=== PATIENT | female | born 1965 | race Caucasian/White ===

== ENCOUNTER 2019-07-06 09:00 | Outpatient (RCR) | payer OTHER, SELFPAY ==
--- NOTE | 2019-06-14 13:51 | PTOPEVAL ---
PHYSICAL THERAPY EVALUATION AND PLAN OF CARE Thank you for referring this patient to [facility]. Gladys will be seen in physical therapy 1x/week for 4 weeks for left hip pain. Please review, sign, date and return this plan of care TRA. I agree with and certify that the following plan of care is medically necessary. Referring Physician Date Attending Provider: Cruz Loya MD Evaluation Outpatient Past Medical History Musculoskeletal History Hx Joint Replacement Yes: left NOEMY; Hx Other Musculoskeletal Disorders Yes: left knee pain Other History Hx Cancer Yes: renal cell carcinoma, R kidney removed Evaluation Information Problem Diagnosis left hip pain; 4 years s/p left NOEMY Cause insidious Subjective Information Gladys is here today with Query Text:As Reported By Patient/ complaint of left hip pain Family diagnosed as bursitis. experiences pain with dressing , putting on socks/shoes. Would experience an intense pain when trying to raise the left leg up to put on pants. She had a cortisone injection and this eased some of the intensity of pain. when zapping occured, it would generally subside almost immediately with mild residual pain. Pain Assessment Left Hip(s) Reported Pain Level 0 Pain Description Shooting Pain Frequency Acute,Intermittent Current Pain Intensity 0 Greatest Pain Intensity 9 Pain Score Pain Score 0: Self Report Hip Strength Right Hip Flexion Strength 5 Normal Hip Extension Strength 4 Good Hip Abduction Strength 4 Good Hip Strength Comments single leg stand: 10seconds Left Hip Flexion Strength 4+ Good + Hip Extension Strength 3 Fair Hip Abduction Strength 3- Fair - Hip Strength Comments single leg stand: significnat corrective reactions at hip, hold [id number] Knee Strength Bilateral Knee Flexion Strength 5 Normal Knee Extension Strength 5 Normal Muscle Length Testing Piriformis w/Hip Flexion >90 Degrees (R) Moderate Tightness Palpation tender over ischial tuberosity and piriformis; mild glute med and max atrophy Gait Assessment Trendelenburg Gait Other Ga
--- NOTE | 2019-07-11 18:10 | PCPTNOTE ---
Patient called & cancelled scheduled appointment on 07/12/2019 as patient was released from PT by .
--- NOTE | 2019-07-11 18:10 | PCPTNOTE ---
PHYSICAL THERAPY DISCHARGE NOTE Attending Provider: Cruz Loya MD Patient:Gladys Todd Date of :1965 Gladys called to cancel her re-evaluation appointment as she was released from PT by . She will be discharged at this time. The goals have not been assessed.. Thank you for referring this patient to [facility]. Please review, sign, date and return this discharge summary TRA. I have been updated about the patient's current status and I agree with discharge from the above service at this time. Referring Physician Date
== END 2019-07-12 08:13 | disposition home or self-care (01) ==
LOC: ANHPT 09:00
PROVIDERS: PCP Internal Medicine; Visit Provider Orthopaedic Surgery
DX: M70.62 Trochanteric bursitis, left hip (principal); M25.552 Pain in left hip; Z96.642 Presence of left artificial hip joint
CPT/HCPCS: 97110; 97161

== ENCOUNTER 2020-07-16 08:56 | Outpatient (CLI) | payer OTHER, SELFPAY | END 2020-07-16 08:57 | disposition home or self-care (01) | LOC: ANHCOVIDVC 08:56 | PROVIDERS: PCP Internal Medicine | DX: Z23 Encounter for immunization (principal) | CPT/HCPCS: 0001A; 91300 ==

== ENCOUNTER 2020-08-06 08:57 | Outpatient (CLI) | payer OTHER, SELFPAY | END 2020-08-06 08:58 | LOC: ANHCOVIDVC 08:57 | PROVIDERS: PCP Internal Medicine | DX: Z23 Encounter for immunization (principal) | CPT/HCPCS: 0002A; 91300 ==

== ENCOUNTER 2022-02-05 01:17 | Day surgery (SDC) | payer OTHER, SELFPAY ==
[2022-01-18 14:16] VITALS: BMI 18.6
[2022-02-05 12:11] VITALS: BP 126/68; PULSE 79; RESP 20; TEMP 36.8; O2SAT 97
[2022-02-05] MEDS: LACTATED RINGERS 1,000 ML 150 ML IV CONT (12:45)
--- NOTE | 2022-02-05 12:53 | WPDANESEPPF ---
Anes - Initial Pre Proc Eval Procedure: Operation Date: 02/05/22 13:30 Proposed Procedures p Esophagogastroduodenoscopy & Screening Colonoscopy - Sean Granados MD Date/Time: 02/05/22 12:53 Surgeon: Sean Granados MD Pre Op Diagnosis: dysphagia, neoplasm screening, hx colon polyps Patient Data Age: 56 Gender: F Height: 1.7 m Weight: 52.9 kg Last Vital Signs Temp 98.3 F 02/05/22 12:11 Pulse 79 02/05/22 12:11 Resp 20 02/05/22 12:11 BP 126/68 02/05/22 12:11 Pulse Ox 97 02/05/22 12:11 O2 Del Method Room Air 02/05/22 12:11 Allergies Allergy/AdvReac Type Severity Reaction Status Date / Time No Known Allergies Allergy Verified 02/05/22 12:18 Home Medications Medication Instructions Recorded Confirmed Type albuterol sulfate 90 mcg/actuation 2 puff inhalation Q4H PRN 11/27/21 02/05/22 History aerosol inhaler (ProAir HFA) Shortness Of Breath alprazolam 1 mg tablet 1 mg PO TID PRN Anxiety 11/27/21 02/05/22 History atorvastatin 20 mg tablet 20 mg PO DAILY 11/27/21 02/05/22 History calcium carbonate 1,000 mg-vitamin 1 tablet PO DAILY 12/01/21 02/05/22 History D3 20 mcg (800 unit) tablet hydrocodone 7.5 mg-acetaminophen 1 tablet PO QHS PRN Pain 12/01/21 02/05/22 History 325 mg tablet Patient hx anesthesia problems: none Family hx anesthesia problems: none Results Review: All pre-operative results and documents have been reviewed as part of the pre-operative evaluation. [facility] Past Medical History Medical History Anxiety Asthma Atrial fibrillation Colon polyps Depressive disorder Dysphagia Greater trochanteric pain syndrome Malignant neoplasm of kidney Osteoarthritis Sarcoidosis Spinal stenosis of lumbar region Stricture of esophagus Tobacco dependence syndrome Vitamin D deficiency Surgical History Surgical History History of left hip replacement Family History Family History Mother Family history of malignant neoplasm of breast in first degree relative Other Cerebrovascular accident Family history of cardiovascular disease Social History Social History Smoking packs per day: 1 Smoking cigarettes per day: 20.0 Years smoked: 43 Smoking pack-years: 43.00 Smoking status: Current every day smoker Tobacco type: cigarettes Alcohol intake: current Drinks per week: 2 Alcohol use details: social Substance use: never Substance use type: does not use Living arrangements: with family Spiritual care concerns: No Anes - Eval Final PreProcedure Day of Procedure 02/05/22 12:53 Patient weight: normal Heart: regular rate and rhythm Lungs: clear to auscultation Airway: Mallampati scale class II Neurological: alert and oriented Last oral intake: >/= 8 hours ASA classification: II Emergent: no Anesthetic plan: proceed Anesthesia type and monitoring: general GIVS and standard monitoring Results Review: All pre-operative results and documents have been reviewed as part of the pre-operative evaluation. Informed Consent: The patient's anesthetic plan and its attendant risks and benefits were discussed with the patient/family/POA. Questions were solicited and answers provided to the satisfaction of the patient/family/POA.
--- NOTE | 2022-02-05 13:08 | PM.HPGS ---
History of Present Illness History of Present Illness Consent: Risks, benefits, and alternatives have been discussed and questions answered. Patient agrees to proceed with procedure. Chief complaint: dysphagia, neoplasm screening, hx colon polyps Narrative: Gladys Todd is a 56 year old female who is having a couple of issues.? She has chronic acid reflux disease.? Now she is also losing weight, having lost about 6 lb recently.? The weight loss she attributes to being very active and busy with work around the yd? she has had dysphagia from time to time for solid food.? About 15 years ago she required esophageal dilatation for a stricture and that procedure was done a couple of times but not since 2006.? She also subsequently developed renal cell carcinoma for which she had a nephrectomy of her right kidney.? Ever since then she has felt what she calls a gas pain in the lower chest upper abdomen.? Review of Systems Review of Systems: All systems reviewed & are unremarkable except as noted in HPI and below PMFSH Past Medical History Medical History Anxiety Asthma Atrial fibrillation Colon polyps Depressive disorder Dysphagia Greater trochanteric pain syndrome Malignant neoplasm of kidney Osteoarthritis Sarcoidosis Spinal stenosis of lumbar region Stricture of esophagus Tobacco dependence syndrome Vitamin D deficiency Surgical History Surgical History History of left hip replacement Family History Family History Mother Family history of malignant neoplasm of breast in first degree relative Other Cerebrovascular accident Family history of cardiovascular disease Social History Social History Smoking packs per day: 1 Smoking cigarettes per day: 20.0 Years smoked: 43 Smoking pack-years: 43.00 Smoking status: Current every day smoker Tobacco type: cigarettes Alcohol intake: current Drinks per week: 2 Alcohol use details: social Substance use: never Substance use type: does not use Living arrangements: with family Spiritual care concerns: No Meds Home Medications and Allergies Home Medications Medication Instructions Recorded Confirmed Type albuterol sulfate 90 mcg/actuation 2 puff inhalation Q4H PRN 11/27/21 02/05/22 History aerosol inhaler (ProAir HFA) Shortness Of Breath alprazolam 1 mg tablet 1 mg PO TID PRN Anxiety 07/22/22 09/30/22 History atorvastatin 20 mg tablet 20 mg PO DAILY 11/27/21 02/05/22 History calcium carbonate 1,000 mg-vitamin 1 tablet PO DAILY 12/01/21 02/05/22 History D3 20 mcg (800 unit) tablet hydrocodone 7.5 mg-acetaminophen 1 tablet PO QHS PRN Pain 12/01/21 02/05/22 History 325 mg tablet Allergies Allergy/AdvReac Type Severity Reaction Status Date / Time No Known Allergies Allergy Verified 02/05/22 12:18 Vital Signs Vital Signs - 24 hr 02/05/22 12:11 Temperature 36.8 C Pulse Rate 79 Respiratory Rate 20 Blood Pressure 126/68 Pulse Oximetry 97 Oxygen Delivery Room Air Exam Const: General: alert Orientation/consciousness: patient oriented x3 Resp: Auscultation: clear to auscultation bilaterally Cardio: Rhythm: regular rhythm GI: GI Palp: Yes Soft to palpation and No Tenderness to palpation present (GI) Neuro: General: patient oriented x3 Assessment and Plan Assessment and plan (1) Dysphagia: Code(s): R13.10 - Dysphagia, unspecified Status: Acute Assessment and Plan: EGD with possible biopsy or dilatation or cautery. (2) Colon cancer screening: Code(s): Z12.11 - Encounter for screening for malignant neoplasm of colon Status: Acute Assessment and Plan: Colonoscopy with possible biopsy or polypectomy or cautery or injection of substances.
--- NOTE | 2022-02-05 13:39 | SUR.OPER ---
EGD: [id number] COLON: [id number]
[2022-02-05 13:51] VITALS: BP 128/60; PULSE 85; RESP 20; O2SAT 100
[2022-02-05 14:01] VITALS: BP 127/90; PULSE 80; RESP 21; O2SAT 100
[2022-02-05 14:11] VITALS: BP 129/76; PULSE 75; RESP 23; O2SAT 100
== END 2022-02-05 14:31 | disposition home or self-care (01) ==
PROVIDERS: PCP Internal Medicine; Visit Provider Internal Medicine Gastroenterology
PROC: 0DJ08ZZ Inspection of Upper Intestinal Tract, Via Natural or Artificial Opening Endoscopic (ICD-10-PCS; CPT 43235; principal; 2022-02-05 13:30)
DX: Z12.11 Encounter for screening for malignant neoplasm of colon (principal); K21.00 Gastro-esophageal reflux disease with esophagitis, without bleeding; R10.13 Epigastric pain; K22.2 Esophageal obstruction; K29.70 Gastritis, unspecified, without bleeding; K29.80 Duodenitis without bleeding; F41.9 Anxiety disorder, unspecified; I48.91 Unspecified atrial fibrillation; F32.A Depression, unspecified; J45.909 Unspecified asthma, uncomplicated; M19.90 Unspecified osteoarthritis, unspecified site; D86.9 Sarcoidosis, unspecified; M48.061 Spinal stenosis, lumbar region without neurogenic claudication; E55.9 Vitamin D deficiency, unspecified; F17.210 Nicotine dependence, cigarettes, uncomplicated; Z90.5 Acquired absence of kidney; Z85.528 Personal history of other malignant neoplasm of kidney
CPT/HCPCS: 45378; 43239; 43249; 87081; 88305; C1726; J2704; J7120

== ENCOUNTER 2022-06-18 07:55 | Outpatient (CLI) | payer OTHER, SELFPAY ==
--- NOTE | 2022-06-18 12:06 | WPDSIXMINUTE ---
Six Minute Walk Procedure Procedure Performed Pulmonary Stress Test (6 min walk) Six Minute Walk Six Minute Walk: This is a 6 minute walk test. The test was performed and interpreted in accordance with the 2014 ERS/ATS task force guidelines. Findings: The patient's resting room air oxygen saturation measured by pulse oximetry was 94% and heart rate was 89 bpm. Patient ambulated for 427 meters and oxygen saturation remained 93 to 95%. Heart rate at the end of the study was 100 bpm. The patient did not qualify for supplemental oxygen at rest or with ambulation. There are no prior studies for comparison.
== END 2022-06-18 07:56 | disposition home or self-care (01) ==
LOC: ANHPFT 07:56
PROVIDERS: PCP Internal Medicine; Visit Provider Nurse Practitioner
DX: D86.9 Sarcoidosis, unspecified (principal)
CPT/HCPCS: 94618

== ENCOUNTER 2022-10-05 13:50 | Emergency (ER) | payer OTHER, SELFPAY ==
[2022-10-05] VITALS (11 sets, daily range): BP systolic 125–148; BP diastolic 72–90; PULSE 73–88; RESP 12–25; TEMP 36.4; O2SAT 97–99
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
--- NOTE | 2022-10-05 14:39 | ECG_ITS ---
Measurements Intervals [place] Rate: 69 P: 79 NC: 152 QRS: 15 QRSD: 82 T: 56 QT: 375 QTc: 404 Interpretive Statements SINUS RHYTHM POSSIBLE LEFT ATRIAL ENLARGEMENT DELAYED PRECORDIAL R/S TRANSITION BASELINE ARTIFACT- I, II, III, AVR, AVL, AVF BORDERLINE ECG NO PREVIOUS ECG AVAILABLE FOR COMPARISON Electronically Signed On 10-05-2022 15:39:52 CDT by Reg Lisa D.O.
[2022-10-05 14:57] LABS: Basophils Absolute Auto 0.1 K/mm3 (0.0-0.1); Basophils Percent Auto 0.4 % (0.2-1.2); Eosinophils Percent Auto 0.3 % (0-4.4); Hematocrit 38.8 % (37.0-47.0); Hemoglobin 13.2 g/dL (12.0-15.0); Immature Granulocyte Absolute 0.07 K/mm3 (0.00-0.031); Immature Granulocyte Percent A 0.5 % (0-0.5); Lymphocytes Absolute Auto 2.13 K/mm3 (0.9-3.2); Lymphocytes Percent Auto 15.1 % (18.3-44.2); Mean Corpuscular Hemoglobin 31.7 pg (26-34); Mean Corpuscular Volume 93.3 fl (80-100); Mean Platelet Volume 9.4 fl (7.4-10.4); Monocytes Absolute Auto 1.1 K/mm3 (0.1-0.6); Monocytes Percent Auto 7.5 % (2.6-8.5); Neutrophils Absolute Auto 10.7 K/mm3 (1.3-6.7); Neutrophils Percent Auto 76.2 % (45.5-73.1); Platelet Count Result 348 k/mm3 (150-375); Red Blood Count 4.16 M/mm3 (4.2-5.4); Red Cell Distribution Width 12.5 % (11.5-14.5); White Blood Count 14.1 K/mm3 (4.5-10.0)
[2022-10-05 15:07] LABS: Alanine Aminotransferase 26 U/L (6-35); Albumin Level 4.4 g/dL (3.5-5.1); Alkaline Phosphatase 78 U/L (38-126); Anion Gap 4 mmol/L (8-16); Aspartate Amino Transferase 33 U/L (14-36); Bilirubin,Total 0.5 mg/dL (0.2-1.3); Blood Urea Nitrogen 12 mg/dL (7-17); Calcium 9.1 mg/dL (8.4-10.2); Carbon Dioxide 29 mmol/L (22-30); Chloride 102 mmol/L (98-107); Estimated CRCL calculation 58 ml/min; Estimated Glomerular Filt Rate > 60; Glucose 125 mg/dL (65-110); Potassium 4.1 mmol/L (3.4-5.0); Sodium 135 mmol/L (137-145)
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
== END 2022-10-05 20:11 | disposition home or self-care (01) ==
PROVIDERS: Emergency Provider Emergency Medicine; PCP Internal Medicine
DX: S09.93XA Unspecified injury of face, initial encounter (principal); S40.211A Abrasion of right shoulder, initial encounter; M79.641 Pain in right hand; J45.909 Unspecified asthma, uncomplicated; I48.91 Unspecified atrial fibrillation; D86.9 Sarcoidosis, unspecified; M18.9 Osteoarthritis of first carpometacarpal joint, unspecified; M19.041 Primary osteoarthritis, right hand; E55.9 Vitamin D deficiency, unspecified; F41.9 Anxiety disorder, unspecified; F32.A Depression, unspecified; F17.210 Nicotine dependence, cigarettes, uncomplicated; Z96.642 Presence of left artificial hip joint; Z86.010 Personal history of colon polyps; Z85.528 Personal history of other malignant neoplasm of kidney; R94.31 Abnormal electrocardiogram [ECG] [EKG]; R91.1 Solitary pulmonary nodule; V86.55XA Driver of 3- or 4- wheeled all-terrain vehicle (ATV) injured in nontraffic accident, initial encounter
CPT/HCPCS: 36415; 70450; 70486; 72125; 73130; 80053; 85025; 93005; 99284

== ENCOUNTER 2022-12-15 08:02 | Outpatient (CLI) | payer OTHER, SELFPAY ==
--- NOTE | 2022-12-17 12:29 | P.PCNPFT_ITS ---
PFT Procedure Performed PFT Procedure Performed Spirometry with Pre/Post Bronchodilator Plethysmography (Lung Vol) Diffusing Cap (DLCO) Flow Vol Loop PFT Interpretation DOS: 12/15/2022 REQUESTING: Lissette Diaz [facility] REASON FOR TESTING: COPD PULMONARY FUNCTION TESTS Results are reliable and reproducible. Spirometry: FEV1 is 1.01L, 36%, severely decreased. FVC is 2.50 L, mildly decreased. FEV1/FVC ratio is 41%, below normal, consistent with airflow obstruction. After bronchodilator, there os a 25% increase in FEV1 which is 1.27 L, 45% predicted, and there is a 22% increase in FVC, 3.05 L, now normal. THe FVC is now 85% and the FEV1 is 45%. The ration after bronchodilator is 42%. Lung volumes: TLC 6.84 L, 125%, mild hyperinflation. RV is 4.34 L, 207%, severely increased, severe air trapping. RV/TLC is 63%, severe air trapping. Diffusion: DLCO is 10.7, 47%, moderate diffusion defect. DLCO/VA is 2.68, 68%, mild diffusion impairment. Flow volume loop: Severe scooping of hte expiratory limb. IMPRESSION: Extremely severe obstructive ventilatory impairment with robust response to bronchodilator, mild hyperinflation, sevree air trapping, moderate diffusion impaimrent with partial correction for alveolar volume. No prior study to compare. Tammy Rojas MD
== END 2022-12-15 08:03 | disposition home or self-care (01) ==
LOC: ANHPFT 08:02
PROVIDERS: PCP Internal Medicine; Visit Provider Nurse Practitioner
DX: J44.9 Chronic obstructive pulmonary disease, unspecified (principal); R94.2 Abnormal results of pulmonary function studies
CPT/HCPCS: 94060; 94726; 94729

== ENCOUNTER 2023-04-09 09:44 | Outpatient (CLI) | payer OTHER, SELFPAY ==
--- NOTE | ~2023-04-09 | MR_ITS ---
MRI of the lumbar spine Clinical History: Sciatica Technique: Axial T2-weighted images, and sagittal T1-weighted, T2-weighted, and and T2 fat-sat images were acquired. Findings: No fracture identified. There is 3 mm retrolisthesis of L5 over S1. No suspicious bone brigid ow signal abnormality seen. At L1-L2, there is no disc bulge or herniation. There is minimal facet joint degenerative change. No spinal canal stenosis or neural foraminal narrowing. At L2-L3, there is no disc bulge or herniation. There is minimal facet joint hypertrophy. No spinal c anal stenosis or neural foraminal narrowing. At L3-L4, there is minimal disc bulge with mild to moderate facet arthropathy. No central canal steno sis or neural foraminal narrowing. At L4-L5, there is minimal disc bulge with mild facet arthropathy. No central canal stenosis or neura l foraminal narrowing. At L5-S1, there is a small central disc extrusion, with mild facet arthropathy. No central canal sten osis. There is severe bilateral neural foraminal narrowing, left worse than right. Paravertebral soft tissues are unremarkable. Impression: Moderate degenerative spondylosis at L5-S1, with associated very small central disc extrusion. Please see details above. Minimal degenerative change in the remainder of the lumbar spine, as above. Reviewed, dictated and finalized at [facility]. ERY HOST Impression: Moderate degenerative spondylosis at L5-S1, with associated very small central disc extrusion. Please see details above. Minimal degenerative change in the remainder of the lumbar spine, as above.
== END 2023-04-09 09:45 | disposition home or self-care (01) ==
LOC: ANHIMG 09:46
PROVIDERS: PCP Internal Medicine; Visit Provider Orthopaedic Surgery
DX: M47.897 Other spondylosis, lumbosacral region (principal); M51.36 Other intervertebral disc degeneration, lumbar region
CPT/HCPCS: 72148

== ENCOUNTER 2023-09-01 13:28 | Outpatient (CLI) | payer OTHER, SELFPAY ==
--- NOTE | ~2023-09-01 | XR_ITS ---
EXAMINATION: XR lg joint inject/asp w image DATE: 09/01/2023 14:30 INDICATION: Right frozen shoulder TECHNIQUE: A time-out was performed to verify the patient's name, date of , and procedure to b e performed. The procedure including the risks, benefits, and alternatives was discussed with the pat ient. Risks discussed included bleeding and infection. The patient understood the risks and agreed to proceed. The skin overlying the rotator cuff interval of the right glenohumeral joint was prepped a nd draped in usual sterile fashion. Anesthetic was administered with 1% lidocaine subcutaneously. A 22 G needle was advanced under fluoroscopic guidance into the joint. Injection of 1 mL of Omnipaque 240 confirmed intra-articular position of the needle. Subsequently, injectate consisting of 6 mm a 5 1 mixture of 1% lidocaine: 80 mg/mL Depo-Medrol for a total dosage of 80 mg Depo-Medrol was instill ed. Washout of contrast was seen confirming intra-articular administration. The needle was removed an d the entry site was cleaned and dressed. There were no immediate complications. Fluoroscopy exposur e time was 0.1 minutes. The total number of images was 2. FINDINGS: Real-time fluoroscopy demonstrates the needle in the right glenohumeral joint. Patient's pa in prior to procedure:7/10. Patient's pain following the procedure: 0/10. IMPRESSION: 1. Successful right glenohumeral joint injection of local anesthetic and steroid with decrease in the patient's presenting pain. Reviewed, dictated and finalized at location A. IMPRESSION: 1. Successful right glenohumeral joint injection of local anesthetic and steroi d with decrease in the patient's presenting pain.
== END 2023-09-01 13:29 | disposition home or self-care (01) ==
PROVIDERS: PCP Internal Medicine; Visit Provider Orthopaedic Surgery
DX: M75.01 Adhesive capsulitis of right shoulder (principal)
CPT/HCPCS: 20610; 77002; Q9966

== ENCOUNTER 2023-09-13 08:42 | Outpatient (CLI) | payer OTHER, SELFPAY ==
--- NOTE | ~2023-09-13 | MR_ITS ---
EXAMINATION: MR cervical spine wo con DATE: 09/13/2023 10:07 INDICATION: Unspecified injury at unspecified level. Neck and right shoulder pain. Cervical spondylos is. TECHNIQUE: Magnetic resonance imaging (MRI) of the cervical spine was performed without intravenous c ontrast. COMPARISON: Cervical spine MRI 03/27/2014 FINDINGS: There is a degrees dextrocurvature of cervical spine. There is 2 mm retrolisthesis of C4 on C5, C5 on C6, and C6 on C7. There is mild chronic anterior wedging of T2-T5 vertebral bodies. There is moderately decreased disc height at C4-C5 and severely decreased disc height at C5-C6 and C6-C7. T he spinal cord signal intensity is normal. There are nodules in the thyroid measuring up to 1.8 cm. T he following disc levels are specifically discussed: C2-C3: The disc does not extend beyond the endplate margin. There is no uncovertebral joint osteoarth ritis. There is severe bilateral facet joint osteoarthritis. There is mild left neural foraminal sten osis. There is no central canal stenosis. C3-C4: The disc does not extend beyond the endplate margin. There is no uncovertebral joint osteoarth ritis. There is severe bilateral facet joint osteoarthritis. There is mild bilateral neural foraminal stenosis. There is no central canal stenosis. C4-C5: The disc is bulging. There is severe bilateral uncovertebral joint osteoarthritis. There is mo derate right and severe left facet joint osteoarthritis. There is moderate bilateral neural foraminal stenosis. There is mild central canal stenosis with ventral indentation of the spinal cord. C5-C6: The disc is bulging. There is severe bilateral uncovertebral joint osteoarthritis. There is se angella bilateral facet joint osteoarthritis. There is moderate bilateral neural foraminal stenosis. The re is mild central canal stenosis with potential indentation of the spinal cord. C6-C7: The disc is bulging. There is severe bilateral uncovertebral joint osteoarthritis. There is se angella bilateral facet joint osteoarthritis. There is mild lateral neural foraminal stenosis. There is mild central canal stenosis. C7-T1: The disc does not extend beyond the endplate margin. There is no uncovertebral joint osteoarth ritis. There is severe bilateral facet joint osteoarthritis. There is mild bilateral neural foraminal stenosis. There is no central canal stenosis. IMPRESSION: 1. Severe cervical spondylosis, worsened from 03/27/2014. Reviewed, dictated and finalized at location A.
== END 2023-09-13 08:43 | disposition home or self-care (01) ==
PROVIDERS: PCP Internal Medicine; Visit Provider Neurological Surgery
DX: S14.109A Unspecified injury at unspecified level of cervical spinal cord, initial encounter (principal); M47.812 Spondylosis without myelopathy or radiculopathy, cervical region; X58.XXXA Exposure to other specified factors, initial encounter
CPT/HCPCS: 72141

== ENCOUNTER 2023-09-22 07:33 | Outpatient (CLI) | payer OTHER, SELFPAY ==
--- NOTE | ~2023-09-22 | US_ITS ---
EXAMINATION: US thyroid DATE: 09/22/2023 08:27 INDICATION: Thyroid nodule. TECHNIQUE: Multiple ultrasound images of the thyroid were obtained. COMPARISON: None. FINDINGS: The right thyroid lobe measures 4.8 x 2.2 x 2.3 cm. The left thyroid lobe measures 4.6 x 1.7 x 1.6 c m. In the right thyroid lobe, there is a 2.6 cm mixed cystic and solid, hypoechoic, wider than tall nodule with lobular margins without echogenic foci (TI-RADS TR4). In the right thyroid lobe, there is a 16 mm mixed cystic and solid, hypoechoic, taller than wide nodule with smooth margins without echo genic foci (TR4). In the right thyroid isthmus, there is a 2.1 cm solid, hypoechoic, wider than tall nodule with ill-defined margin without echogenic foci (TR4). There are multiple subcentimeter nodules in the thyroid. IMPRESSION: 1. Multinodular goiter. By report, the patient has a history of negative outside biopsies. Correlate with outside imaging and biopsy history to determine management. Reviewed, dictated and finalized at location E. IMPRESSION: 1. Multinodular goiter. By report, the patient has a history of negative outsid e biopsies. Correlate with outside imaging and biopsy history to determine parker gement.
== END 2023-09-22 07:34 | disposition home or self-care (01) ==
PROVIDERS: PCP Internal Medicine; Visit Provider Internal Medicine Endocrinology, Diabetes & Metabolism
DX: E04.2 Nontoxic multinodular goiter (principal)
CPT/HCPCS: 76536

== ENCOUNTER 2023-10-06 08:30 | Outpatient (RCR) | payer OTHER, SELFPAY ==
--- NOTE | 2023-09-08 10:08 | PTOPEVAL1 ---
Assessment and note entered by Rene Damico Evaluation Information Assessment Status Evaluation Diagnosis right shoulder adhesive capsulitis Onset 04/08/23 Subjective Information Pt. reports that she woke with shoulder pain back in April. No incident. She reports that the pain had gradually worsened, however received a cortisone injection last week, which has help to ease her pain. She reports that she is right hand dominant. She reports that pain has decreased tremendously, however she is still stiff with reaching behind the back and overhead. She reports that she has not had trouble with sleeping since the injection, but was having trouble prior to the injection. She states that her current limitations are in ROM at this time. 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 She reports that her goal for therapy is to improve her shoulder mobility. Reported Pain Level Pain Score 1: Self Report Assessment PT Clinical Summary Pt. is a 57 year old female who enters the clinic with right shoulder adhesive capsulitis. Currently pt. presents with right shoulder pain, impaired right shoulder ROM, impaired right shoulder strength and functional decline. Continued skilled PT is indicated in order to improve these areas to allow the pt. to be able to complete job related duties and IADL's with improved comfort. Plan of Care Interventions Electrical Stimulation,Hot Pack/Cold Pack,Manual Therapy,Neuro Re-education,Patient/Caregiver Educati,Therapeutic Activities,Therapeutic Exercise PT Services Indicated Yes Treatment Frequency and 2x/week x 8 visits Duration These treatments will address the objective and functional deficits as defined above. The patient will be advanced safely and appropriately in order for the patient to progress towards his/her prior level of function. Additional exercises will be introduced and as well as a comprehensive home exercise program upon discharge, if needed, ?to ensure carryover of functional gains achieved in the clinic. This treatment plan has been reviewed and agreement upon by the patient.
--- NOTE | 2023-09-08 10:09 | OPREHPOC ---
Outpatient Therapy Plan of Care This is a Multidisciplinary Plan of Care that may contain components documented by all disciplines (PT, OT, and ST.) PT Problem 1 PT Problem #1 Knowledge Deficit PT Goal 1 Goal Independent with a HEP addressing ROM jehovah's witness and strength Target Visit 2 PT Problem 2 PT Problem #2 Pain PT Goal 1 Goal Pt. will report pain levels at 2/10 at worst with all overhead activities. Target Visit 8 PT Problem 3 PT Problem #3 Impaired Range of Motion PT Goal 1 Goal Pt. will demonstrate 160 degrees active right shoulder flexion Pt. will be able to reach to the upper thoracic region with the right u.e. with combined flexion and ER Target Visit 8 PT Problem 4 PT Problem #4 Impaired Strength PT Goal 1 Goal Pt. will present with 5/5 gross right shoulder strength. Target Visit 8 PT Problem 5 PT Problem #5 Impaired Functional Mobil PT Goal 1 Goal Pt. will present with less than 10% limitation with the Quick DASH. Target Visit 8
--- NOTE | 2023-09-08 10:15 | OPREHPOC ---
Outpatient Therapy Plan of Care This is a Multidisciplinary Plan of Care that may contain components documented by all disciplines (PT, OT, and ST.) PT Problem 1 PT Problem #1 Knowledge Deficit PT Goal 1 Goal Independent with a HEP addressing ROM taoism and strength Target Visit 2 PT Problem 2 PT Problem #2 Pain PT Goal 1 Goal Pt. will report pain levels at 2/10 at worst with all overhead activities. Target Visit 8 PT Problem 3 PT Problem #3 Impaired Range of Motion PT Goal 1 Goal Pt. will demonstrate 160 degrees active right shoulder flexion Pt. will be able to reach to the upper thoracic region with the right u.e. with combined flexion and ER Target Visit 8 PT Problem 4 PT Problem #4 Impaired Strength PT Goal 1 Goal Pt. will present with 5/5 gross right shoulder strength. Target Visit 8 PT Problem 5 PT Problem #5 Impaired Functional Mobil PT Goal 1 Goal Pt. will present with less than 10% limitation with the Quick DASH. Target Visit 8
--- NOTE | 2023-10-04 07:46 | PCPTNOTE ---
Cancelled this date, reason unknown. AKS
--- NOTE | 2023-10-06 09:24 | PTOPDC ---
Assessment and note entered by Rene Damico Evaluation Information Assessment Status Discharge Diagnosis right shoulder adhesive capsulitis Onset 04/08/23 Subjective Information Pt. reports that her mobility is definitely improved. She reports that she still get twinges of pain, but for the most part is pain free. She is completing all work related duties without limitation. She states that she is ready for discharge at this time Reported Pain Level Pain Score 0: Self Report Assessment PT Clinical Summary Pt. has met the majority of goals established at the initial evaluation. Pain reports are minimal and she is completing all work related duties without limitation. At this time recommend pt. continue with her HEP and will be discharged from our care at this time. Plan of Care PT Services Indicated No
== END 2023-10-06 10:07 | disposition home or self-care (01) ==
LOC: ANHPT 08:30
PROVIDERS: PCP Internal Medicine; Visit Provider Orthopaedic Surgery
DX: M75.01 Adhesive capsulitis of right shoulder (principal)
CPT/HCPCS: 97014; 97110; 97140; 97161; 97530; G0283

== ENCOUNTER 2024-01-30 13:47 | Outpatient (CLI) | payer OTHER, SELFPAY ==
--- NOTE | ~2024-01-30 | XR_ITS ---
EXAMINATION: XR lg joint inject/asp w image DATE: 01/30/2024 14:18 INDICATION: Unilateral primary osteoarthritis, right hip. TECHNIQUE: A time-out was performed to verify the patient's name, date of , and procedure to b e performed. The procedure including the risks, benefits, and alternatives was discussed with the pat ient. Risks discussed included bleeding and infection. The patient understood the risks and agreed to proceed. The skin overlying the right hip joint was prepped and draped in usual sterile fashion. A nesthetic was administered with 1% lidocaine subcutaneously. A 22 G needle was advanced under fluoro scopic guidance into the joint. Subsequently, injectate consisting of 4 mL 0.5% bupivacaine and 1 mL 80 mg/mL Depo-Medrol was instilled. The needle was removed and the entry site was cleaned and dress ed. There were no immediate complications. Fluoroscopy exposure time was 0.1 minutes. The total numb er of images was 1. FINDINGS: Real-time fluoroscopy demonstrates the needle in the right hip joint. Patient's pain prior to procedure:09/15. Patient's pain following the procedure: 05/18. IMPRESSION: 1. Fluoroscopy guided right hip joint injection of local anesthetic and steroid with decrease in the patient's presenting pain. Reviewed, dictated and finalized at location A.
== END 2024-01-30 13:48 | disposition home or self-care (01) ==
PROVIDERS: PCP Internal Medicine; Visit Provider Orthopaedic Surgery
DX: M16.11 Unilateral primary osteoarthritis, right hip (principal)
CPT/HCPCS: 20610; 77002; Q9966

== ENCOUNTER 2024-03-01 08:00 | Outpatient (RCR) | payer OTHER, SELFPAY ==
--- NOTE | 2024-02-02 13:31 | OPREHPOC ---
Outpatient Therapy Plan of Care This is a Multidisciplinary Plan of Care that may contain components documented by all disciplines (PT, OT, and ST.) PT Problem 1 PT Problem #1 Knowledge Deficit PT Goal 1 Goal / Goal Update *indep with HEP Target Visit 4 PT Problem 2 PT Problem #2 Pain PT Goal 1 Goal / Goal Update 1* pain rating at worst of 8/10 in neck 2* Neck Disability Index rating of 68% limitation in activity Target Visit 4 PT Problem 3 PT Problem #3 Impaired Range of Motion PT Goal 1 Goal / Goal Update increase cervical and shoulder ROM to improve home and work task ability 1* cervical rotation to R 40' 2* cervical rotation to L 30' 3* R shoulder flexion 120' without an increase in pain 4* L shoulder flexion 120' withou garcia increase in pain Target Visit 4
--- NOTE | 2024-02-02 13:31 | PTOPEVAL1 ---
Assessment and note entered by Ana Cristina Callahan, PT Evaluation Information ICD-10 Condition Codes (PT) Cervicalgia M54.2,Pain in low back M54.50 Onset about 3 years ago Subjective Information have chronic pain in neck and back; about 3 years ago started getting worse; have had PT in the past for her neck, over 2 years ago-- have a home stim unit, home neck traction unit, stretching exercises; under care of pain management; sent to PT and may need nerve ablation; is going through Social Security to get medical disability; MRI of neck--showed changes at all levels per pt; feels like her back is mainly due to her hip OA-- to have THR on R; have had L THR in past. 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 She reports neck is more pain and wants to start on neck treatment. Self assessment with Neck Disability Index rating of 76% limitation in activity level. At this time, she has shoulder pain, but not any radicular pain into arms. And headaches every night. X ray and MRI report changes. 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 With the evaluation, she has decreased cervical and bilateral shoulder ROM with pain increase with cervical rotation to R an
--- NOTE | 2024-03-01 09:03 | PTOPDC ---
Assessment and note entered by Cassius Reynaga, PT Evaluation Information Assessment Status Discharge ICD-10 Condition Codes (PT) Cervicalgia M54.2,Pain in low back M54.50 Onset about 3 years ago Subjective Information Patient reports that majority of her pain has been in the neck over this time. States that she has a hip replacement scheduled for May of 2024. 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 She is still having a lot of trouble sleeping due to pain and discomfort. Plans to follow up with MD to proceed with nerve block. Reported Pain Level Pain Score 4: Self Report Assessment PT Clinical Summary Patient continues to show substantial limitation in cervical ROM at this time. Shoulder activation triggers cervical pain and ROM limited in multiple directions. At this point patient appears to be a candidate for continued medical intervention per MD plan. Will be discharged at this time to HEP to progress periscapular strength and postural training. Plan of Care PT Services Indicated No
== END 2024-03-01 10:30 | disposition home or self-care (01) ==
LOC: ANHPT 08:00
PROVIDERS: PCP Internal Medicine; Visit Provider Anesthesiology Pain Medicine
DX: M47.812 Spondylosis without myelopathy or radiculopathy, cervical region (principal); M54.2 Cervicalgia; M48.02 Spinal stenosis, cervical region; M54.50 Low back pain, unspecified; G89.29 Other chronic pain; M48.07 Spinal stenosis, lumbosacral region
CPT/HCPCS: 97110; 97113; 97140; 97161; 97530

== ENCOUNTER 2024-06-26 06:31 | Day surgery (SDC) | payer OTHER, SELFPAY ==
[2024-06-05 13:56] VITALS: BMI 21.3
--- NOTE | ~2024-06-26 | XR_ITS ---
XR fluoroscopy no charge Indication: Bilateral C2-3, C3-4 medial branch block TECHNIQUE: Fluoroscopy used during Bilateral C2-3, C3-4 medial branch block performed by [Everardo Pop MD] on 06/26/2024. 28 seconds with 27 fluoroscopic images captured . FINDINGS: Correlate with procedure note. IMPRESSION: Fluoroscopy used during Bilateral C2-3, C3-4 medial branch block. Reviewed, dictated and finalized at location B. [facility]
--- NOTE | 2024-06-26 05:19 | P.HP_ITS ---
History of Present Illness History of Present Illness Consent: Risks, benefits, and alternatives have been discussed and questions answered. Patient agrees to proceed with procedure. Chief complaint: cervical spondylosis, chronic neck pain Narrative: Gladys Todd is a 58 year old female with chronic, recalcitrant and disabling bilateral upper segment cervicalgia secondary to degenerative spondylosis with failure to respond to aggressive conservative measures including PT, oral and topical analgesics, opioid and nonopioid analgesics, rest, time and activity/behavioral modification over the past 1-2 years who presents for diagnostic/prognostic medial branch blocks of the bilateral C2-3, C3, C4 medial branches(#1) addressing the bilateral C2-3, C3-4 facet joints under fluoroscopic guidance and with contrast control. Review of Systems Review of Systems: Patient denies any new infectious, allergic, cardiopulmonary, neurologic or constitutional symptoms or changes in activity tolerance or exercise capacity including new or progressive SOB/RETANA, peripheral edema, productive cough, dysuria, nausea/vomiting, diarrhea, weight change, fevers/chills/night sweats, new or progressive neurologic deficit, cognitive or mood changes since last seen, except as documented in the HPI. All systems reviewed & are unremarkable except as noted in HPI and below PMFSH Past Medical History Medical History Spinal stenosis of lumbar region Colon polyps Osteoarthritis Sarcoidosis Tobacco dependence syndrome Greater trochanteric pain syndrome Stricture of esophagus Atrial fibrillation Malignant neoplasm of kidney Dysphagia Depressive disorder Anxiety Asthma Vitamin D deficiency Surgical History Surgical History History of nephrectomy, right History of left hip replacement Family History Family History Mother Breast cancer Grandparent Throat cancer Breast cancer Other Cerebrovascular accident Family history of cardiovascular disease Social History Social History (Updated 05/21/24 @ 14:14 by Samina Horne CMA) Years smoked: 43 Smoking status: Former smoker Tobacco type: cigarettes Second hand tobacco smoke exposure: Yes Smoking end date: 05/08/24 Alcohol intake: current Drinks per week: 2 Alcohol use details: social Substance use: never Substance use type: does not use Do You Feel Safe in your Home?: Yes Lack of Transportation: No Lack of Food: Never True Current Housing: I Have Housing Concerned About Future Housing: Decline to Answer Difficulty Paying Gas/Electric Bills: Decline to Answer Difficulty Paying for Meds: Decline to Answer Currently Unemployed: Decline to Answer Education: Decline to Answer Difficulty w/ Childcare or Family Care: Decline to Answer Living arrangements: with family Occupation/Education: occupation Additional occupation/education comments: [employer] Gender identity (if verbalized by the patient): Female Spiritual care concerns: No Meds Home Medications and Allergies Home Medications ?Medication ?Instructions ?Recorded ?Confirmed ?Type albuterol sulfate 90 mcg/actuation 2 puff inhalation Q4H PRN 11/27/21 06/05/24 History aerosol inhaler (ProAir HFA) Shortness Of Breath alprazolam 1 mg tablet 1 mg PO TID PRN Anxiety 11/27/21 06/05/24 History atorvastatin 20 mg tablet 20 mg PO DAILY 11/27/21 06/05/24 History hydrocodone 7.5 mg-acetaminophen 1 tablet PO QHS PRN Pain 12/01/21 06/05/24 History 325 mg tablet budesonide 160 mcg-glycopyr 9 2 inh inhalation BID 02/28/23 06/05/24 History mcg-formot 4.8 mcg/actuation HFA inhaler (Breztri Aerosphere) pantoprazole 40 mg tablet,delayed 40 mg PO QAM #90 tabs 05/13/23 06/05/24 Rx release (Protonix) ascorbic acid (vitamin C) 100 mg 100 mg PO DAILY 08/16/23 06/05/24 History tablet aspirin 81 mg chewable tablet 81 mg PO DAILY 08/16/23 06/05/24 History cholecalciferol (vitamin D3) 125 125 mcg PO .qod 08/16/23 06/05/24 History mcg (5,000 unit) disintegrating tablet losartan 25 mg tablet 25 mg PO DAILY 08/16/23 06/05/24 History alendronate 70 mg tablet (Fosamax) 70 mg PO WEEKLY 90 days #13 tabs 02/15/24 06/05/24 Rx roflumilast 500 mcg tablet 500 mcg PO DAILY 05/21/24 06/05/24 History Allergies Allergy/AdvReac Type Severity Reaction Status Date / Time No Known Allergies Allergy Verified 06/05/24 14:11 Exam Narrative: The patient's physical exam is essentially unchanged from prior examination on 04/09/2024. Specifically, patient demonstrates normal lung capacity, tidal volume and respiratory rate without wheezes, crackles, rales or rubs. Heart rate and rhythm are regular without murmurs, gallops or rubs. No JVD. Pulses 2+ globally without increasing peripheral edema. AAOx3 with no evidence of confusion, intoxication or altered mental state, NC/AT without acute distress or altered consciousness. Speech, cognition, mood, insight and judgment at baseline and within normal limits. Assessment and Plan Assessment and plan (1) Cervical spondylosis: Code(s): M47.812 - Spondylosis without myelopathy or radiculopathy, cervical region Status: Acute Assessment and Plan: proceed as planned with diagnostic/prognostic medial branch blocks of the padmini ateral C2-3, C3, C4 medial branches(#1) addressing the bilateral C2-3, C3-4 facet joints under fluoroscopic guidance and with contrast control. (2) Neck pain: Code(s): M54.2 - Cervicalgia Status: Acute (3) Chronic pain: Code(s): G89.29 - Other chronic pain Status: Acute
--- NOTE | 2024-06-26 05:22 | WPDHPUPDATE1 ---
History and Physical Update Update Date/Time: 06/26/24 05:22 History and Physical has been reviewed, including an updated exam of the patient. There are NO changes in the patient's condition. Risks, benefits, and alternatives have been discussed and questions answered. Patient agrees to proceed with procedure.
--- NOTE | 2024-06-26 05:23 | W.PM.PROC2 ---
Procedure Note - Detailed Date of Procedure 06/26/24 Pre-op Diagnosis cervical spondylosis, chronic neck pain Post-op Diagnosis Same Procedure Performed Diagnostic bilateral Cervical Medial Branch Blocks at C2-3, C3, C4 Blocking the bilateral C2-3, C3-4 Facet Joints Under Fluoroscopic Guidance and with Contrast Control ( 4 levels blocked). Surgeon Everardo Pop MD Director Of Institutional Research None. Anesthesia Local Description of Procedure INFORMED CONSENT: Risks, benefits and alternatives to the procedure were discussed in detail with the patient who expressed explicit understanding and consent to proceed. Patient was informed verbally and in written form regarding the risks associated with the procedure including the low risk of serious infection, bleeding/bruising, allergic reaction, nerve or organ injury, paralysis, procedural site pain or discomfort, worsening pain and/or mobility, failure to treat and/or disfigurement. The patient expressed explicit understanding and consent to proceed. All materials required for the procedure were available prior to procedure start. Site and side was marked prior to procedure and confirmed in the presence of the patient. PROCEDURE IN DETAIL: The patient was brought to the procedural suite and placed in the left lateral decubitus position with head stabilized. Patient was made comfortable with use of pillows under the head and between the knees and ankles. Skin overlying the injection site on the affected side was prepared broadly with tinted 3ml ChloraPrep applicator and draped in a sterile manner. Aseptic technique was used throughout. The endplates of the vertebral bodies at the site(s) of interest were aligned in the lateral fluoroscopic view relative to the patient. Image was optimized for visualization of the pars interarticularis at each target site. Local anesthesia was established by infiltration with approximately 5 mL of 1% lidocaine via a 1-1/2 inch 27- gauge needle. A 25-gauge 3.5 inch Quincke spinal needle was advanced until the needle tip contacted the periosteum of the pars interarticularis at the target site, the right C2-3 medial branch. AP view was utilized to confirm the appropriate placement of the needle tip just lateral to the periosteum at the center point of the pars interarticularis. In the lateral view, 0.25 mL of Omnipaque 300 contrast medium was injected after negative aspiration for CSF, blood or other bodily fluid, showing appropriate extra-articular spread of contrast without evidence of intravascular, foraminal or intrathecal placement. A 0.25 mL solution of 0.5% PF bupivacaine was injected after negative repeat aspiration. Appropriate spread of the injectate was confirmed with washout of previously injected contrast. No parasthesias were elicited. Needle was removed completely intact without difficulty. The same procedure was repeated for all additional intended levels/structures treated on the ipsilateral side, the right C3, C4 medial branches with identical methodology modified to compensate for different location, with similar results and no evidence of complication. The same procedure was then repeated for all additional intended levels/structures treated on the contralateral side, the left C2-3, C3, C4 medial branches, with identical methodology and positioning modified to compensate for the contralateral location, with similar results and no evidence of complication. Images were saved and documented in the patient chart. Patient's skin was cleaned and sterile bandage applied. The patient tolerated the procedure well. The patient was transported to the recovery area in stable condition where they were observed for an appropriate amount of time prior to discharge, without evidence of complication. Patient was instructed on the appropriate completion of a pain diary over the next 12-24 hours. The patient was instructed to avoid excessive activity for the next 48 hours, including climbing and frequent use of stairs. Showers only for 48 hours. They were instructed not to drive or operate heavy machinery for 24 hours. They are to monitor for severe headaches, fevers, chills, night sweats, erythema/swelling at the site or any other signs of infection, bleeding/bruising, bowel or bladder changes as well as new pain, weakness or numbness in the upper or lower extremity. Should they notice these changes, they are instructed to call our office immediately or report directly to the nearest Emergency Department if no answer or if after posted office hours. COMPLICATIONS: None. COMMENTS: None. CONTRAST WASTED: 28.5mL Omnipaque 300. Complications No immediate complications Condition Stable Disposition Same day [facility] Billing Surgery - Charge Forward: Surgery Billing
--- OUTSIDE RECORDS SUMMARY | 2024-06-26 06:54 | XMS_ITS | Clinical Summary ---
Author Organization [facility] Address [address] [place] [address] Care Team Providers Care Museum Registrar Name Role Phone Christopher Carrillo MD Primary Care Provider Allergies No known active allergies Medications multivit,dalton,mn- gugfy-L8-euncz (One A Day Men Complete) 240-25-300 mcg tablet Active albuterol 0.63 mg/3 mL nebulizer solution Take 3 mL (0.63 mg total) by nebulization every 4 (four) hours as needed Active alendronate (FOSAMAX) 70 mg tablet Take 1 tablet (70 mg total) by mouth every 7 days Active ALPRAZolam (XANAX) 1 mg tablet Take 1 tablet (1 mg total) by mouth 3 (three) times a day 01/26/20 17 Active ascorbic acid (VITAMIN C) 1,000 mg tablet Take 1 tablet (1,000 mg total) by mouth daily Active aspirin 81 mg enteric coated tablet Take 1 tablet (81 mg total) by mouth daily Active atorvastatin (LIPITOR) 20 mg tablet Take 1 tablet (20 mg total) by mouth daily 01/25/20 17 Active azithromycin (ZITHROMAX) 250 mg tablet Take 1 tablet (250 mg total) by mouth 3 (three) times a week Active cyanocobalamin (Vitamin B-12) 1,000 mcg tablet Take 1 tablet (1,000 mcg total) by mouth daily Active HYDROcodone-acet aminophen (NORCO) 7.5-325 mg per tablet Take 1 tablet by mouth every 4 (four) hours as needed for pain 11/12/19 15 Active losartan (COZAAR) 25 mg tablet Take 1 tablet (25 mg total) by mouth daily Active budesonide-glyco pyr-formoterol (BREZTRI) 160-9-4.8 mcg/actuation inhaler Inhale 2 puffs 2 (two) times a day 1 each 10/31/19 24 Active albuterol HFA (ProAir HFA) 90 mcg/actuation inhaler Inhale 2 puffs every 4 (four) hours as needed for wheezing 8.5 g 11 04/24/20 24 025 Active roflumilast (DALIRESP) 500 mcg tabletIndication s:Prevention of Bronchospasm with Chronic Bronchitis Take 1 tablet (500 mcg total) by mouth daily 30 tablet 11 06/06/19 25 025 Active roflumilast (DALIRESP) 500 mcg tablet TAKE 1 TABLET(500 MCG) BY MOUTH DAILY 30 tablet 3 05/14/19 25 025 Discontin ued(Patie nt Reported) Active Problems No known active problems Encounters Date Type Department Care Team Description 06/06/[address] [facility] Pulmonary at [address] [place] [phone] Angella Bonilla LPN rf Daliresp 04/23/2024 11:30 AM COPY CHIEF Office Visit [facility] Pulmonary at [address] [place] [phone] Ge Hall MD Asthma-COPD overlap syndrome (HCC) (Primary Dx); Nicotine dependence, cigarettes, uncomplicated; Sarcoidosis; Mitral annular calcification 04/19/[address] [facility] Pulmonary at [address] [place] [phone] Lashon Marie MA Med Management (ProAir Respiclick Inhaler) from Last 3 Months Surgical History Surgery Date Site/Laterality Comments MS NEPHRECTOMY W/PRTL URETERECTOMY W/OPEN RIB RESCJ Nephrectomy Right - done 04/04/2007 laparoscopic right radical nephrectomy including renal hilar lymph node dissection. (Added by TW Conv) Medical History Medical History Date Comments Personal history of other di seases of the respiratory system Personal history of asthma - (Added by TW Conv) Personal history of other di seases of the digestive system History of esophageal reflux - (Gastroesophageal Reflux) (Added by TW Conv) Asthma COPD (chronic obstructive pu lmonary disease) (HCC) Family History Medical History Relation Name Comments Heart disease Father Lung disease Father's Sister Cancer Maternal Grandfather Stroke Maternal Grandmother Cancer Mother Heart disease Paternal Grandfather Cancer Paternal Grandmother Relation Name Status Comments Father Father's Sister Maternal Grandfather Maternal Grandmother Mother Paternal Grandfather Paternal Grandmother Social History Tobacco Use Types Packs/Day Years Used Date Smoking Tobacco: Every Day Cigarettes 1 43 Tobacco Cessation:Ready to Q uit: Not Asked; Counseling Given: Not Answered Comments Unknown Sex and Gender Information Value Date Recorded Sex Assigned at Not on file Legal Sex Female 1:56 AM COPY CHIEF Gender Identity Female 09/09/2023 12:40 PM CDT Sexual Orientation Straight 09/09/2023 12 :40 PM CDT Obstetrics History Last Filed Vital Signs Vital Sign Reading Time Taken Comments Blood Pressure 126/60 04/23/2024 11:30 AM COPY CHIEF Pulse 78 04/23/2024 11:30 AM COPY CHIEF Temperature 36.5 C (97.7 F) 04/23/2024 11:30 AM COPY CHIEF Respiratory Rate 18 04/23/2024 11:3 0 AM COPY CHIEF Oxygen Saturation 96% 04/23/2024 11: 30 AM COPY CHIEF Inhaled Oxygen Concentration - - Weight 61.2 kg (134 lb 14.4 oz) 024 11:30 AM COPY CHIEF Height 167.6 cm (5' 6 ) 04/23/2024 11:3 0 AM COPY CHIEF Body Mass Index 21.77 04/23/2024 11:30 AM COPY CHIEF Plan of Treatment Health Maintenance Due Date Last Done Comments Breast Cancer Screening-Mammogram 1965 Cervical Cancer Screening 1964 Colon Cancer Screening-Colonoscopy 1965 Depression Screening 1964 Hepatitis C Screening 1964 DTaP/Tdap/Td Vaccine (1 - Tdap) 10/16/1975 Hepatitis B Screening 1982 Regular Well Visit/Exam 18-64 1982 Zoster Vaccine (1 of 2) 2014 Covid-19 Vaccine (2023-2 5 season) 2024 02/10/2023, 02/12/2022, 10/02/2021, Additional history exists Influenza Vaccine (#1) 2024 , 02/10/2023, 02/12/2022, Additional history exists Lung Cancer Screening 03/03/2025 03/02/2024, 024 Pneumococcal vaccine <65 Completed 12/21/2022 Procedures Procedure Name Priority Date/Time Associated Diagnosis Comments CT CHEST WO CONTRAST F/U LUNG SCREEN PROTOCOL Schedule Routine, Read Routine (OP Routine) 03/02/2024 9:20 AM CDT Lung nodule from Last 3 Months or Most Recently Relevant to Health Maintenance Results * CT Chest WO Contrast F/U Lung Screen Protocol (03/02/2024 9:20 AM CDT) Anatomical Region Laterality Modality Chest N/A Computed Tomogra phy 03/06/2024 7:44 AM CDT Narrative 03/06/2024 8:00 AM CDT EXAM DESCRIPTION: CT CHEST WO CONTRAST F/U LUNG SCREEN PROTOCOL REASON FOR STUDY: Screening CT of the chest in a current smoker with a 40 pack year smoking history. Additional history: None. TECHNIQUE: Low dose CT scan of the chest was performed without intravenous contrast using helical scanning technique. The exam extends from the lung apices through the lung bases. Automatic exposure control was used as a dose optimization technique. RADIATION DOSE: CT dose index volume (CTDIvol) = 1.07 mGy COMPARISON: CT chest 11/28/2023 FINDINGS: SMOKING RELATED LUNG DISEASE: Okqugvgh-iu-emteij apical predominant emphysema and biapical pleural-parenchymal scarring. There is mild bronchial wall thickening which is seen in bronchitis. LUNG NODULES: RIGHT UPPER LOBE: none RIGHT MIDDLE LOBE: Unchanged 2 mm solid nodule anteromedially on image 205. RIGHT LOWER LOBE: Calcified granulomas LEFT UPPER LOBE: none LEFT LOWER LOBE: Previously noted bronchial filling defect has resolved and was likely related to mucous plugging. CORONARY ARTERY CALCIFICATION: Trace OTHER: There is no pleural effusion or pneumothorax. Heart size is normal. No pericardial effusion or thickening. There are severe mitral annular calcifications. Thoracic aorta is normal in course and caliber and contains a small amount of calcified atherosclerotic plaque. There are large calcified mediastinal granulomas. No enlarged mediastinal lymph nodes. There are multiple clips in the region of the right kidney, which is not seen in the included qyild-uw-sysc. Visualized abdomen is otherwise unremarkable. There is no suspicious osseous lesion. IMPRESSION: 1. Previously noted bronchial filling defect in the left lower lobe has resolved and was likely related to mucous plugging. 2. Ttqrqkdk-se-gshrht apical predominant emphysema and biapical pleural-parenchymal scarring. 3. Mild bronchial wall thickening which is seen in bronchitis. 4. Severe mitral annular calcifications. Consider follow-up with cardiology. Lung-RADS category 2S: Benign appearance or behavior. Finding other than a pulmonary nodule which is potentially clinically significant. Recommendation: Low dose Screening CT of chest in 12 months. THIS IS AN ELECTRONICALLY VERIFIED FINAL REPORT 03/06/2024 8:00 AM - Electronically signed by Pino Ann M.D. AM: AM Report ID: [id number] Reading Location: [id number] Procedure Note Pino Ann MD - 03/06/2024 EXAM DESCRIPTION: CT CHEST WO CONTRAST F/U LUNG SCREEN PROTOCOL REASON FOR STUDY: Screening CT of the chest in a current smoker with a40 pack year smoking history. Additional history: None. TECHNIQUE: Low dose CT scan of the chest was performed without intravenous contrast using helical scanning technique. The exam extends from the lung apices through the lung bases. Automatic exposure control was used as adose optimization technique. RADIATION DOSE: CT dose index volume (CTDIvol) = 1.07 mGy COMPARISON: CT chest 11/28/2023 FINDINGS: SMOKING RELATED LUNG DISEASE: Snyuvgqu-ye-icsfjv apical predominant emphysema and biapical pleural-parenchymal scarring. There is mildbronchial wall thickening which is seen in bronchitis. LUNG NODULES: RIGHT UPPER LOBE: none RIGHT MIDDLE LOBE: Unchanged 2 mm solid nodule anteromedially on image 205. RIGHT LOWER LOBE: Calcified granulomas LEFT UPPER LOBE: none LEFT LOWER LOBE: Previously noted bronchial filling defect has resolved and was likelyrelated to mucous plugging. CORONARY ARTERY CALCIFICATION: Trace OTHER: There is no pleural effusion or pneumothorax. Heart size isnormal. No pericardial effusion or thickening. There are severe mitral annular calcifications. Thoracic aorta is normal in course and caliber andcontains a small amount of calcified atherosclerotic plaque. There are largecalcified mediastinal granulomas. No enlarged mediastinal lymph nodes. There are multiple clips in the region of the right kidney, which is not seen in the included egtie-sk-xqna. Visualized abdomen is otherwise unremarkable.There is no suspicious osseous lesion. IMPRESSION: 1. Previously noted bronchial filling defect in the left lower lobe has resolved and was likely related to mucous plugging. 2. Migooqml-up-ydahqb apical predominant emphysema and biapical pleural-parenchymal scarring. 3. Mild bronchial wall thickening which is seen in bronchitis. 4. Severe mitral annular calcifications. Consider follow-up withcardiology. Lung-RADS category 2S: Benign appearance or behavior. Finding other thana pulmonary nodule which is potentially clinically significant. Recommendation: Low dose Screening CT of chest in 12 months. THIS IS AN ELECTRONICALLY VERIFIED FINAL REPORT 03/06/2024 8:00 AM - Electronically signed by Pino Ann M.D. 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
--- OUTSIDE RECORDS SUMMARY | 2024-06-26 06:54 | XMS_ITS | Encounter Summary ---
Author Organization [facility] Care Team Providers Care Director Service Name Role Phone Christopher Carrillo MD Primary Care Provider Encounter Details Date Type Department Care Team (Latest Contact Info) Description 05/29/2015 Orders Only [facility] CLINCONV ProviderVenkat MD [address] [place], [place] [id number] Social History Tobacco Use Types Packs/Day Years Used Date Smoking Tobacco: Never Assessed Comments Unknown Sex and Gender Information Value Date Recorded Sex Assigned at Not on file Legal Sex Female 1:56 AM COMPANY LAUNDRY WORKER Gender Identity Female 09/09/2023 12:40 PM CDT Sexual Orientation Straight 09/09/2023 12 :40 PM CDT documented as of this encounter Plan of Treatment Not on file documented as of this encounter Procedures Procedure Name Priority Date/Time Associated Diagnosis Comments SCAN - LABS 05/29/2015 12:00 AM COMPANY LAUNDRY WORKER SCAN - LABS 05/29/2015 12:00 AM COMPANY LAUNDRY WORKER PROCEDURE - RESULT 05/26/2015 12 :00 AM COMPANY LAUNDRY WORKER documented in this encounter Results * SCAN - LABS (05/29/2015 12:00 AM COMPANY LAUNDRY WORKER) Narrative 05/29/2015 12:00 AM COMPANY LAUNDRY WORKER Ordered by an unspecified provider. Historical Provider Final Res ult * SCAN - LABS (05/29/2015 12:00 AM COMPANY LAUNDRY WORKER) Narrative 05/29/2015 12:00 AM COMPANY LAUNDRY WORKER Ordered by an unspecified provider. us Historical Provider Final Res ult * PROCEDURE - RESULT (05/26/2015 12:00 AM COMPANY LAUNDRY WORKER) Narrative 05/26/2015 12:00 AM COMPANY LAUNDRY WORKER Ordered by an unspecified provider. us Historical Provider Final Res ult documented in this encounter Visit Diagnoses Not on filedocumented in this encounter Care Teams Director Service Relationship Specialty Start Date End Date Christopher Carrillo MD [address] [place] [address] PCP - General Internal Medicine 07/13/23 documented as of this encounter
--- OUTSIDE RECORDS SUMMARY | 2024-06-26 06:54 | XMS_ITS | Encounter Summary ---
Author Organization [facility] Facility Care Team Providers Care Pulmonary Function Technologist Name Role Phone Christopher Carrillo MD Primary Care Provider Encounter Details Date Type Department Care Team (Latest Contact Info) Description 05/14/2015 Orders Only [facility] CLINCONV Provider, MD Venkat [address] [place], [place] [id number] Social History Tobacco Use Types Packs/Day Years Used Date Smoking Tobacco: Never Assessed Comments Unknown Sex and Gender Information Value Date Recorded Sex Assigned at Not on file Legal Sex Female 1:56 AM CYLINDER DYER Gender Identity Female 09/09/2023 12:40 PM CDT Sexual Orientation Straight 09/09/2023 12 :40 PM CDT documented as of this encounter Plan of Treatment Not on file documented as of this encounter Procedures Procedure Name Priority Date/Time Associated Diagnosis Comments SCAN - LABS 05/14/2015 12:00 AM CYLINDER DYER SCAN - LABS 05/14/2015 12:00 AM CYLINDER DYER SCAN - LABS 05/14/2015 12:00 AM CYLINDER DYER SCAN - LABS 05/14/2015 12:00 AM CYLINDER DYER SCAN - LABS 05/14/2015 12:00 AM CYLINDER DYER documented in this encounter Results * SCAN - LABS (05/14/2015 12:00 AM CYLINDER DYER) Narrative 05/14/2015 12:00 AM CYLINDER DYER Ordered by an unspecified provider. Historical Provider MD Final Res ult * SCAN - LABS (05/14/2015 12:00 AM CYLINDER DYER) Narrative 05/14/2015 12:00 AM CYLINDER DYER Ordered by an unspecified provider. Historical Provider Final Res ult * SCAN - LABS (05/14/2015 12:00 AM CYLINDER DYER) Narrative 05/14/2015 12:00 AM CYLINDER DYER Ordered by an unspecified provider. Historical Provider Final Res ult * SCAN - LABS (05/14/2015 12:00 AM CYLINDER DYER) Narrative 05/14/2015 12:00 AM CYLINDER DYER Ordered by an unspecified provider. Historical Provider Final Res ult * SCAN - LABS (05/14/2015 12:00 AM CYLINDER DYER) Narrative 05/14/2015 12:00 AM CYLINDER DYER Ordered by an unspecified provider. Historical Provider Final Res ult documented in this encounter Visit Diagnoses Not on filedocumented in this encounter Care Teams Pulmonary Function Technologist Relationship Specialty Start Date End Date Christopher Carrillo MD [address] [address] PCP - General Internal Medicine 07/13/23 documented as of this encounter
--- OUTSIDE RECORDS SUMMARY | 2024-06-26 06:54 | XMS_ITS | Data Portability ---
Author Organization [place] [facility] [employer], Main Office Address [address] [place] [address] Care Team Providers Care Shaper Operator Name Role Phone MASSIEL CARRILLO Primary Care Provider [phone] MASSIEL CARRILLO Referring Provider MASSIEL CARRILLO Primary Care Provider Assessment No assessment recorded. Plan of Treatment Reminders Order Date Submit Date Provider Last Modified By Organization Details Last Modified Time Details Appointments None recorded. Lab vitamin D, 25-hydrox y, total, serum 025 025 [facility], [address], [place], [address], 5 16:57:59 magnesium , serum or plasma 025 025 [email or web address] [facility], [address], [place], [address], 5 16:57:59 vitamin B12, serum 025 025 [email or web address] [facility], [address], [place], [address], 5 16:57:59 CBC w/ auto diff 025 025 [facility], [address], [place], [address], 5 16:57:58 CMP, serum or plasma 025 025 [facility], [address], [place], [address], 5 16:57:58 lipid panel, serum 025 025 [email or web address] [facility], [address], [place], [address], 5 16:57:59 T4, free, serum 025 025 [id number] [facility], [address], [place], [address], 5 16:57:59 TSH, serum or plasma 025 025 [email or web address] [facility], [address], [place], [address], 5 16:57:59 lipid panel, serum 024 024 [id number] [facility], [address], [place], [address], 4 16:14:31 CMP, serum or plasma 024 024 [facility], [address], [place], [address], 4 16:14:31 TSH, serum or plasma 024 024 [id number] [facility], [address], [place], [address], 4 16:14:32 T4, free, serum 024 024 [email or web address] [facility], [address], [place], [address], 4 16:14:32 CBC w/ auto diff 024 024 [email or web address] [facility], [address], [place], [address], 4 16:14:32 drug screen, urine 024 [id number] [facility], [address], [place], [address], 4 16:14:32 Referral None recorded. Procedures None recorded. Surgeries None recorded. Imaging None recorded. Medication Orders None recorded. Patient TargetsNo targets recorded. Patient Instructions Encounter Date Encounter Id Patient Instructions Last Modified By Organization Details Last Modified Time 04/26/2023 [id number] advance care planning: care instructions [email or web address] Not available 04/26/2023 11:19:19 advance directiv es: care instructions [email or web address] Not available 04/26/2023 11:19:19 [place] Advance Directives [email or web address] Not available 04/26/2023 11:19:18 risk assessment* [email or web address] Not available 04/26/2023 11:19:19 INFLUENZA VACCIN E TD/TDAP Recommended today, patient declined Ordered Pa rosariont will get at local pharmacy/health department PNEUMONIA VACCINE Ordered Recommended today, patient declined Patient will get at local pharmacy/health department Recommen ded at age 64 SHINGLES Ordered Recommended today, patient declined Patient will get at local pharmacy/health department MAMMOGRAM: Last Mammogram No screening necessary patient is up to date DEXA SCAN No screening necessary patient is up to date CERVICAL SCREENING/PELVIC EXAMINATION Recommended today, but patient declined COLORECTAL SCREENING: Last Colonoscopy No screening necessary patient is up to date DEPRESSION SCREENING Negative BMI Overweight Appropri ate NUTRITION PHYSICAL ACTIVITY Need more exercise/physical activity VISION ALCOHOL USE No alcohol use Occasional/Soci al Use TOBACCO USE former smoker LUNG CANCER SCREENING SEXUALLY ACTIVE HEPATITIS C SCREENING Not indicated GLUCOSE SCREENING LIPID SCREENING [email or web address] Not available 04/26/2023 11:06:00 Adult health examination risk assessment stable. Has undergone extensive evaluation recently for hip and knee problems. He is being considered for a 2nd hip replacement at this juncture. May also need some type of attention to the knee as well. Follow-up for chronic obstructive lung disease-hypertensio n- transient atrial fibrillation and history of malignant neoplasm of the right kidney. All clinically stable. Is being treated for chronic pain as well as results of multiple joint problems as well as cervical as well as lumbar radiculopathies. Will continue on current Rx. Not any additional blood work done at this time. Will continue on current Rx and follow-up in six months. Standard immunizations of RSV, COVID, influenza and shingles as recommended. Portions of the record may have been created with voice recognition software. Occasional wrong-word or sknyn-c-ntar substitutions may have occurred due to the inherent limitations of voice recognition software. Read the chart carefully and recognize, using context, where substitutions have occurred. Portions of the record may have been created with voice recognition software. Occasional wrong-word or jyikt-n-suzm substitutions may have occurred due to the inherent limitations of voice recognition software. Read the chart carefully and recognize, using context, where substitutions have occurred. Low-dose CT scan of the chest [email or web address] Not available 04/26/2023 11:15:57 06/13/2023 [id number] Cervalgia persistent probably secondary to degenerative joint disease and possible discogenic disease in the neck. Will try to set up with Neurology for further evaluation. Portions of the record may have been created with voice recognition software. Occasional wrong-word or zhrxt-l-tmuu substitutions may have occurred due to the inherent limitations of voice recognition software. Read the chart carefully and recognize, using context, where substitutions have occurred. Neurological consult for persistent neck and cervical radicular pain. Keep Appt: Georgina 08 23 2023 10:30 AM [place] [email or web address] Not available 06/13/2023 16:39:22 08/23/2023 [id number] Follow-up hypertension, hyperlipidemia, chronic obstructive lung disease and chronic pain syndrome. All clinically stable. Will check blood work consisting of CBC, CMP, lipid, thyroid. Continue on current Rx follow-up in four months. Next Appointment: 4 Months Approximate Date: 12/21/2023 Portions of the record may have been created with voice recognition software. Occasional wrong-word or hallq-n-prjf substitutions may have occurred due to the inherent limitations of voice recognition software. Read the chart carefully and recognize, using context, where substitutions have occurred. [email or web address] Not available 08/23/2023 12:03:15 12/27/2023 [id number] Follow-up chroni c obstructive lung disease, essential hypertension, atrial fibrillation paroxysmal, GERD, hyperlipidemia as well as anxiety all clinically stable. Most recent blood work showed a cholesterol of 202 HDL of 114 LDL 73. Liver enzymes within normal limits. Is due for mammography, low-dose CT and bone density scan which the patient already has set up. Will continue on current Rx. Follow-up in six months Additional Orders - Directives - Recommendations 1. 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 LDCT already done up in [place] please get a copy of the report. 2. DEXA Scan get the most recent copy the bone density scan. Next Appointment: 6 Months Approximate Date: 06/24/2024 Portions of the record may have been created with voice recognition software. Occasional wrong-word or svmuo-f-ftaf substitutions may have occurred due to the inherent limitations of voice recognition software. Read the chart carefully and recognize, using context, where substitutions have occurred. [email or web address] Not available 12/27/2023 12:34:37 05/15/2024 [id number] risk assessment* [email or web address] Not availabl e 05/15/2024 10:55:39 INFLUENZA VACCIN E TD/TDAP Recommended today, patient declined Ordered Kyle flores will get at local pharmacy/health department PNEUMONIA VACCINE Ordered Recommended today, patient declined Patient will get at local pharmacy/health department Recommen ded at age 64 SHINGLES Ordered Recommended today, patient declined Patient will get at local pharmacy/health department MAMMOGRAM: Last Mammogram DEXA SCAN No screening necessary patient is up to date CERVICAL SCREENING/PELVIC EXAMINATION Recommended today, but patient declined COLORECTAL SCREENING: Last Colonoscopy No screening necessary patient is up to date DEPRESSION SCREENING Negative BMI Overweight Appropri ate NUTRITION Heart Healthy Diet PHYSICAL ACTIVITY Need more exercise/physical activity VISION ALCOHOL USE No alcohol use Occasional/Soci al Use TOBACCO USE former smoker LUNG CANCER SCREENING SEXUALLY ACTIVE HEPATITIS C SCREENING Not indicated GLUCOSE SCREENING LIPID SCREENING [email or web address] Not available 05/15/2024 10:43:41 Wellness evaluat ion risk assessment stable. Follow-up for hypertension, isolated atrial fibrillation, hyperlipidemia, chronic obstructive lung disease, history of malignant neoplasm of the right kidney, degenerative joint disease of the hips, anxiety disorder as well as some osteoporosis all clinically stable at this time. Check blood work consisting of CBC, CMP, lipid, thyroid,Vit D, B12 and magnesium level due to chronic administration of PPI inhibitors. Will continue on current Rx follow-up in six months Additional Orders - Directives - Recommendations 1. Screening mammogram 2. Get copies of the most recent low-dose CT scan of the chest done in [place] by pulmonology. Follow Up: 6 Months Approximate Date: 11/11/2024 Portions of the record may have been created with voice recognition software. Occasional wrong-word or ybclc-w-gjrz substitutions may have occurred due to the inherent limitations of voice recognition software. Read the chart carefully and recognize, using context, where substitutions have occurred. Created: Massiel Carrillo M.D. 05.15.2024 09:55 AM Not available 05/15/2024 10:55:21 Reason for Referral None Reported. Results Created Date Observation Date Name Description Value Unit Range Abnormal Flag Note LastModifiedBy Organization Detail LastModifiedTime 09/22/19 24 09/24/2023 LIPID PANEL , STAND NICANOR cholesterol, total 202 mg/dL <200 high Not Available [facility] [place] [address] [place], [address], 09/24/2023 01:35:57 09/22/1909/24/2023 LIPID PANEL , STAND NICANOR HDL cholesterol 114 mg/dL > or = 50 normal Not Available [facility] [place] [address] [place], [address], 09/24/2023 01:35:57 09/22/1909/24/2023 LIPID PANEL , STAND NICANOR triglyceride s 69 mg/dL <150 normal Not Available [facility] [address] [place], [address], 09/24/2023 01:35:57 09/22/1909/24/2023 LIPID PANEL , STAND NICANOR LDL-choleste rol 73 mg/dL _(dalton c) normal Refer ence range : <100 Skyler able range <100 mg/dL for prima ry preve ntion ; <70 mg/dL for patie nts with CHD or diabe tic patie nts with > or = 2 CHD risk facto rs. LDL-C is now calcu lated using the Quita n-Hop kins calcu pj n, which is a valid ated novel metho d provi dalia rizwan r accur acy than the Fried shayla equat ion in the estim ation of LDL-C . Quita braun SS et al. LUCY. 2013; 310(1 9): 2061- 206 (http ://ed ucati on.Qu estTelerad Express. com/f aq/FA Q164) Not Available [facility] [place] [address] [place], [address], 09/24/2023 01:35:57 09/22/1909/24/2023 LIPID PANEL , STAND NICANOR chol/HDLC ratio 1.8 (calc ) <5.0 normal Not Available [place] [address] [place], [address], 09/24/2023 01:35:57 09/22/1909/24/2023 LIPID PANEL , STAND NICANOR non HDL cholesterol 88 mg/dL _(dalton c) <130 normal For patie nts with diabe josh plus 1 major ASCVD risk facto r, treat ing to a non-H DL-C goal of <100 mg/dL (LDL- C of <70 mg/dL ) is consi dered a thera pegomezi c optio n. Not Available [facility] [place] [address] [place], [address], 09/24/2023 01:35:57 09/22/1909/24/2023 COMPR EHENS LORENA METAB OLIC PANEL , PLASM A glucose 96 mg/dL 65-99 normal Fasti ng refer ence inter miguel Not Available [facility] [place] [address] [place], [address], 09/24/2023 01:35:58 09/22/19 24 09/24/2023 COMPR EHENS LORENA METAB OLIC PANEL , PLASM A urea nitrogen (BUN) 13 mg/dL 7-25 normal Not Available [address], [address], 09/24/2023 01:35:58 09/22/19 24 09/24/2023 COMPR EHENS LORENA METAB OLIC PANEL , PLASM A creatinine 0.72 mg/dL 0.50-1 .03 normal Not Available [facility] [address], [address], 09/24/2023 01:35:58 09/22/19 24 09/24/2023 COMPR EHENS LORENA METAB OLIC PANEL , PLASM A eGFR 97 mL/mi n/1.7 3m2 > or = 60 normal Not Available [address], [address], 09/24/2023 01:35:58 09/22/19 24 09/24/2023 COMPR EHENS LORENA METAB OLIC PANEL , PLASM A BUN/creatini ne ratio SEE NOTE: (calc ) 6-22 Not Repor freya: BUN and Creat inine are withi n refer ence range . Not Available [address], [address], 09/24/2023 01:35:58 09/22/19 24 09/24/2023 COMPR EHENS LORENA METAB OLIC PANEL , PLASM A sodium 141 mmol/ L 135-14 6 normal Not Available [facility] [address], [address], 09/24/2023 01:35:58 09/22/19 24 09/24/2023 COMPR EHENS LORENA METAB OLIC PANEL , PLASM A potassium 3.9 mmol/ L 3.4-4. 8 normal Not Available [address], [address], 09/24/2023 01:35:58 09/22/19 24 09/24/2023 COMPR EHENS LORENA METAB OLIC PANEL , PLASM A chloride 105 mmol/ L 98-110 normal Not Available [address], [address], 09/24/2023 01:35:58 09/22/19 24 09/24/2023 COMPR EHENS LORENA METAB OLIC PANEL , PLASM A carbon dioxide 28 mmol/ L 20-32 normal Not Available [address], [address], 09/24/2023 01:35:58 09/22/19 24 09/24/2023 COMPR EHENS LORENA METAB OLIC PANEL , PLASM A calcium 9.3 mg/dL 8.6-10 .4 normal Not Available [address], [address], 09/24/2023 01:35:58 09/22/19 24 09/24/2023 COMPR EHENS LORENA METAB OLIC PANEL , PLASM A protein, total 7.1 g/dL 6.4-8. 4 normal Not Available [address], [address], 09/24/2023 01:35:58 09/22/19 24 09/24/2023 COMPR EHENS LORENA METAB OLIC PANEL , PLASM A albumin 4.2 g/dL 3.6-5. 1 normal Not Available [address], [address], 09/24/2023 01:35:58 09/22/19 24 09/24/2023 COMPR EHENS LORENA METAB OLIC PANEL , PLASM A globulin 2.9 g/dL_ (calc ) 2.2-4. 0 normal Not Available [address], [address], 09/24/2023 01:35:58 09/22/19 24 09/24/2023 COMPR EHENS LORENA METAB OLIC PANEL , PLASM A albumin/glob ulin ratio 1.4 (calc ) 0.9-2. 3 normal Not Available [address], [address], 09/24/2023 01:35:58 09/22/19 24 09/24/2023 COMPR EHENS LORENA METAB OLIC PANEL , PLASM A bilirubin, total 0.3 mg/dL 0.2-1. 2 normal Not Available [address], [address], 09/24/2023 01:35:58 09/22/19 24 09/24/2023 COMPR EHENS LORENA METAB OLIC PANEL , PLASM A alkaline phosphatase 73 U/L 37-153 normal Not Available [address], [address], 09/24/2023 01:35:58 09/22/19 24 09/24/2023 COMPR EHENS LORENA METAB OLIC PANEL , PLASM A AST 19 U/L 10-35 normal Not Available [address], [address], 09/24/2023 01:35:58 09/22/19 24 09/24/2023 COMPR EHENS LORENA METAB OLIC PANEL , PLASM A ALT 16 U/L 6-29 normal Not Available [address], [address], 09/24/2023 01:35:58 09/22/19 24 09/24/2023 CBC (INCL UDES DIFF/ PLT) white blood cell count 9.1 thous and/u L 3.8-10 .8 normal Not Available [address], [address], 09/24/2023 01:36:00 09/22/19 24 09/24/2023 CBC (INCL UDES DIFF/ PLT) red blood cell count 4.07 paige on/uL 3.80-5 .10 normal Not Available [address], [address], 09/24/2023 01:36:00 09/22/19 24 09/24/2023 CBC (INCL UDES DIFF/ PLT) hemoglobin 12.9 g/dL 11.7-1 5.5 normal Not Available [address], [address], 09/24/2023 01:36:00 09/22/19 24 09/24/2023 CBC (INCL UDES DIFF/ PLT) hematocrit 38.0 % 35.0-4 5.0 normal Not Available [address], [address], 09/24/2023 01:36:00 09/22/1909/24/2023 CBC (INCL UDES DIFF/ PLT) MCV 93.4 fL 80.0-1 00.0 normal Not Available [address], [address], 09/24/2023 01:36:00 09/22/19 24 09/24/2023 CBC (INCL UDES DIFF/ PLT) MCH 31.7 pg 27.0-3 3.0 normal Not Available [address], [address], 09/24/2023 01:36:00 09/22/1909/24/2023 CBC (INCL UDES DIFF/ PLT) MCHC 33.9 g/dL 32.0-3 6.0 normal Not Available [address], [address], 09/24/2023 01:36:00 09/22/1909/24/2023 CBC (INCL UDES DIFF/ PLT) RDW 12.0 % 11.0-1 5.0 normal Not Available [facility] [address], [address], 09/24/2023 01:36:00 09/22/19 24 09/24/2023 CBC (INCL UDES DIFF/ PLT) platelet count 373 thous and/u L 140-40 0 normal Not Available [address], [address], 09/24/2023 01:36:00 09/22/19 24 09/24/2023 CBC (INCL UDES DIFF/ PLT) MPV 10.8 fL 7.5-12 .5 normal Not Available [address], [address], 09/24/2023 01:36:00 09/22/19 24 09/24/2023 CBC (INCL UDES DIFF/ PLT) absolute neutrophils 5269 cells /uL 1500-7 800 normal Not Available [address], [address], 09/24/2023 01:36:00 09/22/19 24 09/24/2023 CBC (INCL UDES DIFF/ PLT) absolute lymphocytes 2994 cells /uL 850-39 00 normal Not Available [address], [address], 09/24/2023 01:36:00 09/22/19 24 09/24/2023 CBC (INCL UDES DIFF/ PLT) absolute monocytes 655 cells /uL 200-95 0 normal Not Available [address], [address], 09/24/2023 01:36:00 09/22/19 24 09/24/2023 CBC (INCL UDES DIFF/ PLT) absolute eosinophils 109 cells /uL 15-500 normal Not Available [facility] [address], [address], 09/24/2023 01:36:00 09/22/19 24 09/24/2023 CBC (INCL UDES DIFF/ PLT) absolute basophils 73 cells /uL 0-200 normal Not Available [address], [address], 09/24/2023 01:36:00 09/22/19 24 09/24/2023 CBC (INCL UDES DIFF/ PLT) neutrophils 57.9 % normal Not Available [facility] [address], [address], 09/24/2023 01:36:00 09/22/19 24 09/24/2023 CBC (INCL UDES DIFF/ PLT) lymphocytes 32.9 % normal Not Available [facility] [address], [address], 09/24/2023 01:36:00 09/22/19 24 09/24/2023 CBC (INCL UDES DIFF/ PLT) monocytes 7.2 % normal Not Available [facility] [address], [address], 09/24/2023 01:36:00 09/22/19 24 09/24/2023 CBC (INCL UDES DIFF/ PLT) eosinophils 1.2 % normal Not Available [facility] [address], [address], 09/24/2023 01:36:00 09/22/19 24 09/24/2023 CBC (INCL UDES DIFF/ PLT) basophils 0.8 % normal Not Available [facility] [address], [address], 09/24/2023 01:36:00 09/22/19 24 09/24/2023 T4, FREE T4, free 1.2 NG/dL 0.8-1. 8 normal Not Available [facility] [address], [address], 09/24/2023 01:36:01 09/22/19 24 09/24/2023 TSH TSH 0.49 mIU/L 0.40-4 .50 normal Not Available [facility] [address], [address], 09/24/2023 01:36:02 09/22/19 24 09/24/2023 DRUG MONIT OR, BASE PANEL , SCREE N, URINE benzodiazepi suzanna POSITI VE NG/mL <100 abnormal See Note A See Note A Not Available [address] [address] [address], [place], [address], 09/24/2023 01:36:03 09/22/19 24 09/24/2023 DRUG MONIT OR, BASE PANEL , SCREE N, URINE cocaine metabolite NEGATI VE NG/mL <150 See Note A See Note A Not Available [address] [address], [place], [address], 09/24/2023 01:36:03 09/22/19 24 09/24/2023 DRUG MONIT OR, BASE PANEL , SCREE N, URINE opiates POSITI VE NG/mL <100 abnormal See Note A See Note A Not Available [address] [address] [address], [place], [address], 09/24/2023 01:36:03 09/22/19 24 09/24/2023 DRUG MONIT OR, BASE PANEL , SCREE N, URINE oxycodone NEGATI VE NG/mL <100 See Note A See Note A Not Available [address] [address] [address], [place], [address], 09/24/2023 01:36:03 09/22/19 24 09/24/2023 DRUG MONIT OR, BASE PANEL , SCREE N, URINE creatinine 135.5 mg/dL > or = 20.0 Not Available [address] [address] [address], [place], [address], 09/24/2023 01:36:03 09/22/1909/24/2023 DRUG MONIT OR, BASE PANEL , SCREE N, URINE pH 5.6 4.5-9. 0 Not Available [address] [address] [address], [place], [address], 09/24/2023 01:36:03 09/22/19 24 09/24/2023 DRUG MONIT OR, BASE PANEL , SCREE N, URINE oxidant NEGATI VE mcg/m L <200 Not Available [facility] [address] [place], [address], 09/24/2023 01:36:03 09/22/19 24 09/24/2023 DRUG MONIT ORING TEMPL ATE notes and comments This drug testi ng is for medic al treat ment only. Callie sis was perfo rmed as non-f orens ic testi ng and these resul ts shoul d be used only by healt hcare provi ders to rende r diagn osis or treat ment, or to monit or progr ess of medic al condi tions . Note A: The resul ts are presu mptiv e; based only on scree alton metho ds, and they have not been confi rmed by a defin itive metho d. Healt hcare Provi ders needi ng Inter preta tion lazaro tance , pleas e conta ct us at 1.877 .40.R XTOX (1.87 7.407 .9869 ) M-F, 8am to 10pm EST Not Available [facility] [address] [address], [place], [address], 09/24/2023 01:36:04 04/11/20 23 04/09/2023 MRI, lumba r spine , w/o contr ast No observ ation record ed. [email or web address] [address], [place], [address], 04/11/2023 12:36:55 04/11/20 23 04/09/2023 MRI, lumba r plexu s, w/o contr ast No observ ation record ed. [email or web address] [place] [id number] [facility] [address], [place], [address], 04/11/2023 08:42:01 04/15/20 23 XR, cervi dalton spine , 2 or 3 view No observ ation record ed. [email or web address] [facility] [place] [address], [place], [address], 04/15/2023 10:03:42 07/07/19 24 03/27/2014 MRI, cervi dalton spine , w/o contr ast No observ ation record ed. [email or web address] Not Available 2023 10:07:01 07/07/19 24 03/22/2014 MRI, lumba r spine , w/o contr ast No observ ation record ed. [email or web address] Not Available 2023 10:07:47 09/01/19 24 09/01/2023 XR, hip, unila teral No observ ation record ed. [address], [place], [address], 09/01/2023 17:33:46 09/13/19 24 09/13/2023 MRI, cervi dalton plexu s, w/o contr ast No observ ation record ed. [address], [place], [address], 09/13/2023 16:26:34 09/22/19 24 09/22/2023 US, thyro id No observ ation record ed. [address], [place], [address], 09/22/2023 17:01:50 01/30/20 24 01/30/2024 XR, hip + pelvi s, unila teral No observ ation record ed. [address], [place], [address], 01/30/2024 17:44:48 Result Notes None recorded. Problems Name Problem SNOMED Code Status Onset Date Resolution Date Notes Provider Name and Address Organization Details Recorded Time Asthma-chr onic obstructiv e pulmonary disease overlap syndrome 9789317705217 9107 Active 2022 Not Available [facility] 15:01:27 History of left hip replacemen t 2661692130103 107 Active 2019 Not Available [facility] 3 15:01:28 Chronic obstructiv e pulmonary disease 44211358 Active 2021 Not Available [facility] 3 15:01:28 Spinal stenosis of lumbar region 29995022 Active 2019 Not Available [facility] 3 15:01:28 Anxiety disorder 703871182 Active Not Available [facility] 15:01:28 Osteoarthr itis of knee 375492504 Active Not Available [facility] 3 15:01:28 Pure hyperchole sterolemia 046250366 Active Not Available [facility] 3 15:01:28 Sarcoidosi s 39644081 Active Not Available [facility] 3 15:01:28 Vitamin D deficiency 18799328 Active 2021 Not Available [facility] 3 15:01:28 Depressive disorder 75314714 Active Not Available [facility] 15:01:28 Chronic pain syndrome 261468299 Active 2016 Not Available [facility] 3 15:01:28 Dysphagia 60761325 Active Not Available [facility] 3 15:01:28 History of malignant neoplasm of kidney 006923393 Active Not Available [facility] 3 15:01:28 History of polyp of colon 079390925 Active 2021 Not Available [facility] 3 15:01:28 Atrial fibrillati on 35744769 Active Not Available [facility] 15:01:28 Pain of breast 14275825 Active Not Available [facility] 3 15:01:28 Dyspnea on exertion 06405680 Active 2022 Not Available [facility] 3 15:01:28 Stricture of esophagus 88442998 Active Not Available [facility] 3 15:01:28 Chronic cough 39070364 Active 2022 Not Available [facility] 3 15:01:28 Greater trochanter ic pain syndrome 1185489 Active 2019 Not Available [facility] 3 15:01:28 Tobacco dependence syndrome 91791462 Active Not Available [facility] 3 15:01:28 Osteoarthr itis of hip 211305679 Active 2022 Not Available [facility] 3 15:01:28 Pain in right hip joint 4197264920691 02 Active 2022 Not Available [facility] 3 15:01:28 Pain of left hip joint 4089604045543 00 Active 2022 Not Available [facility] 3 15:01:28 Osteoporos is 53049604 Active 2022 Not Available [facility] 3 15:01:28 Osteoarthr itis of right hip joint 1562971169983 07 Active 2022 Not Available [facility] 3 15:01:28 Candidiasi s of mouth 06595874 Active 2022 Not Available [facility] 3 15:01:28 Chronic bronchitis 17588960 Active 2022 SHANTI Haddad-ANUSHKA [address], [place], [address] , [facility] 3 11:27:08 Osteoarthr itis 245275645 Active 2022 STELLA Gasca, [facility] 3 10:01:13 Chronic back pain 756774517 Active 2022 Teresa Connolly CMA null, [facility] 3 15:46:59 Acute bronchitis 36052498 Active 2022 Massiel Carrillo MD [address], [place], [address] , [facility] 3 10:35:38 Low back pain 347492333 Active 2022 STELLA Gasca, [place] [facility] 3 09:04:16 Cervical radiculopa thy 22097652 Active 2022 STELLA Gasca, [facility] 3 09:04:48 Essential hypertensi on 38561688 Active 2022 Massiel Carrillo MD [address], [address], [place], [address] , [facility] 3 11:07:58 Neck pain 79969983 Active 2023 Massiel Carrillo MD [address], [place], [address] , [facility] 4 16:35:59 Anxiety 94712890 Active 2023 Corrie Funk, ASSISTANT DIRECTOR OF PUBLIC WORKS null, [facility] 4 11:38:44 Spinal stenosis in cervical region 68143325 Active 2023 Teresa Connolly ASSISTANT DIRECTOR OF PUBLIC WORKS null, [facility] 4 15:49:17 Gastroesop hageal reflux disease 046002668 Active 2023 Massiel Carrillo MD [address], [place], [address] , [facility] 4 12:29:02 Problem Notes None recorded. Procedures Surgical History Date Name Laterality Status Provider Name and Address Organization Details Recorded Time 3 Advanced Care Planning completed Paulette Salazar RN [facility] 04/26/2023 11:06:48 Imaging Results Imaging Date Name Status LastModified by [facility] Details LastModified Time 04/09/2023 MRI, lumbar spine, w/o contrast completed [email or web address] [address], [place], [address], 04/11/2023 12:36:55 04/09/2023 MRI, lumbar plexus, w/o contrast completed [email or web address] [place] [address] [address], [place], [address], 04/11/2023 08:42:01 04/15/2023 XR, cervical spine, 2 or 3 view completed [email or web address] [facility] Brittaney Chaudhari [address] [facility] [address], [place], [address], 04/15/2023 10:03:42 03/27/2014 MRI, cervical spine, w/o contrast completed Information not available 07/07/2023 10:07:01 03/22/2014 MRI, lumbar spine, w/o contrast completed Information not available 07/07/2023 10:07:47 09/01/2023 XR, hip, unilateral completed [address] [place] [address], [address], 09/01/2023 17:33:46 09/13/2023 MRI, cervical plexus, w/o contrast completed [address] [place] [address], [address], 09/13/2023 16:26:34 09/22/2023 US, thyroid completed [address] [place] [address], [address], 09/22/2023 17:01:50 01/30/2024 XR, hip + pelvis, unilateral completed [address] [place] [address], [address], 01/30/2024 17:44:48 Procedure Notes None recorded. Medical Equipment None Reported. Allergies No known drug allergies Medications Name Sig Start Date Stop Date Status Note LastModified by Organization Details LastModified Time status covid-19/fl u a-b antigen tst TEST DIRECTED TODAY 05/15 completed Not Available Not Available Not Available Pravachol 40 mg tablet Take 1 tablet every day by oral route. 2013 active Not Available Not Available Not Avai lable losartan 50 mg tablet TAKE 1 TABLET BY MOUTH EVERY DAY 05/24 completed Not Available Not Available Not Available cyclobenzap rine 10 mg tablet Take 1 tablet 3 times a day by oral route. 04/14 completed Not Available Not Available Not Available amoxicillin 500 mg capsule Take 1 capsule 3 times a day by oral route for 10 days. 11/14 completed Not Available Not Available Not Available clotrimazol e 10 mg guillermo 05/15 completed Not Available Not Available Not Available Augmentin 875 mg-125 mg tablet Take 1 tablet every 12 hours by oral route. 10/01 completed Not Available Not Available Not Available albuterol sulfate 0.63 mg/3 mL solution for nebulizatio n USE 1 VIAL VIA NEBULIZER FOUR TIMES DAILY NEEDED FOR WHEEZING active Not Available Not Available No t Available nystatin 100,000 unit/mL oral suspension SHAKE LIQUID AND TAKE 5 ML BY MOUTH FOUR TIMES DAILY active Not Available Not Available No t Available prednisone 10 mg tablet TAKE 1 TABLET BY MOUTH TWICE DAILY 05/15 completed Not Available Not Available Not Available atorvastati n 20 mg tablet TAKE 1 TABLET BY MOUTH EVERY DAY active Not Available Not Available No t Available azithromyci n 250 mg tablet TAKE 2 TABLETS BY MOUTH EVERY DAY FOR 1 DAY THEN TAKE 1 TABLET BY MOUTH DAILY 05/15 completed Not Available Not Available Not Available alprazolam 1 mg tablet TAKE 1 TABLET BY MOUTH THREE TIMES DAILY 06/17 completed Not Available Not Available Not Available benzonatate 200 mg capsule TAKE 1 CAPSULE BY MOUTH THREE TIMES DAILY 05/15 completed Not Available Not Available Not Available alendronate 70 mg tablet TAKE 1 TABLET BY MOUTH EVERY 7 DAYS active Not Available Not Available No t Available aspirin 81 mg tablet,eli yed release Take 1 tablet every day by oral route. active Not Available Not Available No t Available alprazolam 0.5 mg tablet TAKE 1 TABLET BY MOUTH THREE TIMES DAILY active Not Available Not Available No t Available nicotine (polacrilex ) 4 mg gum Chew 1 piece of gum every 2 hours by oral route as needed for 30 days. active Not Available Not Available No t Available Kenalog 10 mg/mL suspension for injection In office injection administe red by the provider 10/04 completed [facility]: 0003- 0494- 20 Not Available Not Available Not Available hydrocodone 7.5 mg-acetamin ophen 325 mg tablet TAKE 1 TABLET BY MOUTH EVERY 6 HOURS active Not Available Not Available No t Available pantoprazol e 40 mg tablet,eli yed release TAKE 1 TABLET BY MOUTH EVERY MORNING active Not Available Not Available No t Available Prozac 20 mg capsule one daily for anxiety and depressio n active Not Available Not Available No t Available prednisone 50 mg tablet TAKE 1 TABLET BY MOUTH DAILY FOR 5 DAYS 06/01 completed Not Available Not Available Not Available losartan 25 mg tablet TAKE 1 TABLET BY MOUTH DAILY active Not Available Not Available No t Available Levaquin 500 mg tablet Take 1 tablet every 24 hours by oral route. active Not Available Not Available No t Available methylpredn isolone 4 mg tablets in a dose pack FOLLOW PACKAGE DIRECTION S 04/15 completed Not Available Not Available Not Available albuterol sulfate HFA 90 mcg/actuati on aerosol inhaler INHALE 2 PUFFS EVERY 4 HOURS NEEDED FOR WHEEZING active Not Available Not Available No t Available cefdinir 300 mg capsule Take 1 capsule every 12 hours by oral route. 05/22 completed Not Available Not Available Not Available Mucinex 600 mg tablet, extended release Take 1 tablet every 12 hours by oral route. active Not Available Not Available No t Available azithromyci n 500 mg tablet TAKE 1 TABLET BY MOUTH 3 TIMES A WEEK ON TUESDAY,,A ND TUESDAY DIRECTED FOR 84 DAYS 08/22 completed Not Available Not Available Not Available Multivitami n 50 Plus tablet Take 1 tablet every day by oral route. active Not Available Not Available No t Available Spiriva with HandiHaler 18 mcg and inhalation capsules INHALE CONTENTS OF 1 CAPSULE EVERY DAY DIRECTED FOR 30 DAYS 11/05 completed Not Available Not Available Not Available aspirin 04/26 completed Not Available Not Available Not Available One A Day 05/15 completed Not Available Not Available Not Available lidocaine (PF) 10 mg/mL (1 %) injection solution In office injection administe red by the provider 10/04 completed [facility]: 0409- 4276- [phone] Not Available Not Available Not Available Activella 0.5 mg-0.1 mg tablet Take 1 tablet every day by oral route for 90 days. 04/08 completed Not Available Not Available Not Available Symbicort 160 mcg-4.5 mcg/actuati on HFA aerosol inhaler INHALE 2 PUFFS INTO THE LUNGS TWICE A DAY DIRECTED FOR 30 DAYS 11/05 completed Not Available Not Available Not Available roflumilast 500 mcg tablet Take 1 tablet every day by oral route. active Not Available Not Available No t Available roflumilast 250 mcg tablet 05/15 completed Not Available Not Available Not Available Breztri Aerosphere 160 mcg-9mcg-4. 8mcg/actuat ion HFA aerosol inhaler INHALE 2 PUFFS BY MOUTH TWICE DAILY active Not Available Not Available No t Available Vitals Date Recorded Body height Body mass index (BMI) Body weight Heart rate Body temperature Oxygen saturation Oxygen saturation in Arterial blood by Pulse oximetry Systolic blood pressure Diastolic blood pressure Provider Name and Address Organization Details Last Updated DateTime 3 170.18 cm 18.8 kg/m2 82787.0 8 g 98 /min 97 [degF] 93 % 93 % 180 mm[Hg] 100 mm[Hg] Yelena Kong M[employer] Sales [facility] [employer] [facility] 3 10:58:41 Date Recorded Body height Body mass index (BMI) Body weight Heart rate Body temperature Oxygen saturation Oxygen saturation in Arterial blood by Pulse oximetry Systolic blood pressure Diastolic blood pressure Provider Name and Address Organization Details Last Updated DateTime 4 170.18 cm 19.3 kg/m2 40961.8 6 g 76 /min 97.7 [degF] 95 % 95 % 120 mm[Hg] 60 mm[Hg] STELLA Duarte [facility] [employer] [facility] 4 16:29:24 Date Recorded Body height Body mass index (BMI) Body weight Heart rate Body temperature Oxygen saturation Oxygen saturation in Arterial blood by Pulse oximetry Systolic blood pressure Diastolic blood pressure Provider Name and Address Organization Details Last Updated DateTime 4 170.18 cm 19.4 kg/m2 25640.4 5 g 82 /min 97 [degF] 94 % 94 % 120 mm[Hg] 60 mm[Hg] Yelena Adilenecathy [employer] [facility] [employer] [facility] 4 11:46:42 Date Recorded Body height Body mass index (BMI) Body weight Heart rate Body temperature Oxygen saturation Oxygen saturation in Arterial blood by Pulse oximetry Systolic blood pressure Diastolic blood pressure Provider Name and Address Organization Details Last Updated DateTime 4 170.18 cm 20 kg/m2 11775.8 2 g 78 /min 97.8 [degF] 98 % 98 % 112 mm[Hg] 62 mm[Hg] STELLA Duarte [facility] [employer] [facility] 4 12:07:14 Date Recorded Body height Body mass index (BMI) Body weight Heart rate Body temperature Oxygen saturation Oxygen saturation in Arterial blood by Pulse oximetry Systolic blood pressure Diastolic blood pressure Provider Name and Address Organization Details Last Updated DateTime 5 167.64 cm 21.8 kg/m2 15615.9 7 g 77 /min 97 [degF] 94 % 94 % 120 mm[Hg] 60 mm[Hg] Yelena Gray [place] shoutr [facility] [employer] 5 10:33:48 Social History Question Answer Notes LastModified by Organizat ion Details LastModified Time Tobacco Smoking Status Current Every Day Smoker Linda Valderrama brock [place] shout[employer] [facility] [employer] 11/05/2022 11:47:35 What Is Your Level Of Alcohol Consumption? Occasional [email or web address] Information not available 07/20/2022 What Is Your Level Of Caffeine Consumption? Moderate [email or web address] Information not available 07/20/2022 Are You Currently Employed? Yes [email or web address] Information not available 11/05/2022 What Is Your Occupation? [employer] [email or web address] Information not available 11/05/2022 What Was The Date Of Your Most Recent Tobacco Screening? 06/01/2022 [email or web address] Information not available 11/05/2022 What Is Your Current Pack Years? [email or web address] ars [email or web address] Information not available 11/05/2022 Do You Have Any Pets? Yes [email or web address] Information not available 11/05/2022 At What Age Did You Start Smoking Tobacco? 13 [email or web address] Information not available 11/05/2022 How Much Tobacco Do You Smoke? 1 PPD [id number] Information not available 07/07/2022 Do You Use Any Illicit Or Recreational Drugs? No [email or web address] Information not available 11/05/2022 How Many Years Have You Smoked Tobacco? 43 Information not available 11/05/2022 Sex: Unknown Functional Status None recorded. Mental Status None recorded. Family History Nothing Reported Notes:Mother Living 76 years old has hx of [place] of breast Father 51 years old 1 Sisters 1 Living Father Hx ASHD Medical History Condition Response NERVE DISEASE N BLINDNESS N RHEUMATIC FEVER N KIDNEY STONES N BLADDER PROBLEMS N MRSA N OTHER # 1 N POLIO N LUNG DISEASE/DISORDER Y HISTORY OF DRUG ABUSE N RADIATION / CHEMOTHERAPY N COPD Y Other # 2 N BLOOD DISEASES N EAR OR HEARING PROBLEMS N MUMPS N SHINGLES N DEPRESSION (INCLUDING POST ) Y BOWEL PROBLEMS N STROKE/TIA N ULCERS N BENIGN PROSTATIC HYPERPLASIA N MEASLES N HYPOTENSION N MYOCARDIAL INFARCTION N OBESITY N GERD/NAUSEA N ANEURYSM N URINARY/BLADDER/KIDNEY PROBLEMS N CORONARY ARTERY DISEASE (CAD) N ADDICTION CONCERNS N Impotence N ENDOMETRIOSIS N USE OF BLOOD THINNERS N SKIN PROBLEMS N GASTROINTESTINAL DISORDER N PERIPHERAL VASCULAR DISEASE N MUSCLE,JOINT OR BONE PROBLEMS N GASTROINTESTINAL BLEEDING N BLOOD CLOTS N ASTHMA Y CATARACTS N ERECTILE DYSFUNCTION N VARICOSITIES N GI PROBLEMS N Low Testosterone N INFERTILITY N AIDS/HIV N CHEMOTHERAPY / RADIATION N LIVER DISEASE N MALE HYPOGONADISM N HYPERTENSION N Deficiency N TOURETTE'S N ANXIETY DISORDER N BLOOD TRANSFUSION N ANEMIA/BLOOD DISORDER N CHRONIC EAR INFECTIONS N BRONCHITIS N TUBERCULOSIS N GLAUCOMA N FOOT PROBLEM N DIVERTICULITIS N SLEEP APNEA N CHICKENPOX N INFECTIOUS DISEASE N PROSTATE N HEART ARRHYTHMIA N INSOMNIA N HIGH CHOLESTEROL / HYPERLIPIDEMIA Y EYE PROBLEMS N HYPERTHYROIDISM N EDEMA N CHRONIC PAIN SYNDROME N HYPOTHYROIDISM N CAROTID BLOCKAGE N CONSTIPATION N BACK / NECK PROBLEMS N HAVE YOU BEEN HOSPITALIZED OR SEEN IN [facility] IN THE PAST YEAR ? N ATHEROSCLEROSIS N BREAST PROBLEMS N DIALYSIS N ECZEMA N OSTEOPOROSIS Y ARTHRITIS Y NO SIGNIFICANT PAST MEDICAL HISTORY N APPENDICITIS N DIABETES, TYPE N BAD TEETH N ENT N HEARTBURN / REFLUX N AUTISM SPECTRUM DISORDER (ASD) N HEPATITIS / LIVER DISEASE N GOUT N SLEEP DISORDER N ALZHEIMER'S DISEASE N Brain Problems N DEMENTIA N HERPES N SEIZURES/EPILEPSY N HEADACHES/MIGRAINES N VASCULAR DISEASE N PACEMAKER N Blood Disorder N DIZZINESS N HEART DISEASE/HEART PROBLEMS N KIDNEY DISEASE N MULTIPLE SCLEROSIS N CANCER: SPECIFY Y CARDIAC ARRHYTHMIA N ATRIAL FIBRILLATION Y Gall Stones N PULMONARY EMBOLISM N AUTOIMMUNE DISEASE N Gynecological HistoryNo gynecological history recorded. Obstetrics History GPAL:G 0 P 0 0 0 0 Immunizations Vaccine Type Date Status Note Provider Nam e and Address Organization Details Recorded Time influenza, unspecified formulation 3 completed TARAS Villar DE [employer] [facility] 04/26/2023 10:59:55 Influenza, split virus, trivalent, preservative 4 completed Not Available [facility] 01/07/2023 08:12:48 Influenza, split virus, quadrivalent, preservative 0 completed Not Available [facility] 01/07/2023 08:12:48 COVID-19, mRNA, LNP-S, bivalent, PF, 30 mcg/0.3 mL dose 2 completed Not Available [facility] 01/07/2023 08:12:48 Influenza, split virus, quadrivalent, preservative 2 completed Not Available [facility] 01/07/2023 08:12:48 COVID-19, mRNA, LNP-S, PF, 30 mcg/0.3 mL dose 2 completed Not Available [facility] 01/07/2023 08:12:48 Influenza, adjuvanted, trivalent, PF 1 completed Not Available [facility] 01/07/2023 08:12:48 SARS-COV-2 (COVID-19) vaccine, UNSPECIFIED 1 completed Not Available [facility] 01/07/2023 08:12:48 SARS-COV-2 (COVID-19) vaccine, UNSPECIFIED 1 completed Not Available [facility] 01/07/2023 08:12:48 SARS-COV-2 (COVID-19) vaccine, UNSPECIFIED 1 completed Not Available [facility] 01/07/2023 08:12:48 Influenza, split virus, quadrivalent, preservative 9 completed Not Available [facility] 01/07/2023 08:12:48 Influenza, split virus, quadrivalent, PF 7 completed Not Available [facility] 01/07/2023 08:12:48 Influenza, split virus, quadrivalent, PF 8 completed Not Available [facility] 01/07/2023 08:12:48 Influenza, split virus, quadrivalent, PF 6 completed Not Available [facility] 01/07/2023 08:12:48 Influenza, split virus, quadrivalent, preservative 5 completed Not Available [facility] 01/07/2023 08:12:48 Past Encounters Encounter ID Performer Location Encounter Start Date Encounter Closed Date Diagnosis/Indication Diagnosis SNOMED-CT Code Diagnosis ICD10 Code Diagnosis Note [id number] [facility] Internal Med Jaydon [place] [address] [place] [address] 10/10/2020 00:00:00 10/10/2020 11:04:56 [id number] [facility] Internal Med [place] [address] [place] [address] [place] [address] 04/14/2021 00:00:00 04/14/2021 10:58:16 [id number] [facility] Internal Med [place] [address] [place] [address] [place] [address] 10/20/2021 00:00:00 10/20/2021 11:02:04 [id number] [facility] Internal Med [address] [place] [address] 04/20/2022 00:00:00 04/20/2022 10:47:47 [id number] [facility] Pul[facility] gy [place] [address] [place] [address] 06/01/2022 00:00:00 06/01/2022 14:10:06 [id number] Lissette Diaz, [facility] Pulmon[facility] [place] [address] [place] [address] 07/20/2022 09:58:02 07/20/2022 17:19:48 Asthma-chronic obstructive pulmonary disease overlap syndrome [id number] 3560691 J44.9 PFT completed 11/2021 with moderate obstructio nRatio 41, FEV1 4427% improvemen t after BDContinue Breztri with aerochambe rInstructe d on useInstruc freya on frequency - BIDShe is aware to rinse and spit after useContinu e Albuterol PRN Dyspnea on exertion 6084 5006 R06.09 Improved with inhaled therapyo [facility] CE, IGGs, IGE, Quantifero n GOLD normalSix minute walk testing normal Sarcoidosis [id number] D86 .9 CT chest 11/16/21:F INDINGS:He art: Normal size, no pericardia l effusion.V ascular structures : Coronary artery calcificat ions.Pleur al space: Unremarkab le.Lungs: Paraseptal and centrilobu lar emphysemat ous residuals bilaterall y,severe. Bilateral apical scarring, stable posteromed ial left lower lobesatele ctatic scarring, stable, image [id number]. Scattered calcified granulomat a.Mediasti num: Calcified granulomat a, stable Osseous structures : Multilevel degenerati ve changes, no acute processExt rathoracic soft tissues: No acute process.IM PRESSION:L aleksander-RADS, benign.She has had CT calcium score with cardiology , will review resultsACE level normal Nicotine dependence 5629 4008 Z87.891 Smoking cessation counseling and techniques reviewed at length. Literature reviewed.A void triggers, support groups.Dis traction techniques Greater than 3 but less than 10 minutes spent discussing cessation. Declines NRT.Discus sed Rx options if needed in the future. [id number] Lissette Diaz, SENIOR HR GENERALIST-[facility] [place] [address] [place] [address] 08/17/2022 10:05:00 08/17/2022 16:23:22 Asthma-chronic obstructive pulmonary disease overlap syndrome [id number] 2764167 J44.9 ACT 7CAT 28PFT completed 11/2021 with moderate obstructio nRatio 41, FEV1 4427% improvemen t after BDContinue Breztri with aerochambe rShe has tried and failed Symbicort and Spiriva, statement of medical necessity as aboveConti nue Albuterol PRN - discussed indication s for useDiscuss ed reportable signs and symptomsRT C in 3 months, PRN for concerns Dyspnea on exertion 6084 5006 R06.09 Improved with inhaled therapy - BreztriIt is my recommenda tion that she continue this as maintenanc e therapySmo harjinder cessationA CE, IGGs, IGE, Quantifero n GOLD normalSix minute walk testing normal Sarcoidosis 03305886 D86 .9 CT chest 11/16/21:F INDINGS:He art: Normal size, no pericardia l effusion.V ascular structures : Coronary artery calcificat ions.Pleur al space: Unremarkab le.Lungs: Paraseptal and centrilobu lar emphysemat ous residuals bilaterall y,severe. Bilateral apical scarring, stable posteromed ial left lower lobesatele ctatic scarring, stable, image 204-56. Scattered calcified granulomat a.Mediasti num: Calcified granulomat a, stableOsse ous structures : Multilevel degenerati ve changes, no acute processExt rathoracic soft tissues: No acute process.IM PRESSION:L aleksander-RADS, benign.YANA level normalNeed s yearly CT completed - due 11/2022 Nicotine dependence 5629 4008 Z87.891 Smoking cessation counseling and techniques reviewed at length. Literature reviewed.A void triggers, support groups.Dis traction techniques Greater than 3 but less than 10 minutes spent discussing cessation. Declines NRT.Discus sed Rx options if needed in the future. [id number] Massiel Carrillo MD [facility] Internal Med [facility] [address] [place] [address] 10/26/2022 10:19:32 10/26/2022 10:46:13 Chronic obstructive pulmonary disease 27364117 J44.9 Pure hypercholesterolemia 948298486 E78.00 History of malignant neoplasm of kidney 070472489 Z85.528 Osteoarthritis of hip 23 1256200 M16.9 [id number] Ge Mattson MD [facility] Ortho [place] [address] [place] [address] 11/05/2022 11:44:46 11/08/2022 09:49:21 Pain in right hip joint 0664531103 54585 M25.551 Osteoporosis 37026236 M8 1.0 [id number] Lissette Diaz, SENIOR HR GENERALIST[facility] Pulmonolo [facility] [place] [address] [place] [address] 11/17/2022 10:25:26 11/18/2022 08:46:25 Asthma-chronic obstructive pulmonary disease overlap syndrome [id number] 0110006 J44.9 CAT 29PFT completed 11/2021 with moderate obstructio nRatio 41, FEV1 4427% improvemen t after BDOrder for repeat todayConti nue Breztri with aerochambe rContinue Albuterol PRN - discussed indication s for useDiscuss ed reportable signs and symptomsRT C in 3-4 months, PRN for concerns Dyspnea on exertion 6084 5006 R06.09 Improved with inhaled therapy - BreztriIt is my recommenda tion that she continue this as maintenanc e therapySmo [facility] CE, IGGs, IGE, Quantifero n GOLD normalSix minute walk testing normal Sarcoidosis [id number] D86 .9 CT chest 11/16/21:F INDINGS:He art: Normal size, no pericardia l effusion.V ascular structures : Coronary artery calcificat ions.Pleur al space: Unremarkab le.Lungs: Paraseptal and centrilobu lar emphysemat ous residuals bilaterall y,severe. Bilateral apical scarring, stable posteromed ial left lower lobesatele ctatic scarring, stable, image [id number]. Scattered calcified granulomat a.Mediasti num: Calcified granulomat a, stableOsse ous structures : Multilevel degenerati ve changes, no acute processExt rathoracic soft tissues: No acute process.IM PRESSION:L aleksander-RADS, benign.YANA level normalCalc ium normal 06/2022Nee ds yearly CT completed - due 11/2022, ordered todayHas seen opthamolog y and cardiology Nicotine dependence 5629 4008 Z87.891 Smoking cessation counseling and techniques reviewed at length. Literature reviewed.A void triggers, support groups.Dis traction techniques Greater than 3 but less than 10 minutes spent discussing cessation. Start nicotine gumDiscuss ed Rx options if needed in the future. Candidiasis of mouth 797 49565 B37.0 Start Nystatin [id number] Lissette Diaz, [facility] Pulmonolo gy [place] [address] [place] [address] 02/15/2023 10:37:59 02/15/2023 11:33:32 Asthma-chronic obstructive pulmonary disease overlap syndrome [id number] 9713279 J44.9 CAT 33ACT 16PFT completed 11/2021 with moderate obstructio nRatio 41, FEV1 4427% improvemen t after BDRepeat PFT 12/2022 with severe obstructio n and good BD responseCo ntinue Breztri with aerochambe rContinue Albuterol PRN - discussed indication s for useDiscuss ed reportable signs and symptoms Chronic bronchitis 26315 004 J42 Start Azithromyc in three times per week Candidiasis of mouth 797 70797 B37.0 Start Nystatin Sarcoidosis 90604607 D86 .9 CT chest 11/16/21:F INDINGS:He art: Normal size, no pericardia l effusion.V ascular structures : Coronary artery calcificat ions.Pleur al space: Unremarkab le.Lungs: Paraseptal and centrilobu lar emphysemat ous residuals bilaterall y,severe. Bilateral apical scarring, stable posteromed ial left lower lobesatele ctatic scarring, stable, image [id number]. Scattered calcified granulomat a.Mediasti num: Calcified granulomat a, stableOsse ous structures : Multilevel degenerati ve changes, no acute processExt rathoracic soft tissues: No acute process.IM PRESSION:L aleksander-RADS, benign.YANA level normalCalc ium normal 06/2022Nee ds yearly CT completed - due 11/2022, ordered todayHas seen opthamolog y and cardiology Nicotine dependence 5629 4008 Z87.891 Smoking cessation counseling and techniques reviewed at length. Literature reviewed.A void triggers, support groups.Dis traction techniques Greater than 3 but less than 10 minutes spent discussing cessation. Start nicotine gumDiscuss ed Rx options if needed in the future. [id number] Ge Mattson MD [facility] [place] [address] [place] [address] 03/23/2023 09:48:48 03/23/2023 13:52:30 Osteoarthritis 159417670 M16.11 [id number] Ge Mattson MD [facility] [place] [address] [place] [address] 04/15/2023 08:53:46 04/15/2023 10:13:06 Low back pain 291327781 M54.50 Cervical radiculopathy 77622536 M54.12 [id number] Massiel Carrillo MD [facility] Internal Med [place] stroud [address] [facility] [place] [address] 04/26/2023 10:34:29 04/26/2023 11:21:18 Adult health examination 580635841 Z00.00 Depression screening 171 520329 Z13.31 Essential hypertension 92281467 I10 Atrial fibrillation 4943 6004 I48.91 History of malignant neoplasm of kidney 578638037 Z85.528 Chronic ob structive pulmonary disease 71130819 J44.9 [id number] Massiel Carrillo MD [facility] Internal Med [facility] [address] [facility] [address] [place] [address] 06/13/2023 16:21:39 06/13/2023 16:46:55 Neck pain 31671481 M54.2 [id number] Massiel Carrillo MD [facility] Internal Med [address] [place] [address] 08/23/2023 11:27:58 08/23/2023 12:06:18 Chronic obstructive pulmonary disease 88004333 J44.9 Chronic pain syndrome 37 6620743 G89.4 Essential hypertension 40175809 I10 Pure hypercholesterolemia 685769574 E78.00 Long-term current use of opiate analgesic drug 9540690570 87163 Z79.660 [id number] Massiel Carrillo MD [facility] Internal [address] [place] [address] 12/27/2023 11:44:25 12/27/2023 12:39:10 Atrial fibrillation 71256237 I48.91 Anxiety 58737267 F41.9 Chronic ob structive pulmonary disease 85213622 J44.9 Essential hypertension 46535654 I10 Gastroesop hageal reflux disease 608999238 K21.9 Pure hypercholesterolemia 224324688 E78.00 [id number] Massiel Carrillo MD [facility] Primary Care [facility] [address] [facility] [address] [place] [address] 05/15/2024 10:16:43 05/15/2024 14:05:50 Adult health examination 355359837 Z00.00 Depression screening 171 279300 Z13.31 Essential hypertension 00850490 I10 Pure hypercholesterolemia 844504104 E78.00 History of malignant neoplasm of kidney 473747228 Z85.528 Osteoarthritis of hip 23 9746825 M16.9 Anxiety disorder 4523094 06 F41.9 Chronic ob structive pulmonary disease 54621043 J44.9 Gastroesop hageal reflux disease 770069197 K21.9 Vitamin D deficiency 347 43142 E55.9 Health Concerns Section Related Observation LastModified by Organization Detai ls LastModified Time None Recorded Concern Status LastModified by Organization Details LastModified Time None Recorded Advance Directives Directive None Recorded Payers Encounter Date Sequence Insurance Name Policy Number Policy Ruth Covered Member ID Ruth Member ID Guarantor Name 04/26/2023 1 [facility] (MEDICAID HMO) [id number] Gladys Havron [id number] Gladys Havron 06/13/2023 1 [facility] (MEDICAID HMO) [id number] 0003 Gladys Havron [id number] Gladys Havron 08/23/2023 1 [facility] (MEDICAID HMO) [id number] 0003 Gladys Havron [id number] Gladys Havron 12/27/2023 1 [facility] (MEDICAID HMO) [id number] 0003 Gladys Havron [id number] Gladys Havron 05/15/2024 1 [facility] (MEDICAID HMO) [id number] 0003 Gladys Havron [id number] Gladys Havron Notes Date Note Type Note Provider Name and Address Organization Details Recorded Time 3 text/html Patient Name: Gladys ToddDate Of Service: Tuesday ( 04.26.2023 ): 1965 Age: 57 Vital Signs:Blood Pressure: Sitting Rt. Arm 180/80Pulse: Sitting 98 /min and RegularRespiratory Rate: 12Height 67 in or 1.7 mWeight 120 lb or 54.4 kgBMI 18.8Temperature: 97 F or 36.1 CPulse Oximetry: 93 % at rest on no oxygen Chief Complaint: Addressed in HPI Problems or conditions discussed in the HPI were the only ones reviewed during the encounter.Only social and family history addressed in the HPI were reviewed during this encounter. Attendant(s): NoneConstitutional and Systemic Symptoms:none Medication Reconciliation: from medication list. Fewacernfod23/02/2023: Echocardiogram demonstrates a left ventricular ejection fraction measured at 65%. There is mild mitral annular calcification with mitral valve regurgitation. There was aortic valve sclerosis moderate aortic valve regurgitation. S some slight tricuspid regurgitation with pulmonary artery pressure 35 mmHg.12/15/2022: PFT's demonstrates extremely severe obstructive ventilatory impairment with good response to bronchodilator therapy. Severe trapping and moderate diffusion impairment partial correction of the alveolar volume.04-09-2023: MRI of the lumbar spine showed L1-L2 no disc bulge or herniation, L2-L3 no bulge or herniation, L3-L4 minimal disc bulge with moderate facet arthropathy. No central canal stenosis. L4-L5 minimal bulge no central canal or neural foraminal stenosis. L5-S1 there is moderate central disc extrusion with mild facet arthropathy no central canal stenosis. There is severe bilateral neural foraminal narrowing worse on the right. Impression overall moderate degenerative spondylolysis with L5-S1 bilateral neural foraminal narrowing left greater than right. History of Present Illness In for a well patient check up. Last well patient evaluation was approximately one year. No interval complaints of any major medical problems. No hx of any chest pain, shortness of breath, nausea, vomiting, diarrhea or constitutional symptoms. Also being followed for other chronically monitored problems.Has Had A Mammogram dueHas Had A Pap Smear dueImmunizations Up To Date or refuses to takeNo Significant Change In Family HxColonoscopy or Cologuard: not dueFall Risk normalDepression Score: 3Hearing normalVision normalReviewed Smoking and Drug HistoryReviewed Immunization HistoryInstructed on importance of weight on diabetes, heart and other diseases aggravated by obesity. #1. Renal Cell Cancer: History of renal cell cancer on right. There has been no pain, fever, chills or other signs or symptoms of any metastatic disease. #2. Essential Hypertension: Stage: Stage I Interval Neurological Complaints no headaches, dizziness, weakness, visual changes, ataxia, aphasia and apraxia. No shortness of breath, orthopnea or cardiovascular symptoms. No other symptoms related to end organ damage. Pressure has been under excellent control. Currently normal. No other end organ symptoms or findings. Therapy reviewed regarding management of hypertension and includes salt restriction and started Losartan Potassium. #3. COPD: Hx of Emphysema currently stable. There has been no interval change in exercise tolerance an shortness of breath. No change in sputum production, color or consistency. No fever, chills, weight loss or other constitutional symptoms. Gold Scale: Moderate. MRC Scale: vigorous walking. Smoking: currently smoking and instructed once again on cessation techniques Current medications: Breztri and Ventolin Hfa Using nebulizer Treatments: No. Uses does not use supplemental oxygen #4. Atrial Fibrillation: Type: Paroxysmal with recurrent episodes lasting less than 7 days. Further classification: Non-valvular. Associated history of HTN. No attending hx of any shortness of breath, palpitations, syncopal or neurological symptoms. Current medications: no specific medication. Rate control: controlled ventricular response [id number] Criteria: hypertension, Age < 65 and and considered low risk for embolic phenomenon. Anticoagulation: noneMedication List Reviewed and Reconciled 04/26/2023Lipitor 20 MG (TABLET - ORAL) One Daily Hs For CholesterolNorco 325 MG-7.5 MG One Q 6 Hours Prn For PainVentolin Hfa 0.09 MG /INH 2 Puffs QidLosartan Potassium 50 MG TABLET One DailyXanax 1 MG (TABLET - ORAL) One Three Times A DayBreztri 160; 4.8; UG; UG AEROSOL, METERED Two Puffs BidVaccination and Ucnanyznvtoc7418-00 Qmgpjldgg7885-15 Covid Dhkicw8722-47 PneumovaxSurgical HistoryEsophageal Dilatation, Left NOEMY, Right NephrectomyPreventative Testing Confirmed by Our Deulsuv1803/22/2023 ALBUMIN 4.2 G/DL N011/15/2022 MAMMOGRAM 0/05/2021 UPPER NQKQXBJXZ79/30/2022 COLONOSCOPY ( 5 YEARS ) 7/03/2022 LDCT / DEXA SCANSocial HistorySOCIAL HISTORY:Smoking Hx: 1 packs of cigarettes per day for over 30 years.Drinking Hx: < 6 beers per week, > 24 oz of coffee per day.Exercise: InfrequentlySexual Hx: Sexually ActiveFamily HistoryFAMILY HISTORY:Mother Living 76 years old has hx of Ca of breastFather 51 years old1 Sisters 1 LivingFather Hx: JUSTO Carrillo MD [address] [facility] [facility] [address], [place], [address], [facility] [employer] 04/26/2023 11:19:23 4 text/html Patient Name: Gladys Robertson Of Service: Tuesday ( 06.13.2023 ): 1965 Age: 57 Chief Complaint: Addressed in HPI Problems or conditions discussed in the HPI were the only ones reviewed during the encounter.Only social and family history addressed in the HPI were reviewed during this encounter. Attendant(s): NoneConstitutional and Systemic Symptoms:none Medication Reconciliation: from medication list. Yetacwcpznr86/02/2023: Echocardiogram demonstrates a left ventricular ejection fraction measured at 65%. There is mild mitral annular calcification with mitral valve regurgitation. There was aortic valve sclerosis moderate aortic valve regurgitation. S some slight tricuspid regurgitation with pulmonary artery pressure 35 mmHg. 12/15/2022: PFT's demonstrates extremely severe obstructive ventilatory impairment with good response to bronchodilator therapy. Severe trapping and moderate diffusion impairment partial correction of the alveolar volume. 04-09-2023: MRI of the lumbar spine showed L1-L2 no disc bulge or herniation, L2-L3 no bulge or herniation, L3-L4 minimal disc bulge with moderate facet arthropathy. No central canal stenosis. L4-L5 minimal bulge no central canal or neural foraminal stenosis. L5-S1 there is moderate central disc extrusion with mild facet arthropathy no central canal stenosis. There is severe bilateral neural foraminal narrowing worse on the right. Impression overall moderate degenerative spondylolysis with L5-S1 bilateral neural foraminal narrowing left greater than right. History of Present Illness #1. Persistent neck pain now having some very mild radicular symptoms bone both arms. The right sign down to the level the elbow on the left down to four arm. . Denies any numbness, tingling or weakness. There has been no myelopathic symptoms suggestive of ambulatory difficulty. Will likely need to be set up with Neurology again since she is having headaches associated with this but has a number of musculoskeletal problems which may be contributing to the current symptomatology. Would benefit at least diagnostically from an MRI of the neck but this has been turned down in the past by insurance company.: Active Medication ListLipitor 20 MG (TABLET - ORAL) One Daily Hs For CholesterolNorco 325 MG-7.5 MG One Q 6 Hours Prn For PainVentolin Hfa 0.09 MG /INH 2 Puffs QidLosartan Potassium 25 MG TABLET One DailyXanax 1 MG (TABLET - ORAL) One Three Times A DayPantoprazole 40 MG TABLET One DailyBreztri 160; 4.8; UG; UG AEROSOL, METERED Two Puffs Bid Massiel Carrillo MD [address] [facility], [facility] [address], [place], [address], [place] [facility] 06/13/2023 16:39:41 4 text/html Patient Name: Gladys Robertson Of Service: Tuesday ( 08.23.2023 ): 1965 Age: 57 There has been approximately a 4 lb weight gain since 04/26/2023. This represents approximately a 3.3% change in weight. Weight change attributable to lifestyle changes. Vital Signs:Blood Pressure: Sitting Rt. Arm 120/60Pulse: Sitting 82 /min and RegularRespiratory Rate: 12Height 67 in or 1.7 mWeight 124 lb or 56.2 kgBMI 19.4Temperature: 97 F or 36.1 CPulse Oximetry: 94 % at rest on no oxygen Chief Complaint: Addressed in HPI Problems or conditions discussed in the HPI were the only ones reviewed during the encounter.Only social and family history addressed in the HPI were reviewed during this encounter. Attendant(s): NoneConstitutional and Systemic Symptoms:none Medication Reconciliation: from medication list. Dpjhejcedun51/02/2023: Echocardiogram demonstrates a left ventricular ejection fraction measured at 65%. There is mild mitral annular calcification with mitral valve regurgitation. There was aortic valve sclerosis moderate aortic valve regurgitation. S some slight tricuspid regurgitation with pulmonary artery pressure 35 mmHg. 12/15/2022: PFT's demonstrates extremely severe obstructive ventilatory impairment with good response to bronchodilator therapy. Severe trapping and moderate diffusion impairment partial correction of the alveolar volume. 04-09-2023: MRI of the lumbar spine showed L1-L2 no disc bulge or herniation, L2-L3 no bulge or herniation, L3-L4 minimal disc bulge with moderate facet arthropathy. No central canal stenosis. L4-L5 minimal bulge no central canal or neural foraminal stenosis. L5-S1 there is moderate central disc extrusion with mild facet arthropathy no central canal stenosis. There is severe bilateral neural foraminal narrowing worse on the right. Impression overall moderate degenerative spondylolysis with L5-S1 bilateral neural foraminal narrowing left greater than right. History of Present Illness #1. Essential Hypertension: Stage: Stage I Interval Neurological Complaints no headaches, dizziness, weakness, visual changes, ataxia, aphasia and apraxia. No shortness of breath, orthopnea or cardiovascular symptoms. No other symptoms related to end organ damage. Pressure has been under excellent control. Currently normal. No other end organ symptoms or findings. Therapy reviewed regarding management of hypertension and includes salt restriction and Losartan Potassium. #2. Type II Hypercholesterolaemia: Currently taking medication and tolerating well. No interval complaints of any muscle pain or arthralgia. No significant liver changes with medications. Last lipid panel: excellent control. Therapy reviewed regarding treatment of cholesterol management and include diet and Lipitor. #3. COPD: Hx of Emphysema currently stable. There has been no interval change in exercise tolerance an shortness of breath. No change in sputum production, color or consistency. No fever, chills, weight loss or other constitutional symptoms. Gold Scale: Moderate. MRC Scale: vigorous walking. Smoking: not currently smoking Current medications: Breztri Using nebulizer Treatments: No. Uses does not use supplemental oxygen #4. Chronic pain management for chronic knees and hips Since last examination no significant change since last examination Interval Testing: noneHas tried NSAIDS partial relief requiring additional medication. Pain Description: constant, exacerbated by activity and interferes with enjoyment and ability to perform activities of daily living. Currently seeing or has seen in the past a Commercial Loan Analyst: No .Pain - Enjoyment of Life - General Activity ScalePain on Average: 5Enjoyment of Live: 6General Activity: 5Enjoyment of Life - General Activity Scale: 5Currently regimen consists of [place] as prescribed with no evidence of abuse or self prescribing. Current Average Morphine Milligram Approximate Equivalent: 30 mg approximated if taking full dosage daily. Recommend: NA.Benzodiazepines or other hypnotics: yes and have discussed reducing dose.Alternative pain management modalities (acupuncture - behavior therapy- additional PT - SNRIs) have been discussed and have either been tried in the past or not acceptable alternatives to patient or not available in our location.Will kept medications the same.Urine Testing: will be performed and patient instructed that failure of testing within a 24 hour period from time of order may result in termination of medication.Controlled substance database yes and no discrepancies or multiple prescribers noted. Pill counts when available have been acceptable. No other signs of any abuse.Patient reports condition is stable and is able to function with the medication. Denies any misuse or adverse effects.TREATMENT OBJECTIVE: Enhance ability to manage pain independently, improved function and sustain quality of life. Recommendations or alternative therapies and lifestyle changes are discussed on each visit. Has shown improvement inf functionality. Has been educated on the side effects,risks and any black box warnings. Has verbalized the dangers of some of the medications regarding driving and cooperating heavy machinery and have advised against this. Active Medication ListLipitor 20 MG (TABLET - ORAL) One Daily Hs For CholesterolNorco 325 MG-7.5 MG One Q 6 Hours Prn For PainVentolin Hfa 0.09 MG /INH 2 Puffs QidLosartan Potassium 25 MG TABLET One DailyXanax 1 MG (TABLET - ORAL) One Three Times A DayPantoprazole 40 MG TABLET One DailyBreztri 160; 4.8; UG; UG AEROSOL, METERED Two Puffs Bid Vaccination and Hqmanmvswpkb2947-69 Tjfbtsjvq1202-53 Covid Glmhqj9579-60 Pneumovax Surgical Xvwnsxn6603-52 Esophageal Jlgnmxtvbq1922-51 Left QKY4657-70 Right Nephrectomy Preventative Nljreff9703/22/2023 ALBUMIN 4.2 G/DL N011/15/2022 MAMMOGRAM UPPER CQMBAHXES64/30/2022 COLONOSCOPY ( 5 YEARS ) LDCT / DEXA SCAN Social HistorySOCIAL HISTORY:Smoking Hx: 1 packs of cigarettes per day for over 30 years.Drinking Hx: < 6 beers per week, > 24 oz of coffee per day.Exercise: InfrequentlySexual Hx: Sexually Active Family HistoryFAMILY HISTORY:Mother Living 76 years old has hx of Ca of breastFather 51 years old1 Sisters 1 LivingFather Hx: JUSTO Carrillo MD [address] [facility] [facility] [address], [place], [address], [place] [facility] 08/23/2023 12:03:44 4 text/html Patient Name: Gladys Robertson Of Service: Tuesday ( 12.27.2023 ): 1965 Age: 58 There has been approximately a 4 lb weight gain since 08/23/2023. This represents approximately a 3.2% change in weight. Weight change attributable to lifestyle changes. Vital Signs:Blood Pressure: Sitting Rt. Arm 112/62Pulse: Sitting 78 /min and RegularRespiratory Rate: 14Height 67 in or 1.7 mWeight 128 lb or 58.1 kgBMI 20.0Waist Circumference: 98 in or 248.9 cmTemperature: 97.8 F or 36.6 C Chief Complaint: Addressed in HPI Problems or conditions discussed in the HPI were the only ones reviewed during the encounter.Only social and family history addressed in the HPI were reviewed during this encounter. Attendant(s): NoneConstitutional and Systemic Symptoms:none Medication Reconciliation: from medication list. Hznxhbllpzs74/02/2023: Echocardiogram demonstrates a left ventricular ejection fraction measured at 65%. There is mild mitral annular calcification with mitral valve regurgitation. There was aortic valve sclerosis moderate aortic valve regurgitation. S some slight tricuspid regurgitation with pulmonary artery pressure 35 mmHg. 12/15/2022: PFT's demonstrates extremely severe obstructive ventilatory impairment with good response to bronchodilator therapy. Severe trapping and moderate diffusion impairment partial correction of the alveolar volume. 04-09-2023: MRI of the lumbar spine showed L1-L2 no disc bulge or herniation, L2-L3 no bulge or herniation, L3-L4 minimal disc bulge with moderate facet arthropathy. No central canal stenosis. L4-L5 minimal bulge no central canal or neural foraminal stenosis. L5-S1 there is moderate central disc extrusion with mild facet arthropathy no central canal stenosis. There is severe bilateral neural foraminal narrowing worse on the right. Impression overall moderate degenerative spondylolysis with L5-S1 bilateral neural foraminal narrowing left greater than right. 09-13-2023: MRI the cervical spine C2-C3 there is no central canal stenosis. . C3-C4 there is no central canal stenosis. C4-C5 mild central canal stenosis with ventral indentation of the spinal cord. C5-C6 similar to C4-C5. C6-C7 mild central canal stenosis. C7 -T1 no central canal stenosis. Compared to previous studies worsening of the spondylolysis History of Present Illness #1. COPD: Hx of Emphysema currently stable. There has been some decrease in exercise tolerance an shortness of breath. No change in sputum production, color or consistency. No fever, chills, weight loss or other constitutional symptoms. Gold Scale: Severe. MRC Scale: normal walking. Smoking: not currently smoking Current medications: Breztri, Roflumilast and Ventolin Hfa Using nebulizer Treatments: No. Uses does not use supplemental oxygen #2. Essential Hypertension: Stage: Stage I Interval Neurological Complaints no headaches, dizziness, weakness, visual changes, ataxia, aphasia and apraxia. No shortness of breath, orthopnea or cardiovascular symptoms. No other symptoms related to end organ damage. Pressure has been under excellent control. Currently normal. No other end organ symptoms or findings. Therapy reviewed regarding management of hypertension and includes salt restriction and Losartan Potassium. #3. Type II Hypercholesterolaemia: Currently taking medication and tolerating well. No interval complaints of any muscle pain or arthralgia. No significant liver changes with medications. Last lipid panel: fair control. Therapy reviewed regarding treatment of cholesterol management and include diet and Lipitor. #4. Atrial Fibrillation: Type: Paroxysmal with recurrent episodes lasting less than 7 days. Further classification: Non-valvular. Associated history of none. No attending hx of any shortness of breath, palpitations, syncopal or neurological symptoms. Current medications: no specific medication. Rate control: controlled ventricular response [id number] Criteria: hypertension and Age < 65 for embolic phenomenon. Anticoagulation: none #5. Hx of esophageal reflux currently stable. Hx of Complications: none The severity, duration and intensity of symptoms have improved. Frequency: most meals Treatment consists medications taken on a regular basis. Current therapy includes Pantoprazole. There has been no nausea, eructation, vomiting, hematemesis, dysphagia, velopharyngeal insufficiency and odynophagia. No change in he frequency or intensity of symptoms. Has had no melena. Has had no . Discussed use of H2 antagonists and the possibility of trying to reduce the frequency of the use of any PPI inhibitors and try H2 antagonists to see if symptoms can be controlled with lease intensive therapy since a number of complications are associated with chronic prolonged use of PPI inhibitors. #6. Anxiety Disorder: History of anxiety disorder. There has been no panic attacks. No interval complaints of any vegetative or other signs of depression. Taking Xanax. Discussed possibility of decreasing and weaning off medication. Feels that current regimen is working fine and wishes not to change the current treatment regimen. Medication not causing any sedation or cognitive dysfunction and there is no contraindication to continue current therapy. Active Medication ListLipitor 20 MG (TABLET - ORAL) One Daily Hs For CholesterolNorco 325 MG-7.5 MG One Q 6 Hours Prn For PainVentolin Hfa 0.09 MG /INH 2 Puffs QidLosartan Potassium 25 MG TABLET One DailyAlendronate Sodium 70 MG TABLET One WeeklyRoflumilast 500 UG TABLET One DailyXanax 1 MG (TABLET - ORAL) One Three Times A DayPantoprazole 40 MG TABLET One DailyBreztri 160; 4.8; UG; UG AEROSOL, METERED Two Puffs Bid Vaccination and Jcyakcqqpddh9295-85 Itwfbypnq0708-01 Covid Sruplw1573-86 Pneumovax Surgical Yhseyzf0961-01 Esophageal Qhfqpjoiaq4612-07 Left YUV6735-70 Right Nephrectomy Preventative Testing( ) 09/22/2023 Albumin 4.2 G/DL N(X) 11/15/2022 Mammogram 11/16/2023( ) 02/06/2022 Upper Endoscopy( ) 02/05/2022 Colonoscopy ( 5 Years ) 02/05/2027(X) 11/16/2021 LDCT 11/16/2022(X) 10/27/2020 DEXA Scan 10/27/2022 Social HistorySOCIAL HISTORY:Smoking Hx: 1 packs of cigarettes per day for over 30 years.Drinking Hx: < 6 beers per week, > 24 oz of coffee per day.Exercise: InfrequentlySexual Hx: Sexually Active Family HistoryFAMILY HISTORY:Mother Living 76 years old has hx of Ca of breastFather 51 years old1 Sisters 1 LivingFather Hx: JUSTO Carrillo MD [address] [facility], [facility] [address], [place], [address], [place] 12/27/2023 12:34:53 5 text/html Patient Name: Gladys Robertson Of Service: Tuesday ( 05.15.2024 ): 1965 Age: 58 There has been approximately a 7 lb weight gain since 12/27/2023. This represents approximately a 5.5% change in weight. Weight change attributable to lifestyle changes. Vital Signs:Blood Pressure: Sitting Rt. Arm 120/60Pulse: Sitting 77 /min and RegularRespiratory Rate: 16Height 66 in or 1.7 mWeight 135 lb or 61.2 kgBMI 21.8Temperature: 97 F or 36.1 CPulse Oximetry: 94 % at rest on no oxygen Chief Complaint: Addressed in HPI Problems or conditions discussed in the HPI were the only ones reviewed during the encounter.Only social and family history addressed in the HPI were reviewed during this encounter. Attendant(s): NoneConstitutional and Systemic Symptoms:none Medication Reconciliation: from medication list. Fcdqajdyuuu16/02/2023: Echocardiogram demonstrates a left ventricular ejection fraction measured at 65%. There is mild mitral annular calcification with mitral valve regurgitation. There was aortic valve sclerosis moderate aortic valve regurgitation. S some slight tricuspid regurgitation with pulmonary artery pressure 35 mmHg. 12/15/2022: PFT's demonstrates extremely severe obstructive ventilatory impairment with good response to bronchodilator therapy. Severe trapping and moderate diffusion impairment partial correction of the alveolar volume. 04-09-2023: MRI of the lumbar spine showed L1-L2 no disc bulge or herniation, L2-L3 no bulge or herniation, L3-L4 minimal disc bulge with moderate facet arthropathy. No central canal stenosis. L4-L5 minimal bulge no central canal or neural foraminal stenosis. L5-S1 there is moderate central disc extrusion with mild facet arthropathy no central canal stenosis. There is severe bilateral neural foraminal narrowing worse on the right. Impression overall moderate degenerative spondylolysis with L5-S1 bilateral neural foraminal narrowing left greater than right. 09-13-2023: MRI the cervical spine C2-C3 there is no central canal stenosis. . C3-C4 there is no central canal stenosis. C4-C5 mild central canal stenosis with ventral indentation of the spinal cord. C5-C6 similar to C4-C5. C6-C7 mild central canal stenosis. C7 -T1 no central canal stenosis. Compared to previous studies worsening of the spondylolysis History of Present Illness In for a well patient check up. Last well patient evaluation was approximately one year. No interval complaints of any major medical problems. No hx of any chest pain, shortness of breath, nausea, vomiting, diarrhea or constitutional symptoms. Also being followed for other chronically monitored problems.Has Had A Mammogram dueHas Had A Pap Smear already doneImmunizations Up To Date or refuses to takeNo Significant Change In Family HxColonoscopy or Cologuard: not dueFall Risk normalDepression Score: 0PHQ-9 Score [IndicatedHearing normalVision normalReviewed Smoking and Drug HistoryReviewed Immunization HistoryInstructed on importance of weight on diabetes, heart and other diseases aggravated by obesity. #1. Essential Hypertension: Stage: normal Interval Neurological Complaints no headaches, dizziness, weakness, visual changes, ataxia, aphasia and apraxia. No shortness of breath, orthopnea or cardiovascular symptoms. No other symptoms related to end organ damage. Pressure has been under excellent control. Currently normal. No other end organ symptoms or findings. Therapy reviewed regarding management of hypertension and includes salt restriction and Losartan Potassium. #2. Type II Hypercholesterolaemia: Currently taking medication and tolerating well. No interval complaints of any muscle pain or arthralgia. No significant liver changes with medications. Last lipid panel: fair control. Therapy reviewed regarding treatment of cholesterol management and include diet and Lipitor. #3. Atrial Fibrillation: Type: Paroxysmal with recurrent episodes lasting less than 7 days. Further classification: Non-valvular. Associated history of none. No attending hx of any shortness of breath, palpitations, syncopal or neurological symptoms. Current medications: no specific medication. Rate control: controlled ventricular response [id number] Criteria: Age < 65 and and considered low risk for embolic phenomenon. Anticoagulation: ASA per cardiology #4. Hx of DJD stable. No interval complaints of any additional joint pain, swelling or redness. Joints most involved include hips. Medications: Carlton The DJD does interfere with ADL and ambulation. Is being followed by Orthopedics and is being scheduled in the near future for contralateral total hip replacement. #5. Anxiety Disorder: History of anxiety disorder. There has been no panic attacks. No interval complaints of any vegetative or other signs of depression. Taking Xanax. Discussed possibility of decreasing and weaning off medication. Feels that current regimen is working fine and wishes not to change the current treatment regimen. Medication not causing any sedation or cognitive dysfunction and there is no contraindication to continue current therapy. #6. Renal Cell Cancer: History of renal cell cancer on right. There has been no pain, fever, chills or other signs or symptoms of any metastatic disease.#7. Chronic obstructive lung disease currently stable presently taking Breztri as well as Ventolin inhaler. Is being followed by pulmonology. No interval complaints of any decline in exercise tolerance. Active Medication ListLipitor 20 MG (TABLET - ORAL) One Daily Hs For CholesterolNorco 325 MG-7.5 MG One Q 6 Hours Prn For PainVentolin Hfa 0.09 MG /INH 2 Puffs QidLosartan Potassium 25 MG TABLET One DailyAlendronate Sodium 70 MG TABLET One WeeklyRoflumilast 500 UG TABLET One DailyXanax 1 MG (TABLET - ORAL) One Three Times A DayPantoprazole 40 MG TABLET One DailyBreztri 160; 4.8; UG; UG AEROSOL, METERED Two Puffs Bid Vaccination and Immunization(X) 2008-02 PNEUMOVAX PREVNAR 20 Needed(X) 2023-02 INFLUENZA(X) 2023-02 [facility] Elxijxz8715-72 Esophageal Iimigcjwtk4361-47 Left [id number] Right Nephrectomy Preventative Testing( ) 09/22/2023 Albumin 4.2 G/DL N(X) 11/15/2022 Mammogram 11/16/2023( ) 02/06/2022 Upper Endoscopy( ) 02/05/2022 Colonoscopy ( 5 Years ) 02/05/2027(X) 11/16/2021 LDCT 11/16/2022(X) 10/27/2020 DEXA Scan 10/27/2022 Social HistorySOCIAL HISTORY:Smoking Hx: 1 packs of cigarettes per day for over 30 years.Drinking Hx: < 6 beers per week, > 24 oz of coffee per day.Exercise: InfrequentlySexual Hx: Sexually Active Family HistoryFAMILY HISTORY:Mother Living 76 years old has hx of Ca of breastFather 51 years old1 Sisters 1 LivingFather Hx: ASHD TEST RESULT RANGE UNITSCBC (INCLUDES DIFF/PLT) Date: 09/22/2023WHITE BLOOD CELL COUNT 9.1 3.8-10.8 THOUSAND/ULHEMOGLOBIN 12.9 11.7-15.5 G/DLHEMATOCRIT 38.0 35.0-45.0 %PLATELET COUNT 373 140-400 THOUSAND/ULCOMPREHENSIVE METABOLIC PANEL, PLASMA Date: 09/22/2023SODIUM 141 135-146 MMOL/LPOTASSIUM 3.9 3.4-4.8 MMOL/LGLUCOSE 96 65-99 MG/DLUREA NITROGEN (BUN) 13 7-25 MG/DLCREATININE 0.72 0.50-1.03 MG/DLEGFR 97 > OR = 60 ML/MIN/1.13Q2ZXIWMZH 9.3 8.6-10.4 MG/DLBILIRUBIN, TOTAL 0.3 0.2-1.2 MG/DLALKALINE PHOSPHATASE 73 37-153 U/LAST 19 10-35 U/LALT 16 6-29 U/LLIPID PANEL, STANDARD Date: 4CHOLESTEROL, TOTAL 202 <200 MG/DLHDL CHOLESTEROL 114 > OR = 50 MG/DLTRIGLYCERIDES 69 <150 MG/DLLDL-CHOLESTEROL 73 MG/DL (CALC)T4, FREE Date: 09/22/2023T4, FREE 1.2 0.8-1.8 NG/DLTSH Date: 09/22/2023TSH 0.49 0.40-4.50 MIU/L Massiel Carrillo MD [address] [facility] [facility] [address], [place], [address], [place] [facility] 05/15/2024 10:55:46 OBGyn Episode No OBEpisode recorded.
--- OUTSIDE RECORDS SUMMARY | 2024-06-26 06:54 | XMS_ITS | Encounter Summary ---
Author Organization [facility] Facility Care Team Providers Care Louver Mortiser Operator Name Role Phone Christopher Carrillo MD Primary Care Provider Encounter Details Date Type Department Care Team (Latest Contact Info) Description 05/06/2015 Orders Only [facility] CLINCONV ProviderVenkat MD [address] [place], [place] [id number] Social History Tobacco Use Types Packs/Day Years Used Date Smoking Tobacco: Never Assessed Comments Unknown Sex and Gender Information Value Date Recorded Sex Assigned at Not on file Legal Sex Female 1:56 AM SENIOR SOFTWARE TEST ENGINEER Gender Identity Female 09/09/2023 12:40 PM CDT Sexual Orientation Straight 09/09/2023 12 :40 PM CDT documented as of this encounter Plan of Treatment Not on file documented as of this encounter Procedures Procedure Name Priority Date/Time Associated Diagnosis Comments PROCEDURE - RESULT 05/06/2015 12 :00 AM SENIOR SOFTWARE TEST ENGINEER documented in this encounter Results * PROCEDURE - RESULT (05/06/2015 12:00 AM SENIOR SOFTWARE TEST ENGINEER) Narrative 05/06/2015 12:00 AM SENIOR SOFTWARE TEST ENGINEER Ordered by an unspecified provider. Historical Provider Final Res ult documented in this encounter Visit Diagnoses Not on filedocumented in this encounter Care Teams Louver Mortiser Operator Relationship Specialty Start Date End Date Christopher Carrillo MD [address] [address] PCP - General Internal Medicine 07/13/23 documented as of this encounter
--- OUTSIDE RECORDS SUMMARY | 2024-06-26 06:54 | XMS_ITS | Referral Summary ---
Author Organization [facility] Medical Office Building B Address [address] [place] [address] Care Team Providers Care Blow Pit Helper Name Role Phone Chrisotpher Carrillo MD Primary Care Provider Encounters Date Type Department Care Team Description 06/06/2024 Telephone [facility] Pulmonary at [address] [place] [phone] Angella Bonilla LPN rf Daliresjessica 04/23/2024 11:30 AM CULINARY CHEF Office Visit [facility] Pulmonary at [address] [address] Ge Hall MD Asthma-COPD overlap syndrome (HCC) (Primary Dx); Nicotine dependence, cigarettes, uncomplicated; Sarcoidosis; Mitral annular calcification 04/19/2024 Telephone [facility] Pulmonary at [address] [address] Lashon Marie MA Med Management (ProAir Respiclick Inhaler) from Last 3 Months Allergies No known active allergies Medications multivit,dalton,mn- lvoxt-Y7-vawts (One A Day Men Complete) 240-25-300 mcg [...] TABLET(500 MCG) BY MOUTH DAILY 30 tablet 05/14/19 025 Discontin ued(Robson nt Reported) Active Problems No known active problems Social History Tobacco Use Types Packs/Day Years Used Date Smoking Tobacco: Every Day Cigarettes 1 43 Tobacco Cessation:Ready to Q uit: Not Asked; Counseling Given: Not Answered Comments Unknown Sex and Gender Information Value Date Recorded Sex Assigned at Not on file Legal Sex Female 1:56 AM CULINARY CHEF Gender Identity Female 09/09/2023 12:40 PM CDT Sexual Orientation Straight 09/09/2023 12 :40 PM CDT Last Filed Vital Signs Vital Sign Reading Time Taken Comments Blood Pressure 126/60 04/23/2024 11:30 AM CULINARY CHEF Pulse 78 04/23/2024 11:30 AM CULINARY CHEF Temperature 36.5 C (97.7 F) 04/23/2024 11:30 AM CULINARY CHEF Respiratory Rate 18 04/23/2024 11:3 0 AM CULINARY CHEF Oxygen Saturation 96% 04/23/2024 11: 30 AM CULINARY CHEF Inhaled Oxygen Concentration - - Weight 61.2 kg (134 lb 14.4 oz) 024 11:30 AM CULINARY CHEF Height 167.6 cm (5' 6 ) 04/23/2024 11:3 0 AM CULINARY CHEF Body Mass Index 21.77 04/23/2024 11:30 AM CULINARY CHEF Plan of Treatment Not on file Procedures Procedure Name Priority Date/Time Associated Diagnosis [...] chest 11/28/2023 FINDINGS: SMOKING RELATED LUNG DISEASE: Nkqxapie-zh-dsgshp apical predominant emphysema and biapical pleural-parenchymal scarring. [...] which is not seen in the included hwtyk-yx-xnui. Visualized abdomen is otherwise unremarkable. There is no suspicious osseous lesion. IMPRESSION: 1. Previously noted bronchial filling defect in the left lower lobe has resolved and was likely related to mucous plugging. 2. Miznxgjm-au-lugopt apical predominant emphysema and biapical pleural-parenchymal scarring. [...] Pino Ann M.D. AM: AM Report ID: [id number] Reading Location: [place] [address] Procedure Note Pino Ann MD - 03/06/2024 [...] chest 11/28/2023 FINDINGS: SMOKING RELATED LUNG DISEASE: Kiemeatd-oq-gklezu apical predominant emphysema and biapical pleural-parenchymal scarring. [...] which is not seen in the included bavdz-zk-fiet. Visualized abdomen is otherwise unremarkable.There is no suspicious osseous lesion. IMPRESSION: 1. Previously noted bronchial filling defect in the left lower lobe has resolved and was likely related to mucous plugging. 2. Nwropdsd-yq-vydjdo apical predominant emphysema and biapical pleural-parenchymal scarring. [...] Pino Ann M.D. AM: AM Report ID: [id number] Reading Location: [id number] Ge Hall MD IMG CT PROCEDURES Final Result from Last 3 Months or Most Recently Relevant to Health Maintenance Insurance [facility] [place] [address] [place] [address] Advance Directives For more information, please contact: [phone] Documents on File Type Date Recorded Patient Driver Courier Expl anation ADVANCE DIRECTIVE 06/04/2015 12:00 AM [employer] CHEMIST FINANCIAL/MEDICAL Care Teams Blow Pit Helper Relationship Specialty Start Date End Date Christopher Carrillo MD [address] [address] PCP - General Internal Medicine 07/13/23
--- OUTSIDE RECORDS SUMMARY | 2024-06-26 06:54 | XMS_ITS | Clinical Summary ---
Author Organization [facility] Address [address] [address] Phone Care Team Providers Care Highway Worker Name Role Phone Christopher Carrillo MD Primary Care Provider [phone] Cong Crews MD Unavailable [phone] Allergies No known active allergies Medications polyethylene glycol (MIRALAX) Powder Use entire 255g bottle with 64oz of clear liquid as directed for colonoscopy prep. 255 g 0 6 Active HYDROcodone-cinthia taminophen (NORCO) 10-325 MG Tablet Take 1 Tablet by mouth 2 times daily as needed for Pain. 7.5-325 Active atorvastatin (LIPITOR) 20 MG Tablet Take 20 mg by mouth daily. Active ALPRAZolam (XANAX) 0.5 MG Tablet Take 1 mg by mouth 3 times daily. Active Lincoln 3 1200 MG Capsule Take 1 Cap by mouth daily. Active Ascorbic Acid (VITAMIN C) 1000 MG Tablet Take 1 Tab by mouth daily. Active Cholecalciferol (VITAMIN D-3 SUPER STRENGTH) 2000 UNIT Tablet Take 1 Tab by mouth daily. Active vitamin E (TOCOPHEROL) 400 UNIT Capsule Take 400 Units by mouth daily. Active cyanocobalamin 1000 MCG Tablet Take 1,000 mcg by mouth daily. Active beta carotene (VITAMIN A) 11954 UNIT Capsule Take 25,000 Units by mouth daily. Active albuterol (ACCUNEB) 0.63 MG/3ML Nebulizer Soln 0.63 mg by Nebulization route every 4 hours as needed. Active albuterol 108 (90 Base) MCG/ACT Aerosol Solution take 2 Puffs by inhalation every 4 hours as needed. Active aspirin EC 81 MG Tablet Delayed Response Take 81 mg by mouth daily. Active Budeson-Glycopy rrol-Formoterol (Breztri Aerosphere) 160-9-4.8 MCG/ACT Aerosol take by inhalation. Active losartan (COZAAR) 50 MG Tablet Take 25 mg by mouth daily. Active Multiple Vitamin (MULTIVITAMIN PO) Take by mouth. Activ e pantoprazole (PROTONIX) 40 MG Tablet Delayed Response Take 40 mg by mouth daily. Active alendronate (FOSAMAX) 70 MG Tablet TAKE 1 TABLET BY MOUTH ONCE WEEKLY FOR 3 MONTHS Active Immunizations Immunization Administration Dates Next Due Sars-cov-2 (Covid-19) Vaccine, Unspecified 07/09 Family History Medical History Relation Name Comments Heart Disease Father Breast Cancer Mother Kidney Cancer Paternal Uncle Migraines Sister Relation Name Status Comments Father Mother Alive Paternal Uncle Sister Social History Tobacco Use Types Packs/Day Years Used Date Smoking Tobacco: Every Day Cigarettes 1 38 Tobacco Cessation:Ready to Q uit: Not Asked; Counseling Given: Not Answered Alcohol Use Standard Drinks/Week Comments Yes 0 (1 standard drink = 0.6 oz pur e alcohol) 1-2 a week Comments Unknown Sex and Gender Information Value Date Recorded Sex Assigned at Female 06/27/2023 11:04 AM BAR TENDER Legal Sex Female 9:33 PM CDT Gender Identity Female 06/27/2023 11:04 AM BAR TENDER Sexual Orientation Straight 06/27/2023 11 :04 AM BAR TENDER 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 Not on file Not on file Last Filed Vital Signs Vital Sign Reading Time Taken Comments Blood Pressure 138/70 11/07/2023 9:17 AM CDT Pulse 81 11/07/2023 9:17 AM CDT Temperature 37.2 C (99 F) 11/07/2023 9:17 AM CDT Respiratory Rate 16 11/07/2023 9:17 AM CDT Oxygen Saturation 98% 11/07/2023 9:17 AM CDT Inhaled Oxygen Concentration - - Weight 57.6 kg (127 lb) 11/07/2023 9:17 AM CDT Height 170.2 cm (5' 7 ) 11/07/2023 9:17 AM CDT Body Mass Index 19.89 11/07/2023 9:17 AM CDT Plan of Treatment Health Maintenance Due Date Last Done Comments Hepatitis C Virus (HCV) Screening 1965 TdaP Immunization 1965 Hepatitis B Immunization (1 of 3 - 19+ 3-dose series) 10/16/1983 Pap Smear 1985 Cervical Cancer Screening (CCS) 1994 HPV/Cotest 1994 Mammogram 2004 Cologuard 2014 Immunochemical Fecal Occult Blood 2014 Lung Cancer Screening 2014 Zoster Immunization (1 of 2) 2014 Colonoscopy 07/13/2021 07/13/2016 Colorectal Cancer Screening 07/13/2021 Influenza Immunization (#1) 01/08/202402/06, 02/10/2023, 02/12/2022, Additional history exists SARS-COV-2 Immunization ( season) 2024 02/10/2023, 02/12/2022, 10/02/2021, Additional history exists Respiratory Syncytial Virus (RSV) Immunization (Adult) (1 - 1-dose 75+ series) 10/16/2039 07/13/2016 Pneumococcal Immunization (50+ years) Completed 12/21/2022 Pneumococcal Immunization Combined Discontinued 12/21/2022 Meningococcal Immunization (ACWY) Aged Out No longer eligible based on patient's age to complete this topic Rotavirus Immunization Aged Out No lo nger eligible based on patient's age to complete this topic Insurance MEDICAID [place] Care Teams Highway Worker Relationship Specialty Start Date End Date Christopher Carrillo MD [address] [facility] [address] [place] [address] PCP - General Internal Medicine 03/29/16 Cong Crews MD [address] [place] [address] Consulting Physician Neurology 11/07/23
[2024-06-26 07:13] VITALS: BP 121/85; PULSE 81; RESP 16; TEMP 36.8; O2SAT 98
--- NOTE | 2024-06-26 07:27 | SUR.PREOP ---
Pt was supposed to hold ASA for 7 days prior to procedure at [facility] on 06/26/24. Pt states forgot to hold ASA 81mg and took it this AM. This information relayed to Dr. Pop who states understanding, no further orders at this time.
[2024-06-26 08:01] VITALS: BP 128/70; PULSE 78; RESP 20; O2SAT 98
[2024-06-26 08:08] VITALS: BP 150/72; PULSE 74; RESP 20; O2SAT 97
[2024-06-26 08:16] VITALS: BP 133/61; PULSE 68; RESP 20; O2SAT 98
[2024-06-26] MEDS: LIDOCAINE 1% PF INJ 5 ML VIAL INFILTRATE (08:17)
[2024-06-26] MEDS: BUPivacaine HCL 0.5% 10 ML AMP INFILTRATE (08:18)
[2024-06-26 08:20] VITALS: BP 136/66; PULSE 68; RESP 18; O2SAT 100
== END 2024-06-26 08:35 | disposition home or self-care (01) ==
LOC: ASC 06:52
PROVIDERS: PCP Internal Medicine; Visit Provider Anesthesiology Pain Medicine
PROC: (CPT 64633; principal; 2024-06-26 08:00)
DX: M47.812 Spondylosis without myelopathy or radiculopathy, cervical region (principal); G89.29 Other chronic pain
CPT/HCPCS: 64633; 64634 ×6; 99199

== ENCOUNTER 2024-07-09 13:59 | Outpatient (CLI) | payer OTHER, SELFPAY ==
[2024-07-09 16:14] LABS: Basophils Absolute Auto 0.1 K/mm3 (0.0-0.1); Basophils Percent Auto 0.8 % (0.2-1.2); Eosinophils Absolute Auto 0.2 K/mm3 (0-0.3); Eosinophils Percent Auto 1.9 % (0-4.4); Hematocrit 33.6 % (37.0-47.0); Hemoglobin 11.2 g/dL (12.0-15.0); Immature Granulocyte Absolute 0.03 K/mm3 (0.00-0.031); Immature Granulocyte Percent A 0.3 % (0-0.5); Lymphocytes Absolute Auto 4.22 K/mm3 (0.9-3.2); Lymphocytes Percent Auto 35.6 % (18.3-44.2); Mean Corpuscular HGB Conc 33.3 g/dl (32-36); Mean Corpuscular Volume 93.1 fl (80-100); Mean Platelet Volume 9.7 fl (7.4-10.4); Monocytes Absolute Auto 0.9 K/mm3 (0.1-0.6); Monocytes Percent Auto 7.8 % (2.6-8.5); Neutrophils Absolute Auto 6.4 K/mm3 (1.3-6.7); Neutrophils Percent Auto 53.6 % (45.5-73.1); Platelet Count Result 383 k/mm3 (150-375); Red Blood Count 3.61 M/mm3 (4.2-5.4); Red Cell Distribution Width 13.3 % (11.5-14.5); White Blood Count 11.9 K/mm3 (4.5-10.0)
[2024-07-09 16:32] LABS: Albumin Level 4.1 g/dL (3.5-5.1); Anion Gap 10 mmol/L (4-12); Blood Urea Nitrogen 14 mg/dL (7-17); Calcium 9.1 mg/dL (8.4-10.2); Carbon Dioxide 28 mmol/L (22-30); Chloride 101 mmol/L (98-107); Estimated Glomerular Filt Rate > 60; Glucose 99 mg/dL (65-110); Potassium 4.3 mmol/L (3.4-5.0); Sodium 139 mmol/L (137-145)
[2024-07-09 16:38] LABS: Urine Cotinine NEGATIVE
[2024-07-09 22:03] LABS: Hemoglobin A1C 5.4 % (<5.7)
== END 2024-07-09 14:00 | disposition home or self-care (01) ==
LOC: ANHSURGERY 14:05
PROVIDERS: PCP Internal Medicine; Visit Provider Orthopaedic Surgery
DX: M16.11 Unilateral primary osteoarthritis, right hip (principal)
CPT/HCPCS: 80048; 80307; 82040; 83036; 85025; 87081; 93005

== ENCOUNTER 2024-07-26 01:13 | Day surgery (SDC) | payer OTHER, SELFPAY ==
[2024-07-09 14:21] VITALS: BP 130/79; PULSE 71; RESP 16; TEMP 36.5; O2SAT 98; BMI 22.7
--- NOTE | 2024-07-09 14:54 | PC.NURSE ---
Report to the Outpatient Waiting Room, entrance under the green pavilion located off [facility], at time ___6:00AM____ on date ___07/26/24____. Planned Procedure Time: ___7:30AM .? Time changes happen often and if your time is changed the preop area will call you the afternoon before. - You and your visitor will be asked to self-screen and do not enter if you have any COVID symptoms. Please call surgeon if you need to reschedule. - A mask is optional within the hospital at this time. Patients may have clear liquids (water, carbonated beverages, clear teas, apple juice) until 3 hours prior to surgery (4:30AM) with a maximum of 20 ounces. - No food from midnight until time of surgery and no smoking, or chewing tobacco (or any form of nicotine). No chewing gum, candy or mints. Take only the following medications with a SIP of water on the morning of surgery: ___BREZTRI INHALER. MAY TAKE ALPRAZOLAM, HYDROCODONE AND ALBUTEROL INHALER/NEBULIZER NEEDED. DO NOT STOP ANY OF YOUR OTHER PRESCRIPTION MEDICATIONS PRIOR TO SURGERY EXCEPT THE FOLLOWING Hold all vitamins and supplements for 3 days per anesthesiologist.-LAST DOSE 07/22/24 Medications to discontinue per physician _HOLD ASPIRIN 7 DAYS PRE-OP PER DR ALFARO Date to take last dose 07/18/24 Please no make-up, nail macedonian, hairspray, perfume, deodorant, or body powder the day of surgery.? No jewelry (including any body piercings) or valuables the day of surgery, leave them at home.? Please take a shower or bath the night before, or the morning of, surgery with an antibacterial soap.? Wear comfortable, loose fitting clothing.? - Jewelry must be removed prior to entering the operating room.? Rings and piercings that are not removed may be cut off. - The hospital will not accept responsibility for valuables.? - Please leave all valuables, including medications, at home the day of surgery. If you are going home after surgery, a licensed personal driver must drive you home.? - NO public transportation without another adult if you receive anesthesia. - We recommend that an adult stay with you for 24 hours following discharge. - We also recommend that you do not drive, make important decision, drink alcoholic beverages, or take any drugs that were not prescribed by your health care provider for at least 24 hours after your discharge time. Follow any additional instructions given to you from your surgeon. Telephone instructions given to ____PATIENT and asked if any additional questions and then verbalized understanding. Patient advised to call surgeon office or pre surgery nurse liaison [phone] if any additional questions.
--- NOTE | 2024-07-25 14:33 | WPDANESEPPF ---
Anes - Initial Pre Proc Eval Procedure: Operation Date: 07/26/24 07:30 Proposed Procedures p Right Total Hip Arthroplasty, Direct Anterior Approach - Ge Mattson MD Date/Time: 07/25/24 14:33 Surgeon: Ge Mattson MD Pre Op Diagnosis: OA right hip Patient Data Age: 58 Gender: F Height: 1.68 m Weight: 64 kg Last Vital Signs Temp 97.7 F 07/09/24 14:21 Pulse 71 07/09/24 14:21 Resp 16 07/09/24 14:21 BP 130/79 07/09/24 14:21 Pulse Ox 98 07/09/24 14:21 O2 Del Method Room Air 07/09/24 14:21 Allergies Allergy/AdvReac Type Severity Reaction Status Date / Time No Known Allergies Allergy Verified 07/26/24 06:40 Home Medications ?Medication ?Instructions ?Recorded ?Confirmed ?Type albuterol sulfate 90 mcg/actuation 2 puff inhalation Q4H PRN 11/27/21 07/09/24 History aerosol inhaler (ProAir HFA) Shortness Of Breath atorvastatin 20 mg tablet 20 mg PO DAILY 11/27/21 07/26/24 History hydrocodone 7.5 mg-acetaminophen 1 tablet PO Q6-8H PRN Pain 12/01/21 07/26/24 History 325 mg tablet budesonide 160 mcg-glycopyr 9 2 inh inhalation BID 02/28/23 07/26/24 History mcg-formot 4.8 mcg/actuation HFA inhaler (Breztri Aerosphere) pantoprazole 40 mg tablet,delayed 40 mg PO QAM #90 tabs 05/13/23 07/26/24 Rx release (Protonix) cholecalciferol (vitamin D3) 125 125 mcg PO .qod 08/16/23 07/26/24 History mcg (5,000 unit) disintegrating tablet losartan 25 mg tablet 25 mg PO DAILY 08/16/23 07/26/24 History alendronate 70 mg tablet (Fosamax) 70 mg PO WEEKLY 90 days #13 tabs 02/15/24 07/26/24 Rx roflumilast 500 mcg tablet 500 mcg PO DAILY 05/21/24 07/26/24 History albuterol sulfate 0.63 mg/3 mL 0.63 mg continuous nebulization 07/09/24 07/26/24 History solution for nebulization Q4-6H PRN shortness of breath or wheezing alprazolam 0.5 mg tablet 0.5 mg PO TID PRN anxiety 07/09/24 07/09/24 History ascorbic acid (vitamin C) 500 mg 500 mg PO DAILY 07/09/24 07/26/24 History capsule aspirin 81 mg tablet,delayed 81 mg PO DAILY 07/09/24 07/26/24 History release prednisone 10 mg tablet 10 mg PO DAILY 07/26/24 07/26/24 History Patient hx anesthesia problems: none Family hx anesthesia problems: none Results Review: All pre-operative results and documents have been reviewed as part of the pre-operative evaluation. [facility] Past Medical History Medical History (Updated 07/26/24 @ 07:12 by Ge Mattson MD) Spinal stenosis of lumbar region Colon polyps Osteoarthritis Sarcoidosis Tobacco dependence syndrome Greater trochanteric pain syndrome Stricture of esophagus Malignant neoplasm of kidney Dysphagia Depressive disorder Anxiety Asthma Vitamin D deficiency Surgical History Surgical History History of nephrectomy, right History of left hip replacement Family History Family History Mother Breast cancer Grandparent Throat cancer Breast cancer Other Cerebrovascular accident Family history of cardiovascular disease Social History Social History Years smoked: 43 Smoking status: Former smoker Tobacco type: cigarettes Second hand tobacco smoke exposure: Yes Smoking end date: 05/08/24 Alcohol intake: current Drinks per week: 2 Alcohol use details: social Substance use: never Substance use type: does not use Do You Feel Safe in your Home?: Yes Lack of Transportation: No Lack of Food: Never True Current Housing: I Have Housing Concerned About Future Housing: Decline to Answer Difficulty Paying Gas/Electric Bills: Decline to Answer Difficulty Paying for Meds: Decline to Answer Currently Unemployed: Decline to Answer Education: Decline to Answer Difficulty w/ Childcare or Family Care: Decline to Answer Living arrangements: with family Additional living arrangements comments: S.0. Occupation/Education: occupation Additional occupation/education comments: [employer] Gender identity (if verbalized by the patient): Female Spiritual care concerns: No Anes - Eval Final PreProcedure Day of Procedure 07/25/24 14:33 Patient weight: normal Heart: regular rate and rhythm Lungs: clear to auscultation Airway: Mallampati scale class II Neurological: alert and oriented Last oral intake: >/= 8 hours ASA classification: III Emergent: no Anesthetic plan: proceed Anesthesia type and monitoring: general ETT and standard monitoring Results Review: All pre-operative results and documents have been reviewed as part of the pre-operative evaluation. Informed Consent: The patient's anesthetic plan and its attendant risks and benefits were discussed with the patient/family/POA. Questions were solicited and answers provided to the satisfaction of the patient/family/POA.
--- NOTE | 2024-07-25 14:53 | P.HP_ITS ---
H&P: HPI History of Present Illness Date/Time: 07/25/24 14:53 Chief Complaint: Right hip DJD Narrative: 58-year-old female patient who presents today for an anterior right total hip arthroplasty. Patient has been having symptoms in her right hip for almost a year. They are progressively worsened. At this point are causing her severe pain daily basis. Pain is limiting her activities. At this point she is having to use a cane on a regular basis due to the pain. Patient does have severe osteoarthritis the right hip. She has had her left hip replaced approximately 8 years ago at different facility. That hip is doing well for. This point patient feels she is ready proceed with total hip arthroplasty on the right rather than continue nonsurgical treatment. Patient does avoid anti- inflammatories 2 to only having 1 kidney. Patient had renal cancer and nephrectomy done in the past. Review of Systems Review of Systems: All systems reviewed & are unremarkable except as noted in HPI and below PMFSH Past Medical History Medical History Spinal stenosis of lumbar region Colon polyps Osteoarthritis Sarcoidosis Tobacco dependence syndrome Greater trochanteric pain syndrome Stricture of esophagus Atrial fibrillation Malignant neoplasm of kidney Dysphagia Depressive disorder Anxiety Asthma Vitamin D deficiency Surgical History Surgical History History of nephrectomy, right History of left hip replacement Family History Family History Mother Breast cancer Grandparent Throat cancer Breast cancer Other Cerebrovascular accident Family history of cardiovascular disease Social History Social History Smoking packs per day: 1 Smoking cigarettes per day: 20.0 Years smoked: 45 Smoking pack-years: 45.00 Smoking status: Former smoker Tobacco type: cigarettes Second hand tobacco smoke exposure: Yes Smoking end date: 06/18/24 Alcohol intake: current Drinks per week: 2 Alcohol use details: social Substance use: never Substance use type: does not use Do You Feel Safe in your Home?: Yes Lack of Transportation: No Lack of Food: Never True Current Housing: I Have Housing Concerned About Future Housing: Decline to Answer Difficulty Paying Gas/Electric Bills: Decline to Answer Difficulty Paying for Meds: Decline to Answer Currently Unemployed: Decline to Answer Education: Decline to Answer Difficulty w/ Childcare or Family Care: Decline to Answer Living arrangements: with friend(s) Additional living arrangements comments: S.0. Occupation/Education: occupation Additional occupation/education comments: [employer] Gender identity (if verbalized by the patient): Female Spiritual care concerns: No Meds Home Medications and Allergies Home Medications ?Medication ?Instructions ?Recorded ?Confirmed ?Type albuterol sulfate 90 mcg/actuation 2 puff inhalation Q4H PRN 11/27/21 07/09/24 History aerosol inhaler (ProAir HFA) Shortness Of Breath atorvastatin 20 mg tablet 20 mg PO DAILY 11/27/21 07/09/24 History hydrocodone 7.5 mg-acetaminophen 1 tablet PO Q6-8H PRN Pain 12/01/21 07/09/24 History 325 mg tablet budesonide 160 mcg-glycopyr 9 2 inh inhalation BID 02/28/23 07/09/24 History mcg-formot 4.8 mcg/actuation HFA inhaler (Breztri Aerosphere) pantoprazole 40 mg tablet,delayed 40 mg PO QAM #90 tabs 05/13/23 07/09/24 Rx release (Protonix) cholecalciferol (vitamin D3) 125 125 mcg PO .qod 08/16/23 07/09/24 History mcg (5,000 unit) disintegrating tablet losartan 25 mg tablet 25 mg PO DAILY 08/16/23 07/09/24 History alendronate 70 mg tablet (Fosamax) 70 mg PO WEEKLY 90 days #13 tabs 02/15/24 07/09/24 Rx roflumilast 500 mcg tablet 500 mcg PO DAILY 05/21/24 07/09/24 History albuterol sulfate 0.63 mg/3 mL 0.63 mg continuous nebulization 07/09/24 07/09/24 History solution for nebulization Q4-6H PRN shortness of breath or wheezing alprazolam 0.5 mg tablet 0.5 mg PO TID PRN anxiety 07/09/24 07/09/24 History ascorbic acid (vitamin C) 500 mg 500 mg PO DAILY 07/09/24 07/09/24 History capsule aspirin 81 mg tablet,delayed 81 mg PO DAILY 07/09/24 07/09/24 History release Allergies Allergy/AdvReac Type Severity Reaction Status Date / Time No Known Allergies Allergy Verified 07/10/24 13:50 Exam Narrative: 58-year-old female alert pleasant. She is 5 ft 6 and 137 lb BMI is 21.1. She walks with a moderate limp. She has a 20 degree flexion contracture of the right hip and has flexion only to 100?. Internal rotation 5? external rotation to 10?. She has severe pain with internal external rotation. Stinchfield maneuver causes her severe groin pain. She has normal abduction strength and minimal tenderness over the greater trochanter. She has normal sensation right lower extremity. No edema in lower extremity. 2+ dorsalis pedis and posterior tibial artery pulse palpable. Skin around the hip and groin crease are normal. Resp: Auscultation: clear to auscultation bilaterally Cardio: Rate: regular rate Rhythm: regular rhythm Assessment and Plan Assessment and plan (1) Primary osteoarthritis of right hip: Code(s): M16.11 - Unilateral primary osteoarthritis, right hip Status: Acute Plan 58-year-old female who has severe osteoarthritis the right hip with significant symptoms on a daily basis. This point she is fairly miserable with the symptoms and feels she is ready proceed with total hip arthroplasty at this point. Surgical procedures well as risks and complications were discussed in detail all questions were answered we will proceed. Patient will see her primary care doctor pre-surgical clearance. Her nasal swab was negative. Hemoglobin 11.2 and platelets were 383. Chem panel is all within normal limits creatinine is 0.64.
[2024-07-26] VITALS (20 sets, daily range): BP systolic 106–160; BP diastolic 60–92; PULSE 72–121; RESP 14–30; TEMP 36.9–37.4; O2SAT 91–100
--- NOTE | ~2024-07-26 | XR_ITS ---
EXAMINATION: XR surgery orthopedic DATE: 07/26/2024 11:13 INDICATION: Anterior approach right total hip arthroplasty TECHNIQUE: Single frontal fluoroscopic image of the right hip was obtained during procedure performed by Dr. Mattson. Radiologist was not present for the imaging or procedure. The amount of fluoroscopy time used during this procedure was 0.9 minutes. COMPARISON: None. FINDINGS: Partially visualized noncemented right total hip arthroplasty which appears well seated in near-anato savi alignment on the single provided frontal projection. The acetabular component is affixed with at least a single screw. No fractures identified. IMPRESSION: 1. Expected appearance during right total hip arthroplasty. See procedure note for further detail. Reviewed, dictated and finalized at location A.
--- NOTE | ~2024-07-26 | XR_ITS ---
XR hip RT 1V w AP pelvis Ordering provider: Ge Mattson MD History: . POST OP RIGHT TOTAL HIP ANTERIOR APPROACH . Comparison: None. FINDINGS: BONES: No acute fracture or dislocation. HIP JOINT SPACES: Bilateral total hip arthroplasty. SACROILIAC JOINT SPACES/LUMBAR SPINE: The sacroiliac joint spaces are normal. Mild degenerative curran es of the visualized lower lumbar spine. PUBIC SYMPHYSIS: Normal. SOFT TISSUES: Normal. IMPRESSION: No acute osseous abnormality pelvis and right hip. Bilateral total hip arthroplasties. Reviewed, dictated and finalized at location A.
--- OUTSIDE RECORDS SUMMARY | 2024-07-26 01:16 | XMS_ITS | Referral Summary ---
Author Organization [facility] Address [address] [place] [id number] Care Team Providers Care Fish Warden Name Role Phone Christopher Carrillo MD Primary Care Provider Encounters Date Type Department Care Team Description 07/23/2024 8:30 AM CDT Office Visit [facility] Pulmonary at [address] [place] [phone] Lissette Diaz NP Asthma-COPD overlap syndrome (HCC) (Primary Dx); Long-term use of high-risk medication; Chronic cough; Sarcoidosis; Cigarette nicotine dependence in remission 06/06/2024 Telephone [facility] Pulmonary at [address] [phone] Angella Bonilla, JEANETTE rf Daliresp from Last 3 Months Allergies No known active allergies Medications multivit,dalton,mn- xnnim-H2-gryff (One A Day Men Complete) 240-25-300 mcg [...] by mouth 3 (three) times a day 7 Active ascorbic acid (VITAMIN C) 1,000 mg tablet Take 1 tablet (1,000 mg total) by mouth daily Active aspirin 81 mg enteric coated tablet Take 1 tablet (81 mg total) by mouth daily Active atorvastatin (LIPITOR) 20 mg tablet Take 1 tablet (20 mg total) by mouth daily 7 Active azithromycin (ZITHROMAX) 250 mg tablet Take 1 tablet (250 mg total) by mouth 3 (three) times a week Active cyanocobalamin (Vitamin B-12) 1,000 mcg tablet Take 1 tablet (1,000 mcg total) by mouth daily Active HYDROcodone-acet aminophen (NORCO) 7.5-325 mg per tablet Take 1 tablet by mouth every 4 (four) hours as needed for pain 5 Active losartan (COZAAR) 25 mg tablet Take 1 tablet (25 mg total) by mouth daily Active budesonide-glyco pyr-formoterol (BREZTRI) 160-9-4.8 mcg/actuation inhaler Inhale 2 puffs 2 (two) times a day 1 each 11 4 Active albuterol HFA (ProAir HFA) 90 mcg/actuation inhaler Inhale 2 puffs every 4 (four) hours as needed for wheezing 8.5 g 11 4 025 Active roflumilast (DALIRESP) 500 mcg tabletIndication s:Prevention of Bronchospasm with Chronic Bronchitis Take 1 tablet (500 mcg total) by mouth daily 30 tablet 11 5 Active predniSONE (DELTASONE) 20 mg tabletIndication s:Chronic cough Take 2 tablets (40 mg) by mouth daily for 5 days 10 tablet 5 025 Active Active Problems Problem Noted Date Diagnosed Date Asthma-COPD overlap syndrome 07/23/2024 Assessment & Plan (07/23/2024 11:27 AM CDT): Continue Breztri 2 puffs twice daily with AeroChamber She is aware to call if she develops thrush Albuterol via MDI or nebulizer as needed only, we have discussed indications for use Continue flutter valve to assist with mucus clearance Continue roflumilast 500 mcg daily She is limited by hip pain at this time, I would consider IN for her once her recovery from surgery and PT are completed. Check LFT She is aware of signs and symptoms that would require earlier evaluation or change to her plan of care. Sarcoidosis 07/23/2024 Assessment & Plan (07/23/2024 11:28 AM CDT): Imaging does not demonstrate any sign of active disease. We will continue to monitor at least annually. Cigarette nicotine dependence in remission 07/23 Assessment & Plan (07/23/2024 11:27 AM CDT): She quit 6 weeks ago. I have encouraged her to continue to use the gum after surgery. She qualifies for annual LDCT and is due 02/2025 Long-term use of high-risk medication 07/23/2024 Assessment & Plan (07/23/2024 11:28 AM CDT): She remains on roflumilast Check LFT Chronic cough 07/23/2024 Assessment & Plan (07/23/2024 11:29 AM CDT): Acute on chronic. I will start her on Prednisone therapy today. 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 Gender Identity Female 09/09/2023 12:40 PM CDT Sexual Orientation Straight 09/09/2023 12 :40 PM CDT Last Filed Vital Signs Vital Sign Reading Time Taken Comments Blood Pressure 110/50 07/23/2024 8:34 AM CDT Pulse 102 07/23/2024 8:34 AM CDT Temperature 36.9 C (98.4 F) 07/23/2024 8:34 AM CDT Respiratory Rate 16 07/23/2024 8:34 AM CDT Oxygen Saturation 96% 07/23/2024 8:34 AM CDT Inhaled Oxygen Concentration - - Weight 61.4 kg (135 lb 4.8 oz) 07/23/2024 8:34 A M CDT Height 167.6 cm (5' 6 ) 07/23/2024 8:34 AM CDT Body Mass Index 21.84 07/23/2024 8:34 AM CDT Plan of Treatment Not on file Insurance [facility] Member Subscriber Plan / Payer ( fective 2023-Present) Name:Gladys Todd Relation to Subscriber:Self Name:Gladys Todd Payer ID:[id number] (NAIC) Group ID:Not on file Type:MEDICAID RISK OTHER Address: [address] [place] OF DIS[place] [facility] Advance Directives For more information, please contact: [phone] Documents on File Type Date Recorded 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 [address] PCP - General Internal Medicine 07/13/23
--- OUTSIDE RECORDS SUMMARY | 2024-07-26 01:16 | XMS_ITS | Encounter Summary ---
Author Organization [facility] Care Team Providers Care Calciner Operator Name Role Phone Christopher Carrillo MD Primary Care Provider Encounter Details Date Type Department Care Team (Latest Contact Info) Description 05/29/2015 Orders Only [facility]INCONV Provider, MD Venkat [address] [place] [id number] Social History Tobacco Use Types Packs/Day Years Used Date Smoking Tobacco: Never Assessed Comments Unknown Sex and Gender Information Value Date Recorded Sex Assigned at Not on file Legal Sex Female 1:56 AM SALES AGENT CASUALTY INSURANCE Gender Identity Female 09/09/2023 12:40 PM CDT Sexual Orientation Straight 09/09/2023 12 :40 PM CDT documented as of this encounter Plan of Treatment Not on file documented as of this encounter Procedures Procedure Name Priority Date/Time Associated Diagnosis Comments SCAN - LABS 05/29/2015 12:00 AM SALES AGENT CASUALTY INSURANCE SCAN - LABS 05/29/2015 12:00 AM SALES AGENT CASUALTY INSURANCE PROCEDURE - RESULT 05/26/2015 12 :00 AM SALES AGENT CASUALTY INSURANCE documented in this encounter Results * SCAN - LABS (05/29/2015 12:00 AM SALES AGENT CASUALTY INSURANCE) Narrative 05/29/2015 12:00 AM SALES AGENT CASUALTY INSURANCE Ordered by an unspecified provider. Historical Provider Final Res ult * SCAN - LABS (05/29/2015 12:00 AM SALES AGENT CASUALTY INSURANCE) Narrative 05/29/2015 12:00 AM SALES AGENT CASUALTY INSURANCE Ordered by an unspecified provider. us Historical Provider Final Res ult * PROCEDURE - RESULT (05/26/2015 12:00 AM SALES AGENT CASUALTY INSURANCE) Narrative 05/26/2015 12:00 AM SALES AGENT CASUALTY INSURANCE Ordered by an unspecified provider. us Historical Provider Final Res ult documented in this encounter Visit Diagnoses Not on filedocumented in this encounter Care Teams Calciner Operator Relationship Specialty Start Date End Date Christopher Carrillo MD [address] [facility] [address] [place] [address] PCP - General Internal Medicine 07/13/23 documented as of this encounter
--- OUTSIDE RECORDS SUMMARY | 2024-07-26 01:16 | XMS_ITS | Clinical Summary ---
Author Organization [facility] Address [address] [address] Phone Care Team Providers Care Ehs Specialist Name Role Phone Christopher Carrillo MD Primary Care Provider [phone] Cong Crews MD Unavailable [phone] Allergies No known active allergies Medications polyethylene [...] mg by mouth 3 times daily. Active [place] 3 1200 MG Capsule Take 1 Cap [...] mouth daily. 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 AND REMOVER Legal Sex Female 9:33 PM CDT Gender Identity Female 06/27/2023 11:04 AM METER INSTALLER AND REMOVER Sexual Orientation Straight 06/27/2023 11 :04 AM METER INSTALLER AND REMOVER Occupation Industry Job Start Date Job End [...] Comments Hepatitis C Virus (HCV) Screening 1964 Mammogram 1964 TdaP Immunization 1964 Hepatitis B Immunization (1 of 3 - 19+ 3-dose series) 10/16/1983 Pap Smear 1985 Cervical Cancer Screening (CCS) 1994 HPV/Cotest 1994 Cologuard 2014 Immunochemical Fecal Occult Blood 2014 [...] this topic Insurance MEDICAID [place] Care Teams Ehs Specialist Relationship Specialty Start Date End Date Christopher Carrillo MD [address] [facility] [address] [place] [address] PCP - General Internal Medicine 03/29/16 Cong Crews MD [address] [place] [address] Consulting Physician Neurology 11/07/23
--- OUTSIDE RECORDS SUMMARY | 2024-07-26 01:16 | XMS_ITS | CONTINUITY OF CARE DOCUMENT ---
Author Name kaleb manuel Address Unknown Organization [facility] Address [address] [facility] [address] [place] [address] Phone [phone] Care Team Providers Care Youth Care Specialist Name Role Phone Seymour ESTRADA, Rahul Unavailable [phone] WING ESTRADA, MASSIEL Unavailable [phone] WING ESTRADA, MASSIEL Unavailable [phone] PROBLEMS Condition Status Date Provider Notes CAD completed - Rahul Ahuja MD CHEST PAIN- nl stress nuclea r ,, calcium score zero , Nl LV on echo active Rahul Ahuja MD ATRIAL FIBRILLATION PAROXYSMAL completed - Rahul Ahuja MD HYPERCHOLESTEROLEMIA completed - Rahul Ahuja MD Sarcoidosis, pulmonary active Rahul Ahuja MD Tobacco abuse active Rahul Ahuja MD Hyperlipidemia active Rahul Ahuja MD FAMILY HISTORY OF HEART DISEASE active Trevon Ahuja MD Shortness of breath active Rahul Ahuja MD Aortic insufficiency, moderate active Maurisio Ahuja MD COPD active Rahul Ahuja MD Hypertension active Rahul Ahuja MD ENCOUNTERS Date Type Provider Location Encounter Diag nosis - In-person encounter Office Visit Rahul Ahuja MD [facility] Hypertension - In-person encounter Office Visit Rahul Ahuja MD [facility] COPD - In-person encounter Office Visit Rahul Ahuja MD [facility] - In-person encounter Office Visit Rahul Ahuja MD [facility] CHEST PAIN- nl stress nuclear ,, calcium score zero , Nl LV on echoAortic insufficiency, moderate - In-person encounter Office Visit Rahul Ahuja MD [facility] CADATRIAL FIBRILLATION PAROXYSMALHYPERCHOLESTEROLEMIA Sarcoidosis, pulmonaryTobacco abuseHyperlipidemiaFAMILY HISTORY OF HEART DISEASEShortness of breath - In-person encounter Office Visit Rahul Ahuja MD [place] [facility] - In-person encounter Office Visit Rahul Ahuja MD [place] [facility] - In-person encounter Office Visit Rahul Ahuja MD [facility] [place] [facility] VITAL SIGNS Date Observation Value Provider Body Mass Index (Ratio) 20.99 kg/m2 Trevon Ahuja MD blood pressure, cuff size regular Stevan yfnlizette Lujan blood pressure, diastolic 68 mm[Hg] Stevan melilssa Lujan blood pressure, systolic 128 mm[Hg] [facility] oxygen saturation, oximetry 97 % [facility] pulse rate 90 /min [facility] weight E&M 134 [lb_av] [facility] respiratory rate E&M 12 /min [facility] height E&M 67 [in_i] [facility] Body Mass Index (Ratio) 19.58 kg/m2 Trevon Ahuja MD blood pressure, diastolic 68 mm[Hg] Anni Ace blood pressure, systolic 116 mm[Hg] Azul Ace pulse rate 78 /min Monet Ace blood pressure, cuff size large An carito Ace oxygen saturation, oximetry 95 % Monet Ace weight E&M 125 [lb_av] Monet height E&M 67 [in_i] Monet Body Mass Index (Ratio) 19.73 kg/m2 Trevon Ahuja MD blood pressure, diastolic 74 mm[Hg] Li Log blood pressure, systolic 159 mm[Hg] Bri blood pressure, cuff size regular Ja blood pressure, diastolic 74 mm[Hg] Eric et blood pressure, systolic 159 mm[Hg] [facility] pulse rate 91 /min Dilshad oxygen saturation, oximetry 95 % [facility] respiratory rate E&M 16 /min Dilshad weight E&M 126 [lb_av] Dilshad height E&M 67 [in_i] Dilshad Body Mass Index (Ratio) 19.11 kg/m2 Trevon Ahuja MD blood pressure, diastolic 71 mm[Hg] Anni carito blood pressure, systolic 135 mm[Hg] Any a oxygen saturation, oximetry 96 % Monet pulse rate 89 /min Monet weight E&M 122 [lb_av] Monet blood pressure, cuff size large An carito height E&M 67 [in_i] Monet Body Mass Index (Ratio) 18.79 kg/m2 Trevon Ahuja MD blood pressure, diastolic -1 mm[Hg] Li nkLogtrace blood pressure, systolic 121 mm[Hg] Bri blood pressure, diastolic 68 mm[Hg] Anni carito Ace blood pressure, systolic 121 mm[Hg] Any a Db oxygen saturation, oximetry 94 % Monet pulse rate 91 /min Monet Db weight E&M 120 [lb_av] Monetemperatriz Ace height E&M 67 [in_i] Monet Db blood pressure, cuff size large An carito Db blood pressure, diastolic, left arm 82 mm [Hg] Kristin [facility] blood pressure, systolic, left arm 119 mm [Hg] Kristin [facility] blood pressure, diastolic, right arm 86 m m[Hg] Kristin [facility] blood pressure, systolic, right arm 132 m m[Hg] Kristin [facility] oxygen saturation, oximetry 96 % Kristin [facility] blood pressure, diastolic 82 mm[Hg] Marie [facility] blood pressure, systolic 119 mm[Hg] Iam [facility] pulse rate 58 /min Kristin [facility] respiratory rate E&M 18 /min Kristin [facility] weight E&M 135 [lb_av] Kristin [facility] blood pressure, diastolic 52 mm[Hg] Marie [facility] blood pressure, systolic 102 mm[Hg] Iam [facility] pulse rate 66 /min Kristin [facility] oxygen saturation, oximetry 98 % Kristin [facility] respiratory rate E&M 16 /min Kristin Rosen CATRACHO weight E&M 129 [lb_av] Kristin Rosen [facility] weight E&M 137 [lb_av] Alisa Skaggs respiratory rate E&M 16 /min Rahul Ahuja MD pulse rate 70 /min Rahul Ahuja MD blood pressure, diastolic 76 mm[Hg] To chetan Ahuja MD blood pressure, systolic 135 mm[Hg] Shlomo Ahuja MD ALLERGIES No Known Drug Allergies HISTORY OF MEDICATION USE Medication Status Instructions Dates Provider Indications Com [facility] Aerosphere 160-9-4.8 mcg/actuation HFA aerosol inhaler active Fouzia Lujan alendronate 70 mg tablet active TAKE 1 TABLET BY MOUTH ONE TIME PER WEEK Fouzia Lujan losartan 25 mg tablet active TAKE 1 TABLET DAILY Fouzia Lujan albuterol sulfate 90 mcg/actuation HFA aerosol inhaler active Ansley Rhodes atorvastatin 20 mg tablet active TAKE 1 TABLET BY MOUTH EVERY EVENING Fouziavaleria Lujan albuterol sulfate 0.63 mg/3 mL solution for nebulization active Ansley Rhodes XOPENEX NEBU active as needed Ilia Castaneda alprazolam 0.5 mg tablet active twice a day Ilia Castaneda ASPIRIN 81 MG ORAL TABLET completed ONE TAB. DAILY - 4 Kristin Rosen MA citalopram 20 mg tablet active once a day Ilia Castaneda HYDROCODONE-ACETA MINOPHEN 7.5-500 MG ORAL TABLET active as needed Ilia Castaneda MULTIVITAMINS ORAL CAPSULE completed ONE TAB. DAILY - 4 Kristin Rosen MA VITAMIN C TABS completed - 4 Kristin Rosen MA FISH OIL 1000 MG ORAL CAPSULE completed - 4 Kristin Rosen MA ALBUTEROL AERS completed DIRECTED - 4 Kristin Rosen MA ACIPHEX TABLET DELAYED RELEASE completed - 4 Kristin Rosen MA SIMCOR 500-20 MG ORAL TABLET EXTENDED RELEASE 24 HOUR completed TAKE 1 TABLET BY MOUTH DAILY - 4 Kristin Rosen MA SOCIAL HISTORY Date Observation Value Provider drug use no Ilia Castaneda alcohol use, average drinks per day social Ilia fab alcohol use yes Ilia fab number of years as a smoker 10 years or m ore Ilia erma smoking history, tot al pack/day 1 Ilia fab cigarette use yes Ilia fab smoking status Smoker Ilia fab drug use no Ilia fab alcohol use, average drinks per day social Iliarenato Castaneda alcohol use yes Ilia Castaneda number of years as a smoker 10 years or m ore Ilia Castaneda smoking history, tot al pack/day 1 Ilia Castaneda cigarette use yes Ilia Castaneda smoking status Smoker Ilia Barraganmariusz smoking/tobacco cess ation, patient education and counseling yes Rahul Ahuja MD drug use no Rahul Ahuja MD alcohol use, average drinks per day social Rahul Ahuja MD alcohol use yes Rahul Ahuja MD number of years as a smoker 10 years or m ore Rahul Ahuja MD smoking history, tot al pack/day 1 Rahul Ahuja MD cigarette use yes Rahul Miller smoking status Smoker Rahul Ahuja MD social history E&M Lives with fa josh/friends E thnicity: Smoking History: Rahul Ahuja MD social history reviewed E&M revi ewed - no changes required Rahul Ahuja MD Underweight no Rahul Ahuja MD physical exercise, f requency, days per week yes Monet Ace caffeine use, averag e drinks per day yes Monet Ace number of years as a smoker 10 years or m ore Monet Ace smoking history, tot al pack/day 1 Monet Ace cigarette use yes Monet Ace smoking status Smoker Monet Ace Underweight yes Rahul Ahuja MD drug use no Ansley Rhodes alcohol use, average drinks per day social Ansley Rhodes alcohol use yes Ansley Rhodes social history reviewed E&M revi ewed - no changes required Ansley Rhodes social history E&M Lives with fa josh/friends E thnicity: Smoking History: Ansley Rhodes smoking history, tot al pack/day 1 Monetemperatriz Ace cigarette use yes Monet Ace physical exercise, f requency, days per week yes Monetemperatriz Ace caffeine use, averag e drinks per day yes Monetemperatriz Ace smoking status Smoker Monetemperatriz Ace number of grandchildren Rahul chavezyn Carmelo smoking/tobacco cess ation, patient education and counseling yes Rahul Ahuja MD social history reviewed E&M reviewed Rahul Ahuja MD drug use none Rahul Ahuja MD social history reviewed E&M reviewed Rahul Ahuja MD quit smoking, stage contemplative Rahul Ahuja MD smoking/tobacco cess ation, patient education and counseling yes Rahul Ahuja MD social history E&M L ryan with family/friends E thnicity: Rahul Ahuja MD social history reviewed E&M reviewed Rahul Ahuja MD physical exercise, f requency, days per week [facility] use, averag e drinks per day yes LinkLog alcohol use, average drinks per day social basis only LinkLog number of years as a smoker 10 years or m ore LinkLog smoking status Smoker [facility] FUNCTIONAL STATUS Date Observation Value Provider HRA, CV Assess/Plan, Angina (inactive) Management Plan continue current therapy Ansley Rhodes MENTAL STATUS Date Observation Value Provider assessment of judgme nt and insight E&M Alert and oriented to time, place and person. Mood and affect are normal. Rahul Ahuja MD assessment of judgme nt and insight E&M Alert and oriented to time, place and person. Mood and affect are normal. Rahul Ahuja MD assessment of judgme nt and insight E&M Alert and oriented to time, place and person. Mood and affect are normal. Rahul Ahuja MD INSURANCE PROVIDERS Payer name Policy type / Coverage type Replaced by [facility] [place] [employer] MEDICAID Medicaid [id number] ADVANCE DIRECTIVES Name Date DISCUSSED - NO DECISION MADE TREATMENT PLAN Date Name Performer [id number],S, Rahul Ahuja MD [id number],Kenny, Rahul Ahuja MD [id number],SRahul MD [id number],Kenny, Rahul Ahuja MD Cardiology: H er updated medication list for this problem includes: Losartan 25 Mg Tablet (Losartan) ..... Take 1 tablet daily Rahul Ahuja MD Cardiology: H er updated medication list for this problem includes: Breztri Aerosphere 160-9-4.8 Mcg/actuation Hfa Aerosol Inhaler (Qixvadrqun-eukpccrg-mebeigicab) Albuterol Sulfate 90 Mcg/actuation Hfa Aerosol Inhaler (Albuterol sulfate) Albuterol Sulfate 0.63 Mg/3 Ml Solution For Nebulization (Albuterol sulfate) Ilia Castaneda Cardiology: H er updated medication list for this problem includes: Atorvastatin 20 Mg Tablet (Atorvastatin) ..... Take 1 tablet by mouth every evening Ilia Castaneda Cardiology Ilia Ahmedzamariusz Cardiology Ilia medzamariusz Cardiology: H er updated medication list for this problem includes: Losartan 25 Mg Tablet (Losartan) ..... Take 1 tablet daily Iliarenato Castaneda Cardiology Ilia Ahmedzamariusz Cardiology Ilia Ahmedzamariusz [facility]:Patient w as advised to stop smoking. Iliarenato Barberzamariusz Cardiology Iliarenato Barberzamariusz Cardiology Ilia Ahmedzamariusz Cardiology: H er updated medication list for this problem includes: Atorvastatin 20 Mg Tablet (Atorvastatin) Ilia Castaneda Cardiology: H er updated medication list for this problem includes: Albuterol Sulfate 90 Mcg/actuation Hfa Aerosol Inhaler (Albuterol sulfate) Albuterol Sulfate 0.63 Mg/3 Ml Solution For Nebulization (Albuterol sulfate) Xopenex Nebu (Levalbuterol hcl nebu) ..... As needed Ilia Castaneda Cardiology Rahul Ahuja MD Cardiology Rahul Ahuja MD Cardiology Rahul Ahuja MD Cardiology Rahul Ahuja MD Cardiology Rahul Ahuja MD Cardiology Rahul Ahuja MD Cardiology Rahul Ahuja MD FU w/ Echo Rm 6: T he following medications were removed from the medication list: Aspirin 81 Mg Tabs (Aspirin) ..... One tab. daily BP today: 119/82 Prior BP: 102/52 (03/29/2008) Nuclear Stress Findings: Post stress EF 56%. No EKG changes diagnostic for ischemia. Normal perfusion scan. (09/11/2007) E chocardiogram: EF 60%. Thickened (sclerotic) MVL. Moderately thickened (sclerotic) AV. Moderate AR. (09/01/2007) Rahul Ahuja MD FU w/ Echo Rm 6: T he following medications were removed from the medication list: Simcor 500-20 Mg Tb24 (Niacin-simvastatin) ..... Take 1 tablet by mouth daily Rahul Ahuja MD FU: H er updated medication list for this problem includes: Simcor 500-20 Mg Tb24 (Niacin-simvastatin) ..... Take 1 tablet by mouth daily Aspirin 81 Mg Tabs (Aspirin) ..... One tab. daily BP today: 102/52 Prior BP: 135/76 (09/29/2007) N uclear Stress Findings: Post stress EF 56%. No EKG changes diagnostic for ischemia. Normal perfusion scan. (09/11/2007) C arotid Doppler/Duplex: normal: (09/01/2007) Rahul Ahuja MD FU: H er updated medication list for this problem includes: Aspirin 81 Mg Tabs (Aspirin) ..... One tab. daily Rahul Ahuja MD FU: H er updated medication list for this problem includes: Simcor 500-20 Mg Tb24 (Niacin-simvastatin) ..... Take 1 tablet by mouth daily BP today: 102/52 Prior BP: 135/76 (09/29/2007) Rahul Ahuja MD FU: H er updated medication list for this problem includes: Aspirin 81 Mg Tabs (Aspirin) ..... One tab. daily BP today: 102/52 Prior BP: 135/76 (09/29/2007) N uclear Stress Findings: Post stress EF 56%. No EKG changes diagnostic for ischemia. Normal perfusion scan. (09/11/2007) E chocardiogram: EF 60%. Thickened (sclerotic) MVL. Moderately thickened (sclerotic) AV. Moderate AR. (09/01/2007) Rahul Ahuja MD office visit follow up on tests: H er updated medication list for this problem includes: Simcor 500-20 Mg Tb24 (Niacin-simvastatin) ..... One tab. daily H er Lp(A) was >225 will swith her over to simcor 20/500 Rahul Ahuja MD office visit follow up on tests Rahul Ahuja MD office visit follow up on tests:Nuclear Stress Findings: Post stress EF 56%. No EKG changes diagnostic for ischemia. Normal perfusion scan. (09/11/2007) E cho: EF 60%. Thickened (sclerotic) MVL. Moderately thickened (sclerotic) AV. Moderate AR. (09/01/2007) C arotid Doppler/Duplex: normal: (09/01/2007) P t encouraged to take ASA 81 mg daily Rahul Ahuja MD Date Name Stress Regadenoson Complete Echo CT, Coronary Calcium Score HISTORY OF PROCEDURES Procedure Date Procedure Name Provider Procedure Notes S tatus Complex e/m visit add on Rahul Ahuja MD completed Tobacco user + tobac co cessation intervention Rahul Ahuja MD completed EKG Rahul Ahuja MD completed CT- Coronary CA score Rahul Ahuja MD completed EKG Rahul Ahuja MD completed
--- OUTSIDE RECORDS SUMMARY | 2024-07-26 01:16 | XMS_ITS | Clinical Summary ---
Author Organization [facility] Building [address] Address [address] [place] [address] Care Team Providers Care Wound Care Physician Name Role Phone Christopher Carrillo MD Primary Care Provider Allergies No known active allergies Medications multivit,dalton,mn- ggzye-Y0-puuok (One A Day Men Complete) 240-25-300 mcg [...] pain at this time, I would consider OK for her once her recovery from surgery [...] will start her on Prednisone therapy today. Encounters Date Type Department Care Team Description 07/23/2024 8:30 AM CDT Office Visit [facility] Pulmonary at [address] [place] [phone] Lissette Diaz NP Asthma-COPD overlap syndrome (HCC) (Primary Dx); Long-term use of high-risk medication; Chronic cough; Sarcoidosis; Cigarette nicotine dependence in remission 06/06/2024 Telephone [facility] Pulmonary at [address] [place] [phone] Angella Bonilla, JEANETTE rf Khuship from Last 3 Months Surgical History Surgery Date Site/Laterality Comments [place] NEPHRECTOMY W/PRTL URETERECTOMY W/OPEN RIB RESCJ Nephrectomy [...] COPD (chronic obstructive pu lmonary disease) (HCC) Asthma-COPD overlap syndrome (HCC) 07/23/2024 Sarcoidosis 07/23/2024 Cigarette nicotine dependenc e in remission 07/23/2024 Chronic cough 07/23/2024 Family History Medical History Relation Name Comments [...] on file Legal 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 [place] [address] 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
--- OUTSIDE RECORDS SUMMARY | 2024-07-26 01:16 | XMS_ITS | Encounter Summary ---
Author Organization [facility] Facility Care Team Providers Care Payroll Associate Name Role Phone Christopher Carrillo MD Primary Care Provider Encounter Details Date Type Department Care Team (Latest Contact Info) Description 05/06/2015 Orders Only [facility] CLINCONV ProviderVenkat MD [address] [place] [id number] Social History Tobacco Use Types Packs/Day Years Used Date Smoking Tobacco: Never Assessed Comments Unknown Sex and Gender Information Value Date Recorded Sex Assigned at Not on file Legal Sex Female 1:56 AM CATERING AND EVENTS MANAGER Gender Identity Female 09/09/2023 12:40 PM CDT Sexual Orientation Straight 09/09/2023 12 :40 PM CDT documented as of this encounter Plan of Treatment Not on file documented as of this encounter Procedures Procedure Name Priority Date/Time Associated Diagnosis Comments PROCEDURE - RESULT 05/06/2015 12 :00 AM CATERING AND EVENTS MANAGER documented in this encounter Results * PROCEDURE - RESULT (05/06/2015 12:00 AM CATERING AND EVENTS MANAGER) Narrative 05/06/2015 12:00 AM CATERING AND EVENTS MANAGER Ordered by an unspecified provider. Historical Provider Final Res ult documented in this encounter Visit Diagnoses Not on filedocumented in this encounter Care Teams Payroll Associate Relationship Specialty Start Date End Date Christopher Carrillo MD [address] [facility] [place] [address] PCP - General Internal Medicine 07/13/23 documented as of this encounter
--- OUTSIDE RECORDS SUMMARY | 2024-07-26 01:16 | XMS_ITS | Encounter Summary ---
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 Gender Identity Female 09/09/2023 12:40 PM CDT Sexual Orientation Straight 09/09/2023 12 :40 PM CDT documented as of this encounter Plan of Treatment Not on file documented as of this encounter Procedures Procedure Name Priority Date/Time Associated Diagnosis Comments SCAN - LABS 05/14/2015 12:00 AM DRYWALL FINISHING FOREMAN SCAN - LABS 05/14/2015 12:00 AM DRYWALL FINISHING FOREMAN SCAN - LABS 05/14/2015 12:00 AM DRYWALL FINISHING FOREMAN SCAN - LABS 05/14/2015 12:00 AM DRYWALL FINISHING FOREMAN SCAN - LABS 05/14/2015 12:00 AM DRYWALL FINISHING FOREMAN documented in this encounter Results * SCAN - LABS (05/14/2015 12:00 AM DRYWALL FINISHING FOREMAN) Narrative 05/14/2015 12:00 AM DRYWALL FINISHING FOREMAN Ordered by an unspecified provider. Historical Provider MD Final Res ult * SCAN - LABS (05/14/2015 12:00 AM DRYWALL FINISHING FOREMAN) Narrative 05/14/2015 12:00 AM DRYWALL FINISHING FOREMAN Ordered by an unspecified provider. Historical Provider MD Final Res ult * SCAN - LABS (05/14/2015 12:00 AM DRYWALL FINISHING FOREMAN) Narrative 05/14/2015 12:00 AM DRYWALL FINISHING FOREMAN Ordered by an unspecified provider. Historical Provider MD Final Res ult * SCAN - LABS (05/14/2015 12:00 AM DRYWALL FINISHING FOREMAN) Narrative 05/14/2015 12:00 AM DRYWALL FINISHING FOREMAN Ordered by an unspecified provider. [facility] Provider MD Final Res ult * SCAN - LABS (05/14/2015 12:00 AM DRYWALL FINISHING FOREMAN) Narrative 05/14/2015 12:00 AM DRYWALL FINISHING FOREMAN Ordered by an unspecified provider. [facility] Provider MD Final Res ult documented in this encounter Visit Diagnoses Not on filedocumented in this encounter Care Teams Rfid Specialist Relationship Specialty Start Date End Date Christopher Carrillo MD [address] [facility] [place] [address] PCP - General Internal Medicine 07/13/23 documented as of this encounter
--- OUTSIDE RECORDS SUMMARY | 2024-07-26 01:17 | XMS_ITS | Data Portability ---
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 Plan of Treatment Reminders Order Date Submit Date Provider Last Modified By Organization Details Last Modified Time Details Appointments None recorded. Lab vitamin D, 25-hydrox y, total, serum 025 025 [email or web address] [facility], [address], [place], [address], 5 16:57:59 magnesium , serum or plasma 025 025 [id number] [facility], [address], [place], [address], 5 16:57:59 vitamin B12, serum 025 025 [email or web address] [facility], [address], [place], [address], 5 16:57:59 CBC w/ auto diff 025 025 [id number] [facility], [address], [place], [address], 5 16:57:58 CMP, serum or plasma 025 025 [email or web address] [facility], [address], [place], [address], 5 16:57:58 lipid panel, serum 025 025 [email or web address] [facility], [address], [place], [address], 5 16:57:59 T4, free, serum 025 025 [id number] [facility], [address], [place], [address], 5 16:57:59 TSH, serum or plasma 025 025 [facility], [address], [place], [address], 5 16:57:59 lipid panel, serum 024 024 [facility], [address], [place], [address], 4 16:14:31 CMP, serum or plasma 024 024 [email or web address] [facility], [address], [place], [address], 4 16:14:31 TSH, serum or plasma 024 024 [id number] [facility], [address], [place], [address], 4 16:14:32 T4, free, serum 024 024 [email or web address] [facility], [address], [place], [address], 4 16:14:32 CBC w/ auto diff 024 024 [email or web address] [facility], [address], [place], [address], 4 16:14:32 drug screen, urine 024 [email or web address] [facility], [address], [place], [address], 4 16:14:32 Referral None recorded. Procedures None recorded. Surgeries None recorded. Imaging None recorded. Medication Orders None recorded. Patient TargetsNo targets recorded. Patient Instructions Encounter Date Encounter Id Patient Instructions Last Modified By Organization Details Last Modified Time 04/26/2023 [id number] advance care planning: care instructions [email or web address] Not available 04/26/2023 11:19:19 advance directiv es: care instructions [email or web address] Not available 04/26/2023 11:19:19 [place] Advance Directives [email or web address] Not available 04/26/2023 11:19:18 risk assessment* [email or web address] Not available 04/26/2023 11:19:19 INFLUENZA VACCIN E [...] SCREENING Not indicated GLUCOSE SCREENING LIPID SCREENING [email or web address] Not available 04/26/2023 11:06:00 Adult health examination [...] with voice recognition software. Occasional wrong-word or dcgvs-g-tfar substitutions may have occurred due to the inherent limitations of voice recognition software. Read the chart carefully and recognize, using context, where substitutions have occurred. Portions of the record may have been created with voice recognition software. Occasional wrong-word or hvtla-y-yzhv substitutions may have occurred due to the inherent limitations of voice recognition software. Read the chart carefully and recognize, using context, where substitutions have occurred. Low-dose CT scan of the chest [email or web address] Not available 04/26/2023 11:15:57 06/13/2023 [id number] Cervalgia persistent probably secondary to degenerative joint disease and possible discogenic disease in the neck. Will try to set up with Neurology for further evaluation. Portions of the record may have been created with voice recognition software. Occasional wrong-word or sggqq-p-fhed substitutions may have occurred due to the inherent limitations of voice recognition software. Read the chart carefully and recognize, using context, where substitutions have occurred. Neurological consult for persistent neck and cervical radicular pain. Keep Appt: Georgina 08 23 2023 10:30 AM [place] [email or web address] Not available 06/13/2023 16:39:22 08/23/2023 [id number] Follow-up hypertension, hyperlipidemia, chronic obstructive lung disease and chronic pain syndrome. All clinically stable. Will check blood work consisting of CBC, CMP, lipid, thyroid. Continue on current Rx follow-up in four months. Next Appointment: 4 Months Approximate Date: 12/21/2023 Portions of the record may have been created with voice recognition software. Occasional wrong-word or pklih-u-pkby substitutions may have occurred due to the inherent limitations of voice recognition software. Read the chart carefully and recognize, using context, where substitutions have occurred. [email or web address] Not available 08/23/2023 12:03:15 12/27/2023 [id number] Follow-up chroni c obstructive lung disease, essential [...] Directives - Recommendations 1. Mammogram Done by research management associate 2. LDCT already done up in [place] please get a copy of the report. 2. DEXA Scan get the most recent copy the bone density scan. Next Appointment: 6 Months Approximate Date: 06/24/2024 Portions of the record may have been created with voice recognition software. Occasional wrong-word or wotrb-a-bdyb substitutions may have occurred due to the inherent limitations of voice recognition software. Read the chart carefully and recognize, using context, where substitutions have occurred. [email or web address] Not available 12/27/2023 12:34:37 05/15/2024 [id number] risk assessment* [email or web address] Not availabl e 05/15/2024 10:55:39 INFLUENZA VACCIN [...] SCREENING Not indicated GLUCOSE SCREENING LIPID SCREENING [email or web address] Not available 05/15/2024 10:43:41 Wellness evaluat ion [...] CT scan of the chest done in [place] by pulmonology. Follow Up: 6 Months Approximate Date: 11/11/2024 Portions of the record may have been created with voice recognition software. Occasional wrong-word or caond-k-psei substitutions may have occurred due to the inherent limitations of voice recognition software. Read the chart carefully and recognize, using context, where substitutions have occurred. Created: Massiel Carrillo M.D. 05.15.2024 09:55 AM [email or web address] Not available 05/15/2024 10:55:21 Reason for Referral None Reported. Results Created Date Observation Date Name Description Value Unit Range Abnormal Flag Note LastModifiedBy Organization Detail LastModifiedTime 09/22/19 24 09/24/2023 LIPID PANEL , STAND NICANOR cholesterol, total 202 mg/dL <200 high Not Available [facility] [place] [address] [place], [address], 09/24/2023 01:35:57 09/22/1909/24/2023 LIPID PANEL , STAND NICANOR HDL cholesterol 114 mg/dL > or = 50 normal Not Available [facility] [address] [address] [place], [address], 09/24/2023 01:35:57 09/22/1909/24/2023 LIPID PANEL , STAND NICANOR triglyceride s 69 mg/dL <150 normal Not Available [facility] [address] [place], [address], 09/24/2023 01:35:57 09/22/1909/24/2023 LIPID PANEL , STAND [...] 9): 2061- 206 (http ://ed ucati on.Qu estLoctronix. com/f aq/FA Q164) Not Available [facility] [address] [address] [place], [address], 09/24/2023 01:35:57 09/22/1909/24/2023 LIPID PANEL , STAND NICANOR chol/HDLC ratio 1.8 (calc ) <5.0 normal Not Available [address] [address] [place], [address], 09/24/2023 01:35:57 09/22/1909/24/2023 LIPID PANEL , STAND NICANOR non HDL cholesterol 88 mg/dL _(adlton c) <130 normal For patie nts with diabe josh plus 1 major ASCVD risk facto r, treat ing to a non-H DL-C goal of <100 mg/dL (LDL- C of <70 mg/dL ) is consi dered a thera pegomezi c optio n. Not Available [facility] [address] [address] [place], [address], 09/24/2023 01:35:57 09/22/1909/24/2023 COMPR EHENS LORENA METAB OLIC PANEL , PLASM A glucose 96 mg/dL 65-99 normal Fasti ng refer ence inter miguel Not Available [facility] [address] [address] [place], [address], 09/24/2023 01:35:58 09/22/19 24 09/24/2023 COMPR EHENS LORENA METAB OLIC PANEL , PLASM A urea nitrogen (BUN) 13 mg/dL 7-25 normal Not Available [address], [address], 09/24/2023 01:35:58 09/22/19 24 09/24/2023 COMPR EHENS LORENA METAB OLIC PANEL , PLASM A creatinine 0.72 mg/dL 0.50-1 .03 normal Not Available [facility] [address], [address], 09/24/2023 01:35:58 09/22/19 24 09/24/2023 COMPR EHENS LORENA METAB OLIC PANEL , PLASM A eGFR 97 mL/mi n/1.7 3m2 > or = 60 normal Not Available [address], [address], 09/24/2023 01:35:58 09/22/19 24 09/24/2023 COMPR EHENS LORENA METAB OLIC PANEL , PLASM A BUN/creatini ne ratio SEE NOTE: (calc ) 6-22 Not Repor freya: BUN and Creat inine are withi n refer ence range . Not Available [address], [address], 09/24/2023 01:35:58 09/22/19 24 09/24/2023 COMPR EHENS LORENA METAB OLIC PANEL , PLASM A sodium 141 mmol/ L 135-14 6 normal Not Available [facility] [address], [address], 09/24/2023 01:35:58 09/22/19 24 09/24/2023 COMPR EHENS LORENA METAB OLIC PANEL , PLASM A potassium 3.9 mmol/ L 3.4-4. 8 normal Not Available [address], [address], 09/24/2023 01:35:58 09/22/19 24 09/24/2023 COMPR EHENS LORENA METAB OLIC PANEL , PLASM A chloride 105 mmol/ L 98-110 normal Not Available [address], [address], 09/24/2023 01:35:58 09/22/19 24 09/24/2023 COMPR EHENS LROENA METAB OLIC PANEL , PLASM A carbon dioxide 28 mmol/ L 20-32 normal Not Available [address], [address], 09/24/2023 01:35:58 09/22/19 24 09/24/2023 COMPR EHENS LORENA METAB OLIC PANEL , PLASM A calcium 9.3 mg/dL 8.6-10 .4 normal Not Available [address], [address], 09/24/2023 01:35:58 09/22/19 24 09/24/2023 COMPR EHENS LORENA METAB OLIC PANEL , PLASM A protein, total 7.1 g/dL 6.4-8. 4 normal Not Available [address], [address], 09/24/2023 01:35:58 09/22/19 24 09/24/2023 COMPR EHENS LORENA METAB OLIC PANEL , PLASM A albumin 4.2 g/dL 3.6-5. 1 normal Not Available [address], [address], 09/24/2023 01:35:58 09/22/19 24 09/24/2023 COMPR EHENS LORENA METAB OLIC PANEL , PLASM A globulin 2.9 g/dL_ (calc ) 2.2-4. 0 normal Not Available [address], [address], 09/24/2023 01:35:58 09/22/19 24 09/24/2023 COMPR EHENS LORENA METAB OLIC PANEL , PLASM A albumin/glob ulin ratio 1.4 (calc ) 0.9-2. 3 normal Not Available [address], [address], 09/24/2023 01:35:58 09/22/19 24 09/24/2023 COMPR EHENS LORENA METAB OLIC PANEL , PLASM A bilirubin, total 0.3 mg/dL 0.2-1. 2 normal Not Available [address], [address], 09/24/2023 01:35:58 09/22/19 24 09/24/2023 COMPR EHENS LORENA METAB OLIC PANEL , PLASM A alkaline phosphatase 73 U/L 37-153 normal Not Available [address], [address], 09/24/2023 01:35:58 09/22/19 24 09/24/2023 COMPR EHENS LORENA METAB OLIC PANEL , PLASM A AST 19 U/L 10-35 normal Not Available [address], [address], 09/24/2023 01:35:58 09/22/19 24 09/24/2023 COMPR EHENS LORENA METAB OLIC PANEL , PLASM A ALT 16 U/L 6-29 normal Not Available [address], [address], 09/24/2023 01:35:58 09/22/19 24 09/24/2023 CBC (INCL UDES DIFF/ PLT) white blood cell count 9.1 thous and/u L 3.8-10 .8 normal Not Available [address], [address], 09/24/2023 01:36:00 09/22/19 24 09/24/2023 CBC (INCL UDES DIFF/ PLT) red blood cell count 4.07 paige on/uL 3.80-5 .10 normal Not Available [address], [address], 09/24/2023 01:36:00 09/22/19 24 09/24/2023 CBC (INCL UDES DIFF/ PLT) hemoglobin 12.9 g/dL 11.7-1 5.5 normal Not Available [address], [address], 09/24/2023 01:36:00 09/22/19 24 09/24/2023 CBC (INCL UDES DIFF/ PLT) hematocrit 38.0 % 35.0-4 5.0 normal Not Available [address], [address], 09/24/2023 01:36:00 09/22/1909/24/2023 CBC (INCL UDES DIFF/ PLT) MCV 93.4 fL 80.0-1 00.0 normal Not Available [address], [address], 09/24/2023 01:36:00 09/22/19 24 09/24/2023 CBC (INCL UDES DIFF/ PLT) MCH 31.7 pg 27.0-3 3.0 normal Not Available [address], [address], 09/24/2023 01:36:00 09/22/1909/24/2023 CBC (INCL UDES DIFF/ PLT) MCHC 33.9 g/dL 32.0-3 6.0 normal Not Available [address], [address], 09/24/2023 01:36:00 09/22/1909/24/2023 CBC (INCL UDES DIFF/ PLT) RDW 12.0 % 11.0-1 5.0 normal Not Available [facility] [address], [address], 09/24/2023 01:36:00 09/22/19 24 09/24/2023 CBC (INCL UDES DIFF/ PLT) platelet count 373 thous and/u L 140-40 0 normal Not Available [address], [address], 09/24/2023 01:36:00 09/22/19 24 09/24/2023 CBC (INCL UDES DIFF/ PLT) MPV 10.8 fL 7.5-12 .5 normal Not Available [address], [address], 09/24/2023 01:36:00 09/22/19 24 09/24/2023 CBC (INCL UDES DIFF/ PLT) absolute neutrophils 5269 cells /uL 1500-7 800 normal Not Available [address], [address], 09/24/2023 01:36:00 09/22/19 24 09/24/2023 CBC (INCL UDES DIFF/ PLT) absolute lymphocytes 2994 cells /uL 850-39 00 normal Not Available [address], [address], 09/24/2023 01:36:00 09/22/19 24 09/24/2023 CBC (INCL UDES DIFF/ PLT) absolute monocytes 655 cells /uL 200-95 0 normal Not Available [address], [address], 09/24/2023 01:36:00 09/22/19 24 09/24/2023 CBC (INCL UDES DIFF/ PLT) absolute eosinophils 109 cells /uL 15-500 normal Not Available [facility] [address], [address], 09/24/2023 01:36:00 09/22/19 24 09/24/2023 CBC (INCL UDES DIFF/ PLT) absolute basophils 73 cells /uL 0-200 normal Not Available [address], [address], 09/24/2023 01:36:00 09/22/19 24 09/24/2023 CBC (INCL UDES DIFF/ PLT) neutrophils 57.9 % normal Not Available [facility] [address], [address], 09/24/2023 01:36:00 09/22/19 24 09/24/2023 CBC (INCL UDES DIFF/ PLT) lymphocytes 32.9 % normal Not Available [facility] [address], [address], 09/24/2023 01:36:00 09/22/19 24 09/24/2023 CBC (INCL UDES DIFF/ PLT) monocytes 7.2 % normal Not Available [facility] [address], [address], 09/24/2023 01:36:00 09/22/19 24 09/24/2023 CBC (INCL UDES DIFF/ PLT) eosinophils 1.2 % normal Not Available [facility] [address], [address], 09/24/2023 01:36:00 09/22/19 24 09/24/2023 CBC (INCL UDES DIFF/ PLT) basophils 0.8 % normal Not Available [facility] [address], [address], 09/24/2023 01:36:00 09/22/19 24 09/24/2023 T4, FREE T4, free 1.2 NG/dL 0.8-1. 8 normal Not Available [facility] [address], [address], 09/24/2023 01:36:01 09/22/19 24 09/24/2023 TSH TSH 0.49 mIU/L 0.40-4 .50 normal Not Available [facility] [address], [address], 09/24/2023 01:36:02 09/22/19 24 09/24/2023 DRUG MONIT OR, BASE PANEL , SCREE N, URINE benzodiazepi suzanna POSITI VE NG/mL <100 abnormal See Note A See Note A Not Available [address], [place], [address], 09/24/2023 01:36:03 09/22/19 24 09/24/2023 DRUG MONIT OR, BASE PANEL , SCREE N, URINE cocaine metabolite NEGATI VE NG/mL <150 See Note A See Note A Not Available [address] [address], [place], [address], 09/24/2023 01:36:03 09/22/19 24 09/24/2023 DRUG MONIT OR, BASE PANEL , SCREE N, URINE opiates POSITI VE NG/mL <100 abnormal See Note A See Note A Not Available [address], [place], [address], 09/24/2023 01:36:03 09/22/19 24 09/24/2023 DRUG MONIT OR, BASE PANEL , SCREE N, URINE oxycodone NEGATI VE NG/mL <100 See Note A See Note A Not Available [address], [place], [address], 09/24/2023 01:36:03 09/22/19 24 09/24/2023 DRUG MONIT OR, BASE PANEL , SCREE N, URINE creatinine 135.5 mg/dL > or = 20.0 Not Available [address], [place], [address], 09/24/2023 01:36:03 09/22/1909/24/2023 DRUG MONIT OR, BASE PANEL , SCREE N, URINE pH 5.6 4.5-9. 0 Not Available [address], [place], [address], 09/24/2023 01:36:03 09/22/19 24 09/24/2023 DRUG MONIT OR, BASE PANEL , SCREE N, URINE oxidant NEGATI VE mcg/m L <200 Not Available [facility] [address] [place], [address], 09/24/2023 01:36:03 09/22/19 24 09/24/2023 DRUG MONIT [...] M-F, 8am to 10pm EST Not Available [facility] [address] [address], [place], [address], 09/24/2023 01:36:04 04/11/20 23 04/09/2023 MRI, lumba r spine , w/o contr ast No observ ation record ed. [email or web address] [address], [place], [address], 04/11/2023 12:36:55 04/11/20 23 04/09/2023 MRI, lumba r plexu s, w/o contr ast No observ ation record ed. [email or web address] [place] [address] [facility] [address], [place], [address], 04/11/2023 08:42:01 04/15/20 23 XR, cervi dalton spine , 2 or 3 view No observ ation record ed. [email or web address] [facility] [place] [address], [place], [address], 04/15/2023 10:03:42 07/07/19 24 03/27/2014 MRI, cervi dalton spine , w/o contr ast No observ ation record ed. [email or web address] Not Available 2023 10:07:01 07/07/19 24 03/22/2014 MRI, lumba r spine , w/o contr ast No observ ation record ed. [email or web address] Not Available 2023 10:07:47 09/01/19 24 09/01/2023 XR, hip, unila teral No observ ation record ed. [address], [place], [address], 09/01/2023 17:33:46 09/13/19 24 09/13/2023 MRI, cervi dlaton plexu s, w/o contr ast No observ ation record ed. [address], [place], [address], 09/13/2023 16:26:34 09/22/19 24 09/22/2023 US, thyro id No observ ation record ed. [address], [place], [address], 09/22/2023 17:01:50 01/30/20 24 01/30/2024 XR, hip + pelvi s, unila teral No observ ation record ed. [address], [place], [address], 01/30/2024 17:44:48 Result Notes None recorded. Problems Name Problem SNOMED Code Status Onset Date Resolution Date Notes Provider Name and Address Organization Details Recorded Time Asthma-chr onic obstructiv e pulmonary disease overlap syndrome 1524967036964 9107 Active 2022 Not Available [facility] 15:01:27 History of left hip replacemen t 9929236331989 107 Active 2019 Not Available [facility] 3 15:01:28 Chronic obstructiv e pulmonary disease 00941226 Active 2021 Not Available [facility] 3 15:01:28 Spinal stenosis of lumbar region 46526321 Active 2019 Not Available [facility] 3 15:01:28 Anxiety disorder 621540345 Active Not Available [facility] 3 15:01:28 Osteoarthr itis of knee 076692718 Active Not Available [facility] 3 15:01:28 Pure hyperchole sterolemia 238165567 Active Not Available [facility] 3 15:01:28 Sarcoidosi s 83769276 Active Not Available [facility] 3 15:01:28 Vitamin D deficiency 88217805 Active 2021 Not Available [facility] 3 15:01:28 Depressive disorder 36030808 Active Not Available [facility] 15:01:28 Chronic pain syndrome 854036620 Active 2016 Not [facility] 3 15:01:28 Dysphagia 77250218 Active Not Available [facility] 3 15:01:28 History of malignant neoplasm of kidney 524226500 Active Not Available [facility] 3 15:01:28 History of polyp of colon 247937438 Active 2021 Not Available [facility] 3 15:01:28 Atrial fibrillati on 92940388 Active Not Available [facility] 3 15:01:28 Pain of breast 84505668 Active Not Available [facility] 3 15:01:28 Dyspnea on exertion 15446996 Active 2022 Not Available [facility] 3 15:01:28 Stricture of esophagus 42900321 Active Not Available [facility] 3 15:01:28 Chronic cough 25638655 Active 2022 Not Available [facility] 3 15:01:28 Greater trochanter ic pain syndrome 4541488 Active 2019 Not Available [facility] 3 15:01:28 Tobacco dependence syndrome 74136731 Active Not Available [facility] 3 15:01:28 Osteoarthr itis of hip 578579244 Active 2022 Not Available [facility] 3 15:01:28 Pain in right hip joint 6361818562885 02 Active 2022 Not Available [facility] 3 15:01:28 Pain of left hip joint 6925697164232 00 Active 2022 Not Available [facility] 3 15:01:28 Osteoporos is 47025846 Active 2022 Not Available [facility] 3 15:01:28 Osteoarthr itis of right hip joint 2186748153742 07 Active 2022 Not Available [facility] 3 15:01:28 Candidiasi s of mouth 39307021 Active 2022 Not Available [facility] 3 15:01:28 Chronic bronchitis 43124421 Active 2022 SHANTI Haddad-ANUSHKA [address], [place], [address] , [facility] 3 11:27:08 Osteoarthr itis 007977210 Active 2022 STELLA Gasca, [facility] 3 10:01:13 Chronic back pain 389515085 Active 2022 Teresa Connolly CMA null, [facility] 3 15:46:59 Acute bronchitis 49262715 Active 2022 Massiel Carrillo MD [address], [place], [address] , [facility] 3 10:35:38 Low back pain 996399034 Active 2022 STELLA Gasca, [place] - [facility] 3 09:04:16 Cervical radiculopa thy 05924350 Active 2022 STELLA Gasca, [facility] 3 09:04:48 Essential hypertensi on 36503637 Active 2022 Massiel Carrillo MD [address], [address], [place], [address] , [facility] Back& GROUP [facility] 3 11:07:58 Neck pain 88936771 Active 2023 Massiel Carrillo MD [address], [address], [place], [address] , [facility] Back& GROUP [facility] 4 16:35:59 Anxiety 96427299 Active 2023 Corrie Funk, DEVELOPMENT VICE PRESIDENT null, [facility] 4 11:38:44 Spinal stenosis in cervical region 99725628 Active 2023 Teresa Connolly DEVELOPMENT VICE PRESIDENT null, [facility] 4 15:49:17 Gastroesop hageal reflux disease 426497281 Active 2023 Massiel Carrillo MD [address], [address], [place], [address] , [facility] Back& [facility] 4 12:29:02 Problem Notes None recorded. Procedures Surgical History Date Name Laterality Status Provider Name and Address Organization Details Recorded Time 3 Advanced Care Planning completed Paulette Salazar RN [facility] Back& [facility] 04/26/2023 11:06:48 Imaging Results Imaging Date Name Status LastModified by Organiz [facility] Details LastModified Time 04/09/2023 MRI, lumbar spine, w/o contrast completed [email or web address] [address], [address], 04/11/2023 12:36:55 04/09/2023 MRI, lumbar plexus, w/o contrast completed [email or web address] [place] [address] [address], [address], 04/11/2023 08:42:01 04/15/2023 XR, cervical spine, 2 or [email or web address] [facility]aney Chaudhari [address] [facility] [address], [place], [address], 04/15/2023 10:03:42 03/27/2014 MRI, cervical spine, w/o contrast completed Information not available 07/07/2023 10:07:01 03/22/2014 MRI, lumbar spine, w/o contrast completed Information not available 07/07/2023 10:07:47 09/01/2023 XR, hip, unilateral completed [address] [place] [address], [address], 09/01/2023 17:33:46 09/13/2023 MRI, cervical plexus, w/o contrast completed [address] [place] [address], [address], 09/13/2023 16:26:34 09/22/2023 US, thyroid completed [address] [place] [address], [address], 09/22/2023 17:01:50 01/30/2024 XR, hip + pelvis, unilateral completed [address] [place] [address], [address], 01/30/2024 17:44:48 Procedure Notes None recorded. Medical [...] administe red by the provider 10/04 completed [facility]: [phone] Not Available Not Available [...] administe red by the provider 10/04 completed [facility]: [phone] Not Available Not Available [...] Updated DateTime 3 170.18 cm 18.8 kg/m2 07413.0 8 g 98 /min 97 [degF] 93 % 93 % 180 mm[Hg] 100 mm[Hg] Yelena Kong [employer] [facility] [employer] [facility] 3 10:58:41 Date Recorded Body height Body mass index (BMI) Body weight Heart rate Body temperature Oxygen saturation Oxygen saturation in Arterial blood by Pulse oximetry Systolic blood pressure Diastolic blood pressure Provider Name and Address Organization Details Last Updated DateTime 4 170.18 cm 19.3 kg/m2 97988.8 6 g 76 /min 97.7 [degF] 95 % 95 % 120 mm[Hg] 60 mm[Hg] STELLA Duarte [facility] [employer] [facility] 4 16:29:24 Date Recorded Body height Body mass index (BMI) Body weight Heart rate Body temperature Oxygen saturation Oxygen saturation in Arterial blood by Pulse oximetry Systolic blood pressure Diastolic blood pressure Provider Name and Address Organization Details Last Updated DateTime 4 170.18 cm 19.4 kg/m2 18535.4 5 g 82 /min 97 [degF] 94 % 94 % 120 mm[Hg] 60 mm[Hg] Yelena Adilenecathy [employer] [facility] [employer] [facility] 4 11:46:42 Date Recorded Body height Body mass index (BMI) Body weight Heart rate Body temperature Oxygen saturation Oxygen saturation in Arterial blood by Pulse oximetry Systolic blood pressure Diastolic blood pressure Provider Name and Address Organization Details Last Updated DateTime 4 170.18 cm 20 kg/m2 09267.8 2 g 78 /min 97.8 [degF] 98 % 98 % 112 mm[Hg] 62 mm[Hg] STELLA Duarte [facility] [employer] [facility] 4 12:07:14 Date Recorded Body height Body mass index (BMI) Body weight Heart rate Body temperature Oxygen saturation Oxygen saturation in Arterial blood by Pulse oximetry Systolic blood pressure Diastolic blood pressure Provider Name and Address Organization Details Last Updated DateTime 5 167.64 cm 21.8 kg/m2 66845.9 7 g 77 /min 97 [degF] 94 % 94 % 120 mm[Hg] 60 mm[Hg] Yelena Gray CT [employer] [facility] [employer] 5 10:33:48 Social History Question Answer Notes LastModified by Organizat ion Details LastModified Time Tobacco Smoking Status Current Every Day Smoker Linda Valderrama brock CT [employer] [facility] [employer] 11/05/2022 11:47:35 What Is Your Level Of Alcohol Consumption? Occasional [email or web address] Information not available 07/20/2022 What Is Your Level Of Caffeine Consumption? Moderate Information not available 07/20/2022 Are You Currently Employed? Yes Information not available 11/05/2022 What Is Your Occupation? [employer] [email or web address] Information not available 11/05/2022 What Was The Date Of Your Most Recent Tobacco Screening? 06/01/2022 [email or web address] Information not available 11/05/2022 What Is Your Current Pack Years? 30ormorepackye ars [email or web address] Information not available 11/05/2022 Do You Have Any Pets? Yes [email or web address] Information not available 11/05/2022 At What Age Did You Start Smoking Tobacco? 13 [email or web address] Information not available 11/05/2022 How Much Tobacco Do You Smoke? 1 PPD [id number] Information not available 07/07/2022 Do You Use Any Illicit Or Recreational Drugs? No [email or web address] Information not available 11/05/2022 How Many Years Have You Smoked Tobacco? 43 [email or web address] Information not available 11/05/2022 Sex: Unknown Functional [...] HEARING PROBLEMS N MUMPS N SHINGLES N BOWEL PROBLEMS N DEPRESSION (INCLUDING POST ) Y STROKE/TIA N ULCERS N BENIGN PROSTATIC HYPERPLASIA [...] N CHRONIC PAIN SYNDROME N HYPOTHYROIDISM N CONSTIPATION N CAROTID BLOCKAGE N BACK / NECK PROBLEMS N HAVE YOU BEEN HOSPITALIZED OR SEEN IN [facility] IN THE PAST YEAR ? N ATHEROSCLEROSIS [...] influenza, unspecified formulation 3 completed TARAS Villar [place] [employer]& [employer] [facility] 04/26/2023 10:59:55 Influenza, split virus, trivalent, preservative 4 completed Not Available [facility] 01/07/2023 08:12:48 Influenza, split virus, quadrivalent, preservative 0 completed Not Available [facility] 01/07/2023 08:12:48 COVID-19, mRNA, LNP-S, bivalent, PF, 30 mcg/0.3 mL dose 2 completed Not Available [facility] hospital 01/07/2023 08:12:48 Influenza, split virus, quadrivalent, preservative 2 completed Not Available [facility] access hospital 01/07/2023 08:12:48 COVID-19, mRNA, LNP-S, PF, 30 mcg/0.3 mL dose 2 completed Not Available [facility] hospital 01/07/2023 08:12:48 Influenza, adjuvanted, trivalent, PF 1 completed Not Available [facility] access hospital 01/07/2023 08:12:48 SARS-COV-2 (COVID-19) vaccine, UNSPECIFIED 1 completed Not Available [facility] access hospital 01/07/2023 08:12:48 SARS-COV-2 (COVID-19) vaccine, UNSPECIFIED 1 completed Not Available Critical access hospital 01/07/2023 08:12:48 SARS-COV-2 (COVID-19) vaccine, UNSPECIFIED 1 completed Not Available Critical access hospital 01/07/2023 08:12:48 Influenza, split virus, quadrivalent, preservative 9 completed Not Available Critical access hospital 01/07/2023 08:12:48 Influenza, split virus, quadrivalent, PF 7 completed Not Available Critical access hospital 01/07/2023 08:12:48 Influenza, split virus, quadrivalent, PF 8 completed Not Available Critical access hospital 01/07/2023 08:12:48 Influenza, split virus, quadrivalent, PF 6 completed Not Available Critical access hospital 01/07/2023 08:12:48 Influenza, split virus, quadrivalent, preservative 5 completed Not Available Critical access hospital 01/07/2023 08:12:48 Past Encounters Encounter ID Performer Location Encounter Start Date Encounter Closed Date Diagnosis/Indication Diagnosis SNOMED-CT Code Diagnosis ICD10 Code Diagnosis Note [id number] [facility] Internal Med Jaydon stroud [address] [place] [address] 10/10/2020 00:00:00 10/10/2020 11:04:56 [id number] [facility] Internal Med [place] [address] [place] [address] [place] [address] 04/14/2021 00:00:00 04/14/2021 10:58:16 [id number] [facility] Internal Med [place] [address] [place] [address] [place] [address] 10/20/2021 00:00:00 10/20/2021 11:02:04 [id number] [facility] Internal Med [place] [address] , [place] [address] 04/20/2022 00:00:00 04/20/2022 10:47:47 [id number] [facility] Pulmonolo gy [place] [address] [place] [address] 06/01/2022 00:00:00 06/01/2022 14:10:06 [id number] Lissette Diaz, [facility] Pulmonolo gy [place] [address] [place] [address] 07/20/2022 09:58:02 07/20/2022 17:19:48 Asthma-chronic obstructive pulmonary disease overlap syndrome 3834842003 3031211 J44.9 PFT completed 11/2021 with moderate obstructio nRatio 41, FEV1 4427% improvemen t after BDContinue Breztri with aerochambe rInstructe d on useInstruc freya on frequency - BIDShe is aware to rinse and spit after useContinu e Albuterol PRN Dyspnea on exertion 6084 5006 R06.09 Improved with inhaled therapyo [facility] CE, IGGs, IGE, Quantifero n GOLD normalSix minute walk testing normal Sarcoidosis 50122558 D86 .9 CT chest 11/16/21:F INDINGS:He art: [...] Rx options if needed in the future. [id number] Lissette Diaz, CREATIVE WRITING PROFESSOR-[facility] Pulmonolo gy [place] [address] [place] [address] 08/17/2022 10:05:00 08/17/2022 16:23:22 Asthma-chronic obstructive pulmonary disease overlap syndrome [id number] 7121836 J44.9 ACT 7CAT 28PFT completed 11/2021 with [...] GOLD normalSix minute walk testing normal Sarcoidosis 54970933 D86 .9 CT chest 11/16/21:F INDINGS:He art: [...] Rx options if needed in the future. [id number] Massiel Carrillo MD [facility] Internal Med [facility] [address] , [place] [address] 10/26/2022 10:19:32 10/26/2022 10:46:13 Chronic obstructive pulmonary disease 81988553 J44.9 Pure hypercholesterolemia 726423243 E78.00 History of malignant neoplasm of kidney 919379975 Z85.528 Osteoarthritis of hip 23 9373509 M16.9 [id number] Ge Mattson MD [facility] Ortho [place] [address] [place] [address] 11/05/2022 11:44:46 11/08/2022 09:49:21 Pain in right hip joint 2149548998 17657 M25.551 Osteoporosis 20401089 M8 1.0 [id number] Lissette Diaz, CREATIVE WRITING PROFESSOR-[facility] Pulmonolo gy [place] [address] [place] [address] 11/17/2022 10:25:26 11/18/2022 08:46:25 Asthma-chronic obstructive pulmonary disease overlap syndrome [id number] 3280118 J44.9 CAT 29PFT completed 11/2021 with moderate [...] she continue this as maintenanc e therapySmo [facility] CE, IGGs, IGE, Quantifero n GOLD normalSix minute walk testing normal Sarcoidosis 28121166 D86 .9 CT chest 11/16/21:F INDINGS:He art: [...] in the future. Candidiasis of mouth 797 51552 B37.0 Start Nystatin [id number] Lissette Diaz, [facility] Pulmon[facility] gy [place] [address] [place] [address] 02/15/2023 10:37:59 02/15/2023 11:33:32 Asthma-chronic obstructive pulmonary disease overlap syndrome 5063675533 1992991 J44.9 CAT 33ACT 16PFT completed 11/2021 with moderate obstructio nRatio 41, FEV1 4427% improvemen t after BDRepeat PFT 12/2022 with severe obstructio n and good BD responseCo ntinue Breztri with aerochambe rContinue Albuterol PRN - discussed indication s for useDiscuss ed reportable signs and symptoms Chronic bronchitis 75548 004 J42 Start Azithromyc in three times per week Candidiasis of mouth 797 92775 B37.0 Start Nystatin Sarcoidosis 27098652 D86 .9 CT chest 11/16/21:F INDINGS:He art: [...] Rx options if needed in the future. [id number] Ge Mattson MD [facility] Ortho [place] [address] [place] [address] 03/23/2023 09:48:48 03/23/2023 13:52:30 Osteoarthritis 821724107 M16.11 [id number] Ge Mattson MD [facility] Ortho [place] [address] [place] [address] 04/15/2023 08:53:46 04/15/2023 10:13:06 Low back pain 326506317 M54.50 Cervical radiculopathy 45762530 M54.12 [id number] Massiel Carrillo MD [facility] Internal Med Jaydon stroud [address] [facility] [place] [address] 04/26/2023 10:34:29 04/26/2023 11:21:18 Adult health examination 369158178 Z00.00 Depression screening 171 960890 Z13.31 Essential hypertension 12399409 I10 Atrial fibrillation 4943 6004 I48.91 History of malignant neoplasm of kidney 689407967 Z85.528 Chronic ob structive pulmonary disease 27910407 J44.9 [id number] Massiel Carrillo MD [facility] Internal Med [facility] [address] [address] [place] [address] 06/13/2023 16:21:39 06/13/2023 16:46:55 Neck pain 49565887 M54.2 [id number] Massiel Carrillo MD [facility] Internal Med [address] [place] [address] 08/23/2023 11:27:58 08/23/2023 12:06:18 Chronic obstructive pulmonary disease 97243547 J44.9 Chronic pain syndrome 37 3709345 G89.4 Essential hypertension 93041998 I10 Pure hypercholesterolemia 049786499 E78.00 Long-term current use of opiate analgesic drug 4131221105 31466 Z79.916 [id number] Massiel Carrillo MD [facility] Internal [address] [place] [address] 12/27/2023 11:44:25 12/27/2023 12:39:10 Atrial fibrillation 39588131 I48.91 Anxiety 40570380 F41.9 Chronic ob structive pulmonary disease 71119368 J44.9 Essential hypertension 71552537 I10 Gastroesop hageal reflux disease 237628438 K21.9 Pure hypercholesterolemia 328089510 E78.00 [id number] Massiel Carrillo MD [facility] Primary Care [facility] [address] [facility] [address] [place] [address] 05/15/2024 10:16:43 05/15/2024 14:05:50 Adult health examination 382182191 Z00.00 Depression screening 171 438423 Z13.31 Essential hypertension 82486056 I10 Pure hypercholesterolemia 160414180 E78.00 History of malignant neoplasm of kidney 241394684 Z85.528 Osteoarthritis of hip 23 0746814 M16.9 Anxiety disorder 2073466 06 F41.9 Chronic ob structive pulmonary disease 80034754 J44.9 Gastroesop hageal reflux disease 402038739 K21.9 Vitamin D deficiency 347 07492 E55.9 Health Concerns Section Related Observation LastModified by Organization Detai ls LastModified Time None Recorded Concern Status LastModified by Organization Details LastModified Time None Recorded Advance Directives Directive None Recorded Payers Encounter Date Sequence Insurance Name Policy Number Policy Ruth Covered Member ID Ruth Member ID Guarantor Name 04/26/[address] [facility] (MEDICAID HMO) [id number] Gladys Havron [id number] Gladys Havron 06/13/[address] [facility] (MEDICAID HMO) [id number] Gladys Havron [id number] Gladys Havron 08/23/[address] [facility] (MEDICAID HMO) [id number] 0003 Gladys Havron [id number] Gladys Havron 12/27/[address] [facility] (MEDICAID HMO) [id number] 0003 Gladys Havron [id number] Gladys Havron 05/15/[address] [facility] (MEDICAID HMO) [id number] 0003 Gladys Havron [id number] Gladys Havron Notes Date Note Type Note [...] Systemic Symptoms:none Medication Reconciliation: from medication list. Xtzvkvhgdqw51/02/2023: Echocardiogram demonstrates a left ventricular ejection fraction [...] specific medication. Rate control: controlled ventricular response [id number] Criteria: hypertension, Age < 65 and and [...] UG AEROSOL, METERED Two Puffs BidVaccination and Ndcqemjsymqd3355-80 Nrtzoscop9557-21 Covid Shavlg4082-86 PneumovaxSurgical HistoryEsophageal Dilatation, Left NOEMY, Right NephrectomyPreventative Testing Confirmed by Our Attqpbk8803/22/2023 ALBUMIN 4.2 G/DL N011/15/2022 MAMMOGRAM 0/05/2021 UPPER CRICGKZXQ50/30/2022 COLONOSCOPY ( 5 YEARS ) 7/03/2022 LDCT / DEXA SCANSocial HistorySOCIAL HISTORY:Smoking Hx: 1 packs of cigarettes per day for over 30 years.Drinking Hx: < 6 beers per week, > 24 oz of coffee per day.Exercise: InfrequentlySexual Hx: Sexually ActiveFamily HistoryFAMILY HISTORY:Mother Living 76 years old has hx of [place] of breastFather 51 years old1 Sisters 1 LivingFather Hx: JUSTO Carrillo MD [address] [facility], [facility] [address], [place], [address], [facility] [employer] 04/26/2023 11:19:23 4 text/html Patient Name: Gladys Robertson Of Service: Tuesday ( 06.13.2023 ): 1965 Age: 57 Chief Complaint: Addressed in HPI Problems or conditions discussed in the HPI were the only ones reviewed during the encounter.Only social and family history addressed in the HPI were reviewed during this encounter. Attendant(s): NoneConstitutional and Systemic Symptoms:none Medication Reconciliation: from medication list. Xjvxcpuzbpn22/02/2023: Echocardiogram demonstrates a left ventricular ejection fraction [...] Two Puffs Bid Massiel Carrillo MD [address] [facility], [facility] [address], [place], [address], [place] [facility] 06/13/2023 16:39:41 4 text/html [...] Systemic Symptoms:none Medication Reconciliation: from medication list. Aylvblcmziq75/02/2023: Echocardiogram demonstrates a left ventricular ejection fraction [...] or has seen in the past a Rubbish Collection Supervisor: No .Pain - Enjoyment of Life - General Activity ScalePain on Average: 5Enjoyment of Live: 6General Activity: 5Enjoyment of Life - General Activity Scale: 5Currently regimen consists of Laurel as prescribed with no evidence of abuse [...] AEROSOL, METERED Two Puffs Bid Vaccination and Vnylvpkscupq0427-87 Qszveqdup9082-59 Covid Tygbrz4236-96 Pneumovax Surgical Htsfcwb2470-50 Esophageal Vxjbpwhrgz6399-81 Left PZO5461-34 Right Nephrectomy Preventative Dzeerdw0403/22/2023 ALBUMIN 4.2 G/DL N011/15/2022 MAMMOGRAM UPPER BZKVFFUBH03/30/2022 COLONOSCOPY ( 5 YEARS ) LDCT / [...] 1 LivingFather Hx: JUSTO Carrillo MD [address] [facility], [facility] [address], [place], [address], [place] [facility] 08/23/2023 12:03:44 4 text/html Patient Name: Gladys [...] Systemic Symptoms:none Medication Reconciliation: from medication list. Gziyspjkcey95/02/2023: Echocardiogram demonstrates a left ventricular ejection fraction [...] specific medication. Rate control: controlled ventricular response [id number] Criteria: hypertension and Age < 65 for [...] AEROSOL, METERED Two Puffs Bid Vaccination and Xjtipuevzlri7707-39 Ytifzdopb7279-14 Covid Jzeexm7721-11 Pneumovax Surgical Ehivnfp6406-81 Esophageal Pyaogcdcme8141-44 Left FUL3995-93 Right Nephrectomy Preventative Testing( ) 09/22/2023 Albumin [...] 1 LivingFather Hx: JUSTO Carrillo MD [address] [facility], [facility] [address], [place], [address], [facility] Back& [facility] 12/27/2023 12:34:53 5 text/html Patient Name: Gladys [...] Systemic Symptoms:none Medication Reconciliation: from medication list. Atlmzmsryzy96/02/2023: Echocardiogram demonstrates a left ventricular ejection fraction [...] specific medication. Rate control: controlled ventricular response CWY1QD7-IEVf Criteria: Age < 65 and and considered low risk for embolic phenomenon. Anticoagulation: ASA per cardiology #4. Hx of DJD stable. No interval complaints of any additional joint pain, swelling or redness. Joints most involved include hips. Medications: Laurel The DJD does interfere with ADL and [...] PNEUMOVAX PREVNAR 20 Needed(X) 2023-02 INFLUENZA(X) 2023-02 [employer] Ceczfsh1980-07 Esophageal Igizrvhfon0179-69 Left AWR7311-01 Right Nephrectomy Preventative Testing( ) 09/22/2023 Albumin [...] 0.50-1.03 MG/DLEGFR 97 > OR = 60 ML/MIN/1.03E3JYXBEHW 9.3 8.6-10.4 MG/DLBILIRUBIN, TOTAL 0.3 0.2-1.2 MG/DLALKALINE PHOSPHATASE 73 37-153 U/LAST 19 10-35 U/LALT 16 6-29 U/LLIPID PANEL, STANDARD Date: 4CHOLESTEROL, TOTAL 202 <200 MG/DLHDL CHOLESTEROL 114 > OR = 50 MG/DLTRIGLYCERIDES 69 <150 MG/DLLDL-CHOLESTEROL 73 MG/DL (CALC)T4, FREE Date: 09/22/2023T4, FREE 1.2 0.8-1.8 NG/DLTSH Date: 09/22/2023TSH 0.49 0.40-4.50 MIU/L Massiel Carrillo MD [address] [facility], [facility] [address], [place], [address], [place] [facility] 05/15/2024 10:55:46 OBGyn Episode No OBEpisode recorded.
[2024-07-26] MEDS: ACETAMINOPHEN 500 MG TABLET 1000 MG PO (06:25)
[2024-07-26] MEDS: LACTATED RINGERS 1,000 ML 30 ML IV CONT ×2 (06:30→11:39)
[2024-07-26] MEDS: TRANEXAMIC ACID 1,000MG/ISO100 1,000 MG/100 ML BAG 200 MG IVPB (06:30)
[2024-07-26] MEDS: VANCOMYCIN 1,000 MG/NS 250 ML BAG 250 MG IVPB (06:30)
[2024-07-26] MEDS: HYDROCORTISONE SODIUM SUCCINATE 100 MG/2 ML VIAL IV PUSH (07:10)
--- NOTE | 2024-07-26 07:14 | WPDHPUPDATE1 ---
History and Physical Update Update Date/Time: 07/26/24 07:14 History and Physical has been reviewed, including an updated exam of the patient. There are NO changes in the patient's condition. Risks, benefits, and alternatives have been discussed and questions answered. Patient agrees to proceed with procedure.
[2024-07-26] MEDS: ceFAZolin 2 GM/D5W 50 ML 2 GM/50 ML BAG IVPB ×2 (07:34→18:24)
[2024-07-26] MEDS: SODIUM CHLORIDE 0.9% IV 37.7 ML, MORPHINE SULFATE INJ (*CRX) 2 MG, ROPivacaine HCL 1% 2... INFILTRATE (08:16)
[2024-07-26] MEDS: ceFAZolin SODIUM 1 GM VIAL 3 GM (08:16)
[2024-07-26] MEDS: TRANEXAMIC ACID 1,000 MG/10 ML AMPUL 1000 MG IV PUSH (11:02)
[2024-07-26] MEDS: ceFAZolin SODIUM 1 GM VIAL 2 GM IV PUSH (11:02)
--- NOTE | 2024-07-26 11:45 | PM.OP ---
Procedure Note - Brief Procedure Note - Brief Date of procedure: 07/26/24 OA right hip Procedure performed: Right anterior total hip arthroplasty Surgeon: JAEL Espinosa Findings: 58-year-old female underwent right anterior total hip arthroplasty on 07/26. I was involved in the procedure including positioning the patient on the OR table in 1st assisting through the time surgery. Total time spent was 4 hours
[2024-07-26] MEDS: fentaNYL CITRATE INJ (*CRX) 100 MCG/2 ML VIAL 25 MCG IV PUSH ×8 (11:52→13:20)
[2024-07-26] MEDS: HYDROmorphone HCL INJ (*CRX) 1 MG/ML SYR 0.5 MG IV PUSH ×2 (13:26→13:43)
--- NOTE | 2024-07-26 16:16 | W.PM.PROC2 ---
Procedure Note - Detailed Date of Procedure 07/26/24 Pre-op Diagnosis OA right hip Post-op Diagnosis Same Procedure Performed Direct anterior approach right total hip arthroplasty Surgeon Ge Mattson MD [employer] [facility] General Description of Procedure Patient was brought to the operating room and general anesthesia was administered. She received 2 g of Ancef weight based vancomycin 1 g of TXA preoperatively. The feet were padded boots applied SCDs applied and running during the procedure [facility] and the right hip prepped and draped usual fashion. A 10 cm longitudinal incision was made approximately 3 cm lateral and 1 cm distal to the ASIS extending distally and slightly laterally. Dissection was carried down to the fascia over the tensor fascia nikki which was incised and the interval between tensor fascia nikki and rectus femoris developed ligating the crossing branches of ascending lateral femoral circumflex vessels with suture. Retractor was placed anterior medial capsule the hip abducted internally rotated in the gluteus minimus elevated off the lateral capsule. Inverted T capsulotomy was performed femoral neck osteotomy made according to preoperative templating. The femoral head had large peripheral osteophyte which measured 48 mm. There is eburnation of the superior femoral head. The acetabulum was exposed there was eburnation of the anterior superior acetabulum. The remaining cartilage of the posterior acetabulum was curetted. Labrum excised. The femur was externally rotated extended and the interval between conjoined tendon and piriformis was incised which allowed the conjoined tendon to recess. The leg back in the horizontal position, the acetabulum was exposed. We medialized with the 44 Reamer and reamed up to 50 mm which a smooth reaming to the periphery of the rim circumferentially. The size 50 emphasis cup was chosen and impacted into the acetabulum which achieved full seating and a tight Press-Fit. The anterior shell was approximately 1 2 mm under the anterior rim the acetabulum and posterior superior shell was about 6 or 7 mm proud of the posterior superior acetabulum. The acetabulum component was placed at 40? of abduction. Fluoroscopy was utilized during the preparation and implantation. The 36 inner diameter polyethylene lining was impacted without difficulty. The femur was externally rotated and extended with the table hook and we broached to a size 6. This was inserted to the appropriate depth after evaluation with the-2 head and fluoroscopic assessment of leg lengths. The 6 had a little bit of torsional play and we inserted the size 7 broach which had note rotational play at the appropriate depth. We trialed with the 1.5 head which had appropriate shock and leg length was noted to be appropriate. I estimate we lengthened her about 3 mm from her preop length which did not quite match the other side which was lengthened a bit more during that hip replacement but I felt any additional lengthening on the right side made her hip feel excessively tight. Therefore I felt this was the best compromise. We finished the calcar planing process and placed the size 7 Actis stem standard offset neck without difficulty. Trialing confirmed 1.5 was appropriate in the 1.5 x 36 ceramic head was impacted on the clean and dried trunnion after thorough irrigation with Ancef solution. Hip was reduced stability reconfirmed. Superior limb of the arthrotomy was closed with 2. Vicryl. The fascia closed with running 1. Vicryl. A drain was placed deep in the subcu skin closed with 2 subcutaneous Vicryl and glue. EBL was 250 cc. Two additional g of Ancef 1 g TXA given time wound closure. There were no complications. Patient was transferred postop recovery room in stable condition. [facility] Billing Surgery - Charge Forward: Surgery Billing (Right total hip arthroplasty)
[2024-07-26] MEDS: ACETAMINOPHEN 325 MG TABLET 650 MG PO (16:27)
[2024-07-26] MEDS: SENNA/DOCUSATE SODIUM TABLET 2 TAB PO (16:27)
[2024-07-26] MEDS: oxyCODONE HCL (*CRX) 5 MG TAB IR PO ×2 (16:27→20:30)
[2024-07-26] MEDS: VANCOMYCIN 1,000 MG/NS 250 ML 1,000 MG/250 ML BAG 250 MG IVPB (18:24)
--- NOTE | 2024-07-26 19:05 | P.CONIM_ITS ---
Assessment and Plan Assessment and plan (1) Primary osteoarthritis of right hip: Code(s): M16.11 - Unilateral primary osteoarthritis, right hip Status: Acute Assessment and Plan: - ambulate with assistance and up to chair - closed drain in place - management BID - hip precautions in place - use IS - neurovasc checks - see order for intervals - SCDs - analgesics and antiemetics p.r.n. - monitor labs in AM - CBC and BMP - bowel regimen: docusate/senna, polyethylene glycol - PT/OT (2) Asthma: Qualifiers: Asthma complication type: uncomplicated Asthma persistence: unspecified Asthma severity: unspecified severity Qualified Code(s): J45.909 - Unspecified asthma, uncomplicated Code(s): J45.909 - Unspecified asthma, uncomplicated Status: Chronic Assessment and Plan: - continue home medications: Daliresp, Trelegy, Albuterol Plan Diet: Regular GI Prophylaxis: Famotidine p.o. DVT Prophylaxis: SCDs, start Eliquis on 07/27 Lines: Peripheral Code Status: Full code HPI Date of Consult Consult date: 07/26/24 Requesting Physician: Ge Mattson MD Primary Care Provider: Christopher Carrillo, Consult Narrative Reason for consult: Medical Management Narrative: 58 y/o F presents here for a right total hip arthroplasty with PMH of spinal stenosis of the lumbar region, osteoarthritis, atrial fibrillation, anxiety, depression, asthma, and vitamin-D deficiency. The patient presents to [facility] for an anterior right total hip arthroplasty. She reports she has had ongoing pain to that right hip for approximately the last year. The pain has been progressive and now currently interfering with her daily activities. At her baseline she ambulates with a cane due to the contralateral hip beginning to fail. She has previously underwent a left hip arthroplasty 8 years ago at a OSH with good results. Not currently a good candidate for NSAIDs, patient only has one kidney due to history of nephrectomy secondary to renal cancer. Postop the patient is reporting that she is feeling well. Denies nausea, vomiting, or significant pain. Denies any recent changes to her medical history or medications. No further complaints. Preop VS: 97.7? F, HR 71, R 16, 130/79, and 98% on RA. Preop workup: WBC 11.9, hemoglobin 11.2, no significant electrolyte derangements, creatinine 0.64 and GFR >60, A1c 5.4%. Review of Systems Review of Systems: All systems reviewed & are unremarkable except as noted in HPI and below [facility] Past Medical History Medical History (Updated 07/26/24 @ 19:12 by Roslyn Lin APRN) Spinal stenosis of lumbar region Colon polyps Osteoarthritis Sarcoidosis Tobacco dependence syndrome Greater trochanteric pain syndrome Stricture of esophagus Malignant neoplasm of kidney Dysphagia Depressive disorder Anxiety Asthma Vitamin D deficiency Surgical History Surgical History History of nephrectomy, right History of left hip replacement Family History Family History Mother Breast cancer Grandparent Throat cancer Breast cancer Other Cerebrovascular accident Family history of cardiovascular disease Social History Social History Years smoked: 43 Smoking status: Former smoker Second hand tobacco smoke exposure: Yes Alcohol intake: current Drinks per week: 2 Alcohol use details: social Substance use: never Substance use type: does not use Do You Feel Safe in your Home?: Yes Lack of Transportation: No Lack of Food: Never True Current Housing: I Have Housing Concerned About Future Housing: Decline to Answer Difficulty Paying Gas/Electric Bills: Decline to Answer Difficulty Paying for Meds: Decline to Answer Currently Unemployed: Decline to Answer Education: Decline to Answer Difficulty w/ Childcare or Family Care: Decline to Answer Living arrangements: with family Additional living arrangements comments: S.0. Occupation/Education: occupation Additional occupation/education comments: [employer] Gender identity (if verbalized by the patient): Female Spiritual care concerns: No Meds Home Medications and Allergies Home Medications ?Medication ?Instructions ?Recorded ?Confirmed ?Type albuterol sulfate 90 mcg/actuation 2 puff inhalation Q4H PRN 11/27/21 07/09/24 History aerosol inhaler (ProAir HFA) Shortness Of Breath atorvastatin 20 mg tablet 20 mg PO DAILY 11/27/21 07/26/24 History hydrocodone 7.5 mg-acetaminophen 1 tablet PO Q6-8H PRN Pain 12/01/21 07/26/24 History 325 mg tablet budesonide 160 mcg-glycopyr 9 2 inh inhalation BID 02/28/23 07/26/24 History mcg-formot 4.8 mcg/actuation HFA inhaler (Breztri Aerosphere) pantoprazole 40 mg tablet,delayed 40 mg PO QAM #90 tabs 05/13/23 07/26/24 Rx release (Protonix) cholecalciferol (vitamin D3) 125 125 mcg PO .qod 08/16/23 07/26/24 History mcg (5,000 unit) disintegrating tablet losartan 25 mg tablet 25 mg PO DAILY 08/16/23 07/26/24 History alendronate 70 mg tablet (Fosamax) 70 mg PO WEEKLY 90 days #13 tabs 02/15/24 07/26/24 Rx roflumilast 500 mcg tablet 500 mcg PO DAILY 05/21/24 07/26/24 History albuterol sulfate 0.63 mg/3 mL 0.63 mg continuous nebulization 07/09/24 07/26/24 History solution for nebulization Q4-6H PRN shortness of breath or wheezing alprazolam 0.5 mg tablet 0.5 mg PO TID PRN anxiety 07/09/24 07/09/24 History ascorbic acid (vitamin C) 500 mg 500 mg PO DAILY 07/09/24 07/26/24 History capsule aspirin 81 mg tablet,delayed 81 mg PO DAILY 07/09/24 07/26/24 History release apixaban 2.5 mg tablet (Eliquis) 2.5 mg PO Q12HR #70 tabs 07/26/24 Rx prednisone 10 mg tablet 10 mg PO DAILY 07/26/24 07/26/24 History Allergies Allergy/AdvReac Type Severity Reaction Status Date / Time No Known Allergies Allergy Verified 07/26/24 06:40 Vital Signs Vital Signs - 24 hr 07/26/24 06:12 07/26/24 11:34 07/26/24 11:50 Temperature 99.0 F 98.8 F Pulse Rate 97 121 H 108 H Respiratory Rate 18 30 H 21 H Blood Pressure 133/75 133/75 153/75 H Pulse Oximetry 96 100 99 Oxygen Delivery Room Air Simple Face Mask Room Air Oxygen Flow Rate 10 07/26/24 12:05 07/26/24 12:20 07/26/24 12:35 Temperature Pulse Rate 112 H 109 H 105 H Respiratory Rate 25 H 22 H 22 H Blood Pressure 133/67 127/64 160/81 H Pulse Oximetry 97 95 94 Oxygen Delivery Room Air Room Air Room Air Oxygen Flow Rate 07/26/24 12:50 07/26/24 13:05 07/26/24 13:20 Temperature Pulse Rate 99 97 98 Respiratory Rate 16 14 18 Blood Pressure 132/72 127/72 134/78 Pulse Oximetry 96 97 97 Oxygen Delivery Room Air Nasal Cannula Nasal Cannula Oxygen Flow Rate 2 2 07/26/24 13:35 07/26/24 13:50 07/26/24 14:05 Temperature 98.6 F Pulse Rate 94 94 107 H Respiratory Rate 20 17 16 Blood Pressure 136/70 127/92 H 144/82 H Pulse Oximetry 96 95 97 Oxygen Delivery Nasal Cannula Nasal Cannula Nasal Cannula Oxygen Flow Rate 2 2 2 07/26/24 14:20 07/26/24 14:35 07/26/24 14:42 Temperature Pulse Rate 91 95 Respiratory Rate 18 17 Blood Pressure 129/67 121/70 Pulse Oximetry 96 97 Oxygen Delivery Nasal Cannula Room Air Room Air Oxygen Flow Rate 2 07/26/24 15:03 07/26/24 15:18 07/26/24 15:48 Temperature 98.5 F 99.2 F 99.0 F Pulse Rate 101 H 95 96 Respiratory Rate 16 16 16 Blood Pressure 115/82 134/68 119/85 Pulse Oximetry 94 91 93 Oxygen Delivery Oxygen Flow Rate 07/26/24 16:48 07/26/24 17:20 Temperature 99.0 F Pulse Rate 72 Respiratory Rate 16 Blood Pressure 106/60 Pulse Oximetry 93 93 Oxygen Delivery Room Air Oxygen Flow Rate Exam Const: General: comfortable and no acute distress Other: , female, nontoxic appearance HENMT: Face/Nose/Sinus: Normal nares present Mouth: Yes moist mucous membranes Eyes: General: appearance normal, both eyes and all related structures Sclera: sclerae normal Pupils: Equal, round and reactive pupils present EOM: EOMs intact bilaterally Resp: Effort & Inspection: normal respiratory effort Auscultation: clear to auscultation bilaterally Other: +dry cough. Cardio: Rate: regular rate Rhythm: regular rhythm Other: S1-S2 present without murmur, rub, ectopy GI: Other: Normal to hypoactive bowel sounds in all quadrants. Abdomen soft, nondistended, nontender. Skin: General skin exam: normal color and no rashes or lesions noted Other: Postoperative incision to right hip. No active bleeding. Dressing CDI. Neuro: Speech: normal speech Motor exam (neuro): 5/5 motor strength present throughout Sensory Exam: normal sensation Other: A&O x4 Extrem: General: normal to inspection Other: DP 2+ bilaterally. Psych: Mental Status: mental status grossly normal Affect: normal affect Other: Good insight and judgment, very pleasant Quality VTE Prophylaxis VTE prophylaxis: mechanical ordered and pharmacologic ordered Hospitalist MIPS Advance Care Plan I have confirmed that the patient's Advanced Care Plan is present, code status is documented, or surrogate decision maker is listed in patient medical record.: Yes Medication Reconciliation I have utilized all available resources to obtain, update and review the patients current medications (includes all prescriptions, OTC, herbals, cannabis, and nutritional supplements).: Yes
[2024-07-26] MEDS: FAMOTIDINE 20 MG TABLET PO (20:31)
[2024-07-26] MEDS: traMADol HCL (*CRX) 50 MG TABLET PO (22:51)
[2024-07-27] MEDS: oxyCODONE HCL (*CRX) 5 MG TAB IR PO ×3 (01:22→06:08)
[2024-07-27 01:23] VITALS: BP 134/64; PULSE 94; RESP 18; TEMP 37.1; O2SAT 95
[2024-07-27] MEDS: ceFAZolin 2 GM/D5W 50 ML 2 GM/50 ML BAG IVPB ×2 (03:57→11:26)
[2024-07-27 05:01] VITALS: BP 125/74; PULSE 88; RESP 20; TEMP 36.3; O2SAT 93
[2024-07-27] MEDS: VANCOMYCIN 1,000 MG/NS 250 ML 1,000 MG/250 ML BAG 250 MG IVPB (06:08)
[2024-07-27 06:10] LABS: Basophils Percent Auto 0.2 % (0.2-1.2); Hematocrit 27.6 % (37.0-47.0); Hemoglobin 8.8 g/dL (12.0-15.0); Immature Granulocyte Absolute 0.07 K/mm3 (0.00-0.031); Immature Granulocyte Percent A 0.4 % (0-0.5); Lymphocytes Absolute Auto 2.79 K/mm3 (0.9-3.2); Lymphocytes Percent Auto 16.5 % (18.3-44.2); Mean Corpuscular HGB Conc 31.9 g/dl (32-36); Mean Corpuscular Hemoglobin 30.4 pg (26-34); Mean Corpuscular Volume 95.5 fl (80-100); Mean Platelet Volume 9.9 fl (7.4-10.4); Monocytes Absolute Auto 2.9 K/mm3 (0.1-0.6); Monocytes Percent Auto 17.3 % (2.6-8.5); Neutrophils Absolute Auto 11.1 K/mm3 (1.3-6.7); Neutrophils Percent Auto 65.6 % (45.5-73.1); Platelet Count Result 339 k/mm3 (150-375); Red Blood Count 2.89 M/mm3 (4.2-5.4); White Blood Count 16.9 K/mm3 (4.5-10.0)
[2024-07-27 06:19] LABS: Anion Gap 6 mmol/L (4-12); Blood Urea Nitrogen 9 mg/dL (7-17); Calcium 8.4 mg/dL (8.4-10.2); Carbon Dioxide 28 mmol/L (22-30); Chloride 101 mmol/L (98-107); Estimated CRCL calculation 75 ml/min; Estimated Glomerular Filt Rate > 60; Glucose 110 mg/dL (65-110); Potassium 3.8 mmol/L (3.4-5.0); Sodium 135 mmol/L (137-145)
--- NOTE | 2024-07-27 07:36 | P.PNOP_ITS ---
Subjective Subjective Date/Time Seen: 07/27/24 07:36 Interval history: Postop day 1 patient is alert. She is afebrile vital signs are stable. Morning labs are noted hemoglobin is 8.8 this morning. Patient is having no symptoms from the lower blood count. She was up walking yesterday in the room with physical therapy. Overall her hip pain is very tolerable. She is having quite a bit of pain she states starts in the right-sided low back and radiates to the knee. She has had a history sciatic problems. She also states that she had very similar type of pain when she had her left hip replaced in the past. Patient states only thing really helped was tramadol rather than stronger narcotics. She wished to be changed to tramadol rather than the oxycodone. We will continue with the Tylenol as well. Patient's dressing was still intact in drain was in this morning. Dressing will be changed drain will be removed. Orders were written for nursing staff to do that. Will plan have the patient work with therapy this morning and if she is getting around well and is comfortable with plan on discharging her home later this morning. Neurovascularly patient is intact. She is having no numbness or tingling in the right leg and no motor deficits. Objective Data Vital Signs Vital Signs: Vital Signs - 24 hr 07/26/24 11:34 07/26/24 11:50 07/26/24 12:05 Temperature 98.8 F Pulse Rate 121 H 108 H 112 H Respiratory Rate 30 H 21 H 25 H Blood Pressure 133/75 153/75 H 133/67 Pulse Oximetry 100 99 97 Oxygen Delivery Simple Face Mask Room Air Room Air Oxygen Flow Rate 10 07/26/24 12:20 07/26/24 12:35 07/26/24 12:50 Temperature Pulse Rate 109 H 105 H 99 Respiratory Rate 22 H 22 H 16 Blood Pressure 127/64 160/81 H 132/72 Pulse Oximetry 95 94 96 Oxygen Delivery Room Air Room Air Room Air Oxygen Flow Rate 07/26/24 13:05 07/26/24 13:20 07/26/24 13:35 Temperature Pulse Rate 97 98 94 Respiratory Rate 14 18 20 Blood Pressure 127/72 134/78 136/70 Pulse Oximetry 97 97 96 Oxygen Delivery Nasal Cannula Nasal Cannula Nasal Cannula Oxygen Flow Rate 2 2 2 07/26/24 13:50 07/26/24 14:05 07/26/24 14:20 Temperature 98.6 F Pulse Rate 94 107 H 91 Respiratory Rate 17 16 18 Blood Pressure 127/92 H 144/82 H 129/67 Pulse Oximetry 95 97 96 Oxygen Delivery Nasal Cannula Nasal Cannula Nasal Cannula Oxygen Flow Rate 2 2 2 07/26/24 14:35 07/26/24 14:42 07/26/24 15:03 Temperature 98.5 F Pulse Rate 95 101 H Respiratory Rate 17 16 Blood Pressure 121/70 115/82 Pulse Oximetry 97 94 Oxygen Delivery Room Air Room Air Oxygen Flow Rate 07/26/24 15:18 07/26/24 15:48 07/26/24 16:48 Temperature 99.2 F 99.0 F 99.0 F Pulse Rate 95 96 72 Respiratory Rate 16 16 16 Blood Pressure 134/68 119/85 106/60 Pulse Oximetry 91 93 93 Oxygen Delivery Oxygen Flow Rate 07/26/24 17:20 07/26/24 20:44 07/27/24 01:23 Temperature 99.3 F 98.8 F Pulse Rate 94 94 Respiratory Rate 20 18 Blood Pressure 115/61 134/64 Pulse Oximetry 93 92 95 Oxygen Delivery Room Air Oxygen Flow Rate 07/27/24 05:01 Temperature 97.3 F L Pulse Rate 88 Respiratory Rate 20 Blood Pressure 125/74 Pulse Oximetry 93 Oxygen Delivery Oxygen Flow Rate Intake/Output Intake/Output: Intake & Output 07/24/24 07/25/24 07/26/24 07/27/24 23:59 23:59 23:59 23:59 Intake Total 1390 Output Total 50 Balance 1340 Meds/Results Medications: Active Medications Generic Name Dose Route Start Last Admin Trade Name Freq PRN Reason Stop Dose Admin Acetaminophen 650 mg 07/26/24 17:00 07/27/24 06:00 Acetaminophen 325 Mg Tablet PO Not Given Q4H [facility] Albuterol 2 puff 07/26/24 14:42 Albuterol Sulfate (*Sp) Aerosol 1 Puff INHALATION Q4H PRN Shortness Of Breath Apixaban 2.5 mg 07/27/24 09:00 Apixaban 2.5 Mg Tablet PO Q12HR [facility] Atorvastatin Calcium 20 mg 07/27/24 09:00 Atorvastatin 20 Mg Tablet PO DAILY [facility] Cefdinir 300 mg 07/27/24 09:00 Cefdinir 300 Mg Capsule PO Q12HR [facility] Celecoxib 100 mg 07/27/24 09:00 Celecoxib 100 Mg Capsule PO DAILY [facility] Famotidine 20 mg 07/26/24 21:00 07/26/24 20:31 Famotidine 20 Mg Tablet PO 20 mg Q12HR [facility] Administration Fluticasone/Umeclidinium/Vilanterol 1 puff 07/27/24 08:00 Fluticasone/Umeclidin/Vilanter 100-62.5-25 Mcg Ellipta INHALATION DAILYRT [facility] Sodium Chloride 1,000 mls @ 125 mls/hr 07/26/24 14:42 Normal Saline Iv IV CONT .Q8H [facility] Cefazolin Sodium 2 gm in 50 mls @ 100 mls/hr 07/26/24 19:00 07/27/24 03:57 Ancef 2 Gm/D5w 50 Ml IVPB 07/27/24 11:29 100 mls/hr Q8H [facility] Administration Losartan Potassium 25 mg 07/27/24 09:00 Losartan Potassium 25 Mg Tablet PO DAILY [facility] Morphine Sulfate 2 mg 07/26/24 14:42 Morphine Sulfate (*Crx) 2 Mg/Ml Inj IV PUSH Q2H PRN Breakthrough Pain Rated 4-6 or NPO Naloxone HCl 0.1 mg 07/26/24 14:42 Naloxone Hcl 0.4 Mg/Ml Vial IV PUSH Q2M PRN Opiate Reversal Ondansetron HCl 4 mg 07/26/24 14:42 Ondansetron Inj 4 Mg/2 Ml Vial IV PUSH Q4H PRN Nausea And Vomiting Polyethylene Glycol 17 gm 07/27/24 09:00 Polyethylene Glycol 3350 17 Gm Powd.Pack PO QAM [facility] Roflumilast 500 mcg 07/27/24 09:00 Roflumilast 500 Mcg Tablet PO DAILY [facility] Senna/Docusate Sodium 2 tab 07/26/24 17:00 07/26/24 16:27 Senna/Docusate Sodium Tablet PO 2 tab BID [facility] Administration Tramadol HCl 50 mg 07/27/24 13:00 Tramadol Hcl (*Crx) 50 Mg Tablet PO Q6HR [facility] Vitamin D 5,000 units 07/27/24 09:00 Cholecalciferol 5,000 Units Tablet BY MOUTH Q48H [facility] Radiology Results: ITS Impressions Hip/Pelvis X-Ray 07/26/24 13:02 IMPRESSION: No acute osseous abnormality pelvis and right hip. Bilateral total hip arthroplasties. Intraoperative X-Ray 07/26/24 13:49 IMPRESSION: 1. Expected appearance during right total hip arthroplasty. See procedure note for further detail. Labs Labs: Laboratory Results - last 24 hr 07/27/24 05:10 WBC 16.9 H RBC 2.89 L Hgb 8.8 L Hct 27.6 L MCV 95.5 MCH 30.4 MCHC 31.9 L RDW 14.0 Plt Count 339 MPV 9.9 Immature Gran % (Auto) 0.4 Neut % (Auto) 65.6 Lymph % (Auto) 16.5 L Owen % (Auto) 17.3 H Eos % (Auto) 0.0 Baso % (Auto) 0.2 Lymph # (Auto) 2.79 Owen # (Auto) 2.9 H Eos # (Auto) 0.0 Baso # (Auto) 0.0 Abs Immat Gran (auto) 0.07 H Absolute Neuts (auto) 11.1 H Absolute Nucleated RBC 0.000 Nucleated RBC % 0.0 Sodium 135 L Potassium 3.8 Chloride 101 Carbon Dioxide 28 Anion Gap 6 BUN 9 D Creatinine 0.65 L Estim Creat Clear Calc 75 Estimated GFR > 60 Glucose 110 Calcium 8.4
[2024-07-27] MEDS: CHOLECALCIFEROL 5,000 UNITS TABLET 5000 UNITS BY MOUTH (08:18)
[2024-07-27] MEDS: traMADol HCL (*CRX) 50 MG TABLET 100 MG PO (08:18)
[2024-07-27] MEDS: ATORVASTATIN 20 MG TABLET PO (08:18)
[2024-07-27] MEDS: FAMOTIDINE 20 MG TABLET PO (08:18)
[2024-07-27] MEDS: LOSARTAN POTASSIUM 25 MG TABLET PO (08:18)
[2024-07-27] MEDS: CEFDINIR 300 MG CAPSULE PO (08:18)
[2024-07-27] MEDS: APIXABAN 2.5 MG TABLET PO (08:18)
[2024-07-27] MEDS: ROFLUMILAST 500 MCG TABLET PO (08:18)
[2024-07-27] MEDS: SENNA/DOCUSATE SODIUM TABLET 2 TAB PO (08:18)
[2024-07-27] MEDS: ACETAMINOPHEN 325 MG TABLET 650 MG PO ×2 (08:20→12:09)
[2024-07-27 08:27] VITALS: BP 139/67; PULSE 90; RESP 16; TEMP 37.1; O2SAT 93
--- NOTE | 2024-07-27 08:46 | PCOTNOTE ---
Attempted to see for OT eval, however patient declined reporting she is in too much pain and didn't get any sleep last night. RN administered pain medication about 15 minutes ago. Will continue to attempt.
[2024-07-27] MEDS: CELECOXIB 100 MG CAPSULE PO (11:24)
--- NOTE | 2024-07-27 13:15 | P.PNIM_ITS ---
Progress Note: A&P Assessment and Plan (1) Primary osteoarthritis of right hip: Code(s): M16.11 - Unilateral primary osteoarthritis, right hip Status: Acute (2) Asthma: Qualifiers: Asthma severity: unspecified severity Asthma persistence: unspecified Asthma complication type: uncomplicated Qualified Code(s): J45.909 - Unspecified asthma, uncomplicated Code(s): J45.909 - Unspecified asthma, uncomplicated Status: Chronic Plan 58 y/o F presents here for a right total hip arthroplasty with PMH of spinal stenosis of the lumbar region, osteoarthritis, atrial fibrillation, anxiety, depression, asthma, and vitamin-D deficiency. The patient presents to [facility] for an anterior right total hip arthroplasty. She reports she has had ongoing pain to that right hip for approximately the last year. The pain has been progressive and now currently interfering with her daily activities. At her baseline she ambulates with a cane due to the contralateral hip beginning to fail. She has previously underwent a left hip arthroplasty 8 years ago at a OSH with good results. Not currently a good candidate for NSAIDs, patient only has one kidney due to history of nephrectomy secondary to renal cancer. Postop the patient is reporting that she is feeling well. Denies nausea, vomiting, or significant pain. Denies any recent changes to her medical history or medications. No further complaints. Preop VS: 97.7? F, HR 71, R 16, 130/79, and 98% on RA. Preop workup: WBC 11.9, hemoglobin 11.2, no significant electrolyte derangements, creatinine 0.64 and GFR >60, A1c 5.4%. Hospitalist consulted for medical management during postoperative period. PT OT analgesics antiemetics as ordered Postoperative anemia noted no need for transfusion. Pain controlled with curre nt regimen Asthma controlled continue home medications History of lumbar spinal stenosis Osteoarthritis Atrial fibrillation Anxiety depression Vitamin-D deficiency History of renal cancer status post nephrectomy Diet: Regular GI Prophylaxis: Famotidine p.o. DVT Prophylaxis: SCDs, start Eliquis on 07/27 Lines: Peripheral Code Status: Full code Subjective Date/time seen: 07/27/24 13:15 Interval history: No overnight events. Working with therapy. Planned discharge today. Review of Systems Review of Systems: All systems reviewed & are unremarkable except as noted in HPI and below Exam Narrative: Const: General: comfortable and no acute distress Other: , female, nontoxic appearance HENMT: Face/Nose/Sinus: Normal nares present Mouth: Yes moist mucous membranes Eyes: General: appearance normal, both eyes and all related structures Sclera: sclerae normal Pupils: Equal, round and reactive pupils present EOM: EOMs intact bilaterally Resp: Effort & Inspection: normal respiratory effort Auscultation: clear to auscultation bilaterally Other: +dry cough. Cardio: Rate: regular rate Rhythm: regular rhythm Other: S1-S2 present without murmur, rub, ectopy GI: Other: Normal to hypoactive bowel sounds in all quadrants. Abdomen soft, nondistended, nontender. Skin: General skin exam: normal color and no rashes or lesions noted Other: Postoperative incision to right hip. No active bleeding. Dressing CDI. Neuro: Speech: normal speech Motor exam (neuro): 5/5 motor strength present throughout Sensory Exam: normal sensation Other: A&O x4 Extrem: General: normal to inspection Other: DP 2+ bilaterally. Psych: Mental Status: mental status grossly normal Affect: normal affect Other: Good insight and judgment, very pleasant Objective Data Vital Signs Vital Signs: Vital Signs - 24 hr 07/26/24 13:20 07/26/24 13:35 07/26/24 13:50 Temperature Pulse Rate 98 94 94 Respiratory Rate 18 20 17 Blood Pressure 134/78 136/70 127/92 H Pulse Oximetry 97 96 95 Oxygen Delivery Nasal Cannula Nasal Cannula Nasal Cannula Oxygen Flow Rate 2 2 2 07/26/24 14:05 07/26/24 14:20 07/26/24 14:35 Temperature 98.6 F Pulse Rate 107 H 91 95 Respiratory Rate 16 18 17 Blood Pressure 144/82 H 129/67 121/70 Pulse Oximetry 97 96 97 Oxygen Delivery Nasal Cannula Nasal Cannula Room Air Oxygen Flow Rate 2 2 07/26/24 14:42 07/26/24 15:03 07/26/24 15:18 Temperature 98.5 F 99.2 F Pulse Rate 101 H 95 Respiratory Rate 16 16 Blood Pressure 115/82 134/68 Pulse Oximetry 94 91 Oxygen Delivery Room Air Oxygen Flow Rate 07/26/24 15:48 07/26/24 16:48 07/26/24 17:20 Temperature 99.0 F 99.0 F Pulse Rate 96 72 Respiratory Rate 16 16 Blood Pressure 119/85 106/60 Pulse Oximetry 93 93 93 Oxygen Delivery Room Air Oxygen Flow Rate 07/26/24 20:44 07/27/24 01:23 07/27/24 05:01 Temperature 99.3 F 98.8 F 97.3 F L Pulse Rate 94 94 88 Respiratory Rate 20 18 20 Blood Pressure 115/61 134/64 125/74 Pulse Oximetry 92 95 93 Oxygen Delivery Oxygen Flow Rate 07/27/24 08:27 07/27/24 09:48 07/27/24 10:10 Temperature 98.8 F Pulse Rate 90 Respiratory Rate 16 Blood Pressure 139/67 Pulse Oximetry 93 Oxygen Delivery Room Air Room Air Oxygen Flow Rate Intake/Output Intake/Output: Intake & Output 07/24/24 07/25/24 07/26/24 07/27/24 23:59 23:59 23:59 23:59 Intake Total 1390 290 Output Total 50 Balance 1340 290 Meds/Results Medications: Active Medications Generic Name Dose Route Start Last Admin Trade Name Freq PRN Reason Stop Dose Admin Acetaminophen 650 mg 07/26/24 17:00 07/27/24 12:09 Acetaminophen 325 Mg Tablet PO 650 mg Q4H [place] Administration Albuterol 2 puff 07/26/24 14:42 Albuterol Sulfate (*Sp) Aerosol 1 Puff INHALATION Q4H PRN Shortness Of Breath Apixaban 2.5 mg 07/27/24 09:00 07/27/24 08:18 Apixaban 2.5 Mg Tablet PO 2.5 mg Q12HR [place] Administration Atorvastatin Calcium 20 mg 07/27/24 09:00 07/27/24 08:18 Atorvastatin 20 Mg Tablet PO 20 mg DAILY [place] Administration Cefdinir 300 mg 07/27/24 09:00 07/27/24 08:18 Cefdinir 300 Mg Capsule PO 300 mg Q12HR [place] Administration Celecoxib 100 mg 07/27/24 09:00 07/27/24 11:24 Celecoxib 100 Mg Capsule PO 100 mg DAILY [place] Administration Famotidine 20 mg 07/26/24 21:00 07/27/24 08:18 Famotidine 20 Mg Tablet PO 20 mg Q12HR [place] Administration Fluticasone/Umeclidinium/Vilanterol 1 puff 07/27/24 08:00 07/27/24 10:37 Fluticasone/Umeclidin/Vilanter 100-62.5-25 Mcg Ellipta INHALATION Not Given DAILYRT [place] Sodium Chloride 1,000 mls @ 125 mls/hr 07/26/24 14:42 Normal Saline Iv IV CONT .Q8H [facility] Losartan Potassium 25 mg 07/27/24 09:00 07/27/24 08:18 Losartan Potassium 25 Mg Tablet PO 25 mg DAILY [place] Administration Morphine Sulfate 2 mg 07/26/24 14:42 Morphine Sulfate (*Crx) 2 Mg/Ml Inj IV PUSH Q2H PRN Breakthrough Pain Rated 4-6 or NPO Naloxone HCl 0.1 mg 07/26/24 14:42 Naloxone Hcl 0.4 Mg/Ml Vial IV PUSH Q2M PRN Opiate Reversal Ondansetron HCl 4 mg 07/26/24 14:42 Ondansetron Inj 4 Mg/2 Ml Vial IV PUSH Q4H PRN Nausea And Vomiting Polyethylene Glycol 17 gm 07/27/24 09:00 07/27/24 08:19 Polyethylene Glycol 3350 17 Gm Powd.Pack PO Not Given QAM [facility] Roflumilast 500 mcg 07/27/24 09:00 07/27/24 08:18 Roflumilast 500 Mcg Tablet PO 500 mcg DAILY [facility] Administration Senna/Docusate Sodium 2 tab 07/26/24 17:00 07/27/24 08:18 Senna/Docusate Sodium Tablet PO 2 tab BID [facility] Administration Tramadol HCl 50 mg 07/27/24 13:00 Tramadol Hcl (*Crx) 50 Mg Tablet PO Q6HR [facility] Vitamin D 5,000 units 07/27/24 09:00 07/27/24 08:18 Cholecalciferol 5,000 Units Tablet BY MOUTH 5,000 units Q48H [place] Administration Radiology Results: ITS Impressions Hip/Pelvis X-Ray 07/26/24 13:02 IMPRESSION: No acute osseous abnormality pelvis and right hip. Bilateral total hip arthroplasties. Intraoperative X-Ray 07/26/24 13:49 IMPRESSION: 1. Expected appearance during right total hip arthroplasty. See procedure note for further detail. Labs Labs: Laboratory Results - last 24 hr 07/27/24 05:10 WBC 16.9 H RBC 2.89 L Hgb 8.8 L Hct 27.6 L MCV 95.5 MCH 30.4 MCHC 31.9 L RDW 14.0 Plt Count 339 MPV 9.9 Immature Gran % (Auto) 0.4 Neut % (Auto) 65.6 Lymph % (Auto) 16.5 L [place] % (Auto) 17.3 H Eos % (Auto) 0.0 Baso % (Auto) 0.2 Lymph # (Auto) 2.79 [place] # (Auto) 2.9 H Eos # (Auto) 0.0 Baso # (Auto) 0.0 Abs Immat Gran (auto) 0.07 H Absolute Neuts (auto) 11.1 H Absolute Nucleated RBC 0.000 Nucleated RBC % 0.0 Sodium 135 L Potassium 3.8 Chloride 101 Carbon Dioxide 28 Anion Gap 6 BUN 9 D Creatinine 0.65 L Estim Creat Clear Calc 75 Estimated GFR > 60 Glucose 110 Calcium 8.4
[2024-07-27] MEDS: traMADol HCL (*CRX) 50 MG TABLET PO (14:30)
== END 2024-07-27 14:31 | disposition home or self-care (01) ==
LOC: ANHSURGERY 11:46 → ANH3MEDSUR 14:53
PROVIDERS: Physician Assistant Surgical; PCP Internal Medicine; Visit Provider Orthopaedic Surgery
PROC: (CPT 27130; principal; 2024-07-26 07:30)
DX: M16.11 Unilateral primary osteoarthritis, right hip (principal); J45.909 Unspecified asthma, uncomplicated; I48.91 Unspecified atrial fibrillation; F41.9 Anxiety disorder, unspecified; F32.A Depression, unspecified; E55.9 Vitamin D deficiency, unspecified; Z87.891 Personal history of nicotine dependence; Z90.5 Acquired absence of kidney; Z85.528 Personal history of other malignant neoplasm of kidney
CPT/HCPCS: 27130; 36415; 73501; 80048; 85025; 86850; 86900; 86901; 97110; 97161; 97165; 97530; 99199; A9270; C1776; J0171; J0690; J1100; J1171; J1720; J1885; J2003; J2250; J2270; J2405; J2704; J2795; J3010; J3370; J7120

== ENCOUNTER 2024-08-15 09:51 | Outpatient (CLI) | payer OTHER, SELFPAY ==
--- NOTE | ~2024-08-15 | MM_ITS ---
EXAMINATION: MM screening gail BI w rick HISTORY: Screening TECHNIQUE: Craniocaudal and mediolateral oblique 3-D tomosynthesis images were obtained and synthetic 2-D images were generated. CAD analysis was submitted and interpreted. COMPARISON: No prior mammogram is available for comparison at this institution. BREAST PARENCHYMAL COMPOSITION: Not dense: There are scattered areas of fibroglandular density. FINDINGS: There is no evidence of suspicious mass, calcification, or architectural distortion to sugg est malignancy in either breast. There has been no suspicious interval change. IMPRESSION: 1. No mammographic evidence of malignancy. 2. Recommend routine screening mammography in one year. BI-RADS Category 1: Negative Reviewed, dictated and finalized at location A.
--- OUTSIDE RECORDS SUMMARY | 2024-08-15 11:04 | XMS_ITS | Clinical Summary ---
Author Organization [facility] Address [address] [address] Phone Care Team Providers Care Sausage Tier Name Role Phone Christopher Carrillo MD Primary Care Provider [phone] Cong Crews MD Unavailable [phone] Allergies No known active allergies Medications polyethylene [...] mg by mouth 3 times daily. Active Hawley 3 1200 MG Capsule Take 1 Cap [...] mouth daily. Active beta carotene (VITAMIN A) 95711 UNIT Capsule Take 25,000 Units by mouth [...] Sex Assigned at Female 06/27/2023 11:04 AM TIRE SORTER Legal Sex Female 9:33 PM CDT Gender Identity Female 06/27/2023 11:04 AM TIRE SORTER Sexual Orientation Straight 06/27/2023 11 :04 AM TIRE SORTER Occupation Industry Job Start Date Job End [...] this topic Insurance MEDICAID ORO Care Teams Sausage Tier Relationship Specialty Start Date End Date Christopher Carrillo MD [address] [facility] [address] [place] [address] PCP - General Internal Medicine 03/29/16 Cong Crews MD [address] [place] [address] Consulting Physician Neurology 11/07/23
--- OUTSIDE RECORDS SUMMARY | 2024-08-15 11:04 | XMS_ITS | Encounter Summary ---
Author Organization [facility] Facility Care Team Providers Care Hack Saw Operator Name Role Phone Christopher Carrillo MD Primary Care Provider Encounter Details Date Type Department Care Team (Latest Contact Info) Description 05/29/2015 Orders Only [facility] CLINCONV Provider, MD Venkat [address] [place] [id number] Social History Tobacco Use Types Packs/Day Years Used Date Smoking Tobacco: Never Assessed Comments Unknown Sex and Gender Information Value Date Recorded Sex Assigned at Not on file Legal Sex Female 1:56 AM AGRICULTURE ENGINEER Gender Identity Female 09/09/2023 12:40 PM CDT Sexual Orientation Straight 09/09/2023 12 :40 PM CDT documented as of this encounter Plan of Treatment Not on file documented as of this encounter Procedures Procedure Name Priority Date/Time Associated Diagnosis Comments SCAN - LABS 05/29/2015 12:00 AM AGRICULTURE ENGINEER SCAN - LABS 05/29/2015 12:00 AM AGRICULTURE ENGINEER PROCEDURE - RESULT 05/26/2015 12 :00 AM AGRICULTURE ENGINEER documented in this encounter Results * SCAN - LABS (05/29/2015 12:00 AM AGRICULTURE ENGINEER) Narrative 05/29/2015 12:00 AM AGRICULTURE ENGINEER Ordered by an unspecified provider. Historical Provider Final Res ult * SCAN - LABS (05/29/2015 12:00 AM AGRICULTURE ENGINEER) Narrative 05/29/2015 12:00 AM AGRICULTURE ENGINEER Ordered by an unspecified provider. us Historical Provider Final Res ult * PROCEDURE - RESULT (05/26/2015 12:00 AM AGRICULTURE ENGINEER) Narrative 05/26/2015 12:00 AM AGRICULTURE ENGINEER Ordered by an unspecified provider. us Historical Provider Final Res ult documented in this encounter Visit Diagnoses Not on filedocumented in this encounter Care Teams Hack Saw Operator Relationship Specialty Start Date End Date Christopher Carrillo MD [address] [facility] [address] [place] [address] PCP - General Internal Medicine 07/13/23 documented as of this encounter
--- OUTSIDE RECORDS SUMMARY | 2024-08-15 11:04 | XMS_ITS | Clinical Summary ---
Author Organization [facility] Address [address] [place] [address] Care Team Providers Care Director Of Advertising Sales Name Role Phone Christopher Carrlilo MD Primary Care Provider Allergies No known active allergies Medications multivit,dalton,mn- suybn-P3-zzxua (One A Day Men Complete) 240-25-300 mcg [...] mcg total) by mouth daily 30 tablet 06/06/19 25 Active predniSONE (DELTASONE) 20 mg tabletIndication s:Chronic cough Take 2 tablets (40 mg) by mouth daily for 5 days 10 tablet 07/24/19 25 025 Active Problems Problem Noted Date Diagnosed Date [...] pain at this time, I would consider [place] for her once her recovery from surgery [...] Description 07/23/2024 8:30 AM CDT Office Visit [facility] Pulmonary at [address] [place] [address] Lissette Diaz NP Asthma-COPD overlap syndrome (HCC) (Primary Dx); Long-term use of high-risk medication; Chronic cough; Sarcoidosis; Cigarette nicotine dependence in remission 06/06/2024 Telephone [facility] Pulmonary at [address] [place] [phone] Angella Bonilla, JEANETTE rf Khuship from Last 3 Months Surgical History Surgery Date Site/Laterality Comments AL NEPHRECTOMY W/PRTL URETERECTOMY W/OPEN RIB RESCJ Nephrectomy [...] on file Legal Sex Female 1:56 AM BENDER HAND Gender Identity Female 09/09/2023 12:40 PM CDT [...] exists Pneumococcal vaccine <65 Completed 12/21/2022 Insurance [facility] [place] [address] [facility] Advance Directives For more information, please contact: [phone] Documents on File Type Date Recorded Patient Shoe Reconditioner Expl anation ADVANCE DIRECTIVE 06/04/2015 12:00 AM PIPO Brand OF MONOGRAM MAKER FINANCIAL/MEDICAL Care Teams Director Of Advertising Sales Relationship Specialty Start Date End Date Christopher Carrillo MD [address] [facility] [place] [place] [address] PCP - General Internal Medicine 07/13/23
--- OUTSIDE RECORDS SUMMARY | 2024-08-15 11:04 | XMS_ITS | Referral Summary ---
Author Organization [facility] Address [address] [place] [address] Care Team Providers Care Top Steep Tender Name Role Phone Christopher Carrillo MD Primary Care Provider Encounters Date Type Department Care Team Description 07/23/2024 8:30 AM CDT Office Visit [facility] Pulmonary at [address] [place] [phone] Lissette Diaz NP Asthma-COPD overlap syndrome (HCC) (Primary Dx); Long-term use of high-risk medication; Chronic cough; Sarcoidosis; Cigarette nicotine dependence in remission 06/06/2024 Telephone [facility] Pulmonary at [address] [address] Angella Bonilla, JEANETTE rf Daliresp from Last 3 Months Allergies No known active allergies Medications multivit,dalton,mn- tssxt-X9-jandb (One A Day Men Complete) 240-25-300 mcg [...] (two) times a day 1 each 11 10/31/19 24 Active albuterol HFA (ProAir HFA) 90 mcg/actuation inhaler Inhale 2 puffs every 4 (four) hours as needed for wheezing 8.5 g 11 04/24/20 24 025 Active roflumilast (DALIRESP) 500 mcg tabletIndication s:Prevention of Bronchospasm with Chronic Bronchitis Take 1 tablet (500 mcg total) by mouth daily 30 tablet 11 06/06/19 25 Active predniSONE (DELTASONE) 20 mg [...] pain at this time, I would consider [place] for her once her recovery from surgery [...] on file Legal Sex Female 1:56 AM COMPLETION ENGINEER Gender Identity Female 09/09/2023 12:40 PM [...] Plan of Treatment Not on file Insurance [facility] Member Subscriber Plan / Payer ( fective 2023-Present) Name:Gladys Todd Relation to Subscriber:Self Name:Gladys Todd Payer ID:[id number] (NAIC) Group ID:Not on file Type:MEDICAID RISK OTHER Address: [address] BUREAU OF DISABILITY [facility] Advance Directives For more information, please contact: [phone] Documents on File Type Date Recorded Patient Putty Mixer Expl anation ADVANCE DIRECTIVE 06/04/2015 12:00 AM PIPO Brand OF JOB SERVICE SPECIALIST FINANCIAL/MEDICAL Care Teams Top Steep Tender Relationship Specialty Start Date End Date Christopher Carrillo MD [address] [place] [address] PCP - General Internal Medicine 07/13/23
--- OUTSIDE RECORDS SUMMARY | 2024-08-15 11:04 | XMS_ITS | CONTINUITY OF CARE DOCUMENT ---
Author Name kaleb manuel Address Unknown Organization [facility] Address [address] [place] [address] Phone [phone] Care Team Providers Care Printer Maintainer Name Role Phone Seymour ESTRADA, Rahul Unavailable WING ESTRADA, MASSIEL Unavailable WING ESTRADA, MSASIEL Unavailable [phone] PROBLEMS Condition Status Date Provider Notes CAD [...] In-person encounter Office Visit Rahul Ahuja MD [facility] Hypertension - In-person encounter Office Visit Rahul Ahuja MD [facility] COPD - In-person encounter Office Visit Rahul Ahuja MD [facility] Office - In-person encounter Office Visit Rahul Ahuja MD [facility] CHEST PAIN- nl stress nuclear ,, calcium score zero , Nl LV on echoAortic insufficiency, moderate - In-person encounter Office Visit Rahul Ahuja MD [facility] CADATRIAL FIBRILLATION PAROXYSMALHYPERCHOLESTEROLEMIA Sarcoidosis, pulmonaryTobacco abuseHyperlipidemiaFAMILY HISTORY OF HEART DISEASEShortness of breath - In-person encounter Office Visit Rahul Ahuja MD [place] [facility] - In-person encounter Office Visit Rahul Ahuja MD [place] [facility] - In-person encounter Office Visit Rahul Ahuja MD [facility] [place] [facility] VITAL SIGNS Date Observation Value Provider Body Mass Index (Ratio) 20.99 kg/m2 Trevon Ahuja MD blood pressure, cuff size regular Stevan yfnlizette Lujan blood pressure, diastolic 68 mm[Hg] Stevan mellissa Lujan blood pressure, systolic 128 mm[Hg] [facility] oxygen saturation, oximetry 97 % [facility] pulse rate 90 /min [facility] weight E&M 134 [lb_av] [facility] respiratory rate E&M 12 /min [facility] height E&M 67 [in_i] [facility] Body Mass Index (Ratio) 19.58 [...] Eric et blood pressure, systolic 159 mm[Hg] [facility] pulse rate 91 /min Dilshad oxygen saturation, oximetry 95 % [facility] respiratory rate E&M 16 /min Dilshad weight [...] left arm 82 mm [Hg] [facility] blood pressure, systolic, left arm 119 mm [Hg] [facility] blood pressure, diastolic, right arm 86 m m[Hg] [facility] blood pressure, systolic, right arm 132 m m[Hg] [facility] oxygen saturation, oximetry 96 % [facility] blood pressure, diastolic 82 mm[Hg] [facility] blood pressure, systolic 119 mm[Hg] [facility] pulse rate 58 /min [facility] respiratory rate E&M 18 /min [facility] weight E&M 135 [lb_av] [facility] blood pressure, diastolic 52 mm[Hg] [facility] blood pressure, systolic 102 mm[Hg] [facility] pulse rate 66 /min [facility] oxygen saturation, oximetry 98 % [facility] respiratory rate E&M 16 /min Kristin Rosen [facility] weight E&M 129 [lb_av] [facility] weight E&M 137 [lb_av] Alisa [facility] respiratory rate E&M 16 /min Rahul Ahuja MD pulse rate 70 /min Rahul Ahuja MD blood pressure, diastolic 76 mm[Hg] To chetan Ahuja MD blood pressure, systolic 135 mm[Hg] Shlomo Ahuja MD ALLERGIES No Known Drug Allergies HISTORY OF MEDICATION USE Medication Status Instructions Dates Provider Indications Com [facility] Aerosphere 160-9-4.8 mcg/actuation HFA aerosol inhaler active [...] exercise, f requency, days per week [facility] use, averag e drinks per day yes LinkLog alcohol use, average drinks per day social basis only LinkLog number of years as a smoker 10 years or m ore LinkLog smoking status Smoker [facility] FUNCTIONAL STATUS Date Observation Value Provider [...] Payer name Policy type / Coverage type [facility] ID SHORTY MEDICAID Medicaid [id number] ADVANCE DIRECTIVES Name Date DISCUSSED - NO DECISION MADE TREATMENT PLAN Date Name Performer [id number],S, Rahul Ahuja MD [id number],Kenny, Rahul Ahuja MD [id number],SRahul MD [id number],Kenny, Rahul Ahuja MD Cardiology: H er updated medication list for this problem includes: Losartan 25 Mg Tablet (Losartan) ..... Take 1 tablet daily Rahul Ahuja MD Cardiology: H er updated medication list for this problem includes: Breztri Aerosphere 160-9-4.8 Mcg/actuation Hfa Aerosol Inhaler (Umnabbrpze-bntelwcr-hrhidariil) Albuterol Sulfate 90 Mcg/actuation Hfa Aerosol Inhaler (Albuterol sulfate) Albuterol Sulfate 0.63 Mg/3 Ml Solution For Nebulization (Albuterol sulfate) Ilia Castaneda Cardiology: H er updated medication list for this problem includes: Atorvastatin 20 Mg Tablet (Atorvastatin) ..... Take 1 tablet by mouth every evening Ilia Castaneda Cardiology Ilai Ahmedzamariusz Cardiology Ilia medzamariusz Cardiology: H er updated medication list for this problem includes: Losartan 25 Mg Tablet (Losartan) ..... Take 1 tablet daily Iliarenato Castaneda Cardiology Ilia Ahmedzamariusz Cardiology Ilia Ahmedzamariusz Cardiology [facility]:Patient w as advised to stop smoking. Iliarenato Barberzamariusz Cardiology Iliarenato Barberzamariusz Cardiology Ilia Ahmedzamariusz Cardiology: H er updated medication list for this problem includes: Atorvastatin 20 Mg Tablet (Atorvastatin) Ilia Castanead Cardiology: H er updated medication list for [...]
--- OUTSIDE RECORDS SUMMARY | 2024-08-15 11:04 | XMS_ITS | Encounter Summary ---
Author Organization [facility] Facility Care Team Providers Care Global Chief Creative Officer Name Role Phone Christopher Carrillo MD Primary Care Provider Encounter Details Date Type Department Care Team (Latest Contact Info) Description 05/14/2015 Orders Only [facility] CLINCONV Provider, MD Venkat [facility] [place] [address] Social History Tobacco Use Types Packs/Day Years Used Date Smoking Tobacco: Never Assessed Comments Unknown Sex and Gender Information Value Date Recorded Sex Assigned at Not on file Legal Sex Female 1:56 AM HUMAN ANATOMY TEACHER Gender Identity Female 09/09/2023 12:40 PM CDT Sexual Orientation Straight 09/09/2023 12 :40 PM CDT documented as of this encounter Plan of Treatment Not on file documented as of this encounter Procedures Procedure Name Priority Date/Time Associated Diagnosis Comments SCAN - LABS 05/14/2015 12:00 AM HUMAN ANATOMY TEACHER SCAN - LABS 05/14/2015 12:00 AM HUMAN ANATOMY TEACHER SCAN - LABS 05/14/2015 12:00 AM HUMAN ANATOMY TEACHER SCAN - LABS 05/14/2015 12:00 AM HUMAN ANATOMY TEACHER SCAN - LABS 05/14/2015 12:00 AM HUMAN ANATOMY TEACHER documented in this encounter Results * SCAN - LABS (05/14/2015 12:00 AM HUMAN ANATOMY TEACHER) Narrative 05/14/2015 12:00 AM HUMAN ANATOMY TEACHER Ordered by an unspecified provider. Historical Provider MD Final Res ult * SCAN - LABS (05/14/2015 12:00 AM HUMAN ANATOMY TEACHER) Narrative 05/14/2015 12:00 AM HUMAN ANATOMY TEACHER Ordered by an unspecified provider. Historical Provider MD Final Res ult * SCAN - LABS (05/14/2015 12:00 AM HUMAN ANATOMY TEACHER) Narrative 05/14/2015 12:00 AM HUMAN ANATOMY TEACHER Ordered by an unspecified provider. Historical Provider MD Final Res ult * SCAN - LABS (05/14/2015 12:00 AM HUMAN ANATOMY TEACHER) Narrative 05/14/2015 12:00 AM HUMAN ANATOMY TEACHER Ordered by an unspecified provider. [facility] Provider MD Final Res ult * SCAN - LABS (05/14/2015 12:00 AM HUMAN ANATOMY TEACHER) Narrative 05/14/2015 12:00 AM HUMAN ANATOMY TEACHER Ordered by an unspecified provider. [facility] Provider MD Final Res ult documented in this encounter Visit Diagnoses Not on filedocumented in this encounter Care Teams Global Chief Creative Officer Relationship Specialty Start Date End Date Christopher Carrillo MD [address] [facility] [place] [address] PCP - General Internal Medicine 07/13/23 documented as of this encounter
--- OUTSIDE RECORDS SUMMARY | 2024-08-15 11:04 | XMS_ITS | Encounter Summary ---
Author Organization [facility] Facility Care Team Providers Care Plywood Layup Line Core Feeder Name Role Phone Christopher Carrillo MD Primary Care Provider Encounter Details Date Type Department Care Team (Latest Contact Info) Description 05/06/2015 Orders Only MMG CLINCONV ProviderVenkat MD [address] [place] [address] Social History Tobacco Use Types Packs/Day Years Used Date Smoking Tobacco: Never Assessed Comments Unknown Sex and Gender Information Value Date Recorded Sex Assigned at Not on file Legal Sex Female 1:56 AM DESIGN VERIFICATION ENGINEER Gender Identity Female 09/09/2023 12:40 PM CDT Sexual Orientation Straight 09/09/2023 12 :40 PM CDT documented as of this encounter Plan of Treatment Not on file documented as of this encounter Procedures Procedure Name Priority Date/Time Associated Diagnosis Comments PROCEDURE - RESULT 05/06/2015 12 :00 AM DESIGN VERIFICATION ENGINEER documented in this encounter Results * PROCEDURE - RESULT (05/06/2015 12:00 AM DESIGN VERIFICATION ENGINEER) Narrative 05/06/2015 12:00 AM DESIGN VERIFICATION ENGINEER Ordered by an unspecified provider. Historical Provider Final Res ult documented in this encounter Visit Diagnoses Not on filedocumented in this encounter Care Teams Plywood Layup Line Core Feeder Relationship Specialty Start Date End Date Christopher Carrillo MD [address] [place] [address] PCP - General Internal Medicine 07/13/23 documented as of this encounter
== END 2024-08-15 09:52 | disposition home or self-care (01) ==
PROVIDERS: PCP Internal Medicine; Visit Provider Internal Medicine
DX: Z12.31 Encounter for screening mammogram for malignant neoplasm of breast (principal)
CPT/HCPCS: 77063; 77067

== ENCOUNTER 2024-10-02 09:16 | Day surgery (SDC) | payer OTHER, SELFPAY ==
--- NOTE | ~2024-10-02 | XR_ITS ---
INTRAOPERATIVE FLUOROSCOPY: CLINICAL HISTORY: 58 years old Female; DIAG/PROG MARTIN C4,C5,C6 MEDIAL BRANCH BLK#1 PROCEDURE COMMENTS: Limited intraoperative fluoroscopy of the cervical spine was performed. CUMULATIVE DOSE: 4.6 mGy FLUOROSCOPY TIME: 69 seconds FINDINGS/IMPRESSION: Please refer to operative note for further details. Reviewed, dictated and finalized at location A.
--- OUTSIDE RECORDS SUMMARY | 2024-10-02 09:46 | XMS_ITS | CONTINUITY OF CARE DOCUMENT ---
Author Name kaleb manuel Address Unknown Organization [facility] Address [address] [facility] [address] [place] [address] Phone [phone] Care Team Providers Care Defensive Line Coach Name Role Phone Seymour ESTRADA, Rahul Unavailable WING ESTRADA, MASSIEL Unavailable WING ESTRADA, MASSIEL Unavailable PROBLEMS Condition Status Date Provider Notes CAD [...] In-person encounter Office Visit Rahul Ahuja MD [facility] Hypertension - In-person encounter Office Visit Rahul Ahuja MD [facility] COPD - In-person encounter Office Visit Rahul Ahuja MD [facility] Office - In-person encounter Office Visit Rahul Ahuja MD [facility] CHEST PAIN- nl stress nuclear ,, calcium score zero , Nl LV on echoAortic insufficiency, moderate - In-person encounter Office Visit Rahul Ahuja MD [facility] CADATRIAL FIBRILLATION PAROXYSMALHYPERCHOLESTEROLEMIA Sarcoidosis, pulmonaryTobacco abuseHyperlipidemiaFAMILY HISTORY OF HEART DISEASEShortness of breath - In-person encounter Office Visit Rahul Ahuja MD [place] [facility] - In-person encounter Office Visit Rahul Ahuja MD [facility] - In-person encounter Office Visit Rahul Ahuja MD [facility] VITAL SIGNS Date Observation Value Provider Body Mass Index (Ratio) 20.99 kg/m2 Trevon Ahuja MD blood pressure, cuff size regular Stevan yfnlizette Lujan blood pressure, diastolic 68 mm[Hg] Stevan mellissa Lujan blood pressure, systolic 128 mm[Hg] Medardo [facility] oxygen saturation, oximetry 97 % [facility] pulse rate 90 /min [facility] weight E&M 134 [lb_av] [facility] respiratory rate E&M 12 /min [facility] height E&M 67 [in_i] [facility] Body Mass Index (Ratio) 19.58 kg/m2 Trevon [...] Eric et blood pressure, systolic 159 mm[Hg] [facility] pulse rate 91 /min Dilshad oxygen saturation, oximetry 95 % [facility] respiratory rate E&M 16 /min Dilshad weight [...] Monetemperatriz Ace height E&M 67 [in_i] Monet Bd blood pressure, cuff size large An carito Db blood pressure, diastolic, left arm 82 mm [Hg] Kristin Rosen [place] blood pressure, systolic, left arm 119 mm [Hg] Kristin [place] blood pressure, diastolic, right arm 86 m m[Hg] Kristin [place] blood pressure, systolic, right arm 132 m m[Hg] Kristin [place] oxygen saturation, oximetry 96 % Kristin [place] blood pressure, diastolic 82 mm[Hg] Marie [place] blood pressure, systolic 119 mm[Hg] Iam [place] pulse rate 58 /min Kristin [place] respiratory rate E&M 18 /min Kristin [place] weight E&M 135 [lb_av] Kristin [place] blood pressure, diastolic 52 mm[Hg] Marie [place] blood pressure, systolic 102 mm[Hg] Iam [place] pulse rate 66 /min Kristin [place] oxygen saturation, oximetry 98 % Kristin [place] respiratory rate E&M 16 /min Kristin Rosen [place] weight E&M 129 [lb_av] Kristin [place] weight E&M 137 [lb_av] Alisa Skaggs respiratory rate E&M 16 /min Rahul Ahuja MD pulse rate 70 /min Rahul Ahuja MD blood pressure, diastolic 76 mm[Hg] To chetan Ahuja MD blood pressure, systolic 135 mm[Hg] Shlomo Ahuja MD ALLERGIES No Known Drug Allergies HISTORY OF MEDICATION USE Medication Status Instructions Dates Provider Indications Com [facility] Aerosphere 160-9-4.8 mcg/actuation HFA aerosol inhaler active [...] Ansley Rhodes XOPENEX NEBU active as needed Ilai Castaneda alprazolam 0.5 mg tablet active twice [...] E&M revi ewed - no changes required Anslye Rhodes social history E&M Lives with fa [...] exercise, f requency, days per week [facility], averag e drinks per day yes LinkLog alcohol use, average drinks per day social basis only LinkLog number of years as a smoker 10 years or m ore LinkLog smoking status Smoker [facility] FUNCTIONAL STATUS Date Observation Value Provider HRA, [...] Payer name Policy type / Coverage type [facility] ID SHORTY MEDICAID Medicaid [id number] ADVANCE DIRECTIVES Name Date DISCUSSED - NO DECISION MADE TREATMENT PLAN Date Name Performer [id number],S, Rahul Ahuja MD [id number],Kenny, Rahul Ahuja MD [id number],SRahul MD [id number],Kenny, Rahul Ahuja MD Cardiology: H er updated medication list for this problem includes: Losartan 25 Mg Tablet (Losartan) ..... Take 1 tablet daily Rahul Ahuja MD Cardiology: H er updated medication list for this problem includes: Breztri Aerosphere 160-9-4.8 Mcg/actuation Hfa Aerosol Inhaler (Gnhhomqyje-ddcggzfc-wvoceqjzen) Albuterol Sulfate 90 Mcg/actuation Hfa Aerosol Inhaler [...] Ilia Ahmedzamariusz Cardiology Ilia [facility]arius[facility]:Patient w as advised to stop smoking. [...] to take ASA 81 mg daily Rahul Ahjua MD Date Name Stress Regadenoson Complete Echo [...]
--- OUTSIDE RECORDS SUMMARY | 2024-10-02 09:46 | XMS_ITS | Encounter Summary ---
Author Organization [facility] Facility Care Team Providers Care Insulation Packer Name Role Phone Christopher Carrillo MD Primary Care Provider Encounter Details Date Type Department Care Team (Latest Contact Info) Description 05/29/2015 Orders Only MMG CLINCONV Provider, MD Venkat [address] [place] [address] Social History Tobacco Use Types Packs/Day Years Used Date Smoking Tobacco: Never Assessed Comments Unknown Sex and Gender Information Value Date Recorded Sex Assigned at Not on file Legal Sex Female 1:56 AM LACQUER MAKER Gender Identity Female 09/09/2023 12:40 PM CDT Sexual Orientation Straight 09/09/2023 12 :40 PM CDT documented as of this encounter Plan of Treatment Not on file documented as of this encounter Procedures Procedure Name Priority Date/Time Associated Diagnosis Comments SCAN - LABS 05/29/2015 12:00 AM LACQUER MAKER SCAN - LABS 05/29/2015 12:00 AM LACQUER MAKER PROCEDURE - RESULT 05/26/2015 12 :00 AM LACQUER MAKER documented in this encounter Results * SCAN - LABS (05/29/2015 12:00 AM LACQUER MAKER) Narrative 05/29/2015 12:00 AM LACQUER MAKER Ordered by an unspecified provider. Historical Provider Final Res ult * SCAN - LABS (05/29/2015 12:00 AM LACQUER MAKER) Narrative 05/29/2015 12:00 AM LACQUER MAKER Ordered by an unspecified provider. us Historical Provider Final Res ult * PROCEDURE - RESULT (05/26/2015 12:00 AM LACQUER MAKER) Narrative 05/26/2015 12:00 AM LACQUER MAKER Ordered by an unspecified provider. us Historical Provider Final Res ult documented in this encounter Visit Diagnoses Not on filedocumented in this encounter Care Teams Insulation Packer Relationship Specialty Start Date End Date Christopher Carrillo MD [address] [facility] [address] [place] [address] PCP - General Internal Medicine 07/13/23 documented as of this encounter
--- OUTSIDE RECORDS SUMMARY | 2024-10-02 09:46 | XMS_ITS | Encounter Summary ---
Author Organization [facility] Facility Care Team Providers Care Design Printing Machine Setter Name Role Phone Christopher Carrillo MD Primary Care Provider Encounter Details Date Type Department Care Team (Latest Contact Info) Description 05/06/2015 Orders Only MMG CLINCONV ProviderVenkat MD [address] [place] [address] Social History Tobacco Use Types Packs/Day Years Used Date Smoking Tobacco: Never Assessed Comments Unknown Sex and Gender Information Value Date Recorded Sex Assigned at Not on file Legal Sex Female 1:56 AM FISH CULTURIST Gender Identity Female 09/09/2023 12:40 PM CDT Sexual Orientation Straight 09/09/2023 12 :40 PM CDT documented as of this encounter Plan of Treatment Not on file documented as of this encounter Procedures Procedure Name Priority Date/Time Associated Diagnosis Comments PROCEDURE - RESULT 05/06/2015 12 :00 AM FISH CULTURIST documented in this encounter Results * PROCEDURE - RESULT (05/06/2015 12:00 AM FISH CULTURIST) Narrative 05/06/2015 12:00 AM FISH CULTURIST Ordered by an unspecified provider. Historical Provider Final Res ult documented in this encounter Visit Diagnoses Not on filedocumented in this encounter Care Teams Design Printing Machine Setter Relationship Specialty Start Date End Date Christopher Carrillo MD [address] [facility] [place] [address] PCP - General Internal Medicine 07/13/23 documented as of this encounter
--- OUTSIDE RECORDS SUMMARY | 2024-10-02 09:46 | XMS_ITS | Clinical Summary ---
Author Organization [facility] Address [address] [address] Phone Care Team Providers Care Middle [employer] Baseball Coach Name Role Phone Christopher Carrillo MD Primary Care Provider [phone] Cong Crews MD Unavailable [phone] Allergies No known active allergies Medications polyethylene [...] mg by mouth 3 times daily. Active [place] 3 1200 MG Capsule Take 1 Cap [...] mouth daily. Active beta carotene (VITAMIN A) 63620 UNIT Capsule Take 25,000 Units by mouth [...] Sex Assigned at Female 06/27/2023 11:04 AM MASTER COASTWISE YACHT Legal Sex Female 9:33 PM CDT Gender Identity Female 06/27/2023 11:04 AM MASTER COASTWISE YACHT Sexual Orientation Straight 06/27/2023 11 :04 AM MASTER COASTWISE YACHT Occupation Industry Job Start Date Job End [...] this topic Insurance MEDICAID [place]O Care Teams Middle [employer] Baseball Coach Relationship Specialty Start Date End Date Christopher Carrillo MD [address] [facility] [address] [place] [address] PCP - General Internal Medicine 03/29/16 Cong Crews MD [address] [place] [address] Consulting Physician Neurology 11/07/23
--- OUTSIDE RECORDS SUMMARY | 2024-10-02 09:46 | XMS_ITS | Encounter Summary ---
Author Organization [facility] Facility Care Team Providers Care Cna Ltc Name Role Phone Christopher Carrillo MD Primary Care Provider Encounter Details Date Type Department Care Team (Latest Contact Info) Description 05/14/2015 Orders Only MMG CLINCONV Provider, MD Venkat [facility] [place] [address] Social History Tobacco Use Types Packs/Day Years Used Date Smoking Tobacco: Never Assessed Comments Unknown Sex and Gender Information Value Date Recorded Sex Assigned at Not on file Legal Sex Female 1:56 AM SALES CLERK Gender Identity Female 09/09/2023 12:40 PM CDT Sexual Orientation Straight 09/09/2023 12 :40 PM CDT documented as of this encounter Plan of Treatment Not on file documented as of this encounter Procedures Procedure Name Priority Date/Time Associated Diagnosis Comments SCAN - LABS 05/14/2015 12:00 AM SALES CLERK SCAN - LABS 05/14/2015 12:00 AM SALES CLERK SCAN - LABS 05/14/2015 12:00 AM SALES CLERK SCAN - LABS 05/14/2015 12:00 AM SALES CLERK SCAN - LABS 05/14/2015 12:00 AM SALES CLERK documented in this encounter Results * SCAN - LABS (05/14/2015 12:00 AM SALES CLERK) Narrative 05/14/2015 12:00 AM SALES CLERK Ordered by an unspecified provider. Historical Provider MD Final Res ult * SCAN - LABS (05/14/2015 12:00 AM SALES CLERK) Narrative 05/14/2015 12:00 AM SALES CLERK Ordered by an unspecified provider. Historical Provider MD Final Res ult * SCAN - LABS (05/14/2015 12:00 AM SALES CLERK) Narrative 05/14/2015 12:00 AM SALES CLERK Ordered by an unspecified provider. Historical Provider MD Final Res ult * SCAN - LABS (05/14/2015 12:00 AM SALES CLERK) Narrative 05/14/2015 12:00 AM SALES CLERK Ordered by an unspecified provider. [facility] Provider MD Final Res ult * SCAN - LABS (05/14/2015 12:00 AM SALES CLERK) Narrative 05/14/2015 12:00 AM SALES CLERK Ordered by an unspecified provider. [facility] Provider MD Final Res ult documented in this encounter Visit Diagnoses Not on filedocumented in this encounter Care Teams Cna Ltc Relationship Specialty Start Date End Date Christopher Carrillo MD [address] [facility] [place] [address] PCP - General Internal Medicine 07/13/23 documented as of this encounter
--- OUTSIDE RECORDS SUMMARY | 2024-10-02 09:46 | XMS_ITS | Clinical Summary ---
Author Organization [facility] Building [facility] Address [address] [place] [address] Care Team Providers Care Agriculture Worker Name Role Phone Christopher Carrillo MD Primary Care Provider Allergies No known active allergies Medications multivit,dalton,mn- cmnlu-P0-phikv (One A Day Men Complete) 240-25-300 mcg [...] mouth daily 30 tablet 11 5 Active Active Problems Problem Noted Date Diagnosed [...] pain at this time, I would consider [place] for her once her recovery from surgery [...] Description 07/23/2024 8:30 AM CDT Office Visit [facility] Pulmonary at [address] [place] [address] Lissette Diaz, RANJEET Asthma-COPD overlap syndrome (HCC) (Primary Dx); Long-term use of high-risk medication; Chronic cough; Sarcoidosis; Cigarette nicotine dependence in remission from Last 3 Months Surgical History Surgery Date Site/Laterality Comments [place] NEPHRECTOMY W/PRTL URETERECTOMY W/OPEN RIB RESCJ Nephrectomy [...] on file Legal Sex Female 1:56 AM FIRE PROTECTION EQUIPMENT TECHNICIAN Gender Identity Female 09/09/2023 12:40 PM CDT [...] 02/12/2022, 10/02/2021, Additional history exists Influenza Vaccine (Season Ended) 2025 02/20/2023, 02/10/2023, 02/12/2022, Additional history exists Pneumococcal vaccine <65 Completed 12/21/2022 Insurance [facility] [place] [address] [place] [address] [place] [address] [place] [address] Advance Directives For more information, please contact: [phone] Documents on File Type Date Recorded Patient Proposition Player Expl anation ADVANCE DIRECTIVE 06/04/2015 12:00 AM PIPO Brand OF TRACTOR OPERATOR LASER [employer]EVEL[employer] FINANCIAL/MEDICAL Care Teams Agriculture Worker Relationship Specialty Start Date End Date Christopher Carrillo MD [address] [facility] [address] [place] [address] PCP - General Internal Medicine 07/13/23
--- OUTSIDE RECORDS SUMMARY | 2024-10-02 09:46 | XMS_ITS | Referral Summary ---
Author Organization [facility] Medical Office Building B Address [address] [place] [address] Care Team Providers Care Earth Science Laboratory Technician Name Role Phone Christopher Carrillo MD Primary Care Provider Encounters Date Type Department Care Team Description 07/23/2024 8:30 AM CDT Office Visit [facility] Pulmonary at [address] [place] [address] Lissette Diaz NP Asthma-COPD overlap syndrome (HCC) (Primary Dx); Long-term use of high-risk medication; Chronic cough; Sarcoidosis; Cigarette nicotine dependence in remission from Last 3 Months Allergies No known active allergies Medications multivit,dalton,mn- wmgpm-J3-tsiiq (One A Day Men Complete) 240-25-300 mcg [...] pain at this time, I would consider [place] for her once her recovery from surgery [...] on file Legal Sex Female 1:56 AM NOTEMAN Gender Identity Female 09/09/2023 12:40 PM CDT [...] Plan of Treatment Not on file Insurance [facility] Member Subscriber Plan / Payer ( fective 2023-Present) Name:Gladys Todd Relation to Subscriber:Self Name:Gladys Todd Payer ID:[id number] (NAIC) Group ID:Not on file Type:MEDICAID RISK OTHER Address: [address] BUREAU OF DISABILITY [facility] Advance Directives For more information, please contact: [phone] Documents on File Type Date Recorded Patient Quality Improvement Analyst Expl anation ADVANCE DIRECTIVE 06/04/2015 12:00 AM PIPO Brand OF SHEET ROCKER FINANCIAL/MEDICAL Care Teams Earth Science Laboratory Technician Relationship Specialty Start Date End Date Christopher Carrillo MD [address] [facility] [address] [place] [address] PCP - General Internal Medicine 07/13/23
--- OUTSIDE RECORDS SUMMARY | 2024-10-02 09:47 | XMS_ITS | Data Portability ---
Author Organization [facility], Main Office Address [address] [place] [address] Care Team Providers Care Amalgamator Name Role Phone MASSIEL CARRILLO Primary Care Provider MASSIEL CARRILLO Referring Provider MASSIEL CARRILLO Primary Care Provider Assessment No assessment recorded. Plan of Treatment Reminders Order Date Submit Date Provider Last Modified By Organization Details Last Modified Time Details Appointments None recorded. Lab vitamin D, 25-hydrox y, total, serum 025 025 [employer] [facility], [address], [place], [address], 5 16:57:59 magnesium , serum or plasma 025 025 [id number] [employer] [facility], [address], [place], [address], 5 16:57:59 vitamin B12, serum 025 025 [id number] [employer] [facility], [address], [place], [address], 5 16:57:59 CBC w/ auto diff 025 025 [id number] [employer] [facility], [address], [place], [address], 5 16:57:58 CMP, serum or plasma 025 025 [id number] [facility], [address], [place], [address], 5 16:57:58 lipid panel, serum 025 025 [id number] [facility], [address], [place], [address], 5 16:57:59 T4, free, serum 025 025 [id number] [facility], [address], [place], [address], 5 16:57:59 TSH, serum or plasma 025 025 [id number] [facility], [address], [place], [address], 5 16:57:59 lipid panel, serum 024 024 [id number] [facility], [address], [place], [address], 4 16:14:31 CMP, serum or plasma 024 024 [id number] [facility], [address], [place], [address], 4 16:14:31 TSH, serum or plasma 024 024 [id number] [facility], [address], [place], [address], 4 16:14:32 T4, free, serum 024 024 [id number] [facility], [address], [place], [address], 4 16:14:32 CBC w/ auto diff 024 024 [id number] [facility], [address], [place], [address], 4 16:14:32 drug screen, urine 024 024 [id number] [facility], [address], [place], [address], 4 16:14:32 Referral None recorded. Procedures None recorded. Surgeries None recorded. Imaging None recorded. Medication Orders None recorded. Patient TargetsNo targets recorded. Patient Instructions Encounter Date Encounter Id Patient Instructions Last Modified By Organization Details Last Modified Time 04/26/2023 [id number] advance care planning: care instructions [email or web address] Not available 04/26/2023 11:19:19 advance directiv es: care instructions Not available 04/26/2023 11:19:19 [place] Advance Directives [email or web address] Not available 04/26/2023 11:19:18 risk assessment* [email or web address] Not available 04/26/2023 11:19:19 INFLUENZA VACCIN E Recommended today, but patient declined Ordered Kyle flores will get at local pharmacy/health department Patient has egg allergy Next vaccination to be given fall of Next vaccination to be given fall of __2023_ TD/TDAP Patient will get at local pharmacy/health department PNEUMONIA VACCINE Recommended at age 64 SHINGLES Patient will get at local pharmacy/health department MAMMOGRAM: Last Mammogram No screening necessary patient is up to date DEXA SCAN No screening necessary patient is up to date CERVICAL SCREENING/PELVIC EXAMINATION Recommended today, but patient declined COLORECTAL SCREENING: Last Colonoscopy No screening necessary patient is up to date DEPRESSION SCREENING Negative BMI Appropriate NUTRITION Heart Healthy Diet Recommendation of a 1500 caloric intake for weight loss is advised Diabetic Diet Renal Diet DASH Diet Continue healthy eating & exercise Eat Heart Healthy Diet PHYSICAL ACTIVITY Need more exercise/physical activity VISION Ordered Recommended today Recommended today, but you have declined No Eye exam necessary Your next exam in: goes yearly ALCOHOL USE Occasional/Social Use TOBACCO USE former smoker LUNG CANCER SCREENING Non Smoker-not indicated Recommend ation for Lung Cancer Screening with LDCT- ordered Recommendat ion for Lung Cancer Screening with LDCT- Patient declined Not indicated until age 49 Recommendation for Lung Cancer Screening with LDCT SEXUALLY ACTIVE HEPATITIS C SCREENING Not indicated GLUCOSE SCREENING Ordered Not needed Known Diabetic up to date LIPID SCREENING Ordered Not needed Diagnosis of Hyperlipidemia up to date [email or web address] Not available 04/26/2023 11:06:00 Adult health examination [...] with voice recognition software. Occasional wrong-word or xrkux-l-ueee substitutions may have occurred due to the inherent limitations of voice recognition software. Read the chart carefully and recognize, using context, where substitutions have occurred. Portions of the record may have been created with voice recognition software. Occasional wrong-word or lcnyi-n-ejqi substitutions may have occurred due to the inherent limitations of voice recognition software. Read the chart carefully and recognize, using context, where substitutions have occurred. 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 Will try to set up with Neurology for further evaluation. Portions of the record may have been created with voice recognition software. Occasional wrong-word or cnjbq-x-snmt substitutions may have occurred due to the inherent limitations of voice recognition software. Read the chart carefully and recognize, using context, where substitutions have occurred. Neurological consult for persistent neck and cervical radicular pain. Keep Appt: Tue 10:30 BEV Mijares [email or web address] Not available 06/13/2023 16:39:22 08/23/2023 [id number] Follow-up hypertension, hyperlipidemia, chronic obstructive lung disease and chronic pain syndrome. All clinically stable. Will check blood work consisting of CBC, CMP, lipid, thyroid. Continue on current Rx follow-up in four months. Next Appointment: 4 Months Approximate Date: 12/21/2023 Portions of the record may have been created with voice recognition software. Occasional wrong-word or iexpx-o-cqvu substitutions may have occurred due to the inherent limitations of voice recognition software. Read the chart carefully and recognize, using context, where substitutions have occurred. [email or web address] Not available 08/23/2023 12:03:15 12/27/2023 [id number] Follow-up chroni c obstructive lung disease, essential [...] Directives - Recommendations 1. Mammogram Done by adult caregiver 2. LDCT already done up in [place] please get a copy of the report. 2. DEXA Scan get the most recent copy the bone density scan. Next Appointment: 6 Months Approximate Date: 06/24/2024 Portions of the record may have been created with voice recognition software. Occasional wrong-word or npuip-j-fpau substitutions may have occurred due to the inherent limitations of voice recognition software. Read the chart carefully and recognize, using context, where substitutions have occurred. [email or web address] Not available 12/27/2023 12:34:37 05/15/2024 [id number] risk assessment* [email or web address] Not availabl e 05/15/2024 10:55:39 INFLUENZA VACCIN E Recommended today, but patient declined Ordered Kyle flores will get at local pharmacy/health department Patient has egg allergy Next vaccination to be given fall of Next vaccination to be given fall__ TD/TDAP Patient will get at local pharmacy/health department PNEUMONIA VACCINE Recommended at age 64 SHINGLES Patient will get at local pharmacy/health department MAMMOGRAM: Last Mammogram Recommended today, but patient declined Ordered No screening indicated at this time/ no family history No screening necessary patient is up to date Recommended today DEXA SCAN No screening necessary patient is up to date CERVICAL SCREENING/PELVIC EXAMINATION Recommended today, but patient declined COLORECTAL SCREENING: Last Colonoscopy No screening necessary patient is up to date DEPRESSION SCREENING Negative BMI Appropriate NUTRITION Heart Healthy Diet PHYSICAL ACTIVITY Need more exercise/physical activity VISION Ordered Recommended today Recommended today, but you have declined No Eye exam necessary Your next exam in: goes yearly ALCOHOL USE Occasional/Social Use TOBACCO USE former smoker LUNG CANCER SCREENING Non Smoker-not indicated Recommend ation for Lung Cancer Screening with LDCT- ordered Recommendat ion for Lung Cancer Screening with LDCT- Patient declined Not indicated until age 50 Up to date through Pulmonology SEXUALLY ACTIVE HEPATITIS C SCREENING Not indicated GLUCOSE SCREENING Ordered Not needed Known Diabetic up to date LIPID SCREENING Ordered Not needed Diagnosis of Hyperlipidemia up to date [email or web address] Not available 05/15/2024 10:43:41 Wellness evaluat ion [...] CT scan of the chest done in [place] by pulmonology. Follow Up: 6 Months Approximate Date: 11/11/2024 Portions of the record may have been created with voice recognition software. Occasional wrong-word or ppjmz-v-dmlb substitutions may have occurred due to the [...] total 202 mg/dL <200 high Not Available [facility] [address] [address] [place], [address], 09/24/2023 01:35:57 09/22/19 24 09/24/2023 LIPID PANEL , STAND NICANOR HDL cholesterol 114 mg/dL > or = 50 normal Not Available [facility] [address] [place], [address], 09/24/2023 01:35:57 09/22/19 24 09/24/2023 LIPID PANEL , STAND NICANOR triglyceride s 69 mg/dL <150 normal Not Available [facility] [address] [address] [place], [address], 09/24/2023 01:35:57 09/22/1909/24/2023 LIPID PANEL , STAND NICANOR LDL-choleste rol 73 mg/dL _(dalton c) normal Refer ence range : <100 Skyler able range <100 mg/dL for prima ry preve ntion ; <70 mg/dL for patie nts with CHD or diabe tic patie nts with > or = 2 CHD risk facto rs. LDL-C is now calcu lated using the Quita n-Hop kins natyu pj n, which is a valid ated novel devango d kaylee astorga r accur acy than the Fried shayla equat ion in the estim ation of LDL-C . Quita braun SS et al. LUCY. 2013; 310(1 9): 2061- 2068 (http ://ed ucati on.Qu Edwar redd Shipeys. com/f aq/FA Q164) Not Available [facility] [address] [place], [address], 09/24/2023 01:35:57 09/22/19 24 09/24/2023 LIPID PANEL , STAND NICANOR chol/HDLC ratio 1.8 (calc ) <5.0 normal Not Available [facility] [address] [place], [address], 09/24/2023 01:35:57 05/16/20 24 09/24/2023 LIPID PANEL , STAND NICANOR non HDL cholesterol 88 mg/dL _(dalton c) <130 normal For patie nts with diabe josh plus 1 major ASCVD risk facto r, treat ing to a non-H DL-C goal of <100 mg/dL (LDL- C of <70 mg/dL ) is consi janel burch optio n. Not Available [address], [address], 09/24/2023 01:35:57 09/22/19 24 09/24/2023 COMPR EHENS LORENA METAB OLIC PANEL , PLASM A glucose 96 mg/dL 65-99 normal Fasti ng refer ence inter miguel Not Available [address], [address], 09/24/2023 01:35:58 09/22/19 24 09/24/2023 COMPR EHENS LORENA METAB OLIC PANEL , PLASM A urea nitrogen (BUN) 13 mg/dL 7-25 normal Not Available [address], [address], 09/24/2023 01:35:58 09/22/19 24 09/24/2023 COMPR EHENS LORENA METAB OLIC PANEL , PLASM A creatinine 0.72 mg/dL 0.50-1 .03 normal Not Available [address], [address], 09/24/2023 01:35:58 09/22/19 24 09/24/2023 COMPR EHENS LORENA METAB OLIC PANEL , PLASM A eGFR 97 mL/mi n/1.7 3m2 > or = 60 normal Not Available [address], [address], 09/24/2023 01:35:58 09/22/19 24 09/24/2023 COMPR EHENS LORENA METAB OLIC PANEL , PLASM A BUN/creatini ne ratio SEE NOTE: (calc ) 6-22 Not Repor freya: BUN and Creat inine are withi n refer ence range . Not Available [address], [address], 09/24/2023 01:35:58 09/22/19 24 09/24/2023 COMPR EHENS LORENA METAB OLIC PANEL , PLASM A sodium 141 mmol/ L 135-14 6 normal Not Available [address], [address], 09/24/2023 01:35:58 09/22/19 24 09/24/2023 COMPR EHENS LORENA METAB OLIC PANEL , PLASM A potassium 3.9 mmol/ L 3.4-4. 8 normal Not Available [address], [address], 09/24/2023 01:35:58 09/22/19 24 09/24/2023 COMPR EHENS LORENA METAB OLIC PANEL , PLASM A chloride 105 mmol/ L 98-110 normal Not Available [address], [address], 09/24/2023 01:35:58 09/22/19 24 09/24/2023 COMPR EHENS LORENA METAB OLIC PANEL , PLASM A carbon dioxide 28 mmol/ L 20-32 normal Not Available [address], [address], 09/24/2023 01:35:58 09/22/19 24 09/24/2023 COMPR EHENS LORENA METAB OLIC PANEL , PLASM A calcium 9.3 mg/dL 8.6-10 .4 normal Not Available [address], [address], 09/24/2023 01:35:58 09/22/19 24 09/24/2023 COMPR EHENS LORENA METAB OLIC PANEL , PLASM A protein, total 7.1 g/dL 6.4-8. 4 normal Not Available [facility] [address] [address], [place], [address], 09/24/2023 01:35:58 09/22/19 24 09/24/2023 COMPR EHENS LORENA METAB OLIC PANEL , PLASM A albumin 4.2 g/dL 3.6-5. 1 normal Not Available [address], [address], 09/24/2023 01:35:58 09/22/19 24 09/24/2023 COMPR EHENS LORENA METAB OLIC PANEL , PLASM A globulin 2.9 g/dL_ (calc ) 2.2-4. 0 normal Not Available [address], [address], 09/24/2023 01:35:58 09/22/19 24 09/24/2023 COMPR EHENS LORENA METAB OLIC PANEL , PLASM A albumin/glob ulin ratio 1.4 (calc ) 0.9-2. 3 normal Not Available [address], [address], 09/24/2023 01:35:58 09/22/19 24 09/24/2023 COMPR EHENS LORENA METAB OLIC PANEL , PLASM A bilirubin, total 0.3 mg/dL 0.2-1. 2 normal Not Available [address], [address], 09/24/2023 01:35:58 09/22/19 24 09/24/2023 COMPR EHENS LORENA METAB OLIC PANEL , PLASM A alkaline phosphatase 73 U/L 37-153 normal Not Available [facility] [employer] [address], [address], 09/24/2023 01:35:58 09/22/19 24 09/24/2023 COMPR EHENS LORENA METAB OLIC PANEL , PLASM A AST 19 U/L 10-35 normal Not Available [address], [address], 09/24/2023 01:35:58 09/22/19 24 09/24/2023 COMPR EHENS LORENA METAB OLIC PANEL , PLASM A ALT 16 U/L 6-29 normal Not Available [address], [address], 09/24/2023 01:35:58 09/22/19 24 09/24/2023 CBC (INCL UDES DIFF/ PLT) white blood cell count 9.1 thous and/u L 3.8-10 .8 normal Not Available [address], [address], 09/24/2023 01:36:00 09/22/19 24 09/24/2023 CBC (INCL UDES DIFF/ PLT) red blood cell count 4.07 paige on/uL 3.80-5 .10 normal Not Available [address], [address], 09/24/2023 01:36:00 09/22/19 24 09/24/2023 CBC (INCL UDES DIFF/ PLT) hemoglobin 12.9 g/dL 11.7-1 5.5 normal Not Available [address], [address], 09/24/2023 01:36:00 09/22/19 24 09/24/2023 CBC (INCL UDES DIFF/ PLT) hematocrit 38.0 % 35.0-4 5.0 normal Not Available [address], [address], 09/24/2023 01:36:00 09/22/19 24 09/24/2023 CBC (INCL UDES DIFF/ PLT) MCV 93.4 fL 80.0-1 00.0 normal Not Available [address], [address], 09/24/2023 01:36:00 09/22/19 24 09/24/2023 CBC (INCL UDES DIFF/ PLT) MCH 31.7 pg 27.0-3 3.0 normal Not Available [address], [address], 09/24/2023 01:36:00 09/22/19 24 09/24/2023 CBC (INCL UDES DIFF/ PLT) MCHC 33.9 g/dL 32.0-3 6.0 normal Not Available [address], [address], 09/24/2023 01:36:00 09/22/1909/24/2023 CBC (INCL UDES DIFF/ PLT) RDW 12.0 % 11.0-1 5.0 normal Not Available [address], [address], 09/24/2023 01:36:00 09/22/19 24 09/24/2023 CBC (INCL UDES DIFF/ PLT) platelet count 373 thous and/u L 140-40 0 normal Not Available [address], [address], 09/24/2023 01:36:00 09/22/19 24 09/24/2023 CBC (INCL UDES DIFF/ PLT) MPV 10.8 fL 7.5-12 .5 normal Not Available [address], [address], 09/24/2023 01:36:00 09/22/19 24 09/24/2023 CBC (INCL UDES DIFF/ PLT) absolute neutrophils 5269 cells /uL 1500-7 800 normal Not Available [address], [address], 09/24/2023 01:36:00 09/22/19 24 09/24/2023 CBC (INCL UDES DIFF/ PLT) absolute lymphocytes 2994 cells /uL 850-39 00 normal Not Available [facility] [address], [address], 09/24/2023 01:36:00 09/22/19 24 09/24/2023 CBC (INCL UDES DIFF/ PLT) absolute monocytes 655 cells /uL 200-95 0 normal Not Available [facility] [address], [address], 09/24/2023 01:36:00 09/22/19 24 09/24/2023 CBC (INCL UDES DIFF/ PLT) absolute eosinophils 109 cells /uL 15-500 normal Not Available [facility] [address], [address], 09/24/2023 01:36:00 09/22/19 24 09/24/2023 CBC (INCL UDES DIFF/ PLT) absolute basophils 73 cells /uL 0-200 normal Not Available [facility] [address], [address], 09/24/2023 01:36:00 09/22/19 24 09/24/2023 CBC (INCL UDES DIFF/ PLT) neutrophils 57.9 % normal Not Available [facility] [address], [address], 09/24/2023 01:36:00 09/22/19 24 09/24/2023 CBC (INCL UDES DIFF/ PLT) lymphocytes 32.9 % normal Not Available [facility] [address], [address], 09/24/2023 01:36:00 09/22/19 24 09/24/2023 CBC (INCL UDES DIFF/ PLT) monocytes 7.2 % normal Not Available [facility] [address], [address], 09/24/2023 01:36:00 09/22/19 24 09/24/2023 CBC (INCL UDES DIFF/ PLT) eosinophils 1.2 % normal Not Available [facility] [address] [place], [address], 09/24/2023 01:36:00 09/22/19 24 09/24/2023 CBC (INCL UDES DIFF/ PLT) basophils 0.8 % normal Not Available [address], [address], 09/24/2023 01:36:00 09/22/19 24 09/24/2023 T4, FREE T4, free 1.2 NG/dL 0.8-1. 8 normal Not Available [facility] [address], [address], 09/24/2023 01:36:01 09/22/19 24 09/24/2023 TSH TSH 0.49 mIU/L 0.40-4 .50 normal Not Available [address], [address], 09/24/2023 01:36:02 09/22/19 24 09/24/2023 DRUG MONIT OR, BASE PANEL , SCREE N, URINE benzodiazepi suzanna POSITI VE NG/mL <100 abnormal See Note A See Note A Not Available [address] [address] [address] , [place], [address], 09/24/2023 01:36:03 09/22/1909/24/2023 DRUG MONIT OR, BASE PANEL , SCREE N, URINE cocaine metabolite NEGATI VE NG/mL <150 See Note A See Note A Not Available [address] [address] [place], [address], 09/24/2023 01:36:03 09/22/1909/24/2023 DRUG MONIT OR, BASE PANEL , SCREE N, URINE opiates POSITI VE NG/mL <100 abnormal See Note A See Note A Not Available [address] [address] [place], [address], 09/24/2023 01:36:03 09/22/19 24 09/24/2023 DRUG MONIT OR, BASE PANEL , SCREE N, URINE oxycodone NEGATI VE NG/mL <100 See Note A See Note A Not Available [address] [address] [place], [address], 09/24/2023 01:36:03 09/22/19 24 09/24/2023 DRUG MONIT OR, BASE PANEL , SCREE N, URINE creatinine 135.5 mg/dL > or = 20.0 Not Available [facility] [address] [address] [place], [address], 09/24/2023 01:36:03 09/22/19 24 09/24/2023 DRUG MONIT OR, BASE PANEL , SCREE N, URINE pH 5.6 4.5-9. 0 Not Available [facility] [address] [address] [place], [address], 09/24/2023 01:36:03 09/22/19 24 09/24/2023 DRUG MONIT OR, BASE PANEL , SCREE N, URINE oxidant NEGATI VE mcg/m L <200 Not Available [address] [address] [place], [address], 09/24/2023 01:36:03 09/22/19 24 09/24/2023 DRUG MONIT ORING TEMPL ATE notes and comments This drug testi ng is for medic al treat ment only. Callie sis was perfo rmed as non-f orens ic testi ng and these resul ts shoul d be used only by [facility] provi ders to rende r diagn osis or treat ment, or to monit or progr ess of medic al condi tions . Note A: The resul ts are presu mptiv e; based only on nguyễn jacobs ds, and they have not been confi rmed by a defin itive metho d. [facility] Provi ders needi ng Inter preta tion lazaro tance , pleas e conta ct us at 1.877 .40.R XTOX (1.87 [phone] ) M-F, 8am to 10pm EST Not Available [address] [address] [place], [address], 09/24/2023 01:36:04 08/16/1908/16/2024 LIPID PANEL , STAND NICANOR cholesterol, total 205 mg/dL <200 high Not Available [facility] [address] [address] [place], [address], 08/16/2024 07:56:45 08/16/1908/16/2024 LIPID PANEL , STAND NICANOR HDL cholesterol 98 mg/dL > or = 50 normal Not Available [facility] [address] [address] [place], [address], 08/16/2024 07:56:45 08/16/1908/16/2024 LIPID PANEL , STAND NICANOR triglyceride s 83 mg/dL <150 normal Not Available [facility] [address] [address] [place], [address], 08/16/2024 07:56:45 08/16/1908/16/2024 LIPID PANEL , STAND NICANOR LDL-choleste rol 90 mg/dL _(dalton c) normal Refer ence range [...] valid ated novel metho d provi dalia astorga r accur acy than the Fried shayla equat ion in the estim ation of LDL-C . Quita braun SS et al. LUCY. 2013; 310(1 9): 2061- 2068 (http ://ed ucati on.Qu estDi Active Storageos Shipeys. com/f aq/FA Q164) Not Available [facility] [address] [address] [place], [address], 08/16/2024 07:56:45 08/16/19 08/16/2024 LIPID PANEL , STAND NICANOR chol/HDLC ratio 2.1 (calc ) <5.0 normal Not Available [address], [address], 08/16/2024 07:56:45 08/16/19 25 08/16/2024 LIPID PANEL , STAND NICANOR non HDL cholesterol 107 mg/dL _(dalton c) <130 normal For patie nts with diabe josh plus 1 major ASCVD risk facto r, treat ing to a non-H DL-C goal of <100 mg/dL (LDL- C of <70 mg/dL ) is consi janel warnero n. Not Available [address], [address], 08/16/2024 07:56:45 08/16/1908/16/2024 MAGNE SIUM magnesium 1.9 mg/dL 1.5-2. 5 normal Not Available [address], [address], 08/16/2024 07:56:47 08/16/1908/16/2024 COMPR EHENS LORENA METAB OLIC PANEL glucose 85 mg/dL 65-139 normal Non-f astin g refer ence inter miguel Not Available [address], [address], 08/16/2024 07:56:48 08/16/1908/16/2024 COMPR EHENS LORENA METAB OLIC PANEL urea nitrogen (BUN) 10 mg/dL 7-25 normal Not Available [address], [address], 08/16/2024 07:56:48 08/16/1908/16/2024 COMPR EHENS LORENA METAB OLIC PANEL creatinine 0.70 mg/dL 0.50-1 .03 normal Not Available [address], [address], 08/16/2024 07:56:48 08/16/19 25 08/16/2024 COMPR EHENS LORENA METAB OLIC PANEL eGFR 100 mL/mi n/1.7 3m2 > or = 60 normal Not Available [address], [address], 08/16/2024 07:56:48 08/16/19 25 08/16/2024 COMPR EHENS LORENA METAB OLIC PANEL BUN/creatini ne ratio SEE NOTE: (calc ) 6-22 Not Repor freya: BUN and Creat inine are withi n refer ence range . Not Available [address], [address], 08/16/2024 07:56:48 08/16/19 25 08/16/2024 COMPR EHENS LORENA METAB OLIC PANEL sodium 140 mmol/ L 135-14 6 normal Not Available [address], [address], 08/16/2024 07:56:48 08/16/19 25 08/16/2024 COMPR EHENS LORENA METAB OLIC PANEL potassium 4.6 mmol/ L 3.5-5. 3 normal Not Available [address], [address], 08/16/2024 07:56:48 08/16/19 25 08/16/2024 COMPR EHENS LORENA METAB OLIC PANEL chloride 100 mmol/ L 98-110 normal Not Available [address], [address], 08/16/2024 07:56:48 08/16/19 25 08/16/2024 COMPR EHENS LORENA METAB OLIC PANEL carbon dioxide 29 mmol/ L 20-32 normal Not Available [address], [address], 08/16/2024 07:56:48 08/16/19 25 08/16/2024 COMPR EHENS LORENA METAB OLIC PANEL calcium 9.8 mg/dL 8.6-10 .4 normal Not Available [address], [address], 08/16/2024 07:56:48 08/16/19 25 08/16/2024 COMPR EHENS LORENA METAB OLIC PANEL protein, total 6.6 g/dL 6.1-8. 1 normal Not Available [address], [address], 08/16/2024 07:56:48 08/16/19 25 08/16/2024 COMPR EHENS LORENA METAB OLIC PANEL albumin 4.1 g/dL 3.6-5. 1 normal Not Available [address], [address], 08/16/2024 07:56:48 08/16/19 25 08/16/2024 COMPR EHENS LORENA METAB OLIC PANEL globulin 2.5 g/dL_ (calc ) 1.9-3. 7 normal Not Available [address], [address], 08/16/2024 07:56:48 08/16/19 25 08/16/2024 COMPR EHENS LORENA METAB OLIC PANEL albumin/glob ulin ratio 1.6 (calc ) 1.0-2. 5 normal Not Available [address], [address], 08/16/2024 07:56:48 08/16/19 25 08/16/2024 COMPR EHENS LORENA METAB OLIC PANEL bilirubin, total 0.4 mg/dL 0.2-1. 2 normal Not Available [address], [address], 08/16/2024 07:56:48 08/16/19 25 08/16/2024 COMPR EHENS LORENA METAB OLIC PANEL alkaline phosphatase 94 U/L 37-153 normal Not Available [facility] [employer] [address], [address], 08/16/2024 07:56:48 08/16/19 25 08/16/2024 COMPR EHENS LORENA METAB OLIC PANEL AST 17 U/L 10-35 normal Not Available [address], [address], 08/16/2024 07:56:48 08/16/19 25 08/16/2024 COMPR EHENS LORENA METAB OLIC PANEL ALT 14 U/L 6-29 normal Not Available [address], [address], 08/16/2024 07:56:48 08/16/19 25 08/16/2024 CBC (INCL UDES DIFF/ PLT) white blood cell count 13.5 thous and/u L 3.8-10 .8 high Not Available [address], [address], 08/16/2024 07:56:49 08/16/19 25 08/16/2024 CBC (INCL UDES DIFF/ PLT) red blood cell count 3.62 paige on/uL 3.80-5 .10 low Not Available [employer] [address], [address], 08/16/2024 07:56:49 08/16/19 25 08/16/2024 CBC (INCL UDES DIFF/ PLT) hemoglobin 10.9 g/dL 11.7-1 5.5 low Not Available [employer] [address], [address], 08/16/2024 07:56:49 08/16/19 25 08/16/2024 CBC (INCL UDES DIFF/ PLT) hematocrit 33.5 % 35.0-4 5.0 low Not Available [employer] [address], [address], 08/16/2024 07:56:49 08/16/19 25 08/16/2024 CBC (INCL UDES DIFF/ PLT) MCV 92.5 fL 80.0-1 00.0 normal Not Available [address], [address], 08/16/2024 07:56:49 08/16/1908/16/2024 CBC (INCL UDES DIFF/ PLT) MCH 30.1 pg 27.0-3 3.0 normal Not Available [facility] [address], [address], 08/16/2024 07:56:49 08/16/1908/16/2024 CBC (INCL UDES DIFF/ PLT) MCHC 32.5 g/dL 32.0-3 6.0 normal For adult s, a sligh t decre ase in the calcu lated MCHC value (in the range of 30 to 32 g/dL) is most likel y not clini shiraz signi keanu t; tameka er, it shoul d be inter prete d with cauti on in corre lat n with other red cell heather eters and the patie nt's clini dal[place] condi tion. Not Available [address], [address], 08/16/2024 07:56:49 08/16/1908/16/2024 CBC (INCL UDES DIFF/ PLT) RDW 13.3 % 11.0-1 5.0 normal Not Available [facility] [address], [address], 08/16/2024 07:56:49 08/16/1908/16/2024 CBC (INCL UDES DIFF/ PLT) platelet count 755 thous and/u L 140-40 0 high Not Available [facility] [address], [address], 08/16/2024 07:56:49 08/16/19 25 08/16/2024 CBC (INCL UDES DIFF/ PLT) MPV 9.9 fL 7.5-12 .5 normal Not Available [address], [address], 08/16/2024 07:56:49 08/16/19 25 08/16/2024 CBC (INCL UDES DIFF/ PLT) absolute neutrophils 6197 cells /uL 1500-7 800 normal Not Available [address], [address], 08/16/2024 07:56:49 08/16/19 25 08/16/2024 CBC (INCL UDES DIFF/ PLT) absolute lymphocytes 5846 cells /uL 850-39 00 high Not Available [address], [address], 08/16/2024 07:56:49 08/16/1908/16/2024 CBC (INCL UDES DIFF/ PLT) absolute monocytes 1121 cells /uL 200-95 0 high Not Available [address], [address], 08/16/2024 07:56:49 08/16/19 25 08/16/2024 CBC (INCL UDES DIFF/ PLT) absolute eosinophils 243 cells /uL 15-500 normal Not Available [facility] [address], [address], 08/16/2024 07:56:49 08/16/19 25 08/16/2024 CBC (INCL UDES DIFF/ PLT) absolute basophils 95 cells /uL 0-200 normal Not Available [facility] [address], [address], 08/16/2024 07:56:49 08/16/1908/16/2024 CBC (INCL UDES DIFF/ PLT) neutrophils 45.9 % normal Not Available [facility] [address], [address], 08/16/2024 07:56:49 08/16/19 25 08/16/2024 CBC (INCL UDES DIFF/ PLT) lymphocytes 43.3 % normal Not Available [address], [address], 08/16/2024 07:56:49 08/16/19 25 08/16/2024 CBC (INCL UDES DIFF/ PLT) monocytes 8.3 % normal Not Available [facility] [address], [address], 08/16/2024 07:56:49 08/16/19 25 08/16/2024 CBC (INCL UDES DIFF/ PLT) eosinophils 1.8 % normal Not Available [address], [address], 08/16/2024 07:56:49 08/16/19 25 08/16/2024 CBC (INCL UDES DIFF/ PLT) basophils 0.7 % normal Not Available [address], [address], 08/16/2024 07:56:49 08/16/19 25 08/16/2024 T4, FREE T4, free 1.3 NG/dL 0.8-1. 8 normal Not Available [address], [address], 08/16/2024 07:56:49 08/16/19 25 08/16/2024 TSH TSH 0.12 mIU/L 0.40-4 .50 low Not Available [address], [address], 08/16/2024 07:56:50 08/16/19 25 08/16/2024 VITAM IN B12 vitamin B12 1491 pg/mL 200-11 00 high Not Available [address], [address], 08/16/2024 07:56:51 08/16/19 25 08/16/2024 VITAM IN D,25- OH,TO JOANNE,I A vitamin D,25-oh,tota l,ia 74 NG/mL 30-100 normal Vitam in D Statu s 25-OH Vitam in D: Defic iency : <20 ng/mL Insuf ficie ncy: 20 - 29 ng/mL Optim al: > or = 30 ng/mL For 25-OH Vitam in D testi ng on patie nts on D2-huang pplem entat ion and patie nts for whom quant itati on of D2 and D3 fract ions is requi red, the [facility] Ass[facility] eD(TM ) 25-OH VIT D, (D2,D 3), LC/MS /MS is recom katelyn d: order code 45886 (petar ents >2yrs ). See Note 1 Note 1 For addit ional infor nemesio laguerre e refer to http: //[facility] chaim braun.Flavio stDia gnost ics.c om/fa q/FAQ 199 (This link is being provi ded for infor brenda weaver/ eductip hua purpo ses only. ) Not Available [place] [address] [address] [place], [address], 08/16/2024 07:56:52 04/11/20 23 04/09/2023 MRI, lumba r spine , w/o contr ast No observ ation record ed. [address], [place], [address], 04/11/2023 12:36:55 04/11/20 23 04/09/2023 MRI, lumba r plexu s, w/o contr ast No observ ation record ed. [place] [id number] [facility] [address], [place], [address], 04/11/2023 08:42:01 04/15/20 XR, cervi dalton spine , 2 or 3 view No observ ation record ed. [email or web address] [place] [address] [facility] [address], [place], [address], 04/15/2023 10:03:42 07/07/19 24 03/27/2014 MRI, cervi dalton spine , w/o contr ast No observ ation record ed. [email or web address] Not Available 2023 10:07:01 07/07/19 24 03/22/2014 MRI, lumba r spine , w/o contr ast No observ ation record ed. [email or web address] Not Available 2023 10:07:47 09/01/19 24 09/01/2023 XR, hip, unila teral No observ ation record ed. [address] [id number], [place], [address], 09/01/2023 17:33:46 09/13/19 24 09/13/2023 MRI, cervi dalton plexu s, w/o contr ast No observ ation record ed. [address] [id number], [place], [address], 09/13/2023 16:26:34 09/22/19 24 09/22/2023 US, thyro id No observ ation record ed. [address] [id number], [place], [address], 09/22/2023 17:01:50 01/30/20 24 01/30/2024 XR, hip + pelvi s, unila teral No observ ation record ed. [address] [address], [place], [address], 01/30/2024 17:44:48 07/27/19 25 07/26/2024 XR, hip + pelvi s, unila teral No observ ation record ed. [address] [address], [place], [address], 07/26/2024 14:35:35 07/27/19 25 07/26/2024 XR, arthr ogram , hip No observ ation record ed. [email or web address] [place] [id number], [place], [address], 07/27/2024 16:53:46 08/16/19 25 08/15/2024 MAMMO nguyễn, bildelmar abreul No observ ation record ed. [email or web address] [facility] [address] [facility], [place], [address], 08/15/2024 12:28:30 Result Notes None recorded. Problems Name Problem SNOMED Code Status Onset Date Resolution Date Notes Provider Name and Address Organization Details Recorded Time Asthma-chr onic obstructiv e pulmonary disease overlap syndrome 7800158230204 9107 Active 2022 Not Available [facility] 3 15:01:27 History of left hip replacemen t 6163119365631 107 Active 2019 Not Available [facility] 3 15:01:28 Chronic obstructiv e pulmonary disease 10344223 Active 2021 Not Available [facility] 3 15:01:28 Spinal stenosis of lumbar region 33507819 Active 2019 Not Available [facility] 3 15:01:28 Anxiety disorder 038460876 Active Not Available [facility] 3 15:01:28 Osteoarthr itis of knee 750408240 Active Not Available [facility] 3 15:01:28 Pure hyperchole sterolemia 071452317 Active Not Available [facility] 3 15:01:28 Sarcoidosi s 51543468 Active Not Available [facility] 3 15:01:28 Vitamin D deficiency 58287766 Active 2021 Not Available [facility] 3 15:01:28 Depressive disorder 78781064 Active Not Available [facility] 3 15:01:28 Chronic pain syndrome 891525129 Active 2016 Not Available [facility] 3 15:01:28 Dysphagia 53782819 Active Not Available [facility] 3 15:01:28 History of malignant neoplasm of kidney 539751787 Active Not Available [facility] 3 15:01:28 History of polyp of colon 756559594 Active 2021 Not Available [facility] 3 15:01:28 Atrial fibrillati on 09548627 Active Not Available [facility] 3 15:01:28 Pain of breast 86477153 Active Not Available [facility] 3 15:01:28 Dyspnea on exertion 08492747 Active 2022 Not Available [facility] 3 15:01:28 Stricture of esophagus 19668129 Active Not Available [facility] 3 15:01:28 Chronic cough 02962378 Active 2022 Not Available [facility] 3 15:01:28 Greater trochanter ic pain syndrome 4574246 Active 2019 Not Available [facility] 3 15:01:28 Tobacco dependence syndrome 76681298 Active Not Available [facility] 3 15:01:28 Osteoarthr itis of hip 424024116 Active 2022 Not Available [facility] 3 15:01:28 Pain of right hip joint 3582874794147 02 Active 2022 Not Available [facility] 3 15:01:28 Pain of left hip joint 4137528287454 00 Active 2022 Not Available [facility] 3 15:01:28 Osteoporos is 27018109 Active 2022 Not Available [facility] 3 15:01:28 Osteoarthr itis of right hip joint 8492140938353 07 Active 2022 Not Available [facility] 3 15:01:28 Candidiasi s of mouth 82447253 Active 2022 Not [address] [facility] 3 15:01:28 Chronic bronchitis 37777048 Active 2022 Lissette Diaz, UNCLAIMED PROPERTY MANAGER-BC [address] [facility] [facility] [address], [place], [address] , [facility] 3 11:27:08 Osteoarthr itis 930560283 Active 2022 Genoveva Nieves RMTip null, [place] [facility] 3 10:01:13 Chronic back pain 657651230 Active 2022 Teresa Connolly CMA null, [place] [facility] 3 15:46:59 Acute bronchitis 38686068 Active 2022 Massiel Carrillo MD [address], [place], [address] , [place] [facility] [place] [facility] 3 10:35:38 Low back pain 313681402 Active 2022 Genoveva Nieves RMA null, [place] [facility] 3 09:04:16 Cervical radiculopa thy 55350842 Active 2022 Genoveva Nieves RMA null, [place] [facility] 3 09:04:48 Essential hypertensi on 87489109 Active 2022 Massiel Carrillo MD [address], [place], [address] , [facility] 3 11:07:58 Neck pain 38051253 Active 2023 Massiel Carrillo MD [address], [place], [address] , [facility] 4 16:35:59 Anxiety 80932372 Active 2023 Corrie Funk CMA null, [place] [facility] [place] [facility] 4 11:38:44 Spinal stenosis in cervical region 00033980 Active 2023 Teresa Connolly CMA null, [place] [facility] 4 15:49:17 Gastroesop hageal reflux disease 951039554 Active 2023 Massiel Carrillo MD [address], [place], [address] , [facility] [place] [facility] 4 12:29:02 Sciatica 94845563 Active 2024 Corrie Funk CMA null, [place] [facility] [place] [facility] 5 11:05:34 Recurrent acute maxillary sinusitis Active 2024 Massiel Carrillo MD [address], [facility] [address], [place], [address] , [facility] [employer] 10:46:13 Problem Notes None recorded. Procedures Surgical History Date Name Laterality Status Provider Name and Address Organization Details Recorded Time Advanced Care Planning completed Paulette Salazar RN [facility] [employer] [facility] 04/26/2023 11:06:48 Imaging Results None recorded. Procedure Notes None recorded. Medical Equipment None [...] TAKE 1 TABLET BY MOUTH EVERY 7 DAYS. active Not Available Not Available No t Available aspirin 81 mg tablet,eli yed release Take 1 tablet every day by oral route. active Not Available Not Available No t Available tramadol 50 mg tablet TAKE 1 TABLET BY MOUTH EVERY 6 HOURS NEEDED FOR PAIN. DO NOT TAKE CONCURREN T WITH HYDROCODO NE. DO NOT TAKE WITH ALPRAZOLA M active Not Available Not Available No t [...] administe red by the provider 10/04 completed [facility]: 0003- 0494- 20 Not Available Not Available [...] a dose pack FOLLOW PACKAGE DIRECTION S active Not Available Not Available No t Available albuterol sulfate HFA 90 mcg/actuati on aerosol inhaler INHALE 2 PUFFS EVERY 4 HOURS NEEDED FOR WHEEZING active Not Available Not Available No t Available celecoxib 100 mg capsule TAKE 1 CAPSULE BY MOUTH DAILY active Not Available Not Available No t Available cefdinir 300 mg capsule TAKE 1 CAPSULE BY MOUTH EVERY 12 HOURS active Not Available Not Available No t Available amoxicillin 875 mg-potassiu m clavulanate 125 mg tablet TAKE 1 TABLET BY MOUTH EVERY 12 HOURS active Not Available Not Available No t Available Mucinex 600 mg tablet, extended release [...] administe red by the provider 10/04 completed [facility]: 0409- 4276- 17 Not Available Not Available [...] Not Available Not Available No t Available Eliquis 2.5 mg tablet TAKE 1 TABLET BY MOUTH EVERY 12 HOURS active Not Available Not Available No t Available naloxone 4 mg/actuatio n nasal spray CALL 911. SPR CONTENTS OF ONE SPRAYER (0.1ML) INTO ONE NOSTRIL. REPEAT IN 2-3 MIN IF SYMPTOMS OF OPIOID EMERGENCY PERSIST, ALTERNATE NOSTRILS active Not Available Not Available No t [...] in Arterial blood by Pulse oximetry Systolic And Diastolic Provider Name and Address Organization Details Last Updated DateTime 5 167.64 cm 21.8 kg/m2 18249.9 7 g 77 /min 97 [degF] 94 % 94 % 120/60 mm[Hg] Yelena [employer] 5 10:33:48 Date Recorded Body height Body mass index (BMI) Body weight Heart rate Body temperature Oxygen saturation Oxygen saturation in Arterial blood by Pulse oximetry Systolic And Diastolic Provider Name and Address Organization Details Last Updated DateTime 4 170.18 cm 19.3 kg/m2 77792.8 6 g 76 /min 97.7 [degF] 95 % 95 % 120/60 mm[Hg] STELLA Duarte [employer] [facility] [employer] [facility] 4 16:29:24 Date Recorded Body height Body mass index (BMI) Body weight Heart rate Body temperature Oxygen saturation Oxygen saturation in Arterial blood by Pulse oximetry Systolic And Diastolic Provider Name and Address Organization Details Last Updated DateTime 4 170.18 cm 19.4 kg/m2 03312.4 5 g 82 /min 97 [degF] 94 % 94 % 120/60 mm[Hg] Yelena [employer] 4 11:46:42 Date Recorded Body height Body mass index (BMI) Body weight Heart rate Body temperature Oxygen saturation Oxygen saturation in Arterial blood by Pulse oximetry Systolic And Diastolic Provider Name and Address Organization Details Last Updated DateTime 4 170.18 cm 20 kg/m2 66677.8 2 g 78 /min 97.8 [degF] 98 % 98 % 112/62 mm[Hg] STELLA Duarte [employer] [facility] 4 12:07:14 Date Recorded Body height Body mass index (BMI) Body weight Heart rate Body temperature Oxygen saturation Oxygen saturation in Arterial blood by Pulse oximetry Systolic And Diastolic Provider Name and Address Organization Details Last Updated DateTime 3 170.18 cm 18.8 kg/m2 26789.0 8 g 98 /min 97 [degF] 93 % 93 % 180/100 mm[Hg] Yelena [employer] [place] [facility] [employer] [facility] 10:58:41 Social History Question Answer Notes LastModified by Organizat ion Details LastModified Time Tobacco Smoking Status Current Every Day Smoker Linda Valderrama brock, [facility] [employer] [facility] 11/05/2022 11:47:35 What Is Your Level Of Caffeine Consumption? Moderate [email or web address] Information not available 07/20/2022 What Was The Date Of Your Most Recent Tobacco Screening? 06/01/2022 [email or web address] Information not available 11/05/2022 What Is Your Current Pack Years? [email or web address] Information not available 11/05/2022 Do You Have Any Pets? Yes [email or web address] Information not available 11/05/2022 At What Age Did You Start Smoking Tobacco? 13 [email or web address] Information not available 11/05/2022 How Much Tobacco Do You Smoke? 1 PPD [id number] Information not available 07/07/2022 How Many Years Have You Smoked Tobacco? 43 [email or web address] Information not available 11/05/2022 Sex: Unknown Functional Status Question Answer Note LastModified by Organizat ion Details LastModified Time Do you use any illicit or recreational drugs? No Information not available 11/05/2022 What is your level of alcohol consumption? Occasional [email or web address] Information not available 07/20/2022 Are you currently employed? 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 Family History Nothing [...] ARTERY DISEASE (CAD) N ADDICTION CONCERNS N ENDOMETRIOSIS N Impotence N USE OF BLOOD THINNERS N SKIN [...] GLAUCOMA N FOOT PROBLEM N DIVERTICULITIS N CHICKENPOX N SLEEP APNEA N INFECTIOUS DISEASE N HEART ARRHYTHMIA N PROSTATE N INSOMNIA N HIGH CHOLESTEROL / HYPERLIPIDEMIA Y HYPERTHYROIDISM N EYE PROBLEMS N EDEMA N CHRONIC PAIN SYNDROME N HYPOTHYROIDISM N CAROTID BLOCKAGE N CONSTIPATION N BACK / NECK PROBLEMS N HAVE YOU BEEN HOSPITALIZED OR SEEN IN [facility] IN THE PAST YEAR ? N ATHEROSCLEROSIS N BREAST PROBLEMS N DIALYSIS N ECZEMA N OSTEOPOROSIS Y ARTHRITIS Y NO SIGNIFICANT PAST MEDICAL HISTORY N APPENDICITIS N DIABETES, TYPE N BAD TEETH N ENT N HEARTBURN / REFLUX N AUTISM SPECTRUM DISORDER (ASD) N HEPATITIS / LIVER DISEASE N GOUT N SLEEP DISORDER N ALZHEIMER'S DISEASE N Brain Problems N HERPES N DEMENTIA N HEADACHES/MIGRAINES N SEIZURES/EPILEPSY N VASCULAR DISEASE N PACEMAKER N Blood Disorder N DIZZINESS N HEART DISEASE/HEART PROBLEMS N KIDNEY DISEASE N MULTIPLE SCLEROSIS N CARDIAC ARRHYTHMIA N CANCER: SPECIFY Y ATRIAL FIBRILLATION Y Gall Stones N PULMONARY EMBOLISM N AUTOIMMUNE DISEASE N Gynecological HistoryNo gynecological history recorded. Obstetrics History GPAL:G 0 P 0 0 0 0 Immunizations Vaccine Type Date Status Note Provider Nam e and Address Organization Details Recorded Time influenza, unspecified formulation 3 completed TARAS Villar [place] [employer] 04/26/2023 10:59:55 Influenza, split virus, trivalent, preservative 4 completed Not Available [facility] 01/07/2023 08:12:48 Influenza, split virus, quadrivalent, preservative 0 completed Not Available [facility] 01/07/2023 08:12:48 COVID-19, mRNA, LNP-S, bivalent, PF, 30 mcg/0.3 mL dose 2 completed Not Available [facility] 01/07/2023 08:12:48 Influenza, split virus, quadrivalent, preservative 2 completed Not Available [facility] 01/07/2023 08:12:48 COVID-19, mRNA, LNP-S, PF, 30 mcg/0.3 mL dose 2 completed Not Available [facility] 01/07/2023 08:12:48 Influenza, adjuvanted, trivalent, PF 1 completed Not Available [facility] 01/07/2023 08:12:48 SARS-COV-2 (COVID-19) vaccine, UNSPECIFIED 1 completed Not Available [facility] 01/07/2023 08:12:48 SARS-COV-2 (COVID-19) vaccine, UNSPECIFIED 1 completed Not Available [facility] 01/07/2023 08:12:48 SARS-COV-2 (COVID-19) vaccine, UNSPECIFIED 1 completed Not Available [facility] 01/07/2023 08:12:48 Influenza, split virus, quadrivalent, preservative 9 completed Not Available [facility] 01/07/2023 08:12:48 Influenza, split virus, quadrivalent, PF 7 completed Not Available [facility] 01/07/2023 08:12:48 Influenza, split virus, quadrivalent, PF 8 completed Not Available [facility] 01/07/2023 08:12:48 Influenza, split virus, quadrivalent, PF 6 completed Not Available [facility] 01/07/2023 08:12:48 Influenza, split virus, quadrivalent, preservative 5 completed Not Available [facility] 01/07/2023 08:12:48 Past Encounters Encounter ID Performer Location Encounter Start Date Encounter Closed Date Diagnosis/Indication Diagnosis SNOMED-CT Code Diagnosis ICD10 Code Diagnosis Note [id number] Massiel Carrillo MD [facility] [address] [place] [address] 10/10/2020 00:00:00 10/10/2020 11:04:56 [id number] MD ANTHONY [facility] [place] [address] [place] [address] 04/14/2021 00:00:00 04/14/2021 10:58:16 [id number] Massiel Carrillo MD [facility] [place] [address] [facility] [place] [address] 10/20/2021 00:00:00 10/20/2021 11:02:04 [id number] Massiel Carrillo MD [facility] [place] [address] [facility] [place] [place] [address] 04/20/2022 00:00:00 04/20/2022 10:47:47 [id number] Lissette Diaz [facility] [place] [address] [place] [address] 06/01/2022 00:00:00 06/01/2022 14:10:06 [id number] Lissette Diaz [facility] [place] [address] [place] [address] 07/20/2022 09:58:02 07/20/2022 17:19:48 Asthma-chronic obstructive pulmonary disease overlap syndrome 5532635479 5558249 J44.9 PFT completed 11/2021 with moderate obstructio nRatio 41, FEV1 4427% improvemen t after BDContinue Breztri with aerochambe rInstructe d on useInstruc freya on frequency - BIDShe is aware to rinse and spit after useContinu e Albuterol PRN Dyspnea on exertion 6084 5006 R06.09 Improved with inhaled therapySmo plympton cessationA CE, IGGs, IGE, Quantifero n GOLD normalSix minute walk testing normal Sarcoidosis 38928376 D86 .9 CT chest 11/16/21:F INDINGS:He art: [...] Rx options if needed in the future. [id number] Lissette Diaz, [facility] [place] [address] [place] [address] 08/17/2022 10:05:00 08/17/2022 16:23:22 Asthma-chronic obstructive pulmonary disease overlap syndrome 6260126702 7227625 J44.9 ACT 7CAT 28PFT completed 11/2021 with [...] she continue this as maintenanc e therapySmo harjinedr cessationA CE, IGGs, IGE, Quantifero n GOLD normalSix minute walk testing normal Sarcoidosis 55794534 D86 .9 CT chest 11/16/21:F INDINGS:He art: [...] Rx options if needed in the future. [id number] Massiel Carrillo MD [facility] [address] [facility] [place] [address] 10/26/2022 10:19:32 10/26/2022 10:46:13 Chronic obstructive pulmonary disease 29999100 J44.9 Pure hypercholesterolemia 381977964 E78.00 History of malignant neoplasm of kidney 174776370 Z85.528 Osteoarthritis of hip 23 8616468 M16.9 [id number] Ge Mattson MD [facility] [place] [address] [place] [address] 11/05/2022 11:44:46 11/08/2022 09:49:21 Pain of right hip joint 8968685603 05784 M25.551 Osteoporosis 31734835 M8 1.0 [id number] Lissette Diaz, [facility] [place] [address] [place] [address] 11/17/2022 10:25:26 11/18/2022 08:46:25 Asthma-chronic obstructive pulmonary disease overlap syndrome 3955200462 2728204 J44.9 CAT 29PFT completed 11/2021 with moderate [...] GOLD normalSix minute walk testing normal Sarcoidosis 16538066 D86 .9 CT chest 11/16/21:F INDINGS:He art: [...] in the future. Candidiasis of mouth 797 41253 B37.0 Start Nystatin [id number] Lissette Diaz, [facility] [place] [address] [place] [address] 4 02/15/2023 10:37:59 02/15/2023 11:33:32 Asthma-chronic obstructive pulmonary disease overlap syndrome [id number] 8013689 J44.9 CAT 33ACT 16PFT completed 11/2021 with moderate obstructio nRatio 41, FEV1 4427% improvemen t after BDRepeat PFT 12/2022 with severe obstructio n and good BD responseCo ntinue Breztri with aerochambe rContinue Albuterol PRN - discussed indication s for useDiscuss ed reportable signs and symptoms Chronic bronchitis 97357 004 J42 Start Azithromyc in three times per week Candidiasis of mouth 797 27753 B37.0 Start Nystatin Sarcoidosis 14086560 D86 .9 CT chest 11/16/21:F INDINGS:He art: [...] Rx options if needed in the future. [id number] Ge Mattson MD [facility] [place] [address] [facility] [address] [place] [address] 03/23/2023 09:48:48 03/23/2023 13:52:30 Osteoarthritis 268572188 M16.11 [id number] Ge Mattson MD [facility] [place] [address] [facility] [address] [place] [address] 04/15/2023 08:53:46 04/15/2023 10:13:06 Low back pain 485478662 M54.50 Cervical radiculopathy 46183881 M54.12 [id number] Massiel Carrillo MD [facility] [address] [facility] [place] [address] 04/26/2023 10:34:29 04/26/2023 11:21:18 Adult health examination 978417763 Z00.00 Depression screening 171 074416 Z13.31 Essential hypertension 94078217 I10 Atrial fibrillation 4943 6004 I48.91 History of malignant neoplasm of kidney 554597404 Z85.528 Chronic ob structive pulmonary disease 64620745 J44.9 [id number] Massiel Carrillo MD [facility] Internal Med [facility] [address] [place] [address] 06/13/2023 16:21:39 06/13/2023 16:46:55 Neck pain 59069888 M54.2 [id number] Massiel Carrillo MD [facility] Internal Med [place] [address] [facility] [address] , [place] [address] 08/23/2023 11:27:58 08/23/2023 12:06:18 Chronic obstructive pulmonary disease 69476458 J44.9 Chronic pain syndrome 37 7960491 G89.4 Essential hypertension 82238109 I10 Pure hypercholesterolemia 874268025 E78.00 Long-term current use of opiate analgesic drug 7518779448 06922 Z79.828 [id number] Massiel Carrillo MD [facility] [address] [facility] , [place] [address] 12/27/2023 11:44:25 12/27/2023 12:39:10 Atrial fibrillation 77598928 I48.91 Anxiety 33162740 F41.9 Chronic ob structive pulmonary disease 25805735 J44.9 Essential hypertension 95026736 I10 Gastroesop hageal reflux disease 539213994 K21.9 Pure hypercholesterolemia 229864514 E78.00 [id number] Massiel Carrillo MD [facility] Primary Care [facility] [address] [facility] [address] [place] [address] 05/15/2024 10:16:43 05/15/2024 14:05:50 Adult health examination 586847820 Z00.00 Depression screening 171 080857 Z13.31 Essential hypertension 77043088 I10 Pure hypercholesterolemia 909533522 E78.00 History of malignant neoplasm of kidney 822456177 Z85.528 Osteoarthritis of hip 23 1290224 M16.9 Anxiety disorder 3825095 06 F41.9 Chronic ob structive pulmonary disease 80486489 J44.9 Gastroesop hageal reflux disease 791132162 K21.9 Vitamin D deficiency 347 67039 E55.9 Health Concerns Section Related Observation LastModified by Organization Detai ls LastModified Time None Recorded Concern Status LastModified by Organization Details LastModified Time None Recorded Advance Directives Directive None Recorded Payers Encounter Date Sequence Insurance Name Policy Number Policy Ruth Covered Member ID Ruth Member ID Guarantor Name 04/26/2023 1 [facility] (MEDICAID HMO) [id number] Gladys Havron [id number] Gladys Havron 06/13/2023 1 [facility] (MEDICAID HMO) [id number] Gladys Havron [id number] Gladys Havron 08/23/2023 1 [facility] (MEDICAID HMO) [id number] Gladys Havron [id number] Gladys Havron 12/27/2023 1 [facility] (MEDICAID HMO) [id number] Gladys Havron [id number] Gladys Havron 05/15/2024 1 [facility] (MEDICAID HMO) [id number] 0003 Gladys Havron [id number] Gladys Havron Notes Date Note Type Note [...] Systemic Symptoms:none Medication Reconciliation: from medication list. Ixvktqbzbjm94/02/2023: Echocardiogram demonstrates a left ventricular ejection fraction [...] specific medication. Rate control: controlled ventricular response [id number] Criteria: hypertension, Age < 65 and and [...] UG AEROSOL, METERED Two Puffs BidVaccination and Jqxcyxbzmftl6695-48 Itkffimbu1232-15 Covid Seuvmk8355-03 PneumovaxSurgical HistoryEsophageal Dilatation, Left NOEMY, Right NephrectomyPreventative Testing Confirmed by Our Cidpgnc2903/22/2023 ALBUMIN 4.2 G/DL N011/15/2022 MAMMOGRAM /05/2021 UPPER UIDZUOYPU99/30/2022 COLONOSCOPY ( 5 YEARS ) /03/2022 LDCT / DEXA SCANSocial HistorySOCIAL HISTORY:Smoking Hx: 1 packs of cigarettes per day for over 30 years.Drinking Hx: < 6 beers per week, > 24 oz of coffee per day.Exercise: InfrequentlySexual Hx: Sexually ActiveFamily HistoryFAMILY HISTORY:Mother Living 76 years old has hx of [place] of breastFather 51 years old1 Sisters 1 LivingFather Hx: JUSTO Carrillo MD [address] [facility] [facility] [address], [place], [address], [place] [facility] [employer] [facility] 04/26/2023 11:19:23 4 text/html Patient Name: Gladys Robertson Of Service: Tuesday ( 06.13.2023 ): 1965 Age: 57 Chief Complaint: Addressed in HPI Problems or conditions discussed in the HPI were the only ones reviewed during the encounter.Only social and family history addressed in the HPI were reviewed during this encounter. Attendant(s): NoneConstitutional and Systemic Symptoms:none Medication Reconciliation: from medication list. Ohirwieuici34/02/2023: Echocardiogram demonstrates a left ventricular ejection fraction [...] Two Puffs Bid Massiel Carrillo MD [address] [facility] [facility] [address], [place], [address], [place] [employer] 06/13/2023 16:39:41 4 text/html Patient Name: Gladys [...] Systemic Symptoms:none Medication Reconciliation: from medication list. 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 .Pain - Enjoyment of Life - General Activity ScalePain on Average: 5Enjoyment of Live: 6General Activity: 5Enjoyment of Life - General Activity Scale: 5Currently regimen consists of [place] as prescribed with no evidence of abuse [...] AEROSOL, METERED Two Puffs Bid Vaccination and Watwotnesyxz8923-27 Asnbadpen1188-01 Covid Qcikpv3708-40 Pneumovax Surgical Mkfpzub4376-24 Esophageal Gvkprklcxq7389-92 Left ZCL4757-40 Right Nephrectomy Preventative Vgawoaf8303/22/2023 ALBUMIN 4.2 G/DL N011/15/2022 MAMMOGRAM 410/05/2021 UPPER IUAUZAMQA11/30/2022 COLONOSCOPY ( 5 YEARS ) /03/2022 LDCT / DEXA SCAN Social HistorySOCIAL HISTORY:Smoking Hx: 1 packs of cigarettes per day for over 30 years.Drinking Hx: < 6 beers per week, > 24 oz of coffee per day.Exercise: InfrequentlySexual Hx: Sexually Active Family HistoryFAMILY HISTORY:Mother Living 76 years old has hx of [place] of breastFather 51 years old1 Sisters 1 LivingFather Hx: JUSTO Carrillo MD [address] [facility] [facility] [address], [place], [address], [facility] [employer] [facility] 08/23/2023 12:03:44 4 text/html Patient Name: Gladys [...] Systemic Symptoms:none Medication Reconciliation: from medication list. Pbqyrknrfrn90/02/2023: Echocardiogram demonstrates a left ventricular ejection fraction [...] specific medication. Rate control: controlled ventricular response [id number] Criteria: hypertension and Age < 65 for [...] AEROSOL, METERED Two Puffs Bid Vaccination and Cornnehydqcj7545-41 Xyfdlakqr9419-98 Covid Lbverb0756-24 Pneumovax Surgical Wmsufhq8950-78 Esophageal Gsjhcevtwo4375-73 Left EDF6061-56 Right Nephrectomy Preventative Testing( ) 09/22/2023 Albumin [...] Sisters 1 LivingFather Hx: JUSTO Carrillo MD [address] [place] [address], [address], [facility] 12/27/2023 12:34:53 5 text/html Patient Name: Gladys [...] Systemic Symptoms:none Medication Reconciliation: from medication list. Vyjduzolrnd68/02/2023: Echocardiogram demonstrates a left ventricular ejection fraction [...] specific medication. Rate control: controlled ventricular response [id number] Criteria: Age < 65 and and considered low risk for embolic phenomenon. Anticoagulation: ASA per cardiology #4. Hx of DJD stable. No interval complaints of any additional joint pain, swelling or redness. Joints most involved include hips. Medications: [place] The DJD does interfere with ADL and [...] PNEUMOVAX PREVNAR 20 Needed(X) 2023-02 INFLUENZA(X) 2023-02 COVTrunkbow Surgical Tcnzgaj3006-01 Esophageal Qffmeeuobk7035-68 Left RPH6031-11 Right Nephrectomy Preventative Testing( ) 09/22/2023 Albumin [...] 0.50-1.03 MG/DLEGFR 97 > OR = 60 ML/MIN/1.95S3NOLTNBI 9.3 8.6-10.4 MG/DLBILIRUBIN, TOTAL 0.3 0.2-1.2 MG/DLALKALINE PHOSPHATASE 73 37-153 U/LAST 19 10-35 U/LALT 16 6-29 U/LLIPID PANEL, STANDARD Date: 4CHOLESTEROL, TOTAL 202 <200 MG/DLHDL CHOLESTEROL 114 > OR = 50 MG/DLTRIGLYCERIDES 69 <150 MG/DLLDL-CHOLESTEROL 73 MG/DL (CALC)T4, FREE Date: 09/22/2023T4, FREE 1.2 0.8-1.8 NG/DLTSH Date: 09/22/2023TSH 0.49 0.40-4.50 MIU/L Massiel Carrillo MD [address] [facility] [facility] [address], [place], [address], [place] [facility] [employer] [facility] 05/15/2024 10:55:46 OBGyn Episode No OBEpisode recorded.
[2024-10-02 09:56] VITALS: BP 136/70; PULSE 77; RESP 15; TEMP 36.5; O2SAT 99
--- NOTE | 2024-10-02 10:58 | P.HP_ITS ---
History of Present Illness History of Present Illness Consent: Risks, benefits, and alternatives have been discussed and questions answered. Patient agrees to proceed with procedure. Chief complaint: Cervical Spondylosis w/o Myelopathy or Radiculop, Narrative: Gladys Todd is a 58 year old female with chronic, recalcitrant and disabling bilateral cervicalgia secondary to degenerative spondylosis with failure to respond to aggressive conservative measures including PT, oral and topical analgesics, opioid and nonopioid analgesics, rest, time and activity/behavioral modification over the past 1-2 years who presents for diagnostic/prognostic medial branch blocks of the bilateral C4, C5, C6 medial branches(#1) addressing the bilateral C4-5, C5-6 facet joints under fluoroscopic guidance and with contrast control. Review of Systems Review of Systems: Patient denies any new infectious, allergic, cardiopulmonary, neurologic or constitutional symptoms or changes in activity tolerance or exercise capacity including new or progressive SOB/RETANA, peripheral edema, productive cough, dysuria, nausea/vomiting, diarrhea, weight change, fevers/chills/night sweats, new or progressive neurologic deficit, cognitive or mood changes since last seen, except as documented in the HPI. All systems reviewed & are unremarkable except as noted in HPI and below PMFSH Past Medical History Medical History Spinal stenosis of lumbar region Colon polyps Osteoarthritis Sarcoidosis Tobacco dependence syndrome Greater trochanteric pain syndrome Stricture of esophagus Malignant neoplasm of kidney Dysphagia Depressive disorder Anxiety Asthma Vitamin D deficiency Surgical History Surgical History History of nephrectomy, right History of left hip replacement Family History Family History Mother Breast cancer Grandparent Throat cancer Breast cancer Other Cerebrovascular accident Family history of cardiovascular disease Social History Social History Years smoked: 43 Smoking status: Former smoker Second hand tobacco smoke exposure: Yes Alcohol intake: current Drinks per week: 2 Alcohol use details: social Substance use: never Substance use type: does not use Do You Feel Safe in your Home?: Yes Lack of Transportation: No Lack of Food: Never True Current Housing: I Have Housing Concerned About Future Housing: Decline to Answer Difficulty Paying Gas/Electric Bills: Decline to Answer Difficulty Paying for Meds: Decline to Answer Currently Unemployed: Decline to Answer Education: Decline to Answer Difficulty w/ Childcare or Family Care: Decline to Answer Living arrangements: with family Additional living arrangements comments: S.0. Occupation/Education: occupation Additional occupation/education comments: [employer] Gender identity (if verbalized by the patient): Female Spiritual care concerns: No Meds Home Medications and Allergies Home Medications ?Medication ?Instructions ?Recorded ?Confirmed ?Type albuterol sulfate 90 mcg/actuation 2 puff inhalation Q4H PRN 11/27/21 10/02/24 History aerosol inhaler (ProAir HFA) Shortness Of Breath atorvastatin 20 mg tablet 20 mg PO DAILY 11/27/21 10/02/24 History budesonide 160 mcg-glycopyr 9 2 inh inhalation BID 02/28/23 10/02/24 History mcg-formot 4.8 mcg/actuation HFA inhaler (Breztri Aerosphere) pantoprazole 40 mg tablet,delayed 40 mg PO QAM #90 tabs 05/13/23 10/02/24 Rx release (Protonix) cholecalciferol (vitamin D3) 125 125 mcg PO .qod 08/16/23 10/02/24 History mcg (5,000 unit) disintegrating tablet losartan 25 mg tablet 25 mg PO DAILY 08/16/23 10/02/24 History roflumilast 500 mcg tablet 500 mcg PO DAILY 05/21/24 10/02/24 History alprazolam 0.5 mg tablet 0.5 mg PO TID PRN anxiety 07/09/24 10/02/24 History ascorbic acid (vitamin C) 500 mg 500 mg PO DAILY 07/09/24 10/02/24 History capsule alendronate 70 mg tablet See Rx Instructions .Route 09/12/24 10/02/24 Rx .COMPLEX #14 tabs hydrocodone 7.5 mg-acetaminophen 1 tablet PO Q6H 09/12/24 10/02/24 History 325 mg tablet Allergies Allergy/AdvReac Type Severity Reaction Status Date / Time No Known Allergies Allergy Verified 10/02/24 09:54 Vital Signs Vital Signs - 24 hr 10/02/24 09:56 Temperature 97.7 F Pulse Rate 77 Respiratory Rate 15 Blood Pressure 136/70 Pulse Oximetry 99 Oxygen Delivery Room Air Exam Narrative: The patient's physical exam is essentially unchanged from prior examination on 07/10/2024. Specifically, patient demonstrates normal lung capacity, tidal volume and respiratory rate without wheezes, crackles, rales or rubs. Heart rate and rhythm are regular without murmurs, gallops or rubs. No JVD. Pulses 2+ globally without increasing peripheral edema. AAOx3 with no evidence of confusion, intoxication or altered mental state, NC/AT without acute distress or altered consciousness. Speech, cognition, mood, [facility] and within normal limits. Assessment and Plan Assessment and plan (1) Cervical spondylosis: Code(s): M47.812 - Spondylosis without myelopathy or radiculopathy, cervical region Status: Acute Assessment and Plan: Proceed as planned with diagnostic/prognostic medial branch blocks of the bilateral C4, C5, C6 medial branches(#1) addressing the bilateral C4-5, C5-6 facet joints under fluoroscopic guidance and with contrast control. (2) Neck pain: Code(s): M54.2 - Cervicalgia Status: Acute
--- NOTE | 2024-10-02 11:00 | WPDHPUPDATE1 ---
History and Physical Update Update Date/Time: 10/02/24 11:00 History and Physical has been reviewed, including an updated exam of the patient. There are NO changes in the patient's condition. Risks, benefits, and alternatives have been discussed and questions answered. Patient agrees to proceed with procedure.
--- NOTE | 2024-10-02 11:00 | W.PM.PROC2 ---
Procedure Note - Detailed Date of Procedure 10/02/24 Pre-op Diagnosis Cervical Spondylosis w/o Myelopathy or Radiculop, Post-op Diagnosis Same Procedure Performed Diagnostic bilateral Cervical Medial Branch Nerve Blocks at C4, C5, C6 Blocking the bilateral C4-5, C5-6 facet joints under Fluoroscopic Guidance and with Contrast Control (4 levels blocked). Surgeon Everardo Pop MD Chief Medical Officer None. Anesthesia Local Description of Procedure INFORMED CONSENT: Risks, benefits and alternatives to the procedure were discussed in detail with the patient who expressed explicit understanding and consent to proceed. Patient was informed verbally and in written form regarding the risks associated with the procedure including the low risk of serious infection, bleeding/bruising, allergic reaction, nerve or organ injury, paralysis, procedural site pain or discomfort, worsening pain and/or mobility, failure to treat and/or disfigurement. The patient expressed explicit understanding and consent to proceed. All materials required for the procedure were available prior to procedure start. Site and side were marked prior to procedure and confirmed in the presence of the patient. PROCEDURE IN DETAIL: The patient was brought to the procedural suite and placed in the prone position with head stabilized with a ProneView pillow. Patient was made comfortable with use of pillows under the head/chest, hips and ankles. Skin overlying the injection site on the affected side(s) was prepared broadly with ChloraPrep applicator and draped in a sterile manner. Aseptic technique was used throughout. The endplates of the vertebral bodies at the site(s) of interest were aligned in the AP view. Ipsilateral oblique angulation was utilized to optimize visualization of the pars interarticularis at each target site. Local anesthesia was established by infiltration with approximately 5 mL of 0.5% lidocaine via a 1-1/2 inch 27-gauge needle divided over each injection site. A 25-gauge 3.5 inch Quincke spinal needle was advanced until the needle tip contacted the periosteum of the pars interarticularis at the target site, right C4 medial branch. Lateral view was utilized to confirm the appropriate placement of the needle tip just anterior to the center point of the interarticularis. In the Lateral view, 0.25 mL of Omnipaque 300 contrast medium was injected after negative aspiration for CSF, blood or other bodily fluid, showing appropriate extra-articular spread of contrast without evidence of intravascular, foraminal or intrathecal placement. A 0.25 mL solution of 0.5% PF bupivacaine was injected after negative repeat aspiration. Appropriate spread of the injectate was confirmed with washout of previously injected contrast. No parasthesias were elicited. Needle was removed completely intact without difficulty. The same exact procedure was repeated for all remaining levels on the ipsilateral side, right C5, C6, modified as necessary to accommodate for the new target location with identical findings and results and no evidence of complication. The same exact procedure was repeated for all remaining levels on the contralateral side, left C4, C5, C6 medial branches, modified as necessary to accommodate for the new target location with identical findings and results and no evidence of complication. Images were saved and documented in the patient chart. Patient's skin was cleansed and sterile bandage applied. The patient tolerated the procedure well. The patient was transported to the recovery area in stable condition where they were observed for an appropriate amount of time prior to discharge, without evidence of complication. Patient was instructed on the appropriate completion of a pain diary over the next 12-24 hours. The patient was instructed to avoid excessive activity for the next 48 hours, including climbing and frequent use of stairs. Showers only for 48 hours. They were instructed not to drive or operate heavy machinery for 24 hours. They are to monitor for severe headaches, fevers, chills, night sweats, erythema/swelling at the site or any other signs of infection, bleeding/bruising, bowel or bladder changes as well as new pain, weakness or numbness in the upper or lower extremity. Should they notice these changes, they are instructed to call our office immediately or report directly to the nearest Emergency Department if no answer or if after posted office hours. COMPLICATIONS: None COMMENTS: None CONTRAST WASTED: 28.5mL Omnipaque 300. Complications No immediate complications Condition Stable Disposition Same day [facility] Billing Surgery - Charge Forward: Surgery Billing
[2024-10-02 11:35] VITALS: BP 151/71; PULSE 81; RESP 19; O2SAT 97
[2024-10-02 11:45] VITALS: BP 140/73; PULSE 83; RESP 16; O2SAT 97
[2024-10-02 11:50] VITALS: BP 149/75; PULSE 81; RESP 16; O2SAT 97
[2024-10-02] MEDS: LIDOCAINE 1% PF INJ 5 ML VIAL INFILTRATE (11:50)
[2024-10-02] MEDS: BUPivacaine HCL 0.5% 10 ML AMP INFILTRATE (11:50)
[2024-10-02 11:54] VITALS: BP 134/75; PULSE 78; RESP 14; O2SAT 99
== END 2024-10-02 12:04 | disposition home or self-care (01) ==
PROVIDERS: PCP Internal Medicine; Visit Provider Anesthesiology Pain Medicine
PROC: (CPT 64490; principal; 2024-10-02 10:55)
DX: M47.812 Spondylosis without myelopathy or radiculopathy, cervical region (principal); G89.29 Other chronic pain
CPT/HCPCS: 64490 ×2; 64491 ×2; 64492 ×2; 99199

== ENCOUNTER 2024-11-20 09:43 | Day surgery (SDC) | payer OTHER, SELFPAY ==
[2024-11-14 14:02] VITALS: BMI 19.7
--- NOTE | ~2024-11-20 | XR_ITS ---
XR fluoroscopy no charge Indication: Midline C6-C7 interlaminar epidural steroid injection TECHNIQUE: Fluoroscopy used during midline C6-7 interlaminar epidural steroid injection performed by [Everardo Pop MD] on 11/20/2024. 11 seconds of fluoroscopy with 5 fluoroscopic images capture d. FINDINGS: Correlate with procedure note. IMPRESSION: Fluoroscopy used during midline C6-7 interlaminar epidural steroid injection. Reviewed, dictated and finalized at location B.
--- NOTE | 2024-11-20 09:02 | WPDHPUPDATE1 ---
History and Physical Update Update Date/Time: 11/20/24 09:02 History and Physical has been reviewed, including an updated exam of the patient. There are NO changes in the patient's condition. Risks, benefits, and alternatives have been discussed and questions answered. Patient agrees to proceed with procedure.
--- NOTE | 2024-11-20 09:03 | P.OP_ITS ---
Procedure Note - Detailed Date of Procedure 11/20/24 Pre-op Diagnosis Lumbosacral Spondylosis w/o Myelopathy or Radicul. Post-op Diagnosis Same Procedure Performed Midline Cervical Interlaminar Epidural Steroid Injection at C6-7 under Flu oroscopic Guidance and with Contrast Control. Surgeon Everardo Pop MD Anesthesia Local Description of Procedure INFORMED CONSENT: Risks, benefits and alternatives to the procedure were discussed in detail with the patient who expressed explicit understanding and consent to proceed. Patient was informed verbally and in written form regarding the risks associated with the procedure including the low risk of serious infection, bleeding/bruising, allergic reaction, nerve or organ injury, paralysis, procedural site pain or discomfort, worsening pain and/or mobility, failure to treat and/or disfigurement. The patient expressed explicit understanding and consent to proceed. All materials required for the procedure were available prior to procedure start. Site and side was marked prior to procedure and confirmed in the presence of the patient. PROCEDURE IN DETAIL: The patient was brought to the procedural suite and placed in the prone position. Patient's head was positioned and stabilized with a ProneView pillow or equivalent. Patient was made comfortable with use of pillows under the chest, hips and ankles. Skin overlying the injection site was prepared broadly with ChloraPrep applicator and draped in a sterile manner. Aseptic technique was employed throughout. The endplates of the vertebral body at the site of interest were aligned in the AP view. Slight caudad tilt and ipsilateral oblique angulation was utilized to optimize visualization of the targeted posterior intervertebral foramen at C6-7. Local anesthesia was established by infiltration with approximately 5 mL of 2% lidocaine via a 1-1/2 inch 27-gauge needle. A 20-gauge 4-inch Tuohy epidural needle was advanced intermittently until appropriate loss of resistance to air was identified via plastic loss of resistance syringe. Lateral view was used to confirm the appropriate positioning of the needle tip within the posterior epidural space. In the AP view, 2.0 mL of Omnipaque 300 contrast medium was injected after negative aspiration for CSF, blood or other bodily fluid, showing appropriate epidural spread of contrast without evidence of intravascular or intrathecal placement. After negative repeat aspiration for CSF, blood or other bodily fluid , A 4 mL solution containing 6 mg of betamethasone in sterile PF Normal Saline was injected after negative repeat aspiration. Appropriate spread of the injectate was confirmed with washout of previously injected contrast. No parasthesias were elicited. Needle was removed completely intact without difficulty. Images were saved and documented in the patient chart. Patient's skin was cleansed and sterile bandage applied. The patient tolerated the procedure well. The patient was transported to the recovery area in stable condition where they were observed for an appropriate amount of time prior to discharge, without evidence of complication. The patient was instructed to avoid excessive activity for the next 48 hours, including overhead work, reaching or extended device/computer usage. Showers only for 48 hours. They were instructed not to drive or operate heavy machinery for 24 hours. They are to monitor for severe headaches, fevers, chills, night sweats, erythema/swelling at the site or any other signs of infection, bleeding/bruising, bowel or bladder changes as well as new pain, weakness or numbness in the upper or lower extremity. Should they notice these changes, they are instructed to call our office immediately or report directly to the nearest Emergency Department if no answer or if after posted office hours. CONTRAST WASTED: 28mL Omnipaque 300. Complications No immediate complications Condition Stable Disposition Same day [facility] Billing Surgery - Charge Forward: Surgery Billing
--- OUTSIDE RECORDS SUMMARY | 2024-11-20 09:57 | XMS_ITS | Referral Summary ---
Author Organization [facility] Building B Address [address] [place] [phone] Care Team Providers Care Pet Groomer Name Role Phone Christopher Carrillo MD Primary Care Provider Encounters Date Type Department Care Team Description 11/19/2024 Telephone [facility] Medical [facility] Pulmonary at [address] [phone] Gabrielle Esquivel LPN airsupra 11/12/2024 Telephone [facility] Medical Group Pulmonary at [address] [phone] Gabrielle Esquivel LPN Prior Auth (Daliresp) 10/25/2024 Results Follow-Up [facility] Medical [facility] Pulmonary at [address] [phone] Lissette Diaz NP CBC with auto differential, Differential, auto 10/23/2024 9:15 AM CDT Lab [address] Asthma-COPD overlap syndrome (HCC) 10/23/2024 8:30 AM CDT Office Visit [facility] Pulmonary at [address] [phone] Lissette Diaz NP Asthma-COPD overlap syndrome (HCC) (Primary Dx); Sarcoidosis; Long-term use of high-risk medication; Cigarette nicotine dependence in remission 10/19/2024 Results Follow-Up [facility] Pulmonary at [address] [place] [phone] Lissette Diaz, CIGARETTE MACHINES MECHANIC Hepatic function panel 10/18/2024 9:30 AM CDT Lab [address] Long-term use of high-risk medication from Last 3 Months Allergies No known active allergies Medications multivit,dalton,mn- ufjuo-Z1-poypz (One A Day Men Complete) 240-25-300 mcg [...] Asthma-COPD overlap syndrome 07/23/2024 Assessment & Plan (10/23/2024 11:56 AM CDT): Continue Breztri 2 puffs twice daily with AeroChamber Albuterol via MDI or nebulizer every 4-6 hours as needed only, we have discussed indications for use Continue flutter valve to assist with mucus clearance Continue roflumilast 500 mcg daily LFT was normal She has tried and failed azithromycin. I will check a CBC to assess for peripheral eosinophilia, she may be a candidate for biologic therapy. She is aware of signs and symptoms that would require earlier evaluation or change to her plan of care. Assessment & Plan (07/23/2024 11:27 AM CDT): Continue Breztri 2 puffs twice daily with AeroChamber She is aware to call if she develops thrush Albuterol via MDI or nebulizer as needed only, we have discussed indications for use Continue flutter valve to assist with mucus clearance Continue roflumilast 500 mcg daily She is limited by hip pain at this time, I would consider AR for her once her recovery from surgery and PT are completed. Check LFT She is aware of signs and symptoms that would require earlier evaluation or change to her plan of care. Sarcoidosis 07/23/2024 Assessment & Plan (10/23/2024 11:58 AM CDT): She was diagnosed in the and had prolonged steroids Her current imaging does not demonstrate any sign of active disease. We will continue to monitor at least annually, she is due for a repeat scan in February 2025. Assessment & Plan (07/23/2024 11:28 AM CDT): Imaging does not demonstrate any sign of active disease. We will continue to monitor at least annually. Cigarette nicotine dependence in remission 07/23 Assessment & Plan (10/23/2024 12:06 PM CDT): She quit May 2024 with a 43 pack year history. She qualifies for annual LDCT and is due 02/2025 Assessment & Plan (07/23/2024 11:27 AM CDT): She quit 6 weeks ago. I have encouraged her to continue to use the gum after surgery. 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 BINDING Gender Identity Female 09/09/2023 12:40 PM CDT Sexual Orientation Straight 09/09/2023 12 :40 PM CDT Last Filed Vital Signs Vital Sign Reading Time Taken Comments Blood Pressure 120/66 10/23/2024 8:20 AM CDT Pulse 76 10/23/2024 8:20 AM CDT Temperature 36.6 C (97.8 F) 10/23/2024 8:20 AM CDT Respiratory Rate 18 10/23/2024 8:20 AM CDT Oxygen Saturation 96% 10/23/2024 8:20 AM CDT Inhaled Oxygen Concentration - - Weight 56.2 kg (123 lb 14.4 oz) 10/23/2024 8:20 AM CDT Height 167.6 cm (5' 6) 10/23/2024 8:20 AM CDT Body Mass Index 20 10/23/2024 8:20 AM CDT Plan of Treatment Not on file Procedures Procedure Name Priority Date/Time Associated Diagnosis Comments DIFFERENTIAL AUTO Routine 10/23/2024 9:1 5 AM CDT Asthma-COPD overlap syndrome (HCC) CBC WITH AUTO DIFFERENTIAL Routine 10/23/2024 9:15 AM CDT Asthma-COPD overlap syndrome (HCC) HEPATIC FUNCTION PANEL Routine 10/18/2024 9:29 AM CDT Long-term use of high-risk medication CT CHEST WO CONTRAST F/U LUNG SCREEN PROTOCOL Schedule Routine, Read Routine (OP Routine) 03/02/2024 9:20 AM CDT Lung nodule from Last 3 Months or Most Recently Relevant to Health Maintenance Results * (ABNORMAL) Differential, auto (10/23/2024 9:15 AM CDT) Neutrophil abs 6.90(H) 1.50 - 6.50 K/cumm Imm gran abs 0.03 0.00 - 0.10 K/cumm [facility] ([facility]) Lymphocyte abs 2.81 0.80 - 3.30 K/cumm [facility] ([facility]) Monocyte abs 0.91(H) 0.20 - 0.80 K/cumm [facility] ([facility]) Eosinophil abs 0.18 0.00 - 0.50 K/cumm [facility] ([facility]) Basophil abs 0.07 0.00 - 0.10 K/cumm [facility] ([facility]) Neutrophil pct 63.3 % [facility] ([facility]) Comment: Interpretive Data Percent cell count reference ranges are not reported, since discordance with absolute values may lead to misinterpretation of CBC data. Current Interpretive Data was last revised on 2017. Imm gran pct 0.3 % [facility] ([facility]) Comment: Interpretive Data Percent cell count reference ranges are not reported, since discordance with absolute values may lead to misinterpretation of CBC data. Current Interpretive Data was last revised on 2017. Lymphocyte pct 25.8 % [facility] ([facility]) Comment: Interpretive Data Percent cell count reference ranges are not reported, since discordance with absolute values may lead to misinterpretation of CBC data. Current Interpretive Data was last revised on 2017. Monocyte pct 8.3 % [facility] ([facility]) Comment: Interpretive Data Percent cell count reference ranges are not reported, since discordance with absolute values may lead to misinterpretation of CBC data. Current Interpretive Data was last revised on 2017. Eosinophil pct 1.7 % [facility] ([facility]) Comment: Interpretive Data Percent cell count reference ranges are not reported, since discordance with absolute values may lead to misinterpretation of CBC data. Current Interpretive Data was last revised on 2017. Basophil pct 0.6 % [facility] ([facility]) Comment: Interpretive Data Percent cell count reference ranges are not reported, since discordance with absolute values may lead to misinterpretation of CBC data. Current Interpretive Data was last revised on 2017. Blood 10/23/2024 9:15 AM CDT 10/23/2024 10:35 AM CDT us Lissette Diaz CIGARETTE MACHINES MECHANIC LAB BLOOD ORDERABLES Final Result [facility] ([facility]) 1 [facility] Department [place] [address] * (ABNORMAL) CBC with auto differential (10/23/2024 9:15 AM CDT) WBC 10.90(H) 3.80 - 9.90 K/cumm Hgb 12.6 11.9 - 15.5 g/dL [facility] ([facility]) Hct 38.0 35.6 - 45.5 % [facility] ([facility]) Plt 464(H) 150 - 400 K/cumm [facility] ([facility]) MPV 10.3 9.1 - 12.3 fL [facility] ([facility]) RBC 4.19 3.90 - 5.20 M/cumm [facility] ([facility]) MCV 90.7 81.3 - 96.4 fL [facility] ([facility]) MCH 30.1 27.1 - 33.3 pg [facility] ([facility]) MCHC 33.2 32.3 - 35.7 g/dL [facility] ([facility]) RDW CV 14.9 11.1 - 14.9 % [facility] ([facility]) RDW SD 49.9(H) 35.7 - 48.1 fL [facility] ([facility]) NRBC abs 0.00 0.00 - 0.01 K/cumm [facility] ([facility]) Blood 10/23/2024 9:15 AM CDT 10/23/2024 10:35 AM CDT us Lissette Diaz CIGARETTE MACHINES MECHANIC LAB BLOOD ORDERABLES Final Result Performing Organization Address [facility] Co de Phone Number [facility] ([facility]) 1 [facility] [place] [address] * Hepatic function panel (10/18/2024 9:29 AM CDT) Bilirubin, total 0.2 0.1 - 1.2 mg/dL Bilirubin, direct <0.1 0.1 - 0.3 mg/dL [facility] ([facility]) Protein, pl 6.8 6.5 - 8.5 g/dL [facility] ([facility]) Albumin 4.0 3.5 - 5.0 g/dL [facility] ([facility]) Alk phos 85 40 - 130 Units/L [facility] ([facility]) ALT 16 7 - 45 Units/L [facility] ([facility]) AST 26 10 - 45 Units/L [facility] ([facility]) Blood 10/18/2024 9:29 AM CDT 10/18/2024 1:09 PM CDT us Lissette Diaz CIGARETTE MACHINES MECHANIC LAB BLOOD ORDERABLES Final Result Performing Organization Address [facility] Co de Phone Number [facility] ([facility]) 1 [facility] [place] [address] * CT Chest WO Contrast F/U Lung [...] chest 11/28/2023 FINDINGS: SMOKING RELATED LUNG DISEASE: Dxsnnnxy-ls-lhpzfl apical predominant emphysema and biapical pleural-parenchymal scarring. [...] which is not seen in the included ysmtz-jc-ioik. Visualized abdomen is otherwise unremarkable. There is no suspicious osseous lesion. IMPRESSION: 1. Previously noted bronchial filling defect in the left lower lobe has resolved and was likely related to mucous plugging. 2. Efjtzqru-zf-oxhckk apical predominant emphysema and biapical pleural-parenchymal scarring. [...] 8:00 AM - Electronically signed by Pino ArchuletaD. AM: AM Report ID: [id number] Reading Location: [id number] Procedure Note Pino Ann MD - 03/06/2024 [...] chest 11/28/2023 FINDINGS: SMOKING RELATED LUNG DISEASE: Vctdntsm-kg-zrzfqi apical predominant emphysema and biapical pleural-parenchymal scarring. [...] which is not seen in the included deihj-iq-asuh. Visualized abdomen is otherwise unremarkable.There is no suspicious osseous lesion. IMPRESSION: 1. Previously noted bronchial filling defect in the left lower lobe has resolved and was likely related to mucous plugging. 2. Ozgzzqyy-wr-dxdjwq apical predominant emphysema and biapical pleural-parenchymal scarring. [...] Pino Ann M.D. AM: AM Report ID: [id number] Reading Location: [id number] Ge Hall MD IMG CT PROCEDURES Final Result from Last 3 Months or Most Recently Relevant to Health Maintenance Insurance [facility] BUREAU OF DISABILITY [facility] Advance Directives For more information, please contact: [phone] Documents on File Type Date Recorded Patient Factory Assembler Expl anation ADVANCE DIRECTIVE 06/04/2015 12:00 AM PIPO R OF MAMMOGRAPHER FINANCIAL/MEDICAL Care Teams Pet Groomer Relationship Specialty Start Date End Date Christopher Carrillo MD [address] [facility] [address] [address] PCP - General Internal Medicine 07/13/23
--- OUTSIDE RECORDS SUMMARY | 2024-11-20 09:57 | XMS_ITS | Encounter Summary ---
Author Organization [facility] Healthcare Address [address] [place] [address] Care Team Providers Care Support Clerk Name Role Phone Christopher Carrillo MD Primary Care Provider Reason for Visit * Reason Onset Date Comments airsupra 11/19/2024 Encounter Details Date Type Department Care Team (Late st Contact Info) Description 11/19/2024 Telephone [facility] Pulmonary at [address] [place] [phone] [facility]rielle [facility]quivel LPN [facility] Social History Tobacco Use Types Packs/Day Years Used Date Smoking Tobacco: Former Cigarettes 1 0 0 06/09/2024 - 06/10/2024 Comments Unknown Sex and Gender Information Value Date Recorded Sex Assigned at Not on file Legal Sex Female 1:56 AM INTELLECTUAL PROPERTY COUNSEL Gender Identity Female 09/09/2023 12:40 PM CDT Sexual Orientation Straight 09/09/2023 12 :40 PM CDT documented as of this encounter Miscellaneous Notes * Telephone Encounter - Gabrielle Esquivel LPN - 11/19/2024 1:11 PM CDT Patient called in saying she is ok for you to send in the airsupra inhaler. Her pharmacy is [facility] in [place]. documented in this encounter Plan of Treatment Not on file documented as of this encounter Visit Diagnoses Not on filedocumented in this encounter Care Teams Support Clerk Relationship Specialty Start Date End Date Christopher Carrillo MD [address] [facility] [address] [place] [id number] PCP - General Internal Medicine 07/13/23 documented as of this encounter
--- OUTSIDE RECORDS SUMMARY | 2024-11-20 09:57 | XMS_ITS | Encounter Summary ---
Author Organization [facility] Healthcare Address [address] [place] [address] Care Team Providers Care Laundry Machine Tender Name Role Phone Christopher Carrillo MD Primary Care Provider Encounter Details Date Type Department Care Team (Late st Contact Info) Description 10/19/2024 Results Follow-Up [facility] Medical Group Pulmonary at [address] [place] [phone] Lissette Diaz LOOM SETTER FOURDRINIER 4 [facility] [address] [place] [address] Hepatic function panel Social History Tobacco Use Types Packs/Day Years Used Date Smoking Tobacco: Former Cigarettes 1 0 0 06/09/2024 - 06/10/2024 Comments Unknown Sex and Gender Information Value Date Recorded Sex Assigned at Not on file Legal Sex Female 1:56 AM 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
--- OUTSIDE RECORDS SUMMARY | 2024-11-20 09:57 | XMS_ITS | Encounter Summary ---
Author Organization [facility] Healthcare Address [address] [place] [address] Care Team Providers Care Stewarding Supervisor Name Role Phone Christopher Carrillo MD Primary Care Provider Encounter Details Date Type Department Care Team (Late st Contact Info) Description 10/25/2024 Results Follow-Up [facility] Medical Group Pulmonary at [address] [place] [phone] Lissette Diaz, CORONARY CARE UNIT NURSE 4 [facility] [address] [place] [address] CBC with auto differential, Differential, auto Social History Tobacco Use Types Packs/Day Years Used Date Smoking Tobacco: Former Cigarettes 1 0 0 06/09/2024 - 06/10/2024 Comments Unknown Sex and Gender Information Value Date Recorded Sex Assigned at Not on file Legal Sex Female 1:56 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
--- OUTSIDE RECORDS SUMMARY | 2024-11-20 09:57 | XMS_ITS | Encounter Summary ---
Author Organization [facility] Care Team Providers Care Photoengraving Photographer Name Role Phone Christopher Carrillo MD Primary Care Provider Encounter Details Date Type Department Care Team (Latest Contact Info) Description 05/06/2015 Orders Only [facility] CLINCONV ProviderVenkat MD [address] [place] [address] Social History Tobacco Use Types Packs/Day Years Used Date Smoking Tobacco: Never Assessed Comments Unknown Sex and Gender Information Value Date Recorded Sex Assigned at Not on file Legal Sex Female 1:56 AM FORESTRY AIDE Gender Identity Female 09/09/2023 12:40 PM CDT Sexual Orientation Straight 09/09/2023 12 :40 PM CDT documented as of this encounter Plan of Treatment Not on file documented as of this encounter Procedures Procedure Name Priority Date/Time Associated Diagnosis Comments PROCEDURE - RESULT 05/06/2015 12 :00 AM FORESTRY AIDE documented in this encounter Results * PROCEDURE - RESULT (05/06/2015 12:00 AM FORESTRY AIDE) Narrative 05/06/2015 12:00 AM FORESTRY AIDE Ordered by an unspecified provider. Historical Provider Final Res ult documented in this encounter Visit Diagnoses Not on filedocumented in this encounter Care Teams Photoengraving Photographer Relationship Specialty Start Date End Date Christopher Carrillo MD [address] [facility] [place] [address] PCP - General Internal Medicine 07/13/23 documented as of this encounter
--- OUTSIDE RECORDS SUMMARY | 2024-11-20 09:57 | XMS_ITS | Encounter Summary ---
Author Organization [facility] Facility Care Team Providers Care Special Procedures Nurse Name Role Phone Christopher Carrillo MD Primary Care Provider Encounter Details Date Type Department Care Team (Latest Contact Info) Description 05/29/2015 Orders Only [facility] CLINCONV Provider, MD Venkat [address] [place] [id number] Social History Tobacco Use Types Packs/Day Years Used Date Smoking Tobacco: Never Assessed Comments Unknown Sex and Gender Information Value Date Recorded Sex Assigned at Not on file Legal Sex Female 1:56 AM BOSS MINER Gender Identity Female 09/09/2023 12:40 PM CDT Sexual Orientation Straight 09/09/2023 12 :40 PM CDT documented as of this encounter Plan of Treatment Not on file documented as of this encounter Procedures Procedure Name Priority Date/Time Associated Diagnosis Comments SCAN - LABS 05/29/2015 12:00 AM BOSS MINER SCAN - LABS 05/29/2015 12:00 AM BOSS MINER PROCEDURE - RESULT 05/26/2015 12 :00 AM BOSS MINER documented in this encounter Results * SCAN - LABS (05/29/2015 12:00 AM BOSS MINER) Narrative 05/29/2015 12:00 AM BOSS MINER Ordered by an unspecified provider. Historical Provider Final Res ult * SCAN - LABS (05/29/2015 12:00 AM BOSS MINER) Narrative 05/29/2015 12:00 AM BOSS MINER Ordered by an unspecified provider. us Historical Provider Final Res ult * PROCEDURE - RESULT (05/26/2015 12:00 AM BOSS MINER) Narrative 05/26/2015 12:00 AM BOSS MINER Ordered by an unspecified provider. us Historical Provider Final Res ult documented in this encounter Visit Diagnoses Not on filedocumented in this encounter Care Teams Special Procedures Nurse Relationship Specialty Start Date End Date Christopher Carrillo MD [address] [facility] 23 [place] [address] PCP - General Internal Medicine 07/13/23 documented as of this encounter
--- OUTSIDE RECORDS SUMMARY | 2024-11-20 09:57 | XMS_ITS | Clinical Summary ---
Author Organization [facility] Medical Office Building [address] Address [address] [place] [address] Care Team Providers Care Frame Opener Name Role Phone Christopher Carrillo MD Primary Care Provider Allergies No known active allergies Medications multivit,dalton,mn- xzicc-I9-iwbrh (One A Day Men Complete) 240-25-300 mcg [...] pain at this time, I would consider MA for her once her recovery from surgery [...] Type Department Care Team Description 11/19/2024 Telephone [facility] Pulmonary at [address] [place] [address] Gabrielle Esquivel LPN airsupra 11/12/2024 Telephone [facility] Pulmonary at [address] [place] [address] Gabrielle Esquivel LPN Prior Auth (Daliresp) 10/25/2024 Results Follow-Up [facility] Pulmonary at [address] [place] [phone] Lissette Diaz NP CBC with auto differential, Differential, auto 10/23/2024 9:15 AM CDT Lab [address] Asthma-COPD overlap syndrome (HCC) 10/23/2024 8:30 AM CDT Office Visit [facility] Pulmonary at [address] [address] Lissette Diaz NP Asthma-COPD overlap syndrome (HCC) (Primary Dx); Sarcoidosis; Long-term use of high-risk medication; Cigarette nicotine dependence in remission 10/19/2024 Results Follow-Up [facility] Pulmonary at [address] [phone] Lissette Diaz NP Hepatic function panel 10/18/2024 9:30 AM CDT Lab [address] Long-term use of high-risk medication from Last 3 Months Surgical History Surgery Date Site/Laterality Comments MA NEPHRECTOMY W/PRTL URETERECTOMY W/OPEN RIB RESCJ Nephrectomy [...] on file Legal Sex Female 1:56 AM FRAME OPENER Gender Identity Female 09/09/2023 12:40 PM CDT [...] 10/23/2024 8:20 AM CDT Plan of Treatment Health Maintenance [...] 10/02/2021, Additional history exists Influenza Vaccine (#1) 2025 , 02/10/2023, 02/12/2022, Additional history exists Lung [...] 10/23/2024 10:35 AM CDT us Lissette Diaz FISCAL SPECIALIST LAB BLOOD ORDERABLES Final Result [facility] (QUINN) 1 [facility] [place] [address] * (ABNORMAL) CBC with auto differential (10/23/2024 [...] 10/23/2024 10:35 AM CDT us Lissette Diaz FISCAL SPECIALIST LAB BLOOD ORDERABLES Final Result Performing Organization Address City/[facility]/ZIP Co de Phone Number [facility] (QUINN) 1 [facility] [place] [address] * Hepatic function panel (10/18/2024 9:29 AM [...] 10/18/2024 1:09 PM CDT us Lissette Diaz FISCAL SPECIALIST LAB BLOOD ORDERABLES Final Result Performing Organization Address [facility] Co de Phone Number [facility]IKA [facility] (QUINN) 1 [facility] [place] [address] * CT Chest WO Contrast F/U Lung [...] chest 11/28/2023 FINDINGS: SMOKING RELATED LUNG DISEASE: Ulyleajt-ml-bbujer apical predominant emphysema and biapical pleural-parenchymal scarring. [...] which is not seen in the included gvpcy-pf-hfkm. Visualized abdomen is otherwise unremarkable. There is no suspicious osseous lesion. IMPRESSION: 1. Previously noted bronchial filling defect in the left lower lobe has resolved and was likely related to mucous plugging. 2. Uzxbaaxv-df-mdamnz apical predominant emphysema and biapical pleural-parenchymal scarring. [...] Pino Ann M.D. AM: AM Report ID: [id number] Reading Location: [place] [address] Procedure Note Pino Ann MD - 03/06/2024 [...] chest 11/28/2023 FINDINGS: SMOKING RELATED LUNG DISEASE: Ovwsqhjz-kp-chqbwr apical predominant emphysema and biapical pleural-parenchymal scarring. [...] which is not seen in the included jmxtp-jf-heze. Visualized abdomen is otherwise unremarkable.There is no suspicious osseous lesion. IMPRESSION: 1. Previously noted bronchial filling defect in the left lower lobe has resolved and was likely related to mucous plugging. 2. Jmikjpfq-vq-jgtcvz apical predominant emphysema and biapical pleural-parenchymal scarring. [...] Pino Ann M.D. AM: AM Report ID: [id number] Reading Location: [id number] Ge Hall MD IMG CT PROCEDURES Final Result from Last 3 Months or Most Recently Relevant to Health Maintenance Insurance [id number] [place] [address] Member Subscriber Plan / Payer ( fective 2023-Present) Name:Gladys Todd R Relation to Subscriber:Self Name:Gladys Todd Payer ID:[id number] (NAIC) Group ID:Not on file Type:MEDICAID RISK OTHER Address: [address] [employer] OF [employer] [facility] Advance Directives For more information, please contact: [phone] Documents on File Type Date Recorded Patient Rubber Compounder Formulator Expl anation ADVANCE DIRECTIVE 06/04/2015 12:00 AM PIPO Brand OF PAPERBOARD MACHINE OPERATOR FINANCIAL/MEDICAL Care Teams Frame Opener Relationship Specialty Start Date End Date Christopher Carrillo MD [address] [facility] [address] [place] [address] PCP - General Internal Medicine 07/13/23
--- OUTSIDE RECORDS SUMMARY | 2024-11-20 09:57 | XMS_ITS | Clinical Summary ---
Author Organization [facility] Address [address] [address] Phone Care Team Providers Care Elevator Constructor Name Role Phone Christopher Carrillo MD Primary Care Provider [phone] Cong Crews MD Unavailable [phone] Allergies No known active allergies Medications polyethylene [...] mg by mouth 3 times daily. Active [place] 3 1200 MG Capsule Take 1 Cap [...] mouth daily. Active beta carotene (VITAMIN A) 09385 UNIT Capsule Take 25,000 Units by mouth [...] Sex Assigned at Female 06/27/2023 11:04 AM WEATHERIZATION DIRECTOR Legal Sex Female 9:33 PM CDT Gender Identity Female 06/27/2023 11:04 AM WEATHERIZATION DIRECTOR Sexual Orientation Straight 06/27/2023 11 :04 AM WEATHERIZATION DIRECTOR Occupation Industry Job Start Date Job End [...] 9:17 AM CDT Height 170.2 cm (5' 7) 11/07/2023 9:17 AM CDT Body Mass Index 19.89 11/07/2023 9:17 AM CDT Plan of Treatment Health Maintenance Due Date Last Done Comments Hepatitis C Virus (HCV) Screening 1964 Mammogram 1964 TdaP Immunization 1964 Pap Smear 1985 Cervical Cancer Screening (CCS) 1994 HPV/Cotest 1994 Cologuard 2009 Immunochemical Fecal Occult Blood 2009 Zoster Immunization (1 of 2) 2014 Colonoscopy 07/13/2021 07/13/2016 Colorectal Cancer Screening 07/13/2021 SARS-COV-2 Immunization ( season) 2024 02/10/2023, 02/12/2022, 10/02/2021, Additional history exists Influenza Immunization (#1) 01/07/202502/06, 02/10/2023, 02/12/2022, Additional history exists Respiratory Syncytial Virus (RSV) Immunization (Adult) (1 - 1-dose 75+ series) 10/16/2039 Pneumococcal Immunization (50+ years) Completed 12/21/2022 Pneumococcal Immunization Combined Discontinued 12/21/2022 Hepatitis B Immunization Aged Out No longer eligible based on patient's age to complete this topic Human Papillomavirus (HPV) Immunization Aged Out No longer eligible based on patient's age to complete this topic Meningococcal Immunization (ACWY) Aged Out No longer eligible based on patient's age to complete this topic Rotavirus Immunization Aged Out No lo nger eligible based on patient's age to complete this topic Insurance MEDICAID [place] Care Teams Elevator Constructor Relationship Specialty Start Date End Date Christopher Carrillo MD [address] [facility] [address] [place] [address] PCP - General Internal Medicine 03/29/16 Cong Crews MD [address] [place] [phone] Consulting Physician Neurology 11/07/23
--- OUTSIDE RECORDS SUMMARY | 2024-11-20 09:57 | XMS_ITS | Encounter Summary ---
Author Organization [facility] Facility Care Team Providers Care Cheese Grader Name Role Phone Christopher Carrillo MD Primary Care Provider Encounter Details Date Type Department Care Team (Latest Contact Info) Description 05/14/2015 Orders Only [facility] CLINCONV Provider, MD Venkat [facility] [place] [address] Social History Tobacco Use Types Packs/Day Years Used Date Smoking Tobacco: Never Assessed Comments Unknown Sex and Gender Information Value Date Recorded Sex Assigned at Not on file Legal Sex Female 1:56 AM ESCROW CLOSER Gender Identity Female 09/09/2023 12:40 PM CDT Sexual Orientation Straight 09/09/2023 12 :40 PM CDT documented as of this encounter Plan of Treatment Not on file documented as of this encounter Procedures Procedure Name Priority Date/Time Associated Diagnosis Comments SCAN - LABS 05/14/2015 12:00 AM ESCROW CLOSER SCAN - LABS 05/14/2015 12:00 AM ESCROW CLOSER SCAN - LABS 05/14/2015 12:00 AM ESCROW CLOSER SCAN - LABS 05/14/2015 12:00 AM ESCROW CLOSER SCAN - LABS 05/14/2015 12:00 AM ESCROW CLOSER documented in this encounter Results * SCAN - LABS (05/14/2015 12:00 AM ESCROW CLOSER) Narrative 05/14/2015 12:00 AM ESCROW CLOSER Ordered by an unspecified provider. Historical Provider MD Final Res ult * SCAN - LABS (05/14/2015 12:00 AM ESCROW CLOSER) Narrative 05/14/2015 12:00 AM ESCROW CLOSER Ordered by an unspecified provider. Historical Provider MD Final Res ult * SCAN - LABS (05/14/2015 12:00 AM ESCROW CLOSER) Narrative 05/14/2015 12:00 AM ESCROW CLOSER Ordered by an unspecified provider. Historical Provider MD Final Res ult * SCAN - LABS (05/14/2015 12:00 AM ESCROW CLOSER) Narrative 05/14/2015 12:00 AM ESCROW CLOSER Ordered by an unspecified provider. [facility] Provider MD Final Res ult * SCAN - LABS (05/14/2015 12:00 AM ESCROW CLOSER) Narrative 05/14/2015 12:00 AM ESCROW CLOSER Ordered by an unspecified provider. [facility] Provider MD Final Res ult documented in this encounter Visit Diagnoses Not on filedocumented in this encounter Care Teams Cheese Grader Relationship Specialty Start Date End Date Christopher Carrillo MD [address] [facility] [place] [address] PCP - General Internal Medicine 07/13/23 documented as of this encounter
[2024-11-20 10:00] VITALS: BP 120/79; PULSE 86; RESP 20; O2SAT 94; BMI 19.4
[2024-11-20 10:36] VITALS: BP 165/80; PULSE 81; RESP 18; O2SAT 96
[2024-11-20 10:41] VITALS: BP 137/83; PULSE 78; RESP 20; O2SAT 95
[2024-11-20] MEDS: BETAMETHASONE SODIUM PHOSPHATE PF INJ 6 MG/ML VIAL INFILTRATE (10:42)
[2024-11-20 10:46] VITALS: BP 135/71; PULSE 81; RESP 16; O2SAT 100
== END 2024-11-20 11:04 | disposition home or self-care (01) ==
LOC: ASC 09:44
PROVIDERS: PCP Internal Medicine; Visit Provider Anesthesiology Pain Medicine
PROC: (CPT 62321; principal; 2024-11-20 10:50)
DX: M47.812 Spondylosis without myelopathy or radiculopathy, cervical region (principal)
CPT/HCPCS: 62321; 99199

== ENCOUNTER 2024-12-29 10:37 | Outpatient (CLI) | payer OTHER, SELFPAY ==
--- NOTE | ~2024-12-29 | XR_ITS ---
XR cervical spine 4-5V 12/29/2024 10:59 Indication: Chronic cervical pain Procedure: 6 views cervical spine Comparison: 04/15/2023 Findings: There is disc narrowing at C4-5, C5-6 and C6-7. No significant alteration of alignment with flexion/extension. There is advanced multilevel uncinate and facet hypertrophy. Lung apices are normal. Odontoid process is normal. Impression: 1: Severe cervical spondylosis. Reviewed, dictated and finalized at location O. Impression: 1: Severe cervical spondylosis.
--- NOTE | ~2024-12-29 | MR_ITS ---
EXAMINATION: MR cervical spine wo con DATE: 12/29/2024 11:14 INDICATION: Chronic cervical pain TECHNIQUE: Computed tomography (CT) of the cervical spine was performed without intravenous contrast. COMPARISON: Cervical spine x-rays 12/29/2024; MRI cervical spine 09/23/2023 and 03/27/2024 FINDINGS: Grade 1 retrolisthesis of C5 and C6 and C6 on C7. Moderate to severe intervertebral disc space narrowing at the C5-C6 and C6-C7 levels. Disc desiccation throughout the cervical spine. No abnormal signal within the spinal cord. Bone marrow signal is unremarkable. Predental space is within normal limits. Thyroid gland is heterogeneous with a few lesions including a 1.2 cm indeterminate lesion in the right thyroid lobe. A thyroid ultrasound is recommended. At the C4-C5 level, there is a small broad-based disc bulge with degenerative change in the facet joints and uncovertebral joints. Mild to moderate narrowing of the right neural foramen. Mild narrowing of the spinal canal. Mild narrowing of the left neural foramen. At the C5-C6 level, there is a small broad-based disc bulge with degenerative change in the facet joints and uncovertebral joints. Mild to moderate narrowing of the spinal canal. Moderate to severe narrowing of the bilateral neural foramen. At the C6-C7 level, there is a small broad-based disc bulge with degenerative change in the facet joints and uncovertebral joints. Mild narrowing of the spinal canal. Moderate narrowing of the left neural foramen. Mild narrowing of the right neural foramen. IMPRESSION: 1. Multilevel discogenic and degenerative change in the cervical spine spine as detailed above most prominent at the C5-C6 level. 2. Grade 1 retrolisthesis of C5 on C6 and C6 and C7. 3. Thyroid gland is heterogeneous with a few thyroid lesions including a 1.2 cm indeterminate lesion in the right thyroid lobe. A thyroid ultrasound is recommended. Reviewed, dictated and finalized at location Q. IMPRESSION: 1. Multilevel discogenic and degenerative change in the cervical spine spine as detailed above most prominent at the C5-C6 level. 2. Grade 1 retrolisthesis of C5 on C6 and C6 and C7. 3. Thyroid gland is heterogeneous with a few thyroid lesions including a 1.2 cm indeterminate lesion in the right thyroid lobe. A thyroid ultrasound is recomm ended.
== END 2024-12-29 10:38 | disposition home or self-care (01) ==
LOC: CHSIMG 10:38
PROVIDERS: PCP Internal Medicine; Visit Provider Neurological Surgery
DX: M54.2 Cervicalgia (principal); M43.12 Spondylolisthesis, cervical region; E04.2 Nontoxic multinodular goiter
CPT/HCPCS: 72050; 72141

== ENCOUNTER 2025-03-18 07:47 | Day surgery (SDC) | payer OTHER, SELFPAY ==
--- NOTE | ~2025-03-18 | XR_ITS ---
EXAMINATION: XR fluoroscopy no charge DATE: 03/18/2025 10:29 INDICATION: Midline C6-C7 interlaminar] oral steroid injection TECHNIQUE: 7 fluoroscopic images of the cervical spine were obtained during pain management procedure performed by Dr. Pop. Radiologist was not present for the imaging or procedure. The amount of fluoroscopy time used during this procedure was 0.4 minutes. The cumulative radiation dose was 2.10 mGy. COMPARISON: None. FINDINGS: Images demonstrate spinal needle advanced via a left paracentral interspinous process approach the epidural space at C6-C7. Subsequent images demonstrate contrast injection with contrast extending along the posterior and left aspects of the epidural space. No evident intrathecal or intravascular contrast Identified. IMPRESSION: 1. Fluoroscopy utilized during C6-C7 interspinous approach epidural injection. See procedure note for further detail. Reviewed, dictated and finalized at location A. 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
--- NOTE | 2025-03-18 06:34 | WPDHPUPDATE1 ---
History and Physical Update Update Date/Time: 03/18/25 06:34 History and Physical has been reviewed, including an updated exam of the patient. There are NO changes in the patient's condition. Risks, benefits, and alternatives have been discussed and questions answered. Patient agrees to proceed with procedure.
--- NOTE | 2025-03-18 06:35 | P.OP_ITS ---
Procedure Note - Detailed Date of Procedure 03/18/25 Pre-op Diagnosis Spinal Stenosis Post-op Diagnosis Same Procedure Performed Midline Cervical Interlaminar Epidural Steroid Injection at C6-7 under Fluoroscopic Guidance and with Contrast Control. Surgeon Everardo Pop MD Anesthesia Local Description of Procedure INFORMED CONSENT: Risks, benefits and alternatives to the procedure were discussed in detail with the patient who expressed explicit understanding and consent to proceed. Patient was informed verbally and in written form regarding the risks associated with the procedure including the low risk of serious infection, bleeding/bruising, allergic reaction, nerve or organ injury, paral ysis, procedural site pain or discomfort, worsening pain and/or mobility, failure to treat and/or disfigurement. The patient expressed explicit understanding and consent to proceed. All materials required for the procedure were available prior to procedure start. Site and side was marked prior to procedure and confirmed in the presence of the patient. PROCEDURE IN DETAIL: The patient was brought to the procedural suite and placed in the prone position. Patient's head was positioned and stabilized with a ProneView pillow or equivalent. Patient was made comfortable with use of pillows under the chest, hips and ankles. Skin overlying the injection site was prepared broadly with ChloraPrep applicator and draped in a sterile manner. Aseptic technique was employed throughout. The endplates of the vertebral body at the site of interest were aligned in the AP view. Slight caudad tilt and ipsilateral oblique angulation was utilized to optimize visualization of the ta rgeted posterior intervertebral foramen at C6-7. Local anesthesia was established by infiltration with approximately 5 mL of 2% lidocaine via a 1-1/2 inch 27-gauge needle. A 20-gauge 4-inch Tuohy epidural needle was advanced intermittently until appropriate loss of resistance to air was identified via plastic loss of resistance syringe. Lateral view was used to confirm the appropriate positioning of the needle tip within the posterior epidural space. In the AP view, 2.0 mL of Omnipaque 300 contrast medium was injected after negative aspiration for CSF, blood or other bodily fluid, showing appropriate epidural spread of contrast without evidence of intravascular or intrathecal placement. After negative repeat aspiration for CSF, blood or other bodily fluid, A 4 mL solution containing 10 mg of dexamethasone in sterile PF Normal Saline was injected after negative repeat aspiration. Appropriate spread of the injectate was confirmed with washout of previously injected contrast. No parasthesias were elicited. Needle was removed completely intact without difficulty. Images were saved and documented in the patient chart. Patient's skin was cleansed and sterile bandage applied. The patient tolerated the procedure well. The patient was transported to the recovery area in stable condition where they were observed for an appropriate amount of time prior to discharge, without evidence of complication. The patient was instructed to avoid excessive activity for the next 48 hours, including overhead work, reaching or extended device/computer usage. Showers only for 48 hours. They were instructed not to drive or operate heavy machinery for 24 hours. They are to monitor for severe headaches, fevers, chills, night sweats, erythema/swelling at the site or any other signs of infection, bl eeding/bruising, bowel or bladder changes as well as new pain, weakness or numbness in the upper or lower extremity. Should they notice these changes, they are instructed to call our office immediately or report directly to the nearest Emergency Department if no answer or if after posted office hours. CONTRAST WASTED: 28mL Omnipaque 300. Complications No immediate complications Condition Stable Disposition Same day [facility] Billing Surgery - Charge Forward: Surgery Billing
--- OUTSIDE RECORDS SUMMARY | 2025-03-18 07:49 | XMS_ITS | Encounter Summary ---
Author Organization [facility] Facility Care Team Providers Care Professional Sports Scout Name Role Phone Christopher Carrillo MD Primary Care Provider Encounter Details Date Type Department Care Team (Latest Contact Info) Description 05/14/2015 Orders Only [facility] CLINCONV Provider, MD Venkat [facility] [place] [address] Social History Tobacco Use Types Packs/Day Years Used Date Smoking Tobacco: Never Assessed Comments Unknown Sex and Gender Information Value Date Recorded Sex Assigned at Not on file Legal Sex Female 1:56 AM BLACK ASH WORKER Gender Identity Female 09/09/2023 12:40 PM CDT Sexual Orientation Straight 09/09/2023 12 :40 PM CDT documented as of this encounter Plan of Treatment Not on file documented as of this encounter Procedures Procedure Name Priority Date/Time Associated Diagnosis Comments SCAN - LABS 05/14/2015 12:00 AM BLACK ASH WORKER SCAN - LABS 05/14/2015 12:00 AM BLACK ASH WORKER SCAN - LABS 05/14/2015 12:00 AM BLACK ASH WORKER SCAN - LABS 05/14/2015 12:00 AM BLACK ASH WORKER SCAN - LABS 05/14/2015 12:00 AM BLACK ASH WORKER documented in this encounter Results * SCAN - LABS (05/14/2015 12:00 AM BLACK ASH WORKER) Narrative 05/14/2015 12:00 AM BLACK ASH WORKER Ordered by an unspecified provider. Historical Provider MD Final Res ult * SCAN - LABS (05/14/2015 12:00 AM BLACK ASH WORKER) Narrative 05/14/2015 12:00 AM BLACK ASH WORKER Ordered by an unspecified provider. Historical Provider MD Final Res ult * SCAN - LABS (05/14/2015 12:00 AM BLACK ASH WORKER) Narrative 05/14/2015 12:00 AM BLACK ASH WORKER Ordered by an unspecified provider. Historical Provider MD Final Res ult * SCAN - LABS (05/14/2015 12:00 AM BLACK ASH WORKER) Narrative 05/14/2015 12:00 AM BLACK ASH WORKER Ordered by an unspecified provider. [facility] Provider MD Final Res ult * SCAN - LABS (05/14/2015 12:00 AM BLACK ASH WORKER) Narrative 05/14/2015 12:00 AM BLACK ASH WORKER Ordered by an unspecified provider. [facility] Provider MD Final Res ult documented in this encounter Visit Diagnoses Not on filedocumented in this encounter Care Teams Professional Sports Scout Relationship Specialty Start Date End Date Christopher Carrillo MD [address] [facility] [address] PCP - General Internal Medicine 07/13/23 documented as of this encounter
--- OUTSIDE RECORDS SUMMARY | 2025-03-18 07:49 | XMS_ITS | Data Portability ---
Author Organization [facility], Main Office Address [address] [place] [address] Care Team Providers Care Equipment Sterilizer Name Role Phone MASSIEL CARRILLO Primary Care Provider MASSIEL CARRILLO Referring Provider MASSIEL CARRILLO Primary Care Provider Assessment No assessment recorded. Plan of Treatment Reminders Order Date Submit Date Provider Last Modified By Organization Details Last Modified Time Details Appointments None recorded. Lab vitamin D, 25-hydrox y, total, serum 025 025 [facility], [address], [place], [address], 5 16:57:59 magnesium , serum or plasma 025 025 [id number] [facility], [address], [place], [address], 5 16:57:59 vitamin B12, serum 025 025 [id number] [facility], [address], [place], [address], 5 16:57:59 CBC w/ auto diff 025 025 [id number] [facility], [address], [place], [address], 5 16:57:58 CMP, serum or plasma 025 025 [id number] [facility], [address], [place], [address], 5 16:57:58 lipid panel, serum 025 025 [id number] [facility], [address], [place], [address], 5 16:57:59 T4, free, serum 025 025 [facility], [address], [place], [address], 5 16:57:59 TSH, serum or plasma 025 025 [id number] [facility], [address], [place], [address], 5 16:57:59 lipid panel, serum 024 024 [id number] [facility], [address], [place], [address], 4 16:14:31 CMP, serum or plasma 024 024 [id number] [facility], [address], [place], [address], 4 16:14:31 TSH, serum or plasma 024 024 [id number] [facility], [address], [place], [address], 4 16:14:32 T4, free, serum 024 024 [facility], [address], [place], [address], 4 16:14:32 CBC w/ auto diff 024 024 [id number] [facility], [address], [place], [address], 4 16:14:32 drug screen, urine 024 024 [id number] [facility], [address], [place], [address], 4 16:14:32 Referral None recorded. Procedures None recorded. Surgeries None recorded. Imaging None recorded. Medication Orders None recorded. Patient TargetsNo targets recorded. 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 Will try to set up with Neurology for further evaluation. Portions of the record may have been created with voice recognition software. Occasional wrong-word or s ound-a-like substitutions may have occurred due to the inherent limitations of voice recognition software. Read the chart carefully and recognize, using context, where substitutions have occurred. Neurological consult for persistent neck and cervical radicular pain. Keep Appt: Tue 10:30 AM Dyllan [email or web address] Not available 06/13/2023 16:39:22 08/23/2023 [id number] Follow-up hypertension, hyperlipidemia, chronic obstructive lung disease and chronic pain syndrome. All clinically stable. Will check blood work consisting of CBC, CMP, lipid, thyroid. Continue on current Rx follow-up in four months. Next Appointment: 4 Months Approximate Date: 12/21/2023 Portions of the record may have been created with voice recognition software. Occasional wrong-word or s ound-a-like substitutions may have occurred due to the inherent limitations of voice recognition software. Read the chart carefully and recognize, using context, where substitutions have occurred. [email or web address] Not available 08/23/2023 12:03:15 12/27/2023 [id number] Follow-up chroni c obstructive lung disease, essential [...] Directives - Recommendations 1. Mammogram Done by incoming freight clerk 2. LDCT already done up in [place] please get a copy of the report. 2. DEXA Scan get the most recent copy the bone density scan. Next Appointment: 6 Months Approximate Date: 06/24/2024 Portions of the record may have been created with voice recognition software. Occasional wrong-word or s ound-a-like substitutions may have occurred due to the inherent limitations of voice recognition software. Read the chart carefully and recognize, using context, where substitutions have occurred. [email or web address] Not available 12/27/2023 12:34:37 05/15/2024 [id number] risk assessment* [email or web address] Not availabl e 05/15/2024 10:55:39 INFLUENZA VACCIN E Next vaccination to be given fall__ TD/TDAP Patient will get at local pharmacy/health department PNEUMONIA VACCINE Recommended at age 65 SHINGLES Patient will get at local pharmacy/health department MAMMOGRAM: Last Mammogram Recommended today DEXA SCAN No screening necessary patient is up to date CERVICAL SCREENING/PELVIC EXAMINATION Recommended today, but patient declined COLORECTAL SCREENING: Last Colonoscopy No screening necessary patient is up to date DEPRESSION SCREENING Negative BMI Appropriate NUTRITION Heart Healthy Diet PHYSICAL ACTIVITY Need more exercise/physical activity VISION Your next exam in: goes yearly ALCOHOL USE Occasional/Social Use TOBACCO USE former smoker LUNG CANCER SCREENING Up to date through Pulmonology SEXUALLY ACTIVE HEPATITIS C SCREENING Not indicated GLUCOSE SCREENING up to date LIPID SCREENING up to date [email or web address] Not available 05/15/2024 10:43:41 Wellness evaluat ion [...] CT scan of the chest done in [place] by pulmonology. Follow Up: 6 Months Approximate Date: 11/11/2024 Portions of the record may have been created with voice recognition software. Occasional wrong-word or s ound-a-like substitutions may have occurred due to the inherent limitations of voice recognition software. Read the chart carefully and recognize, using context, where substitutions have occurred. Created: Massiel Carrillo M.D. 05.15.2024 09:55 AM Not available 05/15/2024 10:55:21 11/13/2024 [id number] Follow-up for chronic obstructive lung disease, essential hypertension, hyperlipidemia, osteoporosis, chronic pain syndrome all clinically stable. Has had blood work done recently. Will continue on current Rx follow-up in six months. Follow Up: 6 Months Approximate Date: 05/12/2025 Portions of record are template driven. When necessary additional context will be provided. Additionally some portions have been created with voice recognition software. Occasional wrong-word or s ound-a-like substitutions may have occurred due to the inherent limitations of voice recognition software. Read the chart carefully and recognize, using context, where substitutions may have occurred. Created: Massiel Carrillo M.D. 11.13.2024 10:07 AM [email or web address] Not available 11/13/2024 11:07:35 Reason for Referral None Reported. Results Created Date Observation Date Name Description Value Unit Range Abnormal Flag Note LastModifiedBy Organization Detail LastModifiedTime 09/22/1909/24/2023 LIPID PANEL , STAND NICANOR cholesterol, total 202 mg/dL <200 high Not Available [facility] [address] [facility] [place], [address], 09/24/2023 01:35:57 09/22/19 24 09/24/2023 LIPID PANEL , STAND NICANOR HDL cholesterol 114 mg/dL > or = 50 normal Not Available [facility] [address] [facility] [place], [address], 09/24/2023 01:35:57 05/16/20 24 09/24/2023 LIPID PANEL , STAND NICANOR triglyceride s 69 mg/dL <150 normal Not Available [facility] [address] [place], [address], 09/24/2023 01:35:57 09/22/1909/24/2023 LIPID PANEL , STAND [...] n, which is a valid ated novel reynaldo astorga r accur acy than the Fried shayla equat ion in the estim ation of LDL-C . Quita braun SS et al. LUCY. 2013; 310(1 9): 2061- 2068 (http ://ed ucati on.Limbo wilnerFrockadvisor. com/f aq/FA Q164) Not Available [facility] [address] [address], [place], [address], 09/24/2023 01:35:57 09/22/1909/24/2023 LIPID PANEL , STAND NICANOR chol/HDLC ratio 1.8 (calc ) <5.0 normal Not Available [facility] [address] [place], [address], 09/24/2023 01:35:57 09/22/19 24 09/24/2023 LIPID PANEL , STAND NICANOR non HDL cholesterol 88 mg/dL _(dalton c) <130 normal For patie nts with diabe josh plus 1 major ASCVD risk facto r, treat ing to a non-H DL-C goal of <100 mg/dL (LDL- C of <70 mg/dL ) is consi dered a thera peuti c optio n. Not Available [facility] [address] [place], [address], 09/24/2023 01:35:57 09/22/19 24 09/24/2023 COMPR EHENS LORENA METAB OLIC PANEL , PLASM A glucose 96 mg/dL 65-99 normal Fasti ng refer ence inter miguel Not Available [address], [address], 09/24/2023 01:35:58 09/22/19 24 09/24/2023 COMPR EHENS LORENA METAB OLIC PANEL , PLASM A urea nitrogen (BUN) 13 mg/dL 7-25 normal Not Available [address], [address], 09/24/2023 01:35:58 09/22/19 24 09/24/2023 COMPR EHENS LORENA METAB OLIC PANEL , PLASM A creatinine 0.72 mg/dL 0.50-1 .03 normal Not Available [address], [address], 09/24/2023 01:35:58 09/22/19 24 09/24/2023 COMPR EHENS LORENA METAB OLIC PANEL , PLASM A eGFR 97 mL/mi n/1.7 3m2 > or = 60 normal Not Available [address], [address], 09/24/2023 01:35:58 09/22/19 24 09/24/2023 COMPR EHENS LORENA METAB OLIC PANEL , PLASM A BUN/creatini ne ratio SEE NOTE: (calc ) 6-22 Not Repor freya: BUN and Creat inine are withi n refer ence range . Not Available [address], [address], 09/24/2023 01:35:58 09/22/19 24 09/24/2023 COMPR EHENS LORENA METAB OLIC PANEL , PLASM A sodium 141 mmol/ L 135-14 6 normal Not Available [address], [address], 09/24/2023 01:35:58 09/22/19 24 09/24/2023 COMPR EHENS LORENA METAB OLIC PANEL , PLASM A potassium 3.9 mmol/ L 3.4-4. 8 normal Not Available [address], [address], 09/24/2023 01:35:58 09/22/19 24 09/24/2023 COMPR EHENS LORENA METAB OLIC PANEL , PLASM A chloride 105 mmol/ L 98-110 normal Not Available [address], [address], 09/24/2023 01:35:58 09/22/1909/24/2023 COMPR EHENS LORENA METAB OLIC PANEL , PLASM A carbon dioxide 28 mmol/ L 20-32 normal Not Available [address], [address], 09/24/2023 01:35:58 09/22/19 24 09/24/2023 COMPR EHENS LORENA METAB OLIC PANEL , PLASM A calcium 9.3 mg/dL 8.6-10 .4 normal Not Available [address], [address], 09/24/2023 01:35:58 09/22/19 24 09/24/2023 COMPR EHENS LORENA METAB OLIC PANEL , PLASM A protein, total 7.1 g/dL 6.4-8. 4 normal Not Available [address], [address], 09/24/2023 01:35:58 09/22/19 24 09/24/2023 COMPR EHENS LORENA METAB OLIC PANEL , PLASM A albumin 4.2 g/dL 3.6-5. 1 normal Not Available [address], [address], 09/24/2023 01:35:58 09/22/19 24 09/24/2023 COMPR EHENS LORENA METAB OLIC PANEL , PLASM A globulin 2.9 g/dL_ (calc ) 2.2-4. 0 normal Not Available [address], [address], 09/24/2023 01:35:58 09/22/19 24 09/24/2023 COMPR EHENS LORENA METAB OLIC PANEL , PLASM A albumin/glob ulin ratio 1.4 (calc ) 0.9-2. 3 normal Not Available [address], [address], 09/24/2023 01:35:58 09/22/19 24 09/24/2023 COMPR EHENS LORENA METAB OLIC PANEL , PLASM A bilirubin, total 0.3 mg/dL 0.2-1. 2 normal Not Available [address], [address], 09/24/2023 01:35:58 09/22/19 24 09/24/2023 COMPR EHENS LORENA METAB OLIC PANEL , PLASM A alkaline phosphatase 73 U/L 37-153 normal Not Available [address], [address], 09/24/2023 01:35:58 09/22/19 24 09/24/2023 COMPR EHENS LORENA METAB OLIC PANEL , PLASM A AST 19 U/L 10-35 normal Not Available [address], [address], 09/24/2023 01:35:58 09/22/19 24 09/24/2023 COMPR EHENS LORENA METAB OLIC PANEL , PLASM A ALT 16 U/L 6-29 normal Not Available [address], [address], 09/24/2023 01:35:58 09/22/19 24 09/24/2023 CBC (INCL UDES DIFF/ PLT) white blood cell count 9.1 thous and/u L 3.8-10 .8 normal Not Available [address], [address], 09/24/2023 01:36:00 09/22/19 24 09/24/2023 CBC (INCL UDES DIFF/ PLT) red blood cell count 4.07 paige on/uL 3.80-5 .10 normal Not Available [address], [address], 09/24/2023 01:36:00 09/22/19 24 09/24/2023 CBC (INCL UDES DIFF/ PLT) hemoglobin 12.9 g/dL 11.7-1 5.5 normal Not Available [address], [address], 09/24/2023 01:36:00 09/22/1909/24/2023 CBC (INCL UDES DIFF/ PLT) hematocrit 38.0 % 35.0-4 5.0 normal Not Available [address], [address], 09/24/2023 01:36:00 09/22/1909/24/2023 CBC (INCL UDES DIFF/ PLT) MCV 93.4 fL 80.0-1 00.0 normal Not Available [address], [address], 09/24/2023 01:36:00 09/22/19 24 09/24/2023 CBC (INCL UDES DIFF/ PLT) MCH 31.7 pg 27.0-3 3.0 normal Not Available [facility] [address], [address], 09/24/2023 01:36:00 09/22/19 24 09/24/2023 CBC (INCL UDES DIFF/ PLT) MCHC 33.9 g/dL 32.0-3 6.0 normal Not Available [facility] [address], [address], 09/24/2023 01:36:00 09/22/19 24 09/24/2023 CBC (INCL UDES DIFF/ PLT) RDW 12.0 % 11.0-1 5.0 normal Not Available [address], [address], 09/24/2023 01:36:00 09/22/19 24 09/24/2023 CBC (INCL UDES DIFF/ PLT) platelet count 373 thous and/u L 140-40 0 normal Not Available [address], [address], 09/24/2023 01:36:00 09/22/19 24 09/24/2023 CBC (INCL UDES DIFF/ PLT) MPV 10.8 fL 7.5-12 .5 normal Not Available [address], [address], 09/24/2023 01:36:00 09/22/19 24 09/24/2023 CBC (INCL UDES DIFF/ PLT) absolute neutrophils 5269 cells /uL 1500-7 800 normal Not Available [address], [address], 09/24/2023 01:36:00 09/22/19 24 09/24/2023 CBC (INCL UDES DIFF/ PLT) absolute lymphocytes 2994 cells /uL 850-39 00 normal Not Available [address], [address], 09/24/2023 01:36:00 09/22/19 24 09/24/2023 CBC (INCL UDES DIFF/ PLT) absolute monocytes 655 cells /uL 200-95 0 normal Not Available [address], [address], 09/24/2023 01:36:00 09/22/19 24 09/24/2023 CBC (INCL UDES DIFF/ PLT) absolute eosinophils 109 cells /uL 15-500 normal Not Available [facility] [address], [address], 09/24/2023 01:36:00 09/22/19 24 09/24/2023 CBC (INCL UDES DIFF/ PLT) absolute basophils 73 cells /uL 0-200 normal Not Available [facility] [address], [address], 09/24/2023 01:36:00 09/22/19 24 09/24/2023 CBC (INCL UDES DIFF/ PLT) neutrophils 57.9 % normal Not Available [facility] [address], [address], 09/24/2023 01:36:00 09/22/19 24 09/24/2023 CBC (INCL UDES DIFF/ PLT) lymphocytes 32.9 % normal Not Available [facility] [address], [address], 09/24/2023 01:36:00 09/22/19 24 09/24/2023 CBC (INCL UDES DIFF/ PLT) monocytes 7.2 % normal Not Available [facility] [address], [address], 09/24/2023 01:36:00 09/22/19 24 09/24/2023 CBC (INCL UDES DIFF/ PLT) eosinophils 1.2 % normal Not Available [facility] [address], [address], 09/24/2023 01:36:00 09/22/19 24 09/24/2023 CBC (INCL UDES DIFF/ PLT) basophils 0.8 % normal Not Available [address], [address], 09/24/2023 01:36:00 09/22/19 24 09/24/2023 T4, FREE T4, free 1.2 NG/dL 0.8-1. 8 normal Not Available [facility] [address] [address], [place], [address], 09/24/2023 01:36:01 09/22/19 24 09/24/2023 TSH TSH 0.49 mIU/L 0.40-4 .50 normal Not Available [facility] [address] [address] [place], [address], 09/24/2023 01:36:02 09/22/19 24 09/24/2023 DRUG MONIT OR, BASE PANEL , SCREE N, URINE benzodiazepi suzanna POSITI VE NG/mL <100 abnormal See Note A See Note A Not Available [facility] [address] [address] [address], [place], [address], 09/24/2023 01:36:03 09/22/19 24 09/24/2023 DRUG MONIT OR, BASE PANEL , SCREE N, URINE cocaine metabolite NEGATI VE NG/mL <150 See Note A See Note A Not Available [facility] [address] [address] [address], [place], [address], 09/24/2023 01:36:03 09/22/19 24 09/24/2023 DRUG MONIT OR, BASE PANEL , SCREE N, URINE opiates POSITI VE NG/mL <100 abnormal See Note A See Note A Not Available [facility] [address] [address] [place], [address], 09/24/2023 01:36:03 09/22/19 24 09/24/2023 DRUG MONIT OR, BASE PANEL , SCREE N, URINE oxycodone NEGATI VE NG/mL <100 See Note A See Note A Not Available [facility] [address] [address] [place], [address], 09/24/2023 01:36:03 09/22/19 24 09/24/2023 DRUG MONIT OR, BASE PANEL , SCREE N, URINE creatinine 135.5 mg/dL > or = 20.0 Not Available [address] [address] [place], [address], 09/24/2023 01:36:03 09/22/19 24 09/24/2023 DRUG MONIT OR, BASE PANEL , SCREE N, URINE pH 5.6 4.5-9. 0 Not Available [facility] [address] [address] [place], [address], 09/24/2023 01:36:03 09/22/19 24 09/24/2023 DRUG MONIT OR, BASE PANEL , SCREE N, URINE oxidant NEGATI VE mcg/m L <200 Not Available [facility] [address] [address] [place], [address], 09/24/2023 01:36:03 09/22/19 24 09/24/2023 DRUG MONIT ORING TEMPL ATE notes and comments This drug testi ng is for medic al treat ment only. Callie sis was perfo rmed as non-f orens ic testi ng and these resul ts shoul d be used only [facility] to rende r diagn osis or treat ment, or to monit or progr ess of medic al condi tions . Note A: The resul ts are presu mptiv e; based only on nguyễn jacobs ds, and they have not been confi rmed by a defin itive reynaldo tavarez. [facility] Provi ders needi ng Inter preta tion lazaro tance , pleas e conta ct us at 1.877 .40.R XTOX (1.87 [phone] ) M-F, 8am to 10pm EST Not Available [address] [address] [address], [place], [address], 09/24/2023 01:36:04 08/16/1908/16/2024 LIPID PANEL , STAND NICANOR cholesterol, total 205 mg/dL <200 high Not Available [facility] [address] [address] [place], [address], 08/16/2024 07:56:45 08/16/19 25 08/16/2024 LIPID PANEL , STAND NICANOR HDL cholesterol 98 mg/dL > or = 50 normal Not Available [facility] [address] [place], [address], 08/16/2024 07:56:45 08/16/1908/16/2024 LIPID PANEL , STAND NICANOR triglyceride s 83 mg/dL <150 normal Not Available [facility] [address] [address] [place], [address], 08/16/2024 07:56:45 08/16/1908/16/2024 LIPID PANEL , STAND NICANOR LDL-choleste rol 90 mg/dL _(dalton c) normal Refer ence range : <100 Skyler able range <100 mg/dL for prima ry preve ntion ; <70 mg/dL for patie nts with CHD or diabe tic patie nts with > or = 2 CHD risk facto rs. LDL-C is now calcu lated using the Quita braun-[facility] rudy oliva n, which is a valid ated novel devango d kaylee pichardote r accur acy than the Fried shayla equat ion in the estim ation of LDL-C . Quita braun SS et al. LUCY. 2013; 310(1 9): 2061- 2068 (http ://ed ucati on.Qu Edwar Salesconx. com/f aq/FA Q164) Not Available [facility] [address] [address] [place], [address], 08/16/2024 07:56:45 08/16/19 25 08/16/2024 LIPID PANEL , STAND NICANOR chol/HDLC ratio 2.1 (calc ) <5.0 normal Not Available [facility] [address] [address] [place], [address], 08/16/2024 07:56:45 08/16/1908/16/2024 LIPID PANEL , STAND NICANOR non HDL cholesterol 107 mg/dL _(dalton c) <130 normal For patie nts with diabe josh plus 1 major ASCVD risk facto r, treat ing to a non-H DL-C goal of <100 mg/dL (LDL- C of <70 mg/dL ) is consi dered a thera peuti c optio n. Not Available [address], [address], 08/16/2024 07:56:45 08/16/19 25 08/16/2024 MAGNE SIUM magnesium 1.9 mg/dL 1.5-2. 5 normal Not Available [address], [address], 08/16/2024 07:56:47 08/16/1908/16/2024 COMPR EHENS LORENA METAB OLIC PANEL glucose 85 mg/dL 65-139 normal Non-f astin g refer ence inter miguel Not Available [address], [address], 08/16/2024 07:56:48 08/16/19 25 08/16/2024 COMPR EHENS LORENA METAB OLIC PANEL urea nitrogen (BUN) 10 mg/dL 7-25 normal Not Available [address], [address], 08/16/2024 07:56:48 08/16/19 25 08/16/2024 COMPR EHENS LORENA METAB OLIC PANEL creatinine 0.70 mg/dL 0.50-1 .03 normal Not Available [address], [address], 08/16/2024 07:56:48 08/16/19 25 08/16/2024 COMPR EHENS LORENA METAB OLIC PANEL eGFR 100 mL/mi n/1.7 3m2 > or = 60 normal Not Available [address], [address], 08/16/2024 07:56:48 08/16/19 25 08/16/2024 COMPR EHENS LORENA METAB OLIC PANEL BUN/creatini ne ratio SEE NOTE: (calc ) 6-22 Not Repor freya: BUN and Creat inine are withi n refer ence range . Not Available [address], [address], 08/16/2024 07:56:48 08/16/19 25 08/16/2024 COMPR EHENS LORENA METAB OLIC PANEL sodium 140 mmol/ L 135-14 6 normal Not Available [facility] [address], [address], 08/16/2024 07:56:48 08/16/19 25 08/16/2024 COMPR EHENS LORENA METAB OLIC PANEL potassium 4.6 mmol/ L 3.5-5. 3 normal Not Available [address], [address], 08/16/2024 07:56:48 08/16/19 25 08/16/2024 COMPR EHENS LORENA METAB OLIC PANEL chloride 100 mmol/ L 98-110 normal Not Available [facility] [address], [address], 08/16/2024 07:56:48 08/16/19 25 08/16/2024 COMPR EHENS LORENA METAB OLIC PANEL carbon dioxide 29 mmol/ L 20-32 normal Not Available [address], [address], 08/16/2024 07:56:48 08/16/19 25 08/16/2024 COMPR EHENS LORENA METAB OLIC PANEL calcium 9.8 mg/dL 8.6-10 .4 normal Not Available [facility] [address], [address], 08/16/2024 07:56:48 08/16/19 25 08/16/2024 COMPR EHENS LORENA METAB OLIC PANEL protein, total 6.6 g/dL 6.1-8. 1 normal Not Available [facility] [address], [address], 08/16/2024 07:56:48 08/16/19 25 08/16/2024 COMPR EHENS LORENA METAB OLIC PANEL albumin 4.1 g/dL 3.6-5. 1 normal Not Available [address], [address], 08/16/2024 07:56:48 08/16/19 25 08/16/2024 COMPR EHENS LORENA METAB OLIC PANEL globulin 2.5 g/dL_ (calc ) 1.9-3. 7 normal Not Available [address], [address], 08/16/2024 07:56:48 08/16/19 25 08/16/2024 COMPR EHENS LORENA METAB OLIC PANEL albumin/glob ulin ratio 1.6 (calc ) 1.0-2. 5 normal Not Available [address], [address], 08/16/2024 07:56:48 08/16/19 25 08/16/2024 COMPR EHENS LORENA METAB OLIC PANEL bilirubin, total 0.4 mg/dL 0.2-1. 2 normal Not Available [address], [address], 08/16/2024 07:56:48 08/16/19 25 08/16/2024 COMPR EHENS LORENA METAB OLIC PANEL alkaline phosphatase 94 U/L 37-153 normal Not Available [address], [address], 08/16/2024 07:56:48 08/16/19 25 08/16/2024 COMPR EHENS LORENA METAB OLIC PANEL AST 17 U/L 10-35 normal Not Available [address], [address], 08/16/2024 07:56:48 08/16/19 25 08/16/2024 COMPR EHENS LORENA METAB OLIC PANEL ALT 14 U/L 6-29 normal Not Available [address], [address], 08/16/2024 07:56:48 08/16/19 25 08/16/2024 CBC (INCL UDES DIFF/ PLT) white blood cell count 13.5 thous and/u L 3.8-10 .8 high Not Available [address], [address], 08/16/2024 07:56:49 08/16/19 25 08/16/2024 CBC (INCL UDES DIFF/ PLT) red blood cell count 3.62 paige on/uL 3.80-5 .10 low Not Available [address], [address], 08/16/2024 07:56:49 08/16/19 25 08/16/2024 CBC (INCL UDES DIFF/ PLT) hemoglobin 10.9 g/dL 11.7-1 5.5 low Not Available [facility] [address], [address], 08/16/2024 07:56:49 08/16/19 25 08/16/2024 CBC (INCL UDES DIFF/ PLT) hematocrit 33.5 % 35.0-4 5.0 low Not Available [facility] [address], [address], 08/16/2024 07:56:49 08/16/19 25 08/16/2024 CBC (INCL UDES DIFF/ PLT) MCV 92.5 fL 80.0-1 00.0 normal Not Available [facility] [address], [address], 08/16/2024 07:56:49 08/16/19 25 08/16/2024 CBC (INCL UDES DIFF/ PLT) MCH 30.1 pg 27.0-3 3.0 normal Not Available [facility] - [address], [address], 08/16/2024 07:56:49 08/16/1908/16/2024 CBC (INCL UDES DIFF/ [...] nt's clini dalton condi tion. Not Available [facility] [address], [address], 08/16/2024 07:56:49 08/16/1908/16/2024 CBC (INCL UDES DIFF/ PLT) RDW 13.3 % 11.0-1 5.0 normal Not Available [facility] [address], [address], 08/16/2024 07:56:49 08/16/1908/16/2024 CBC (INCL UDES DIFF/ PLT) platelet count 755 thous and/u L 140-40 0 high Not Available [facility] [address], [address], 08/16/2024 07:56:49 08/16/19 25 08/16/2024 CBC (INCL UDES DIFF/ PLT) MPV 9.9 fL 7.5-12 .5 normal Not Available [facility] [address], [address], 08/16/2024 07:56:49 08/16/1908/16/2024 CBC (INCL UDES DIFF/ PLT) absolute neutrophils 6197 cells /uL 1500-7 800 normal Not Available [facility] [address] [address], [address], 08/16/2024 07:56:49 08/16/19 25 08/16/2024 CBC (INCL UDES DIFF/ PLT) absolute lymphocytes 5846 cells /uL 850-39 00 high Not Available [facility] [address], [address], 08/16/2024 07:56:49 08/16/19 25 08/16/2024 CBC (INCL UDES DIFF/ PLT) absolute monocytes 1121 cells /uL 200-95 0 high Not Available [facility] [address], [address], 08/16/2024 07:56:49 08/16/19 25 08/16/2024 CBC (INCL UDES DIFF/ PLT) absolute eosinophils 243 cells /uL 15-500 normal Not Available [facility] [address], [address], 08/16/2024 07:56:49 08/16/19 25 08/16/2024 CBC (INCL UDES DIFF/ PLT) absolute basophils 95 cells /uL 0-200 normal Not Available [facility] [address], [address], 08/16/2024 07:56:49 08/16/19 25 08/16/2024 CBC (INCL UDES DIFF/ PLT) neutrophils 45.9 % normal Not Available [address], [address], 08/16/2024 07:56:49 08/16/1908/16/2024 CBC (INCL UDES DIFF/ PLT) lymphocytes 43.3 % normal Not Available [facility] [address], [address], 08/16/2024 07:56:49 08/16/19 25 08/16/2024 CBC (INCL UDES DIFF/ PLT) monocytes 8.3 % normal Not Available [facility] [address], [address], 08/16/2024 07:56:49 08/16/19 25 08/16/2024 CBC (INCL UDES DIFF/ PLT) eosinophils 1.8 % normal Not Available [address], [address], 08/16/2024 07:56:49 08/16/19 25 08/16/2024 CBC (INCL UDES DIFF/ PLT) basophils 0.7 % normal Not Available [address], [address], 08/16/2024 07:56:49 08/16/1908/16/2024 T4, FREE T4, free 1.3 NG/dL 0.8-1. 8 normal Not Available [address], [address], 08/16/2024 07:56:49 08/16/1908/16/2024 TSH TSH 0.12 mIU/L 0.40-4 .50 low Not Available [address], [address], 08/16/2024 07:56:50 08/16/19 25 08/16/2024 VITAM IN B12 vitamin B12 1491 pg/mL 200-11 00 high Not Available [address], [address], 08/16/2024 07:56:51 08/16/1908/16/2024 VITAM IN D,25- OH,TO JOANNE,I A vitamin [...] /MS is recom katelyn d: order code 89694 (petar ents >2yrs ). See Note 1 Note 1 For addit ional infor nemesio laguerre refer to http: //[facility] chaim Daugherty stDia gnost ics.c om/fa q/FAQ 199 (This link is being provi ded for infor brenda weaver/ eductip hua purpo ses only. ) Not Available [employer] [facility] [address] [address] , [place], [address], 08/16/2024 07:56:52 07/07/19 24 03/27/2014 MRI, cervi dalton spine , w/o contr ast No observ ation record ed. [email or web address] Not Available 2023 10:07:01 07/07/19 24 03/22/2014 MRI, lumba r spine , w/o contr ast No observ ation record ed. [email or web address] Not Available 2023 10:07:47 09/01/19 24 09/01/2023 XR, hip, unila teral No observ ation record ed. [address] [address], [place], [address], 09/01/2023 17:33:46 09/13/19 24 09/13/2023 MRI, cervi dalton plexu s, w/o contr ast No observ ation record ed. [address] [address], [place], [address], 09/13/2023 16:26:34 09/22/19 24 09/22/2023 US, thyro id No observ ation record ed. [address] [address], [place], [address], 09/22/2023 17:01:50 01/30/20 24 01/30/2024 XR, hip + pelvi s, unila teral No observ ation record ed. [address] [address], [place], [address], 01/30/2024 17:44:48 07/27/19 25 07/26/2024 XR, hip + pelvi s, unila teral No observ ation record ed. [address] [address], [place], [address], 07/26/2024 14:35:35 07/27/19 25 07/26/2024 XR, arthr ogram , hip No observ ation record ed. [address] [address], [place], [address], 07/27/2024 16:53:46 08/16/19 25 08/15/2024 MAMMO , scree alton, bilat eral No observ ation record ed. [address] [place], [address], 08/15/2024 12:28:30 10/03/19 25 10/02/2024 US, head + neck No observ ation record ed. [address] [address], [place], [address], 10/03/2024 06:40:13 11/22/19 25 11/20/2024 fluor oscop y (PROC ) No observ ation record ed. [address] [address], [place], [address], 11/21/2024 10:01:59 12/30/19 XR, cervi dalton spine No observ ation record ed. [address] [place], [address], 12/29/2024 13:32:31 01/02/20 25 12/29/2024 MRI, cervi dalton plexu s, w/o contr ast No observ ation record ed. [address] [place], [address], 01/01/2025 12:35:02 Result Notes None recorded. Problems Name Problem SNOMED Code Status Onset Date Resolution Date Notes Provider Name and Address Organization Details Recorded Time Anxiety disorder 353595600 Active Not Available [facility] 3 15:01:28 Osteoarthr itis of knee 181310433 Active Not Available [facility] 3 15:01:28 Pure hyperchole sterolemia 392540188 Active Not Available [facility] 3 15:01:28 Sarcoidosi s 48467100 Active Not Available [facility] 3 15:01:28 Depressive disorder 45298474 Active Not Available [facility] 3 15:01:28 Dysphagia 60081381 Active Not Available [facility] 3 15:01:28 History of primary malignant neoplasm of kidney 947582412 Active Not Available [facility] 3 15:01:28 Atrial fibrillati on 84031465 Active Not Available [facility] 3 15:01:28 Pain of breast 44504362 Active Not Available [facility] 3 15:01:28 Stricture of esophagus 03753311 Active Not Available [facility] 3 15:01:28 Tobacco dependence syndrome 97201465 Active Not Available [facility] 3 15:01:28 Chronic pain syndrome 536582508 Active 2016 Not Available [facility] 3 15:01:28 History of left hip replacemen t 5246072297689 107 Active 2019 Not Available [facility] 3 15:01:28 Greater trochanter ic pain syndrome 5273151 Active 2019 Not Available [facility] 3 15:01:28 Spinal stenosis of lumbar region 57998790 Active 2019 Not Available [facility] 3 15:01:28 Vitamin D deficiency 92583440 Active 2021 Not Available [facility] 3 15:01:28 History of polyp of colon 480415276 Active 2021 Not Available [facility] 3 15:01:28 Chronic obstructiv e pulmonary disease 34447055 Active 2021 Not Available [facility] 3 15:01:28 Asthma-chr onic obstructiv e pulmonary disease overlap syndrome 3815682655328 9107 Active 2022 Not Available [facility] 3 15:01:27 Dyspnea on exertion 04246694 Active 2022 Not Available [facility] 3 15:01:28 Chronic cough 30619193 Active 2022 Not Available [facility] 3 15:01:28 Osteoarthr itis of hip 127739958 Active 2022 Not Available [facility] 3 15:01:28 Pain of right hip joint 2707683219315 02 Active 2022 Not Available [facility] 3 15:01:28 Pain of left hip joint 4172607414577 00 Active 2022 Not Available [facility] 3 15:01:28 Osteoporos is 24506777 Active 2022 Not Available [facility] 3 15:01:28 Osteoarthr itis of right hip joint 7791008047165 07 Active 2022 Not Available [facility] 3 15:01:28 Candidiasi s of mouth 84026638 Active 2022 Not Available [facility] 3 15:01:28 Chronic bronchitis 98906675 Active 2022 Lissette Diaz, [facility] [address] [facility], [facility] [address], [place], [address] , [facility] 3 11:27:08 Osteoarthr itis 574450280 Active 2022 STELLA Gasca null, [place] [facility] 3 10:01:13 Chronic back pain 804600008 Active 2022 Teresa Connolly CMA null, [place] [facility] 3 15:46:59 Low back pain 150311191 Active 2022 STELLA Gasca null, [facility] 3 09:04:16 Cervical radiculopa thy 03883209 Active 2022 Genoveva Ezequiel NIRANJANTip null, [facility] 3 09:04:48 Essential hypertensi on 34310849 Active 2022 Massiel Carrillo MD [address], [place], [address] , [facility] 3 11:07:58 Neck pain 07808126 Active 2023 Massiel Carrillo MD [address], [address], [place], [address] , [facility] 4 16:35:59 Anxiety 51462827 Active 2023 Corrie Funk CMA null, [facility] 4 11:38:44 Spinal stenosis in cervical region 70993676 Active 2023 Teresa Connolly CMA null, [facility] 4 15:49:17 Gastroesop hageal reflux disease 390554609 Active 2023 Massiel Carrillo MD [address], [address], [place], [address] , [facility] 4 12:29:02 Sciatica 17701053 Active 2024 Corrie Funk CMA null, [facility] 5 11:05:34 Recurrent acute maxillary sinusitis Active 2024 Massiel Carrillo MD [address], [place], [address] , [facility] 5 10:46:13 Problem Notes None recorded. Procedures Surgical History Date Name Laterality Status Provider Name and Address Organization Details Recorded Time 3 Advanced Care Planning completed Paulette Salazar RN [facility] [employer] 04/26/2023 11:06:48 Imaging Results None recorded. Procedure [...] No t Available alprazolam 0.5 mg tablet Take 1 tablet 3 times a day by oral route. 2024 active Not Available Not Available Not Avai lable nicotine (polacrilex ) 4 mg gum Chew 1 piece of gum every 2 hours by oral route as needed for 30 days. active Not Available Not Available No t Available Kenalog 10 mg/mL suspension for injection In office injection administe red by the provider 10/04 completed [facility]: 0003- 0494- 20 Not Available Not Available Not Available hydrocodone 7.5 mg-acetamin ophen 325 mg tablet Take 1 tablet every 6 hours by oral route. 2024 active Not Available Not Available Not Avai lable pantoprazol e 40 mg tablet,eli yed release [...] a dose pack FOLLOW PACKAGE DIRECTION S 11/13 completed Not Available Not Available Not Available albuterol sulfate HFA 90 mcg/actuati on aerosol inhaler INHALE 2 PUFFS EVERY 4 HOURS NEEDED FOR WHEEZING active Not Available Not Available No t Available celecoxib 100 mg capsule TAKE 1 CAPSULE BY MOUTH DAILY 11/13 completed Not Available Not Available Not Available cefdinir 300 mg capsule TAKE 1 CAPSULE BY MOUTH EVERY 12 HOURS 11/13 completed Not Available Not Available Not Available amoxicillin 875 mg-potassiu m clavulanate 125 mg tablet TAKE 1 TABLET BY MOUTH EVERY 12 HOURS 11/13 completed Not Available Not Available Not Available [...] administe red by the provider 10/04 completed [facility]: 0409- 4276- [phone] Not Available Not Available [...] 1 TABLET BY MOUTH EVERY 12 HOURS 11/13 completed Not Available Not Available Not Available naloxone 4 mg/actuatio n nasal spray CALL 911. SPR CONTENTS OF ONE SPRAYER (0.1ML) INTO ONE NOSTRIL. REPEAT IN 2-3 MIN IF SYMPTOMS OF OPIOID EMERGENCY PERSIST, ALTERNATE NOSTRILS active Not Available Not Available No t Available roflumilast 250 mcg tablet 05/15 completed Not Available Not Available Not Available [facility] Aerosphere 160 mcg-9mcg-4. 8mcg/actuat ion HFA aerosol [...] Updated DateTime 5 167.64 cm 21.8 kg/m2 34539.9 7 g 77 /min 97 [degF] 94 % 94 % 120/60 mm[Hg] Yelena GRAJEDA - [facility] 5 10:33:48 Date Recorded Body height Body mass index (BMI) Body weight Heart rate Body temperature Oxygen saturation Oxygen saturation in Arterial blood by Pulse oximetry Systolic And Diastolic Provider Name and Address Organization Details Last Updated DateTime 4 170.18 cm 19.3 kg/m2 32433.8 6 g 76 /min 97.7 [degF] 95 % 95 % 120/60 mm[Hg] STELLA Duarte [place] [facility] [employer] [facility] 4 16:29:24 Date Recorded Body height Body mass index (BMI) Body weight Heart rate Body temperature Oxygen saturation Oxygen saturation in Arterial blood by Pulse oximetry Systolic And Diastolic Provider Name and Address Organization Details Last Updated DateTime 4 170.18 cm 19.4 kg/m2 89491.4 5 g 82 /min 97 [degF] 94 % 94 % 120/60 mm[Hg] Yelena Gray [facility] [employer] 4 11:46:42 Date Recorded Body height Body mass index (BMI) Body weight Heart rate Body temperature Oxygen saturation Oxygen saturation in Arterial blood by Pulse oximetry Systolic And Diastolic Provider Name and Address Organization Details Last Updated DateTime 5 167.64 cm 19.4 kg/m2 90059.8 8 g 80 /min 97 [degF] 95 % 95 % 138/60 mm[Hg] Yelena Gray [place] [employer] [facility] [employer] [facility] 5 10:53:44 Date Recorded Body height Body mass index (BMI) Body weight Heart rate Body temperature Oxygen saturation Oxygen saturation in Arterial blood by Pulse oximetry Systolic And Diastolic Provider Name and Address Organization Details Last Updated DateTime 4 170.18 cm 20 kg/m2 96288.8 2 g 78 /min 97.8 [degF] 98 % 98 % 112/62 mm[Hg] STELLA Duarte [place] [employer] [facility] [employer] 4 12:07:14 Social History Question Answer Notes LastModified by Organizat ion Details LastModified Time Tobacco Smoking Status Current Every Day Smoker Linda gutiérrez [facility] [employer] 11/05/2022 11:47:35 What Is Your Level Of Caffeine Consumption? Moderate [email or web address] Information not available 07/20/2022 What Was The Date Of Your Most Recent Tobacco Screening? 06/01/2022 [email or web address] Information not available 11/05/2022 What Is Your Current Pack Years? 30ormorepahuong cerna [email or web address] Information not available 11/05/2022 Do You Have Any Pets? Yes Information not available 11/05/2022 At What Age Did You Start Smoking Tobacco? 13 [email or web address] Information not available 11/05/2022 How Much Tobacco Do You Smoke? 1 PPD [id number] Information not available 07/07/2022 How Many Years Have You Smoked Tobacco? 43 Information not available 11/05/2022 Sex: Unknown Functional Status Question Answer Note LastModified by Organizat ion Details LastModified Time Do you use any illicit or recreational drugs? No [email or web address] Information not available 11/05/2022 What is your level of alcohol consumption? Occasional [email or web address] Information not available 07/20/2022 Are you currently employed? 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 Family History Nothing Reported Notes:Mother Living 79 years old has hx of [place] of [...] HAVE YOU BEEN HOSPITALIZED OR SEEN IN [facility] IN THE PAST YEAR ? N ATHEROSCLEROSIS [...] Brain Problems N HERPES N DEMENTIA N SEIZURES/EPILEPSY N HEADACHES/MIGRAINES N VASCULAR DISEASE N PACEMAKER N Blood Disorder N DIZZINESS N KIDNEY DISEASE N HEART DISEASE/HEART PROBLEMS N MULTIPLE SCLEROSIS N CARDIAC ARRHYTHMIA N CANCER: SPECIFY Y Gall Stones N ATRIAL FIBRILLATION Y PULMONARY EMBOLISM N AUTOIMMUNE DISEASE N Gynecological HistoryNo gynecological history recorded. Obstetrics History GPAL:G 0 P 0 0 0 0 Immunizations Vaccine Type Date Status Note Provider Nam e and Address Organization Details Recorded Time influenza, unspecified formulation 3 completed TARAS Villar [place] [facility] 04/26/2023 10:59:55 Influenza, split virus, trivalent, preservative 4 completed Not Available [facility] 01/07/2023 08:12:48 Influenza, split virus, quadrivalent, preservative 0 completed Not Available [facility] 01/07/2023 08:12:48 COVID-19, mRNA, LNP-S, bivalent, PF, 30 mcg/0.3 mL dose 2 completed Not Available [facility] 01/07/2023 08:12:48 Influenza, split virus, quadrivalent, preservative 2 completed Not Available [facility] 01/07/2023 08:12:48 COVID-19, mRNA, LNP-S, PF, 30 mcg/0.3 mL dose 2 completed Not Available [facility] 01/07/2023 08:12:48 Influenza, adjuvanted, trivalent, PF 1 completed Not Available [facility] 01/07/2023 08:12:48 SARS-COV-2 (COVID-19) vaccine, UNSPECIFIED 1 completed Not Available [facility] 01/07/2023 08:12:48 SARS-COV-2 (COVID-19) vaccine, UNSPECIFIED 1 completed Not Available [facility] 01/07/2023 08:12:48 SARS-COV-2 (COVID-19) vaccine, UNSPECIFIED 1 completed Not Available [facility] 01/07/2023 08:12:48 Influenza, split virus, quadrivalent, preservative 9 completed Not Available [facility] 01/07/2023 08:12:48 Influenza, split virus, quadrivalent, PF 7 completed Not Available [facility] 01/07/2023 08:12:48 Influenza, split virus, quadrivalent, PF 8 completed Not Available [facility] 01/07/2023 08:12:48 Influenza, split virus, quadrivalent, PF 6 completed Not Available [facility] 01/07/2023 08:12:48 Influenza, split virus, quadrivalent, preservative 5 completed Not Available [facility] 01/07/2023 08:12:48 Past Encounters Encounter ID Performer Location Encounter Start Date Encounter Closed Date Diagnosis/Indication Diagnosis SNOMED-CT Code Diagnosis ICD10 Code Diagnosis IMO Codes Diagnosis Note [id number] Massiel Carrillo MD [facility] Internal Med Andrewvi llpollo [address] [place] [address] [place] [address] 10/10/2020 00:00:00 10/10/2020 11:04:56 [id number] Massiel Carrillo MD [facility] Internal Med Jaydon llpollo [address] [place] [address] [place] [address] 04/14/2021 00:00:00 04/14/2021 10:58:16 [id number] [facility] Jaydon llpollo [address] [place] [address] [place] [address] 10/20/2021 00:00:00 10/20/2021 11:02:04 [id number] Massiel Carrillo MD [facility] Internal Med Jaydon llpollo [address] [place] [address] [place] [address] 04/20/2022 00:00:00 04/20/2022 10:47:47 [id number] Lissette Diaz [facility] [address] [place] [address] 06/01/2022 00:00:00 06/01/2022 14:10:06 [id number] Lissette Diaz [facility] [address] [place] [address] 07/20/2022 09:58:02 07/20/2022 17:19:48 Asthma-chronic obstructive pulmonary disease overlap syndrome 4729115790 7026474 J44.9 PFT completed 11/2021 with moderate obstructio nRatio 41, FEV1 4427% improvemen t after BDContinue Breztri with aerochambe rInstructe d on useInstruc freya on frequency - BIDShe is aware to rinse and spit after useContinu e Albuterol PRN Dyspnea on exertion 6084 5006 R06.09 Improved with inhaled therapySmo [place] cessationA CE, IGGs, IGE, Quantifero n GOLD normalSix minute walk testing normal Sarcoidosis 22076476 D86 .9 CT chest 11/16/21:F INDINGS:He art: [...] cessation counseling and techniques reviewed at length. L iterature reviewed.A void triggers, support groups.Dis traction techniques Greater than 3 but less than 10 minutes spent discussing cessation. Declines NRT.Discus sed Rx options if needed in the future. [id number] Lissette Emily, [employer] Pul[facility] Brittaney Chaudhari [address] [place] [address] 08/17/2022 10:05:00 08/17/2022 16:23:22 Asthma-chronic obstructive pulmonary disease overlap syndrome 9526663587 6134193 J44.9 ACT 7CAT 28PFT completed 11/2021 with [...] GOLD normalSix minute walk testing normal Sarcoidosis 35647716 D86 .9 CT chest 11/16/21:F INDINGS:He art: [...] cessation counseling and techniques reviewed at length. L iterature reviewed.A void triggers, support groups.Dis traction techniques Greater than 3 but less than 10 minutes spent discussing cessation. Declines NRT.Discus sed Rx options if needed in the future. [id number] Massiel Carrillo MD [facility] Internal Med Jaydon dong [address] [facility] [place] [address] 10/26/2022 10:19:32 10/26/2022 10:46:13 Chronic obstructive pulmonary disease 95191428 J44.9 Pure hypercholesterolemia 669283215 E78.00 History of primary malignant neoplasm of kidney 563910900 Z85.528 Osteoarthritis of hip 23 6420721 M16.9 [id number] Ge Mattson MD [facility] Ortho Juda [address] [place] [address] 11/05/2022 11:44:46 11/08/2022 09:49:21 Pain of right hip joint 0399121819 66505 M25.551 Osteoporosis 01140893 M8 1.0 [id number] Lissette Diaz, [facility] Pulmonolo gy Juda [address] [place] [address] 11/17/2022 10:25:26 11/18/2022 08:46:25 Asthma-chronic obstructive pulmonary disease overlap syndrome 3637576304 1178193 J44.9 CAT 29PFT completed 11/2021 with moderate [...] GOLD normalSix minute walk testing normal Sarcoidosis 69036433 D86 .9 CT chest 11/16/21:F INDINGS:He art: [...] cessation counseling and techniques reviewed at length. L iterature reviewed.A void triggers, support groups.Dis traction techniques Greater than 3 but less than 10 minutes spent discussing cessation. Start nicotine gumDiscuss ed Rx options if needed in the future. Candidiasis of mouth 797 34174 B37.0 Start Nystatin [id number] Lissette Diaz, [employer] Pulmonolo [facility] Juda [address] [place] [address] 02/15/2023 10:37:59 02/15/2023 11:33:32 Asthma-chronic obstructive pulmonary disease overlap syndrome 1579785176 9470065 J44.9 CAT 33ACT 16PFT completed 11/2021 with moderate obstructio nRatio 41, FEV1 4427% improvemen t after BDRepeat PFT 12/2022 with severe obstructio n and good BD responseCo ntinue Breztri with aerochambe rContinue Albuterol PRN - discussed indication s for useDiscuss ed reportable signs and symptoms Chronic bronchitis 36123 004 J42 Start Azithromyc in three times per week Candidiasis of mouth 797 72019 B37.0 Start Nystatin Sarcoidosis 46537921 D86 .9 CT chest 11/16/21:F INDINGS:He art: [...] cessation counseling and techniques reviewed at length. L iterature reviewed.A void triggers, support groups.Dis traction techniques Greater than 3 but less than 10 minutes spent discussing cessation. Start nicotine gumDiscuss ed Rx options if needed in the future. [id number] Ge Mattson MD [facility] Ortho Juda [address] [place] [address] 03/23/2023 09:48:48 03/23/2023 13:52:30 Osteoarthritis 757498876 M16.11 [id number] Ge Mattson MD [facility] Ortho Juda [address] [facility] [address] [place] [address] 04/15/2023 08:53:46 04/15/2023 10:13:06 Low back pain 399098966 M54.50 Cervical radiculopathy 58738731 M54.12 [id number] Massiel Carrillo MD [facility] Internal Med [address] [place] [address] 04/26/2023 10:34:29 04/26/2023 11:21:18 Adult health examination 727197928 Z00.00 Depression screening 171 187795 Z13.31 Essential hypertension 76237257 I10 Atrial fibrillation 4943 6004 I48.91 History of primary malignant neoplasm of kidney 639448185 Z85.528 Chronic ob structive pulmonary disease 47374732 J44.9 [id number] Massiel Carrillo MD [facility] Internal Med [facility] [address] [facility], [facility] [address] [place] [address] 06/13/2023 16:21:39 06/13/2023 16:46:55 Neck pain 29586631 M54.2 [id number] Massiel Carrillo MD [facility] [address] [place] [address] [place] [address] 08/23/2023 11:27:58 08/23/2023 12:06:18 Chronic obstructive pulmonary disease 63175410 J44.9 Chronic pain syndrome 37 8753376 G89.4 Essential hypertension 09576009 I10 Pure hypercholesterolemia 562069413 E78.00 Long-term current use of opiate analgesic drug 4033661687 54599 Z79.695 [id number] Massiel Carrillo MD [facility] Internal Med [facility] [address] [place], [place] [address] [address] 12/27/2023 11:44:25 12/27/2023 12:39:10 Atrial fibrillation 53044370 I48.91 Anxiety 84186954 F41.9 Chronic ob structive pulmonary disease 80312540 J44.9 Essential hypertension 50537360 I10 Gastroesop hageal reflux disease 652217867 K21.9 Pure hypercholesterolemia 860420068 E78.00 [id number] Massiel Carrillo MD [facility] [place] [facility] Primary Care [facility] [address] [facility] [address] [place] [address] 05/15/2024 10:16:43 05/15/2024 14:05:50 Adult health examination [id number] Z00.00 Depression screening 171 655353 Z13.31 Essential hypertension 60294673 I10 Pure hypercholesterolemia 924909404 E78.00 History of primary malignant neoplasm of kidney 723564502 Z85.528 Osteoarthritis of hip 23 6691641 M16.9 Anxiety disorder 9559356 06 F41.9 Chronic ob structive pulmonary disease 02332693 J44.9 Gastroesop hageal reflux disease 952820716 K21.9 Vitamin D deficiency 347 01093 E55.9 [id number] Massiel Carrillo MD [facility] Internal Med [facility] [address] [facility] [address] [place] [address] 11/13/2024 10:35:07 11/13/2024 11:13:33 Cervical radiculopathy 18024584 M54.12 Chronic ob structive pulmonary disease 01991986 J44.9 Chronic pain syndrome 37 0989876 G89.4 Essential hypertension 35910210 I10 Pure hypercholesterolemia 111679905 E78.00 Osteoporosis 89394224 M8 1.0 Health Concerns Section Related Observation LastModified by Organization Detai ls LastModified Time None Recorded Concern Status LastModified by Organization Details LastModified Time None Recorded Advance Directives Directive None Recorded Payers Insurance Date Sequence Insurance Name Policy Number Policy Ruth Covered Member ID Ruth Member ID Guarantor Name 11/13/2024 1 [facility] (MEDICAID HMO) [id number] Gladys Todd [id number] Gladys Todd Notes Date Note Type Note Provider Name and Address Organization Details Recorded Time 4 text/html Patient Name: Gladys ToddDate Of Service: Tuesday ( 06.13.2023 ): 1965 Age: 57 Chief Complaint: Addressed in HPI Problems or conditions discussed in the HPI were the only ones reviewed during the encounter.Only social and family history addressed in the HPI were reviewed during this encounter. Attendant(s): NoneConstitutional and Systemic Symptoms:none Medication Reconciliation: from medication list. Yfaftyaxpko13/02/2023: Echocardiogram demonstrates a left ventricular ejection fraction [...] Two Puffs Bid Massiel Carrillo MD [address] [facility], [facility] [address], [place], [address], [facility] [employer] [facility] 06/13/2023 16:39:41 4 text/html Patient Name: Gladys [...] Systemic Symptoms:none Medication Reconciliation: from medication list. Amdllkwzwjv23/02/2023: Echocardiogram demonstrates a left ventricular ejection fraction [...] impairment partial correction of the alveolar volume. 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] 1 LivingFather Hx: JUSTO Carrillo MD [address] [facility], [facility] [address], [place], [address], [facility] 08/23/2023 12:03:44 4 text/html Patient Name: [...] Systemic Symptoms:none Medication Reconciliation: from medication list. Yqpxwywbdbg49/02/2023: Echocardiogram demonstrates a left ventricular ejection fraction [...] specific medication. Rate control: controlled ventricular response [id number] Criteria: hypertension and Age < 65 for [...] AEROSOL, METERED Two Puffs Bid Vaccination and Bekiyosvvfwd8704-95 Rjufufyaz4538-44 Covid Czqpao5920-85 Pneumovax Surgical Rqbpjyl5816-60 Esophageal Jqhmcldfrh6363-98 Left KAC7260-79 Right Nephrectomy Preventative Testing( ) 09/22/2023 Albumin [...] 1 LivingFather Hx: JUSTO Carrillo MD [address] [facility], [facility] [address], [place], [address], [facility] 12/27/2023 12:34:53 text/html Patient Name: Gladys Robertson Of Service: [...] Systemic Symptoms:none Medication Reconciliation: from medication list. Boxnfndiear46/02/2023: Echocardiogram demonstrates a left ventricular ejection fraction [...] specific medication. Rate control: controlled ventricular response [id number]-VBNg Criteria: Age < 65 and and considered low risk for embolic phenomenon. Anticoagulation: ASA per cardiology #4. Hx of DJD stable. No interval complaints of any additional joint pain, swelling or redness. Joints most involved include hips. Medications: Independence The DJD does interfere with ADL and [...] METERED Two Puffs Bid Vaccination and Immunization(X) 2007- PNEUMOVAX PREVNAR 20 Needed(X) 2022- INFLUENZA(X) 2022- [facility] Wbgzdhc2621-23 Esophageal Dxfcihessh4524-25 Left QNE5993-24 Right Nephrectomy Preventative Testing( ) 09/22/2023 Albumin [...] 0.50-1.03 MG/DLEGFR 97 > OR = 60 ML/MIN/1.60V3ZWDHKGC 9.3 8.6-10.4 MG/DLBILIRUBIN, TOTAL 0.3 0.2-1.2 MG/DLALKALINE PHOSPHATASE 73 37-153 U/LAST 19 10-35 U/LALT 16 6-29 U/LLIPID PANEL, STANDARD Date: 4CHOLESTEROL, TOTAL 202 <200 MG/DLHDL CHOLESTEROL 114 > OR = 50 MG/DLTRIGLYCERIDES 69 <150 MG/DLLDL-CHOLESTEROL 73 MG/DL (CALC)T4, FREE Date: 09/22/2023T4, FREE 1.2 0.8-1.8 NG/DLTSH Date: 09/22/2023TSH 0.49 0.40-4.50 MIU/L Massiel Carrillo MD [address] [facility], [facility] [address], [place], [address], [facility] 05/15/2024 10:55:46 5 text/html Patient Name: Gladys Robertson Of Service: Tuesday ( 11.13.2024 ): 1965 Age: 59 There has been approximately a 14.5 lb weight loss since 05/15/2024. This represents approximately a 10.7% change in weight. Weight change attributable to lifestyle changes. Vital Signs:Blood Pressure: Sitting Rt. Arm 138/60Pulse: Sitting 80 /min and RegularRespiratory Rate: 16Height 66 in or 1.7 mWeight 120.5 lb or 54.7 kgBMI 19.4Temperature: 97 F or 36.1 CPulse Oximetry: 95 % at rest on no oxygen Chief Complaint: Addressed in HPI Problems or conditions discussed in the HPI were the only ones reviewed during the encounter.Only social and family history addressed in the HPI were reviewed during this encounter. Attendants(s) + NoneConstitutional and Systemic Symptoms:none Medication Reconciliation: from medication list. Wtcgcegqwlh17/09/2023: PFT's demonstrates extremely severe obstructive ventilatory impairment [...] constitutional symptoms. Gold Scale: Severe. MRC Scale: only strenuous activity. Smoking: not currently smoking Current medications: Breztri, [...] liver changes with medications. Last lipid panel: cholesterol and LDL suboptimal but HDL is good. Therapy reviewed regarding treatment of cholesterol management and include diet and Lipitor. #4. osteoporosis. No new complaints of any additional back,hip or other musculoskeletal complaints related to the osteoporosis. No hx of any recent trauma. Currently taking OsCal-D and Fosamax. Has no DEXA scan for more than 1.5 years. The FRAX Score for Hip Fracture is NA hx osteoporosis FRAX score for major fractures NA hx of osteoporosis #5. History of cervical radiculopathy clinically stable. No interval complaints of any additional symptoms. Is being followed by pain management. Has been seen by Neurosurgery as well. And they recommend any epidural injections.: #6. Chronic pain management for chronic cervical, lumbar and knees Since last examination somewhat improved Interval Testing: noneHas tried NSAIDS partial relief requiring additional medication. Pain Description: constant, exacerbated by activity and interferes with enjoyment and ability to perform activities of daily living. Currently seeing or has seen in the past a Solar Installation Manager: Yes .Pain - Enjoyment of Life - General Activity ScalePain on Average: 5Enjoyment of Live: 4General Activity: 5Enjoyment of Life - General Activity Scale: 4Currently regimen consists of medications and intermittently as prescribed with no evidence of abuse [...] to patient or not available in our location. Once again address the possibility that these medications may cause some cognitive impairment at times. Has noticed no cognitive impairment. Instructed to let us know if any of the conditions arise I will need to consider reducing or stopping certain medication.Will kept medications the same.Urine Testing: not indicated and this time.Controlled substance database yes and no discrepancies or [...] UG; UG AEROSOL, METERED Two Puffs Bid Adverse Drug Reactions ReviewedNo Known Adverse Drug Reactions! Vaccination and Immunization (X) 2008-02 PNEUMOVAX PREVNAR 20 Needed(X) 2023-02 INFLUENZA(X) 2023-02 OgorodImmunizations and Vaccinations Discussed and Implemented if feasible In the Office. Else referred to pharmacies. Surgical History 2024-09 C3,C4,C5.C6 Nerve Mtjzbk4866-75 Rt. CGP5858-90 Esophageal Lyxjxjkkxf0031-84 Left UCB9783-92 Right Nephrectomy Preventative Testing ( ) 08/15/2024 Albumin 4.1 G/DL N( ) 08/15/2024 Mammogram 08/15/2025( ) 02/06/2022 Upper Endoscopy( ) 02/05/2022 Colonoscopy ( 5 Years ) 02/05/2027(X) 11/16/2021 LDCT 11/16/2022(X) 10/27/2020 DEXA Scan 10/27/2022reventative Testing Discussed and Scheduled if Acceptable to Patient Social HistorySOCIAL HISTORY:Smoking Hx: 1 packs of cigarettes per day for over 30 years.Drinking Hx: < 6 beers per week, > 24 oz of coffee per day.Exercise: InfrequentlySexual Hx: Sexually Active Family HistoryFAMILY HISTORY:Mother Living 79 years old has hx of Ca of breastFather 51 years old1 Sisters 1 LivingFather Hx: ASHD TEST RESULT RANGE UNITSCBC (INCLUDES DIFF/PLT) Date: 08/15/2024WHITE BLOOD CELL COUNT 13.5 3.8-10.8 THOUSAND/ULHEMOGLOBIN 10.9 11.7-15.5 G/DLHEMATOCRIT 33.5 35.0-45.0 %PLATELET COUNT 755 140-400 THOUSAND/ULCOMPREHENSIVE METABOLIC PANEL Date: 08/15/2024SODIUM 140 135-146 MMOL/LPOTASSIUM 4.6 3.5-5.3 MMOL/LGLUCOSE 85 65-139 MG/DLUREA NITROGEN (BUN) 10 7-25 MG/DLCREATININE 0.70 0.50-1.03 MG/DLEGFR 100 > OR = 60 ML/MIN/1.03X8MYKIZELUK, TOTAL 0.4 0.2-1.2 MG/DLALKALINE PHOSPHATASE 94 37-153 U/LAST 17 10-35 U/LALT 14 6-29 U/LLIPID PANEL, STANDARD Date: 08/15/2024HOLESTEROL, TOTAL 205 <200 MG/DLHDL CHOLESTEROL 98 > OR = 50 MG/DLTRIGLYCERIDES 83 <150 MG/DLLDL-CHOLESTEROL 90 MG/DL (CALC)MAGNESIUM Date: 08/15/2024MAGNESIUM 1.9 1.5-2.5 MG/DLT4, FREE Date: 08/15/2024T4, FREE 1.3 0.8-1.8 NG/DLTSH Date: 08/15/2024TSH 0.12 0.40-4.50 MIU/LVITAMIN B12 Date: 08/15/2024VITAMIN B12 [phone] PG/MLVITAMIN D,25-OH,TOTAL,IA Date: 08/15/2024VITAMIN D,25-OH,TOTAL,IA 74 30-100 NG/ML Msasiel Carrillo MD [address] [facility], [facility] [address], [place], [address], [place] [facility] [employer] [facility] 11/13/2024 11:08:41 OBGyn Episode No OBEpisode recorded.
--- OUTSIDE RECORDS SUMMARY | 2025-03-18 07:49 | XMS_ITS | Encounter Summary ---
Author Organization [facility] Facility Care Team Providers Care Freelance Writer Name Role Phone Christopher Carrillo MD Primary Care Provider Encounter Details Date Type Department Care Team (Latest Contact Info) Description 05/06/2015 Orders Only [facility] CLINCONV ProviderVenkat MD [address] [place] [id number] Social History Tobacco Use Types Packs/Day Years Used Date Smoking Tobacco: Never Assessed Comments Unknown Sex and Gender Information Value Date Recorded Sex Assigned at Not on file Legal Sex Female 1:56 AM SHELVING SUPERVISOR Gender Identity Female 09/09/2023 12:40 PM CDT Sexual Orientation Straight 09/09/2023 12 :40 PM CDT documented as of this encounter Plan of Treatment Not on file documented as of this encounter Procedures Procedure Name Priority Date/Time Associated Diagnosis Comments PROCEDURE - RESULT 05/06/2015 12 :00 AM SHELVING SUPERVISOR documented in this encounter Results * PROCEDURE - RESULT (05/06/2015 12:00 AM SHELVING SUPERVISOR) Narrative 05/06/2015 12:00 AM SHELVING SUPERVISOR Ordered by an unspecified provider. Historical Provider Final Res ult documented in this encounter Visit Diagnoses Not on filedocumented in this encounter Care Teams Freelance Writer Relationship Specialty Start Date End Date Christopher Carrillo MD [address] [facility] [address] PCP - General Internal Medicine 07/13/23 documented as of this encounter
--- OUTSIDE RECORDS SUMMARY | 2025-03-18 07:49 | XMS_ITS | Clinical Summary ---
Author Organization [facility] Office Building [address] Address [address] [place] [address] Care Team Providers Care Distribution Engineer Name Role Phone Christopher Carrillo MD Primary Care Provider Allergies No known active allergies Medications multivit,dalton,mn- iqyrb-Q2-oikul (One A Day Men Complete) 240-25-300 mcg [...] (25 mg total) by mouth daily Active albuterol HFA (ProAir HFA) 90 mcg/actuation inhaler Inhale 2 puffs every 4 (four) hours as needed for wheezing 8.5 g 11 4 025 Active roflumilast (DALIRESP) 500 mcg tabletIndication s:Prevention of Bronchospasm with Chronic Bronchitis Take 1 tablet (500 mcg total) by mouth daily 30 tablet 11 5 Active albuterol-budeso nide 90-80 mcg/actuation HFA aerosol inhalerIndicatio ns:Asthma-COPD overlap syndrome (HCC) Inhale 2 puffs every 4 (four) hours as needed (cough, wheezing, shortness of breath) 1 g 11 5 026 Active budesonide-glyco pyr-formoterol (Breztri Aerosphere) 160-9-4.8 mcg/actuation inhaler INHALE 2 PUFFS BY MOUTH TWICE DAILY 10.7 g 11 5 Active Active Problems Problem Noted [...] Encounters Date Type Department Care Team Description 03/08/2025 10:59 AM CDT - 03/08/2025 11:59 PM CDT Hospital Encounter [facility] [address] [place] [address] Cigarette nicotine dependence in remission Discharge Disposition: Discharge to home or self care 03/06/2025 Telephone [facility] [address] [place] [address] Lissette Ron RN 02/04/2025 Telephone [facility] at [address] [place] [phone] Amber Peralta LPN 02/04/2025 Orders Only [facility] at [address] [place] [phone] Amber Peralta LPN from Last 3 Months Surgical History Surgery [...] Asthma COPD (chronic obstructive pu lmonary disease) Asthma-COPD overlap syndrome (HCC) 07/23/2024 Sarcoidosis 07/23/2024 [...] on file Legal Sex Female 1:56 AM REHAB ASSISTANT Gender Identity Female 09/09/2023 12:40 PM CDT [...] CDT Inhaled Oxygen Concentration - - Weight 55.8 kg (123 lb) 03/08/2025 11:17 AM CDT Height 167.6 cm (5' 6) 03/08/2025 11:17 AM CDT Body Mass Index 19.85 03/08/2025 11:17 AM CDT Plan of Treatment Health Maintenance Due Date Last Done Comments Breast Cancer Screening-Mammogram 1965 Cervical Cancer Screening 1964 Colon Cancer Screening-Colonoscopy 1964 Depression Screening 1964 Hepatitis C Screening 1964 DTaP/Tdap/Td Vaccine (1 - Tdap) 10/16/1975 Hepatitis B Screening 1982 Regular Well Visit/Exam 18-64 1982 Zoster Vaccine (1 of 2) 2014 Covid-19 Vaccine ( - 2024-2 6 season) 2025 02/10/2023, 02/12/2022, 10/02/2021, Additional history exists Influenza Vaccine (#1) 2025 , 02/10/2023, 02/12/2022, Additional history exists Lung Cancer Screening 03/09/2026 03/08/2025 , 03/02/2024, 11/28/2023 Pneumococcal vaccine <65 Completed 12/21/2022 Procedures Procedure Name Priority Date/Time Associated Diagnosis Comments CT LUNG CANCER SCREENING Schedule Routine, Read Routine (OP Routine) 03/08/2025 11:17 AM CDT Cigarette nicotine dependence in remission from Last 3 Months Results * CT Lung Cancer Screening (03/08/2025 11:17 AM CDT) Anatomical Region Laterality Modality Chest N/A Computed Tomogra phy 03/08/2025 2:36 PM CDT Impressions 03/08/2025 2:36 PM CDT 1. Grossly stable right middle lobe primary nodule measuring 0.2 cm. No definite evidence of a new suspicious pulmonary nodule. 2. Moderate to severe emphysematous changes of lungs with scattered subsegmental atelectasis and scarring. 3. Scattered mild bronchial wall thickening, which is likely related to mild chronic bronchitis/bronchiolitis. LungRADS Category 2 (benign) . Recommend Low dose Screening CT of chest in 12 months. LungRADS Categories: 1 - Negative (no nodules, or only benign calcified or fat-containing nodules) 2 - Benign Appearance or Behavior (nodules with very low likelihood of becoming a clinically active cancer due to size or lack of growth) 3 - Probably Benign (probably benign findings-short term follow up suggested; includes nodules with a low likelihood of becoming a clinically active cancer) 4A,4B,4X - Suspicious (category 3 or 4 nodules with findings for which additional diagnostic testing and/or tissue sampling is recommended) S - Other (clinically significant or potentially clinically significant findings (non-lung cancer) C - Prior Lung Cancer (modifier for patients with a prior diagnosis of lung cancer who return to screening) LungRADS Categories: 1 - Negative (no nodules, or only benign calcified or fat-containing nodules) 2 - Benign Appearance or Behavior (nodules with very low likelihood of becoming a clinically active cancer due to size or lack of growth) 3 - Probably Benign (probably benign findings-short term follow up suggested; includes nodules with a low likelihood of becoming a clinically active cancer) 4A,4B,4X - Suspicious (category 3 or 4 nodules with findings for which additional diagnostic testing and/or tissue sampling is recommended) S - Other (clinically significant or potentially clinically significant findings (non-lung cancer) C - Prior Lung Cancer (modifier for patients with a prior diagnosis of lung cancer who return to screening) Electronically signed by: Rigoberto Donovan 03/08/2025 2:36 PM CDT EXAM: CT LUNG CANCER SCREENING ORDERING HEALTHCARE PROVIDER: LISSETTE DIAZ HISTORY: Lung Cancer Screening >= 20 pk yr smoking history, risk factor(s) (Age 50-77y). [address] of the chest in a former smoker with a 41 pack year smoking history. Additional history: History of renal cancer with right nephrectomy. TECHNIQUE: Low dose CT scan of the chest was performed without intravenous contrast using helical scanning technique. The exam extends from the lung apices through the lung bases. Automatic exposure control was used as a dose optimization technique. [NOTE: This study was performed for the specific purposes of lung cancer screening and is not an alternative to diagnostic chest CT.] RADIATION DOSE: CT dose index volume (CTDIvol) = 0.91 mGy COMPARISON: 03/02/2024 FINDINGS: SMOKING RELATED LUNG DISEASE: There are moderate to severe emphysematous changes of lungs with scattered subsegmental atelectasis and scarring. There is biapical pleural thickening and scarring. There is no definite evidence of a pneumothorax. There is scattered mild bronchial wall thickening, which is likely related to mild chronic bronchitis/bronchiolitis. There is no definite evidence of a focal consolidation or pleural effusion. There are scattered calcified granulomas noted. LUNG NODULES: There is a grossly stable 0.2 cm pulmonary nodule in the anteromedial right middle lobe (image 204). CORONARY ARTERY CALCIFICATION: Not identified. OTHER: The heart size is stable. Mitral valve annular calcifications are noted. There is no significant joint effusion. There are mild sclerotic changes of the thoracic aorta. There is no definite CT evidence of the mediastinal, hilar, or axillary lymphadenopathy. There are scattered subcentimeter mediastinal lymph nodes noted with the largest measuring 0.7 cm and subcarinal region (image 131). Scattered calcified mediastinal and right hilar lymph nodes are noted. There is a left Bochdalek hernia. The bilateral adrenal glands are grossly stable and unremarkable. Postsurgical changes of right nephrectomy are noted. There is mild osteopenia with degenerative changes of the spine. Procedure Note Cristiana Fish, - 03/08/2025 EXAM: CT LUNG CANCER SCREENING ORDERING HEALTHCARE PROVIDER: LISSETTE DIAZ HISTORY: Lung Cancer Screening >= 20 pk yr smoking history, risk factor(s) (Age 50-77y). Scre[address] of the chest in a former smoker with a 41 pack year smoking history. Additional history: History of renal cancer with right nephrectomy. TECHNIQUE: Low dose CT scan of the chest was performed without intravenous contrast using helical scanning technique. The exam extends from the lung apices through the lung bases. Automatic exposure control was used as a dose optimization technique. [NOTE: This study was performed for the specific purposes of lung cancer screening and is not an alternative to diagnostic chest CT.] RADIATION DOSE: CT dose index volume (CTDIvol) = 0.91 mGy COMPARISON: 03/02/2024 FINDINGS: SMOKING RELATED LUNG DISEASE: There are moderate to severe emphysematous changes of lungs with scattered subsegmental atelectasis and scarring. There is biapical pleural thickening and scarring. There is no definite evidence of a pneumothorax. There is scattered mild bronchial wall thickening, which is likely related to mild chronic bronchitis/bronchiolitis. There is no definite evidence of a focal consolidation or pleural effusion. There are scattered calcified granulomas noted. LUNG NODULES: There is a grossly stable 0.2 cm pulmonary nodule in the anteromedial right middle lobe (image 204). CORONARY ARTERY CALCIFICATION: Not identified. OTHER: The heart size is stable. Mitral valve annular calcifications are noted. There is no significant joint effusion. There are mild sclerotic changes of the thoracic aorta. There is no definite CT evidence of the mediastinal, hilar, or axillary lymphadenopathy. There are scattered subcentimeter mediastinal lymph nodes noted with the largest measuring 0.7 cm and subcarinal region (image 131). Scattered calcified mediastinal and right hilar lymph nodes are noted. There is a left Bochdalek hernia. The bilateral adrenal glands are grossly stable and unremarkable. Postsurgical changes of right nephrectomy are noted. There is mild osteopenia with degenerative changes of the spine. IMPRESSION: 1. Grossly stable right middle lobe primary nodule measuring 0.2 cm. No definite evidence of a new suspicious pulmonary nodule. 2. Moderate to severe emphysematous changes of lungs with scattered subsegmental atelectasis and scarring. 3. Scattered mild bronchial wall thickening, which is likely related to mild chronic bronchitis/bronchiolitis. LungRADS Category 2 (benign) . Recommend Low dose Screening CT of chest in 12 months. LungRADS Categories: 1 - Negative (no nodules, or only benign calcified or fat-containing nodules) 2 - Benign Appearance or Behavior (nodules with very low likelihood of becoming a clinically active cancer due to size or lack of growth) 3 - Probably Benign (probably benign findings-short term follow up suggested; includes nodules with a low likelihood of becoming a clinically active cancer) 4A,4B,4X - Suspicious (category 3 or 4 nodules with findings for which additional diagnostic testing and/or tissue sampling is recommended) S - Other (clinically significant or potentially clinically significant findings (non-lung cancer) C - Prior Lung Cancer (modifier for patients with a prior diagnosis of lung cancer who return to screening) LungRADS Categories: 1 - Negative (no nodules, or only benign calcified or fat-containing nodules) 2 - Benign Appearance or Behavior (nodules with very low likelihood of becoming a clinically active cancer due to size or lack of growth) 3 - Probably Benign (probably benign findings-short term follow up suggested; includes nodules with a low likelihood of becoming a clinically active cancer) 4A,4B,4X - Suspicious (category 3 or 4 nodules with findings for which additional diagnostic testing and/or tissue sampling is recommended) S - Other (clinically significant or potentially clinically significant findings (non-lung cancer) C - Prior Lung Cancer (modifier for patients with a prior diagnosis of lung cancer who return to screening) Electronically signed by: Cristiana Fish D.O. Lissette Diaz NP IMG CT PROCEDURES Final Res ult from Last 3 Months Insurance [facility] [employer] OF DISABILITY [facility] Advance Directives For more information, please contact: [phone] Documents on File Type Date Recorded Patient Leather Sprayer Expl anation ADVANCE DIRECTIVE 06/04/2015 12:00 AM PIPO [employer] OF [employer] PROGRAMMER FINANCIAL/MEDICAL Care Teams Distribution Engineer Relationship Specialty Start Date End Date Christopher Carrillo MD [address] [facility] [address] [facility] [address] [place] [address] PCP - General Internal Medicine 07/13/23
--- OUTSIDE RECORDS SUMMARY | 2025-03-18 07:49 | XMS_ITS | Encounter Summary ---
Author Organization [facility] Care Team Providers Care Logistics And Planning Manager Name Role Phone Christopher Carrillo MD Primary Care Provider Encounter Details Date Type Department Care Team (Latest Contact Info) Description 05/29/2015 Orders Only [facility] Provider, MD Venkat [address] [place] [id number] Social History Tobacco Use Types Packs/Day Years Used Date Smoking Tobacco: Never Assessed Comments Unknown Sex and Gender Information Value Date Recorded Sex Assigned at Not on file Legal Sex Female 1:56 AM CALL PERSON Gender Identity Female 09/09/2023 12:40 PM CDT Sexual Orientation Straight 09/09/2023 12 :40 PM CDT documented as of this encounter Plan of Treatment Not on file documented as of this encounter Procedures Procedure Name Priority Date/Time Associated Diagnosis Comments SCAN - LABS 05/29/2015 12:00 AM CALL PERSON SCAN - LABS 05/29/2015 12:00 AM CALL PERSON PROCEDURE - RESULT 05/26/2015 12 :00 AM CALL PERSON documented in this encounter Results * SCAN - LABS (05/29/2015 12:00 AM CALL PERSON) Narrative 05/29/2015 12:00 AM CALL PERSON Ordered by an unspecified provider. Historical Provider Final Res ult * SCAN - LABS (05/29/2015 12:00 AM CALL PERSON) Narrative 05/29/2015 12:00 AM CALL PERSON Ordered by an unspecified provider. us Historical Provider Final Res ult * PROCEDURE - RESULT (05/26/2015 12:00 AM CALL PERSON) Narrative 05/26/2015 12:00 AM CALL PERSON Ordered by an unspecified provider. us Historical Provider Final Res ult documented in this encounter Visit Diagnoses Not on filedocumented in this encounter Care Teams Logistics And Planning Manager Relationship Specialty Start Date End Date Christopher Carrillo MD [address] [facility] [address] [place] [address] PCP - General Internal Medicine 07/13/23 documented as of this encounter
--- OUTSIDE RECORDS SUMMARY | 2025-03-18 07:49 | XMS_ITS | Clinical Summary ---
Author Organization [facility] Address [address] [address] Phone Care Team Providers Care Herpetology Teacher Name Role Phone Christopher Carrillo MD Primary Care Provider [phone] Cong Crews MD Unavailable [phone] Allergies No known active allergies Medications polyethylene [...] mg by mouth 3 times daily. Active Sidney 3 1200 MG Capsule Take 1 Cap [...] mouth daily. Active beta carotene (VITAMIN A) 70873 UNIT Capsule Take 25,000 Units by mouth [...] Sex Assigned at Female 06/27/2023 11:04 AM SPRAY RIG OPERATOR Legal Sex Female 9:33 PM CDT Gender Identity Female 06/27/2023 11:04 AM SPRAY RIG OPERATOR Sexual Orientation Straight 06/27/2023 11 :04 AM SPRAY RIG OPERATOR Occupation Industry Job Start Date Job End [...] Colorectal Cancer Screening 07/13/2021 Influenza Immunization (#1) 01/07/202502/06, 02/10/2023, 02/12/2022, Additional history exists SARS-COV-2 Immunization ( season) 2025 02/10/2023, 02/12/2022, 10/02/2021, Additional history exists Respiratory [...] this topic Insurance MEDICAID [place] Care Teams Herpetology Teacher Relationship Specialty Start Date End Date Christopher Carrillo MD [address] [facility] [address] [place] [address] PCP - General Internal Medicine 03/29/16 Cong Crews MD [address] [place] [id number] Consulting Physician Neurology 11/07/23
[2025-03-18 08:32] VITALS: BP 128/88; PULSE 98; RESP 18; TEMP 36.9; O2SAT 98
[2025-03-18 08:47] VITALS: BP 125/83; PULSE 74; RESP 14; O2SAT 96
[2025-03-18] MEDS: DEXAMETHASONE SODIUM PHOSP/PF 10 MG/ML 1 ML VIAL (08:49)
[2025-03-18 08:51] VITALS: BP 149/85; PULSE 70; RESP 20; O2SAT 96
[2025-03-18 09:01] VITALS: BP 127/82; PULSE 73; RESP 16; O2SAT 95
== END 2025-03-18 09:06 | disposition home or self-care (01) ==
LOC: ASC 07:47
PROVIDERS: PCP Internal Medicine; Visit Provider Anesthesiology Pain Medicine
PROC: (CPT 62321; principal; 2025-03-18 08:40)
DX: M48.02 Spinal stenosis, cervical region (principal)
CPT/HCPCS: 62321; 99199